=== PATIENT | female | born 1995 | race Caucasian/White ===

== ENCOUNTER → 2016-09-29 | Outpatient (CLI) | payer OTHER ==
[~2016-09-29] MED LIST: BCPILLS PO; CTP1X PO; CYM60 PO; HYDR1CAP85 PO; NRN300 PO
[2016-09-29 13:23] LABS: C-REACTIVE PROTEIN < 0.29 mg/dl (0-0.29); RHEUMATOID FACTOR < 10.0 U/mL (0-15)
== END | disposition home or self-care (01) ==
LOC: C.LAB1850 11:55
PROVIDERS: ATTEND Internal Medicine
DX: M25.551 Pain in right hip (principal); M25.552 Pain in left hip

== ENCOUNTER 2017-10-06 10:06 | Emergency (ER) | payer OTHER ==
[~2017-10-06] VITALS: Ht 162.6 cm; Wt 69.1 kg
[2017-10-06 10:20] VITALS: TEMP 36.9; Ht 162.6 cm; Wt 69.1 kg
--- NOTE | 2017-10-06 10:35 | EMERGENCY ROOM VISIT NOTE ---
History Report prepared by Judd: Mone Mccallum Under the Supervision of: Dr. Keshawn Pak M.D. First contact with patient: 10:23 Chief Complaint: ABDOMINAL PAIN Stated Complaint: RIB PAIN,NAUSEA, POSSIBLE GALL BLADDER History of Present Illness The patient is a 21 year old female who presents to the Emergency Room with complaints of sharp and constant pain in her RUQ beginning this morning. She reports she went to [facility] who sent her here. She states that when she takes a deep breath, she feels the pain radiating to her back. She currently has nausea but denies any chance of and is currently on control. She reports she typically gets her period every 3 months and her LNMP was in 2 months ago. Source of History: patient Onset: this morning Position: abdomen (RUQ) Quality: sharp Timing: constant Modifying Factors (Worsening): breathing Associated Symptoms: + nausea, + back pain Note: Negative chance of . Review of Systems See HPI for pertinent positives & negatives. A total of 10 systems reviewed and were otherwise negative. Past Medical & Surgical Medical Problems: (1) Depression (2) Hypokalemia Family History FHx: cancer Social History Smoking Status: Never Smoker Alcohol Use: none Drug Use: none Marital Status: single Housing Status: lives with family Occupation Status: student Current/Historical Medications Scheduled Control Pills ( Control Pills), 1 TAB PO DAILY Ciprofloxacin Hcl (Cipro), 1 TAB PO BID Fluconazole (Diflucan), 150 MG PO TW Ondasetron Odt (Zofran Odt), 4 MG SL Q6H Allergies Coded Allergies: Sulfamethoxazole w/Trimethoprim (Verified Allergy, Intermediate, itching, 10/06/17) Sulfa Drugs (Unverified Allergy, Unknown, ITCHING, 10/06/17) Physical Exam Vital Signs Date Time Temp Pulse Resp B/P (MAP) Pulse Ox O2 Delivery O2 Flow Rate FiO2 10/06/17 12:54 71 117/69 98 Room Air 10/06/17 11:48 76 16 104/63 98 Room Air 10/06/17 10:50 84 10/06/17 10:20 36.9 90 16 116/71 96 Room Air Physical Exam GENERAL: Awake, alert, well-appearing, in no acute distress HENT: Normocephalic, atraumatic. Oropharynx unremarkable. EYES: Normal conjunctiva. Sclera non-icteric. NECK: Supple. No nuchal rigidity. FROM. No JVD. RESPIRATORY: Clear to auscultation. CARDIAC: Regular rate, normal rhythm. Extremities warm and well perfused. Pulses equal. ABDOMEN: Soft, non-distended. Nontender in the RUQ. No rebound or guarding. No masses. RECTAL: Deferred. MUSCULOSKELETAL: Chest examination reveals no tenderness. The back is symmetrical on inspection without obvious abnormality. There is no CVA tenderness to palpation. No joint edema. LOWER EXTREMITIES: Calves are equal size bilaterally and non-tender. No edema. No discoloration. NEURO: Normal sensorium. No sensory or motor deficits noted. SKIN: No rash or jaundice noted. Medical Decision & Procedures ER Provider Diagnostic Interpretation: Radiology results as stated below per my review and radiologist interpretation: ABDOMEN LIMITED (US) HISTORY: Pain. Nausea. Pt c/o RUQ abd pain. COMPARISON: None. FINDINGS: Pancreas: The pancreas demonstrates a normal echotexture. Liver: Unremarkable. Gallbladder: No gallbladder wall thickening. No gallstones. CBD: 3 mm Right kidney: No hydronephrosis. IMPRESSION: No significant abnormality identified within the within the right upper quadrant. The above report was generated using voice recognition software. It may contain grammatical, syntax or spelling errors. Electronically signed by: Jonny Jaquez M.D. 10/06/2017 11:45 AM Dictated Date/Time: 10/06/2017 11:44 AM SINGLE VIEW CHEST CLINICAL HISTORY: Right upper quadrant abdominal pain. FINDINGS: An AP, portable, upright chest radiograph is compared to study dated 09/05/2013. The examination is degraded by portable technique and patient rotation. The cardiomediastinal silhouette is unremarkable. The lungs and pleural spaces are clear. No pneumothorax is seen. The bony thorax is grossly intact. Bilateral nipple piercings are noted. IMPRESSION: No active disease in the chest. Electronically signed by: Tevin Oneill M.D. 10/06/2017 12:03 PM Dictated Date/Time: 10/06/2017 12:03 PM KUB HISTORY: Right upper quadrant abdominal pain. COMPARISON: Abdomen and pelvis CT 04/01/2010. FINDINGS: The bowel gas pattern is unremarkable. There are no dilated loops of small bowel to suggest an obstruction. No renal calculi. No ureteral calculi. Calcifications in the deep pelvis likely represent phleboliths. Small amount of well-formed stool seen throughout the colon. No pneumoperitoneum or pneumatosis. IMPRESSION: 1. No evidence for bowel obstruction. 2. Small amount of well-formed stool seen within the colon. Electronically signed by: Felipe Adams M.D. 10/06/2017 11:09 AM Dictated Date/Time: 10/06/2017 11:07 AM Laboratory Results 10/06/17 10:45 Red Blood Count 4.62, Mean Corpuscular Volume 84.2, Mean Corpuscular Hemoglobin 29.2, Mean Corpuscular Hemoglobin Concent 34.7, Mean Platelet Volume 8.7, Neutrophils (%) (Auto) 79.4, Lymphocytes (%) (Auto) 14.6, Monocytes (%) (Auto) 4.9, Eosinophils (%) (Auto) 0.6, Basophils (%) (Auto) 0.2, Neutrophils # (Auto) 13.83, Lymphocytes # (Auto) 2.55, Monocytes # (Auto) 0.85, Eosinophils # (Auto) 0.11, Basophils # (Auto) 0.03 10/06/17 10:45 Test 10/06/17 10:40 10/06/17 10:45 10/06/17 10:51 10/06/17 10:52 Urine Color YELLOW Urine Appearance CLOUDY (CLEAR) Urine pH 6.0 (4.5-7.5) Urine Specific [place] 1.025 (1.000-1.030) Urine Protein NEG (NEG) Urine Glucose (UA) NEG (NEG) Urine Ketones NEG (NEG) Urine Occult Blood TRACE (NEG) Urine Nitrite NEG (NEG) Urine Bilirubin NEG (NEG) Urine Urobilinogen NEG (NEG) Urine Leukocyte Esterase TRACE (NEG) Urine WBC (Auto) 5-10 /hpf (0-5) Urine RBC (Auto) 5-10 /hpf (0-4) Urine Hyaline Casts (Auto) 1-5 /lpf (0-5) Urine Epithelial Cells (Auto) >30 /lpf (0-5) Urine Bacteria (Auto) 1+ (NEG) Urine Test NEG (NEG) White Blood Count 17.42 K/uL (4.8-10.8) Red Blood Count 4.62 M/uL (4.2-5.4) Hemoglobin 13.5 g/dL (12.0-16.0) Hematocrit 38.9 % (37-47) Mean Corpuscular Volume 84.2 fL (80-100) Mean Corpuscular Hemoglobin 29.2 pg (25-34) Mean Corpuscular Hemoglobin Concent 34.7 g/dl (32-36) Platelet Count 379 K/uL (130-400) Mean Platelet Volume 8.7 fL (7.4-10.4) Neutrophils (%) (Auto) 79.4 % Lymphocytes (%) (Auto) 14.6 % Monocytes (%) (Auto) 4.9 % Eosinophils (%) (Auto) 0.6 % Basophils (%) (Auto) 0.2 % Neutrophils # (Auto) 13.83 K/uL (1.4-6.5) Lymphocytes # (Auto) 2.55 K/uL (1.2-3.4) Monocytes # (Auto) 0.85 K/uL (0.11-0.59) Eosinophils # (Auto) 0.11 K/uL (0-0.5) Basophils # (Auto) 0.03 K/uL (0-0.2) RDW Standard Deviation 39.3 fL (36.4-46.3) RDW Coefficient of Variation 13.0 % (11.5-14.5) Immature Granulocyte % (Auto) 0.3 % Immature Granulocyte # (Auto) 0.05 K/uL (0.00-0.02) Est Creatinine Clear Calc Drug Dose 102.7 ml/min Estimated GFR () 117.7 Estimated GFR (Non- 101.6 BUN/Creatinine Ratio 11.6 (10-20) Calcium Level 9.0 mg/dl (8.5-10.1) Total Bilirubin 0.4 mg/dl (0.2-1) Aspartate Amino Transf (AST/SGOT) 10 U/L (15-37) Alanine Aminotransferase (ALT/SGPT) 15 U/L (12-78) Alkaline Phosphatase 74 U/L (45-117) Total Protein 7.6 gm/dl (6.4-8.2) Albumin 3.7 gm/dl (3.4-5.0) Globulin 3.9 gm/dl (2.5-4.0) Albumin/Globulin Ratio 0.9 (0.9-2) Bedside D-Dimer 278 ng/mlFEU (0-450) Bedside Hemoglobin 13.9 g/dl (12.0-16.0) Bedside Hematocrit 41 % (37-47) Bedside Sodium 140 mEq/L (135-144) Bedside Potassium 3.5 mEq/L (3.3-5.0) Bedside Chloride 103 mEq/L (101-112) Bedside Total CO2 22 mEq/l (24-31) Anion Gap 19.0 mmol/L (16-25) Bedside Blood Urea Nitrogen 9 mg/dl (7-18) Bedside Creatinine 0.7 mg/dl (0.6-1.3) Bedside Glucose (other) 102 mg/dl (70-99) Bedside Ionized Calcium (Kristine) 1.19 mmol/l (1.12-1.32) Labs reviewed by ED physician. Medications Administered Medications (Trade) Dose Ordered Sig/Christina Route Start Time Stop Time Status Last Admin Dose Admin Ceftriaxone Sodium (Rocephin Inj) 1 gm NOW STAT IV 10/06/17 11:08 10/06/17 11:11 DC 10/06/17 11:48 1 GM Sodium Chloride 1,000 ml @ 999 mls/hr Q1H1M STAT IV 10/06/17 11:10 10/06/17 12:10 DC 10/06/17 11:48 999 MLS/HR Ciprofloxacin (Cipro Tab) 500 mg NOW STAT PO 10/06/17 12:32 10/06/17 12:34 DC 10/06/17 13:23 500 MG Fluconazole (Diflucan Tab) 150 mg NOW STAT PO 10/06/17 12:32 10/06/17 12:34 DC 10/06/17 13:23 150 MG Magnesium Citrate (Citrate Of Magnesia Soln) 296 ml NOW STAT PO 10/06/17 12:32 10/06/17 12:34 DC 10/06/17 13:23 296 ML Ondansetron HCl (Zofran Odt) 4 mg STK-MED ONCE .ROUTE 10/06/17 13:16 10/06/17 13:17 DC 10/06/17 13:23 4 MG ECG Per My Interpretation Indication: abdominal pain Rate (beats per minute): 85 Rhythm: normal sinus Findings: no ectopy, other (no ST elevation or depression ) ED Course 1027: Past medical records reviewed. The patient was evaluated in room B10. A complete history and physical examination was performed. 1108: Rocephin Inj 1 gm IV 1110: Sodium Chloride 1000 ml @ 999 mls/hr IV 1232: Magnesium Citrate 296 ml PO Fluconazole 150 mg PO Zofran Inj 4 mg IV Cipro Tab 500 mg PO 1253: Upon reexamination the patient is agreeable and feeling better. I discussed results and treatment plan with the patient. She verbalizes agreement and understanding. The patient is ready for discharge. Medical Decision Differential diagnosis: Etiologies such as appendicitis, diverticulitis, PUD, biliary pathology, UTI, pancreatitis, obstruction, mesenteric ischemia, aortic pathology, infections, inflammatory bowel disease, renal colic, as well as others were entertained. This is a 21-year-old female that presents to emergency department complaining of right upper quadrant abdominal pain. The patient reports that hurts to take a deep breath and she is also on control. However she has a normal d- dimer with no evidence of pleural effusion on chest x-ray therefore my suspicion of PE is exceedingly low. The patient was sent for an ultrasound of her right upper quadrant along with her right kidney. I do suspect that this is a kidney infection as upon reexamination she is tender to the right CVA area. She also has an elevation in her white blood cell count and appears to have a large amount of white blood cells in her urine. The patient was started on Rocephin here in the emergency department and will be placed on Cipro pending urine culture results. The patient was also given Diflucan as she has a history of yeast infections. I stressed the need to return to the emergency department if she is unable to keep her medications down or she develops severe abdominal pain. I also offered to do a CAT scan for the patient however using shared medical decision making, the patient would like to try antibiotics at home. Patient was in agreement with the treatment plan. Medication Reconcilliation Current Medication List: was personally reviewed by me Blood Pressure Screening Patient's blood pressure: Normal blood pressure Blood pressure disposition: Did not require urgent referral Impression Primary Impression: Abdominal pain Additional Impression: UTI (urinary tract infection) Scribe Attestation The scribe's documentation has been prepared under my direction and personally reviewed by me in its entirety. I confirm that the note above accurately reflects all work, treatment, procedures, and medical decision making performed by me. Departure Information Dispostion Home / Self-Care Prescriptions Fluconazole (DIFLUCAN) 150 Mg Tab 150 MG PO TW, #3 TAB Prov: Keshawn Pak MD 10/06/17 Ondasetron Odt (ZOFRAN ODT) 4 Mg Tab 4 MG SL Q6H for Nausea, #6 TAB Prov: Keshawn Pak MD 10/06/17 Ciprofloxacin Hcl (CIPRO) 500 Mg Tab 1 TAB PO BID for 10 Days, #20 TAB Prov: Keshawn Pak MD 10/06/17 Referrals RV. Kang MD (PCP) Forms HOME CARE DOCUMENTATION FORM, IMPORTANT VISIT INFORMATION Patient Instructions [facility] Additional Instructions Take 1/2 bottle of Mag Citrate Repeat second half in six hours Must return if pain is out of control or uncontrolled vomiting Take 600 mg Ibuprofen every 6 hours for pain/fever Take 1000 mg Tylenol every 6 hours for pain/fever Culture results are usually available in approx 48 hours You have been examined and treated today on an emergency basis only. This is not a substitute for, or an effort to provide, complete comprehensive medical care. It is impossible to recognize and treat all injuries or illnesses in a single emergency department visit. It is therefore important that you follow up closely with Dr Young. Call as soon as possible for an appointment. Thank you for your time and consideration. I look forward to speaking with you again soon. Please don't hesitate to call us if you have any questions. Problem Qualifiers Primary Impression: Abdominal pain Abdominal location: unspecified location Qualified Codes: R10.9 - Unspecified abdominal pain Additional Impression: UTI (urinary tract infection) Urinary tract infection type: acute cystitis Hematuria presence: without hematuria Qualified Codes: N30.00 - Acute cystitis without hematuria
[2017-10-06 11:04] LABS: BASO % 0.2 %; BASO ABS # 0.03 K/uL (0-0.2); EOS % 0.6 %; EOS ABS # 0.11 K/uL (0-0.5); HEMATOCRIT 38.9 % (37-47); HEMOGLOBIN 13.5 g/dL (12.0-16.0); IG# 0.05 K/uL (0.00-0.02); LYMPH % 14.6 %; LYMPH ABS # 2.55 K/uL (1.2-3.4); MEAN CELL VOLUME 84.2 fL (80-100); MEAN CORPUSCULAR HEMOGLOBIN 29.2 pg (25-34); MEAN CORPUSCULAR HGB CONC 34.7 g/dl (32-36); MEAN PLATELET VOLUME 8.7 fL (7.4-10.4); MONO % 4.9 %; MONO ABS # 0.85 K/uL (0.11-0.59); NEUT % 79.4 %; NEUT ABS # 13.83 K/uL (1.4-6.5); PLATELET COUNT 379 K/uL (130-400); RED CELL DISTRIBUTION WIDTH SD 39.3 fL (36.4-46.3); WHITE BLOOD COUNT 17.42 K/uL (4.8-10.8)
[2017-10-06 11:05] LABS: ISTAT CREATININE 0.7 mg/dl (0.6-1.3); ISTAT IONIZED CALCIUM 1.19 mmol/l (1.12-1.32); ISTAT POTASSIUM 3.5 mEq/L (3.3-5.0)
[2017-10-06] MEDS ORDERED: CEFTRIAXONE SOD INJ 1 GM ADDVIAL IV STA (11:08)
[2017-10-06] MEDS ORDERED: SODIUM CHLORIDE 0.9% 1000ML 1,000 ML IV STA (11:10)
--- NOTE | 2017-10-06 11:11 | DIAGNOSTIC IMAGING REPORT ---
KUB HISTORY: Right upper quadrant abdominal pain. COMPARISON: Abdomen and pelvis CT 04/01/2010. FINDINGS: The bowel gas pattern is unremarkable. There are no dilated loops of small bowel to suggest an obstruction. No renal calculi. No ureteral calculi. Calcifications in the deep pelvis likely represent phleboliths. Small amount of well-formed stool seen throughout the colon. No pneumoperitoneum or pneumatosis. IMPRESSION: 1. No evidence for bowel obstruction. 2. Small amount of well-formed stool seen within the colon. Electronically signed by: Felipe Adams M.D. 10/06/2017 11:09 AM Dictated Date/Time: 10/06/2017 11:07 AM
[2017-10-06 11:26] LABS: CREATININE 0.82 mg/dl (0.60-1.20)
[2017-10-06 11:27] LABS: ALBUMIN 3.7 gm/dl (3.4-5.0); POTASSIUM 3.4 mmol/L (3.5-5.1)
[2017-10-06 11:29] LABS: TOTAL PROTEIN 7.6 gm/dl (6.4-8.2)
--- NOTE | 2017-10-06 11:46 | DIAGNOSTIC IMAGING REPORT ---
ABDOMEN LIMITED (US) HISTORY: Pain. Nausea. Pt c/o RUQ abd pain. COMPARISON: None. FINDINGS: Pancreas: The pancreas demonstrates a normal echotexture. Liver: Unremarkable. Gallbladder: No gallbladder wall thickening. No gallstones. CBD: 3 mm Right kidney: No hydronephrosis. IMPRESSION: No significant abnormality identified within the within the right upper quadrant. The above report was generated using voice recognition software. It may contain grammatical, syntax or spelling errors. Electronically signed by: Jonny Jaquez M.D. 10/06/2017 11:45 AM Dictated Date/Time: 10/06/2017 11:44 AM
--- NOTE | 2017-10-06 12:04 | DIAGNOSTIC IMAGING REPORT ---
SINGLE VIEW CHEST CLINICAL HISTORY: Right upper quadrant abdominal pain. FINDINGS: An AP, portable, upright chest radiograph is compared to study dated 09/05/2013. The examination is degraded by portable technique and patient rotation. The cardiomediastinal silhouette is unremarkable. The lungs and pleural spaces are clear. No pneumothorax is seen. The bony thorax is grossly intact. Bilateral nipple piercings are noted. IMPRESSION: No active disease in the chest. Electronically signed by: Tevin Oneill M.D. 10/06/2017 12:03 PM Dictated Date/Time: 10/06/2017 12:03 PM
[2017-10-06] MEDS ORDERED: FLUCONAZOLE 100 MG TAB PO STA (12:32)
[2017-10-06] MEDS ORDERED: ONDANSETRON INJ 2 MG/ML 2 ML VIAL IV STA (12:32)
[2017-10-06] MEDS ORDERED: MAGNESIUM CITRATE 296 ML/BTL PO STA (12:32)
[2017-10-06] MEDS ORDERED: CIPROFLOXACIN 500 MG TAB PO STA (12:32)
[2017-10-06] MEDS ORDERED: ONDA4TAB10 SL (12:41)
[2017-10-06] MEDS ORDERED: FLUC150T PO (12:41)
[2017-10-06] MEDS ORDERED: CIPR-255 PO (12:41)
[2017-10-06 12:54] VITALS: BP 117/69; PULSE 71; O2SAT 98
[2017-10-06] MEDS ORDERED: ONDANSETRON 4MG OD TAB ONE (13:16)
== END 2017-10-06 13:23 | disposition home or self-care (01) ==
LOC: C.EDB 10:08
DX: R10.11 Right upper quadrant pain (principal); N30.00 Acute cystitis without hematuria; F32.9 Major depressive disorder, single episode, unspecified; E87.6 Hypokalemia; Z80.9 Family history of malignant neoplasm, unspecified; Z79.3 Long term (current) use of hormonal contraceptives; Z88.2 Allergy status to sulfonamides

== ENCOUNTER → 2017-11-01 | Outpatient (CLI) | payer OTHER ==
[~2017-11-01] MED LIST changes: +CIPR-255 PO; -CTP1X PO; -CYM60 PO; -HYDR1CAP85 PO; -NRN300 PO; +ONDA4TAB10 SL
[2017-11-01 09:38] LABS: BASO % 0.2 %; BASO ABS # 0.02 K/uL (0-0.2); EOS % 2.9 %; EOS ABS # 0.31 K/uL (0-0.5); HEMATOCRIT 37.1 % (37-47); HEMOGLOBIN 12.7 g/dL (12.0-16.0); IG# 0.02 K/uL (0.00-0.02); LYMPH % 24.3 %; MEAN CELL VOLUME 85.3 fL (80-100); MEAN CORPUSCULAR HEMOGLOBIN 29.2 pg (25-34); MEAN CORPUSCULAR HGB CONC 34.2 g/dl (32-36); MEAN PLATELET VOLUME 9.7 fL (7.4-10.4); MONO % 6.3 %; MONO ABS # 0.68 K/uL (0.11-0.59); NEUT % 66.1 %; NEUT ABS # 7.09 K/uL (1.4-6.5); PLATELET COUNT 389 K/uL (130-400); RED CELL DISTRIBUTION WIDTH CV 13.1 % (11.5-14.5); RED CELL DISTRIBUTION WIDTH SD 40.9 fL (36.4-46.3); WHITE BLOOD COUNT 10.72 K/uL (4.8-10.8)
[2017-11-01 09:48] LABS: ALBUMIN 3.4 gm/dl (3.4-5.0); ALT/SGPT 13 U/L (12-78); AST/SGOT 9 U/L (15-37); BLOOD UREA NITROGEN 12 mg/dl (7-18); CALCIUM 8.7 mg/dl (8.5-10.1); CARBON DIOXIDE 24 mmol/L (21-32); CHOLESTEROL 185 mg/dl (0-200); CREATININE 0.67 mg/dl (0.60-1.20); GLUCOSE 87 mg/dl (70-99); POTASSIUM 3.7 mmol/L (3.5-5.1); SODIUM 136 mmol/L (136-145)
[2017-11-01 09:56] LABS: ALKALINE PHOSPHATASE 62 U/L (45-117); LDL CHOLESTEROL CALCULATED 120 mg/dl; TOTAL PROTEIN 7.1 gm/dl (6.4-8.2)
== END | disposition home or self-care (01) ==
LOC: C.LAB1850 06:52
PROVIDERS: ATTEND Internal Medicine
DX: D72.829 Elevated white blood cell count, unspecified (principal); R10.11 Right upper quadrant pain; F39 Unspecified mood [affective] disorder; Z13.220 Encounter for screening for lipoid disorders

== ENCOUNTER → 2017-12-06 | Outpatient (CLI) | payer OTHER | END | disposition home or self-care (01) | LOC: C.LABSPEC 10:53 | PROVIDERS: ATTEND Obstetrics & Gynecology | DX: Z11.3 Encounter for screening for infections with a predominantly sexual mode of transmission (principal) ==

== ENCOUNTER 2017-12-19 18:00 | Observation (INO) | payer OTHER ==
[~2017-12-19] VITALS: Ht 162.6 cm; Wt 70.0 kg
[2017-12-19] MEDS ORDERED: SODIUM CHLORIDE 0.9% 1000ML 1,000 ML IV STA ×2 (18:16→20:30)
--- NOTE | 2017-12-19 18:21 | EMERGENCY ROOM VISIT NOTE ---
History Report prepared by Judd: Aniceto Rudolph Under the Supervision of: Dr. Kodak Stallings M.D. First contact with patient: 18:08 Chief Complaint: NECK PAIN Stated Complaint: SWOLLEN NECK VERY SORE History of Present Illness The patient is a 21 year old female who presents to the Emergency Room with complaints of constant right-sided neck swelling beginning three days ago. The patient states she felt it was tender, but she did not notice the swelling until her significant other noticed it. She reports breathing in deeply increases her symptoms. The patient notes she felt like she slept on it wrong, so she did not get evaluated until today. She states she was evaluated by [facility] earlier, was sent to her PCP, and then sent to the ED. The patient reports she takes Lamictal and was just started on Ativan for anxiety and sleeping purposes. She notes she takes it once a day. The patient denies chest pain, fevers, swelling in her legs, pain in her teeth, pain in her jaw, lumps anywhere else, recent injury, and recent falls. She also denies a family history of thyroid problem or throat cancers. Source of History: patient Onset: three days ago Position: neck (right side) Quality: other (swelling) Timing: constant Modifying Factors (Worsening): breathing (deeply) Associated Symptoms: No fevers, No chest pain Note: Denies: pain in her teeth, pain in her jaw, lumps anywhere else, recent injury, swelling in her legs, and recent falls. Review of Systems See HPI for pertinent positives & negatives. A total of 10 systems reviewed and were otherwise negative. Past Medical & Surgical Medical Problems: (1) Depression (2) Hypokalemia Family History FHx: cancer Social History Smoking Status: Former Smoker Alcohol Use: none Drug Use: none Marital Status: single Housing Status: lives with family Occupation Status: student Current/Historical Medications Scheduled Control Pills ( Control Pills), 1 TAB PO DAILY Lamotrigine (Lamictal), 25 MG PO DAILY Lorazepam (Ativan), 1 MG PO HS Allergies Coded Allergies: Sulfamethoxazole w/Trimethoprim (Verified Allergy, Intermediate, itching, 12/19/17) Sulfa Drugs (Verified Allergy, Unknown, ITCHING, 12/19/17) Physical Exam Vital Signs Date Time Temp Pulse Resp B/P (MAP) Pulse Ox O2 Delivery O2 Flow Rate FiO2 5/22/18 20:58 95 18 122/69 98 Room Air 12/19/17 19:41 84 16 90/73 100 Room Air 12/19/17 18:04 36.9 107 20 125/69 97 Room Air Physical Exam GENERAL: Patient is anxious appearing and in mild distress. EYES: No scleral icterus, unremarkable pupils. ENT: Mucous membranes moist, no nasal congestion. Slightly irregular soft mass over the mid-lateral right clavicle which is moderately tender to palpation. No overlying erythema. Extends up the neck several centimeters. NECK: No masses appreciated, no meningismus, trachea is midline. RESPIRATORY: No dyspnea. Clear to auscultation and equal bilaterally. No wheeze , no rhonchi. CARDIOVASCULAR: Mild tachycardia rate and regular rhythm. No murmurs, rubs, gallops appreciated. GASTROINTESTINAL: Abdomen soft, nontender, no peritonitis. Bowel sounds positive. No masses appreciated. BACK: No midline tenderness, no CVA tenderness EXTREMITIES: Normal motion all extremities, no cyanosis, no edema. NEUROLOGIC: Alert and oriented, no acute motor or sensory deficits, no focal weakness, cranial nerves grossly intact. SKIN: No rash, no jaundice, no diaphoresis. Medical Decision & Procedures ER Provider Diagnostic Interpretation: CT results as stated below per interpretation by me and the radiologist: SOFT TISSUE NECK WITH CLINICAL HISTORY: 21 years-old Female presenting with Swelling over mid/lateral portion rt clavicle extending up neck. TECHNIQUE: Multidetector CT of the neck was performed after the administration of intravenous contrast. IV contrast: 93 mL of Optiray 320. A dose lowering technique was used consistent with the principles of ALARA (as low as reasonably achievable). COMPARISON: None. CT DOSE (mGy.cm): The estimated cumulative dose is 459.97 mGycm. FINDINGS: Shopper Marketing Manager topogram: Unremarkable. A marker is in place over the right base of the neck. Subjacent to this, minimal subcutaneous edema and skin thickening noted. No thickening of the platysma muscle. There is significant right supraclavicular lymphadenopathy. One index lymph node measures 3.3 x 2.1 cm (series 3 image 182). A second index lymph node measures 2.6 x 1.9 cm (series 3 image 168). There is also an enlarged and suspicious-appearing lymph node in the left supraclavicular fossa though this is subcentimeter in the short axis measuring 9 mm (series 3 image 179). The axilla are only partially visualized and are grossly normal though incompletely evaluated. There is also significant mediastinal lymphadenopathy with large conglomerate right paratracheal lymph nodes with involvement of all the visualized mediastinal regions. Again this is incompletely evaluated. Lung apices clear. Osseous structures normal. Limited intracranial evaluation normal. Paranasal sinuses and mastoid air cells clear. Vasculature patent. Airway patent. Parotid, submandibular, and thyroid glands normal apart from a diminutive right thyroid lobe nodule (series 3 image 152). IMPRESSION: Significant right supraclavicular and mediastinal lymphadenopathy, which is highly concerning for lymphoma or metastatic disease. The left supraclavicular region may also be involved. The mediastinum is incompletely evaluated and dedicated chest CT is recommended. The report will be called/faxed according to standard departmental protocol. Electronically signed by: Santo Rascon M.D. 12/19/2017 7:46 PM Dictated Date/Time: 12/19/2017 7:42 PM Laboratory Results 12/19/17 18:45 Red Blood Count 4.12, Mean Corpuscular Volume 83.7, Mean Corpuscular Hemoglobin 28.6, Mean Corpuscular Hemoglobin Concent 34.2, Mean Platelet Volume 8.6, Neutrophils (%) (Auto) 76.1, Lymphocytes (%) (Auto) 16.8, Monocytes (%) (Auto) 5.5, Eosinophils (%) (Auto) 1.2, Basophils (%) (Auto) 0.1, Neutrophils # (Auto) 13.85, Lymphocytes # (Auto) 3.06, Monocytes # (Auto) 1.00, Eosinophils # (Auto) 0.21, Basophils # (Auto) 0.02 12/19/17 18:45 Test 12/19/17 18:45 12/19/17 18:50 White Blood Count 18.20 K/uL (4.8-10.8) Red Blood Count 4.12 M/uL (4.2-5.4) Hemoglobin 11.8 g/dL (12.0-16.0) Hematocrit 34.5 % (37-47) Mean Corpuscular Volume 83.7 fL (80-100) Mean Corpuscular Hemoglobin 28.6 pg (25-34) Mean Corpuscular Hemoglobin Concent 34.2 g/dl (32-36) Platelet Count 441 K/uL (130-400) Mean Platelet Volume 8.6 fL (7.4-10.4) Neutrophils (%) (Auto) 76.1 % Lymphocytes (%) (Auto) 16.8 % Monocytes (%) (Auto) 5.5 % Eosinophils (%) (Auto) 1.2 % Basophils (%) (Auto) 0.1 % Neutrophils # (Auto) 13.85 K/uL (1.4-6.5) Lymphocytes # (Auto) 3.06 K/uL (1.2-3.4) Monocytes # (Auto) 1.00 K/uL (0.11-0.59) Eosinophils # (Auto) 0.21 K/uL (0-0.5) Basophils # (Auto) 0.02 K/uL (0-0.2) RDW Standard Deviation 38.3 fL (36.4-46.3) RDW Coefficient of Variation 12.6 % (11.5-14.5) Immature Granulocyte % (Auto) 0.3 % Immature Granulocyte # (Auto) 0.06 K/uL (0.00-0.02) Erythrocyte Sedimentation Rate 46 mm/hr (0-21) Est Creatinine Clear Calc Drug Dose 116.3 ml/min Estimated GFR () 133.3 Estimated GFR (Non- 115.0 BUN/Creatinine Ratio 13.6 (10-20) Calcium Level 8.6 mg/dl (8.5-10.1) Lactate Dehydrogenase 218 U/L (84-246) C-Reactive Protein 7.47 mg/dl (0-0.29) Bedside Hemoglobin 11.9 g/dl (12.0-16.0) Bedside Hematocrit 35 % (37-47) Bedside Sodium 138 mEq/L (135-144) Bedside Potassium 3.5 mEq/L (3.3-5.0) Bedside Chloride 102 mEq/L (101-112) Bedside Total CO2 24 mEq/l (24-31) Anion Gap 17.0 mmol/L (16-25) Bedside Blood Urea Nitrogen 9 mg/dl (7-18) Bedside Creatinine 0.7 mg/dl (0.6-1.3) Bedside Glucose (other) 83 mg/dl (70-99) Bedside Ionized Calcium (Kristine) 1.14 mmol/l (1.12-1.32) Laboratory results as reviewed by me. Medications Administered Medications (Trade) Dose Ordered Sig/Christina Route Start Time Stop Time Status Last Admin Dose Admin Sodium Chloride 1,000 ml @ 999 mls/hr Q1H1M STAT IV 12/19/17 18:16 12/19/17 19:16 DC 12/19/17 19:03 999 MLS/HR Ketorolac Tromethamine (Toradol Inj) 30 mg NOW STAT IV 12/19/17 19:14 12/19/17 19:16 DC 12/19/17 19:39 30 MG Sodium Chloride 1,000 ml @ 999 mls/hr Q1H1M STAT IV 12/19/17 20:30 12/19/17 21:30 DC 12/19/17 20:52 999 MLS/HR Lorazepam (Ativan Inj) 1 mg NOW STAT IV 12/19/17 21:01 12/19/17 21:02 DC 12/19/17 21:19 1 MG ED Course 1810: The patient was evaluated in room B06. A complete history and physical exam was performed. 1914: The patient is asking for something non-narcotic for pain. 1956: I discussed the patient's case with Dr. Landin, Hematology/Oncology. He states the patient should be evaluated by medicine and have general surgery consulted. 2007: I discussed the patient's case with Dr. Mijares, General Surgery. He states he can do an incisional biopsy tomorrow when the patient is in the hospital. 2016: Upon reevaluation, the patient is resting. I had a long discussion with the patient concerning for Lymphoma. I discussed the patient of care, and she is agreeable to a hospitalist evaluation. I further discussed the patient's case with her mother over the phone. She verbalized understanding and agreement with the treatment plan. The patient will be evaluated for further management. 2031: I discussed the patient's case with Dr. Sandoval, [facility] Hospitalist. The patient will be evaluated for further management. Medical Decision 21 yr old female arrives for evaluation of right supraclavicular mass. Labs with modest WBC elevation and CRP. Sent for CT given concerns which reveals extensive lymphadenopathy extending in to mediastinum. Feeling better with toradol/fluids. Reviewed with Heme and added on CT C/A/P and ESR/LDH. Discussed with gen surg who asked I put him on schedule for excisional biopsy tomorrow. Long discussion with family and patient regarding findings and concerns for CA. Will need more definitive work-up but given extent of lymphadenopathy clearly will plan on bringing in for further work-up and evaluation. WBC is elevated though without fevers and after discussing with onc will hold off on cultures. Hold off on smear as well given she will be having biopsy. She is stable, breathing comfortably without any evidence of tracheal compression by exam. Pending CT c/a/p at time of admission. No neuro deficits thus hold on brain imaging. Medication Reconcilliation Current Medication List: was personally reviewed by me Blood Pressure Screening Patient's blood pressure: Normal blood pressure Blood pressure disposition: Did not require urgent referral Consults Time Called: 1951 Consulting Physician: Dr. Landin, Hematology/Oncology Returned Call: 1956 I discussed the patient's case with Dr. Landin, Hematology/Oncology. He states the patient should be evaluated by medicine and have general surgery consulted. Additional Consults: Time Called: 2001 Consulted Physician: Dr. Mijares, General Surgery Returned Call: 2007 Additional Comments: I discussed the patient's case with Dr. Mijares, General Surgery. He states he can do an incisional biopsy tomorrow when the patient is in the hospital. Consulted Physician: Dr. Sandoval, [facility] Hospitalist Returned Call: 2031 Additional Comments: I discussed the patient's case with Dr. Sandoval, [facility] Hospitalist. The patient will be evaluated for further management. Impression Primary Impression: Mediastinal lymphadenopathy Additional Impressions: Supraclavicular lymphadenopathy Leukocytosis Scribe Attestation The scribe's documentation has been prepared under my direction and personally reviewed by me in its entirety. I confirm that the note above accurately reflects all work, treatment, procedures, and medical decision making performed by me. Departure Information Dispostion Being Evaluated By Hospitalist Referrals RV. Kang MD (PCP) Patient Instructions My [facility] Problem Qualifiers
[2017-12-19] MEDS ORDERED: OPTIRAY 320 IV PRN ×2 (18:30→20:45)
[2017-12-19] MEDS ORDERED: ATV/1 PO (18:33)
[2017-12-19] MEDS ORDERED: LAMO25TA PO (18:33)
[2017-12-19 18:55] LABS: BASO % 0.1 %; BASO ABS # 0.02 K/uL (0-0.2); EOS % 1.2 %; EOS ABS # 0.21 K/uL (0-0.5); HEMATOCRIT 34.5 % (37-47); HEMOGLOBIN 11.8 g/dL (12.0-16.0); IG# 0.06 K/uL (0.00-0.02); LYMPH % 16.8 %; LYMPH ABS # 3.06 K/uL (1.2-3.4); MEAN CELL VOLUME 83.7 fL (80-100); MEAN CORPUSCULAR HEMOGLOBIN 28.6 pg (25-34); MEAN CORPUSCULAR HGB CONC 34.2 g/dl (32-36); MEAN PLATELET VOLUME 8.6 fL (7.4-10.4); MONO % 5.5 %; NEUT % 76.1 %; NEUT ABS # 13.85 K/uL (1.4-6.5); PLATELET COUNT 441 K/uL (130-400); RED CELL DISTRIBUTION WIDTH CV 12.6 % (11.5-14.5); RED CELL DISTRIBUTION WIDTH SD 38.3 fL (36.4-46.3)
[2017-12-19 19:03] LABS: ISTAT CREATININE 0.7 mg/dl (0.6-1.3); ISTAT IONIZED CALCIUM 1.14 mmol/l (1.12-1.32); ISTAT POTASSIUM 3.5 mEq/L (3.3-5.0)
[2017-12-19 19:12] LABS: CALCIUM 8.6 mg/dl (8.5-10.1); CREATININE 0.74 mg/dl (0.60-1.20); POTASSIUM 3.5 mmol/L (3.5-5.1)
[2017-12-19] MEDS ORDERED: KETOROLAC TROMETHAMINE 30 MG/ML VIAL IV STA (19:14)
--- NOTE | 2017-12-19 19:47 | DIAGNOSTIC IMAGING REPORT ---
SOFT TISSUE NECK WITH CLINICAL HISTORY: 21 years-old Female presenting with Swelling over mid/lateral portion rt clavicle extending up neck. TECHNIQUE: Multidetector CT of the neck was performed after the administration of intravenous contrast. IV contrast: 93 mL of Optiray 320. A dose lowering technique was used consistent with the principles of ALARA (as low as reasonably achievable). COMPARISON: None. CT DOSE (mGy.cm): The estimated cumulative dose is 459.97 mGycm. FINDINGS: Glass Enamel Mixer topogram: Unremarkable. A marker is in place over the right base of the neck. Subjacent to this, minimal subcutaneous edema and skin thickening noted. No thickening of the platysma muscle. There is significant right supraclavicular lymphadenopathy. One index lymph node measures 3.3 x 2.1 cm (series 3 image 182). A second index lymph node measures 2.6 x 1.9 cm (series 3 image 168). There is also an enlarged and suspicious-appearing lymph node in the left supraclavicular fossa though this is subcentimeter in the short axis measuring 9 mm (series 3 image 179). The axilla are only partially visualized and are grossly normal though incompletely evaluated. There is also significant mediastinal lymphadenopathy with large conglomerate right paratracheal lymph nodes with involvement of all the visualized mediastinal regions. Again this is incompletely evaluated. Lung apices clear. Osseous structures normal. Limited intracranial evaluation normal. Paranasal sinuses and mastoid air cells clear. Vasculature patent. Airway patent. Parotid, submandibular, and thyroid glands normal apart from a diminutive right thyroid lobe nodule (series 3 image 152). IMPRESSION: Significant right supraclavicular and mediastinal lymphadenopathy, which is highly concerning for lymphoma or metastatic disease. The left supraclavicular region may also be involved. The mediastinum is incompletely evaluated and dedicated chest CT is recommended. The report will be called/faxed according to standard departmental protocol. Electronically signed by: Santo Rascon M.D. 12/19/2017 7:46 PM Dictated Date/Time: 12/19/2017 7:42 PM
[2017-12-19] MEDS ORDERED: LORAZEPAM 2 MG/ML 1 ML VIAL IV STA (21:01)
--- NOTE | 2017-12-19 21:16 | History and Physical ---
History & Physical Date & Time of Service: December 19, 2017 at 21:03 Chief Complaint: Swollen Neck Very Sore Primary Care Physician: RV. Kang MD History of Present Illness Source: patient 21 y/o F with history of anxiety and depression only. She presents with painful swollen nodes in her R neck. She also states that over the past 2 days she has had nausea and a few episodes of vomiting. She denies weight loss, night sweats, fatigue or general loss of appetite. A CT neck was ordered in the ER and revealed right supraclavicular and mediastinal lymphadenopathy which may be consistent with lymphoma. Past Medical/Surgical History 1) Depression 2) Anxiety Family History FHx: cancer Parents alive and well. Grandmother - history of ovarian CA Social History Does not drink or smoke - works in a [employer] Smoking Status: Former Smoker Drug Use: none Marital Status: single Occupational Status: student Allergies Coded Allergies: Sulfamethoxazole w/Trimethoprim (Verified Allergy, Intermediate, itching, 12/19/17) Sulfa Drugs (Verified Allergy, Unknown, ITCHING, 12/19/17) Home Medications Scheduled Control Pills ( Control Pills), 1 TAB PO DAILY Lamotrigine (Lamictal), 25 MG PO DAILY Lorazepam (Ativan), 1 MG PO HS Review of Systems Constitutional: No fever, No chills, No sweats Eyes: No worsening of vision ENT: No hearing loss, No nasal symptoms Respiratory: No cough, No sputum, No wheezing Cardiovascular: No chest pain, No orthopnea, No PND Abdomen: + nausea, + vomiting, No pain Musculoskeletal: No joint pain Genitourinary - Female: No dysuria, No urinary frequency, No urinary urgency Neurologic: No memory loss, No paralysis, No weakness Hematologic / Lymphatic: + swollen lymph nodes, + problem reported Integumentary: No rash Allergic / Immunologic: No environmental allergies Physical Exam Vital Signs Date Time Temp Pulse Resp B/P (MAP) Pulse Ox O2 Delivery O2 Flow Rate FiO2 12/19/17 20:58 95 18 122/69 98 Room Air 12/19/17 19:41 84 16 90/73 100 Room Air 12/19/17 18:04 36.9 107 20 125/69 97 Room Air General Appearance: WD/WN, no apparent distress Head: normocephalic Eyes: normal inspection ENT: + pertinent finding (Lymph nodes are palpable in R neck) Cardiovascular: regular rate, rhythm, no edema, no gallop Abdomen/GI: normal bowel sounds, non tender, soft Back: normal inspection, no CVA tenderness Extremities/Musculoskelatal: normal inspection, no calf tenderness, normal capillary refill Neurologic/Psych: planetarium sky show technician II-XII nml as tested, no motor/sensory deficits, alert, oriented x 3 Skin: normal color, warm/dry, no rash Diagnostics Laboratory Results Results Past 24 Hours Test 12/19/17 18:45 12/19/17 18:50 12/19/17 20:30 Range/Units White Blood Count 18.20 4.8-10.8 K/uL Red Blood Count 4.12 4.2-5.4 M/uL Hemoglobin 11.8 12.0-16.0 g/dL Hematocrit 34.5 37-47 % Mean Corpuscular Volume 83.7 80-100 fL Mean Corpuscular Hemoglobin 28.6 25-34 pg Mean Corpuscular Hemoglobin Concent 34.2 32-36 g/dl Platelet Count 441 130-400 K/uL Mean Platelet Volume 8.6 7.4-10.4 fL Neutrophils (%) (Auto) 76.1 % Lymphocytes (%) (Auto) 16.8 % Monocytes (%) (Auto) 5.5 % Eosinophils (%) (Auto) 1.2 % Basophils (%) (Auto) 0.1 % Neutrophils # (Auto) 13.85 1.4-6.5 K/uL Lymphocytes # (Auto) 3.06 1.2-3.4 K/uL Monocytes # (Auto) 1.00 0.11-0.59 K/uL Eosinophils # (Auto) 0.21 0-0.5 K/uL Basophils # (Auto) 0.02 0-0.2 K/uL RDW Standard Deviation 38.3 36.4-46.3 fL RDW Coefficient of Variation 12.6 11.5-14.5 % Immature Granulocyte % (Auto) 0.3 % Immature Granulocyte # (Auto) 0.06 0.00-0.02 K/uL Erythrocyte Sedimentation Rate 46 0-21 mm/hr Sodium Level 137 136-145 mmol/L Potassium Level 3.5 3.5-5.1 mmol/L Chloride Level 105 98-107 mmol/L Carbon Dioxide Level 26 21-32 mmol/L Anion Gap 6.0 17.0 16-25 mmol/L Blood Urea Nitrogen 10 7-18 mg/dl Creatinine 0.74 0.60-1.20 mg/dl Est Creatinine Clear Calc Drug Dose 116.3 ml/min Estimated GFR () 133.3 Estimated GFR (Non- 115.0 BUN/Creatinine Ratio 13.6 10-20 Random Glucose 79 70-99 mg/dl Calcium Level 8.6 8.5-10.1 mg/dl C-Reactive Protein 7.47 0-0.29 mg/dl Bedside Hemoglobin 11.9 12.0-16.0 g/dl Bedside Hematocrit 35 37-47 % Bedside Sodium 138 135-144 mEq/L Bedside Potassium 3.5 3.3-5.0 mEq/L Bedside Chloride 102 101-112 mEq/L Bedside Total CO2 24 24-31 mEq/l Bedside Blood Urea Nitrogen 9 7-18 mg/dl Bedside Creatinine 0.7 0.6-1.3 mg/dl Bedside Glucose (other) 83 70-99 mg/dl Bedside Ionized Calcium (Kristine) 1.14 1.12-1.32 mmol/l Diagnostic Radiology CT neck: Significant right supraclavicular and mediastinal lymphadenopathy, which is highly concerning for lymphoma or metastatic disease. The left supraclavicular region may also be involved. The mediastinum is incompletely evaluated and dedicated chest CT is recommended. Impression Assessment and Plan 21 y/o F with history of anxiety and depression only. She presents with painful swollen nodes in her R neck. She also states that over the past 2 days she has had nausea and a few episodes of vomiting. She denies weight loss, night sweats, fatigue or general loss of appetite. A CT neck was ordered in the ER and revealed right supraclavicular and mediastinal lymphadenopathy which may be consistent with lymphoma. 1) Lymphadenopathy - possible malignancy. Pt is scheduled for evaluation by oncology and a LN biopsy AM. Per request of oncology, we are pending a CT of the chest/abdomen/pelvis at the time of admission. 2) Nausea and vomiting - This may be unrelated and will be treated with fluids and antiemetics for the time being. 3) Anxiety, depression - cont Lamictal, Lorazepam Full code - SCDs total time for this admit including review of labs, meds, imaging, records - discussion with pt and ER attending 34 min Resuscitation Status VTE Prophylaxis Will order VTE Prophylaxis: Yes
[2017-12-19] MEDS ORDERED: POLYETHYLENE (MIRALAX) 17 GM PACK PO PRN (21:30)
[2017-12-19] MEDS ORDERED: ALUMINUM/MAGNESIUM/SIMETH (MAALOX MAX) 30 ML UDC PO PRN (21:30)
[2017-12-19] MEDS ORDERED: MAGNESIUM HYDROXIDE SUSP 30 ML UDC PO PRN (21:30)
[2017-12-19] MEDS ORDERED: ZOLPIDEM TARTRATE 5 MG TAB PO PRN (21:30)
[2017-12-19] MEDS ORDERED: ONDANSETRON INJ 2 MG/ML 2 ML VIAL IV PRN (21:30)
[2017-12-19 22:41] VITALS: BP 101/63; PULSE 86; TEMP 36.5; Ht 162.6 cm; Wt 70.0 kg
--- NOTE | 2017-12-19 22:42 | DIAGNOSTIC IMAGING REPORT ---
ABD/PELVIS IV CONTRAST ONLY CLINICAL HISTORY: 21 years-old Female presenting with Lymphoma evaluation. TECHNIQUE: Multidetector CT of the abdomen and pelvis was performed after the administration of intravenous contrast. IV contrast: 100 mL of Optiray 320. A dose lowering technique was used consistent with the principles of ALARA (as low as reasonably achievable). COMPARISON: 04/01/2010. CT DOSE (mGy.cm): The estimated cumulative dose is 497.35 mGy.cm. FINDINGS: Bench Chemist topogram: Unremarkable. Lung bases: Lungs and pleural spaces clear. Normal heart size. No pericardial or pleural effusion. Liver: Normal morphology. No liver lesion. Patent hepatic vasculature. Biliary: No intrahepatic or extrahepatic biliary ductal dilatation. Normal gallbladder. Pancreas: Normal. Spleen: Normal. Adrenal glands: Normal. Kidneys and ureters: Normal. No hydronephrosis. Bladder: Normal. Pelvic organs: Uterus and ovaries normal. Bowel: Normal. No bowel obstruction. Peritoneal cavity: No free fluid or intraperitoneal gas. Lymph nodes: No enlarged lymph nodes in the abdomen or pelvis. Vasculature: Aorta and IVC patent and normal in caliber. Abdominal wall: Normal. Musculoskeletal: Normal. IMPRESSION: 1. No intra-abdominal lymphadenopathy or other evidence of malignancy. No acute intra-abdominal pathology. Electronically signed by: Santo Rascon M.D. 12/19/2017 10:28 PM Dictated Date/Time: 12/19/2017 10:20 PM
--- NOTE | 2017-12-19 22:42 | DIAGNOSTIC IMAGING REPORT ---
CT (CHEST) THORAX WITH CLINICAL HISTORY: 21 years-old Female presenting with Lymphoma evaluation. TECHNIQUE: Multidetector CT imaging of the chest was performed after the administration of intravenous contrast. IV contrast: 100 mL of Optiray 320. A dose lowering technique was used consistent with the principles of ALARA (as low as reasonably achievable). COMPARISON: None. CT DOSE (mGy.cm): The estimated cumulative dose is 497.35. FINDINGS: Antenna Installer topogram: Unremarkable. On soft tissue windows, normal thyroid and thoracic inlet. Multiple pathologically enlarged lymph nodes in the supraclavicular fossae, right greater than left, and mediastinal lymphadenopathy. Mediastinal lymphadenopathy is primarily in the superior mediastinum extending into the right paratracheal and precarinal regions. Normal aorta. Normal heart size. No pericardial or pleural effusion. Upper abdomen normal. On lung windows, minimal dependent changes likely atelectasis. No other focal nodule or infiltrate. Airways patent. The trachea is mildly deviated and minimally narrowed secondary to mass effect from lymphadenopathy. On bone windows, normal osseous structures. IMPRESSION: 1. Lymphadenopathy in the supraclavicular fossae, right greater than left, and mediastinum. This is highly concerning for lymphoma or less likely metastatic disease from another malignancy. The right supraclavicular lymphadenopathy would likely be amenable to ultrasound-guided needle aspiration on a nonurgent basis. Electronically signed by: Santo Rascon M.D. 12/19/2017 10:20 PM Dictated Date/Time: 12/19/2017 10:14 PM
[2017-12-19] MEDS: TRAMADOL HCL 50 MG TAB PO PRN (23:15)
[2017-12-19] MEDS: ACETAMINOPHEN 325 MG TAB PO PRN (23:16)
[2017-12-19] MEDS ORDERED: IV FLUIDS COMPLETED PRN (23:30)
[2017-12-19] MEDS: D5NSS + 20MEQ KCL 1,000 ML IV SCH (23:36)
[2017-12-20] VITALS (8 sets, daily range): BP systolic 94–110; BP diastolic 62–70; PULSE 68–80; TEMP 37–37.1; O2SAT 95–99
[2017-12-20] MEDS: ACETAMINOPHEN 325 MG TAB PO PRN ×2 (06:09→13:20)
[2017-12-20] MEDS: D5NSS + 20MEQ KCL 1,000 ML IV SCH (07:27)
--- NOTE | 2017-12-20 07:34 | Family Medicine Progress Note ---
Progress Note Date of Service December 20, 2017. Subjective Pt evaluation today including: conversation w/ patient, conversation w/ family (Both parents) Found patient morning sitting up in bed, easily conversational, did not appear in any acute distress. She said that her neck continued to feel sore but otherwise she no other acute concerns. She did note recent history of some night sweats, but no weight loss, fevers, or generalized fatigue. No other acute concerns beyond knowing that she has a pending workup for her lymphadenopathy. No other acute concerns from parents as well. Constitutional: + sweats, No fever, No chills, No weight loss, No weakness Respiratory: No cough, No shortness of breath Cardiovascular: No chest pain, No edema Abdomen: + nausea, + vomiting, No pain, No diarrhea Medications Current Inpatient Medications Medications (Trade) Dose Ordered Sig/Christina Route Start Time Stop Time Status Last Admin Dose Admin Ioversol (Optiray 320) 100 ml UD PRN IV 12/19/17 18:30 12/23/17 18:29 Ioversol (Optiray 320) 100 ml UD PRN IV 12/19/17 20:45 12/23/17 20:44 Acetaminophen (Tylenol Tab) 650 mg Q4H PRN PO 12/19/17 21:30 01/18/18 21:29 12/20/17 06:09 650 MG Al Hydrox/Mg Hydrox/Simethicone (Maalox Max Susp) 15 ml Q4H PRN PO 12/19/17 21:30 01/18/18 21:29 Magnesium Hydroxide (Milk Of Magnesia Susp) 30 ml Q6H PRN PO 12/19/17 21:30 01/18/18 21:29 Polyethylene (Miralax Powder Packet) 17 gm DAILY PRN PO 12/19/17 21:30 01/18/18 21:29 Zolpidem Tartrate (Ambien Tab) 5 mg HSZ PRN PO 12/19/17 21:30 01/18/18 21:29 Ondansetron HCl (Zofran Inj) 4 mg Q6H PRN IV 12/19/17 21:30 01/18/18 21:29 Potassium Chloride/Dextrose/ Sod Cl 1,000 ml @ 125 mls/hr Q8H IV 12/19/17 23:30 12/20/17 15:29 12/20/17 07:27 125 MLS/HR Lamotrigine (Lamictal Tab) 25 mg DAILY PO 12/20/17 09:00 01/19/18 08:59 Lorazepam (Ativan Tab) 1 mg Q8H PRN PO 12/19/17 21:45 01/18/18 21:44 Tramadol HCl (Ultram Tab) 50 mg Q8H PRN PO 12/19/17 22:30 01/18/18 22:29 12/19/17 23:15 50 MG Miscellaneous (Iv Fluids Completed) 1 ea PRN PRN N/A 12/19/17 23:30 12/19/18 23:29 Objective Vital Signs Date Time Temp Pulse Resp B/P (MAP) Pulse Ox O2 Delivery O2 Flow Rate FiO2 12/19/17 23:35 Room Air 12/19/17 22:41 36.5 86 16 101/63 Room Air 12/19/17 21:42 36.9 95 18 122/69 98 12/19/17 20:58 95 18 122/69 98 Room Air 12/19/17 19:41 84 16 90/73 100 Room Air 12/19/17 18:04 36.9 107 20 125/69 97 Room Air Physical Exam Notes: General Appearance: Awake, alert & oriented, comfortable in general, NAD. Neck: Palpable lymph nodes along the junction of the right neck and supraclavicular area. CV: +S1S2 RRR, no murmur. Pulm: Clear to auscultation throughout. Abdomen: +BS, soft, non-tender, non-distended. Extremities: No pedal edema or calf tenderness. Moving all extremities naturally and easily. Neuro: No gross neuro deficits. Laboratory Results 12/19/17 18:45 Red Blood Count 4.12, Mean Corpuscular Volume 83.7, Mean Corpuscular Hemoglobin 28.6, Mean Corpuscular Hemoglobin Concent 34.2, Mean Platelet Volume 8.6, Neutrophils (%) (Auto) 76.1, Lymphocytes (%) (Auto) 16.8, Monocytes (%) (Auto) 5.5, Eosinophils (%) (Auto) 1.2, Basophils (%) (Auto) 0.1, Neutrophils # (Auto) 13.85, Lymphocytes # (Auto) 3.06, Monocytes # (Auto) 1.00, Eosinophils # (Auto) 0.21, Basophils # (Auto) 0.02 12/19/17 18:45 Test 12/19/17 18:45 12/19/17 18:50 12/20/17 07:30 White Blood Count 18.20 K/uL (4.8-10.8) Red Blood Count 4.12 M/uL (4.2-5.4) Hemoglobin 11.8 g/dL (12.0-16.0) Hematocrit 34.5 % (37-47) Mean Corpuscular Volume 83.7 fL (80-100) Mean Corpuscular Hemoglobin 28.6 pg (25-34) Mean Corpuscular Hemoglobin Concent 34.2 g/dl (32-36) Platelet Count 441 K/uL (130-400) Mean Platelet Volume 8.6 fL (7.4-10.4) Neutrophils (%) (Auto) 76.1 % Lymphocytes (%) (Auto) 16.8 % Monocytes (%) (Auto) 5.5 % Eosinophils (%) (Auto) 1.2 % Basophils (%) (Auto) 0.1 % Neutrophils # (Auto) 13.85 K/uL (1.4-6.5) Lymphocytes # (Auto) 3.06 K/uL (1.2-3.4) Monocytes # (Auto) 1.00 K/uL (0.11-0.59) Eosinophils # (Auto) 0.21 K/uL (0-0.5) Basophils # (Auto) 0.02 K/uL (0-0.2) RDW Standard Deviation 38.3 fL (36.4-46.3) RDW Coefficient of Variation 12.6 % (11.5-14.5) Immature Granulocyte % (Auto) 0.3 % Immature Granulocyte # (Auto) 0.06 K/uL (0.00-0.02) Erythrocyte Sedimentation Rate 46 mm/hr (0-21) Est Creatinine Clear Calc Drug Dose 116.3 ml/min Estimated GFR () 133.3 Estimated GFR (Non- 115.0 BUN/Creatinine Ratio 13.6 (10-20) Calcium Level 8.6 mg/dl (8.5-10.1) Lactate Dehydrogenase 218 U/L (84-246) C-Reactive Protein 7.47 mg/dl (0-0.29) Bedside Hemoglobin 11.9 g/dl (12.0-16.0) Bedside Hematocrit 35 % (37-47) Bedside Sodium 138 mEq/L (135-144) Bedside Potassium 3.5 mEq/L (3.3-5.0) Bedside Chloride 102 mEq/L (101-112) Bedside Total CO2 24 mEq/l (24-31) Anion Gap 17.0 mmol/L (16-25) Bedside Blood Urea Nitrogen 9 mg/dl (7-18) Bedside Creatinine 0.7 mg/dl (0.6-1.3) Bedside Glucose (other) 83 mg/dl (70-99) Bedside Ionized Calcium (Kristine) 1.14 mmol/l (1.12-1.32) Assessment and Plan 21-year-old female admitted for observation on 19 Dec 2017 for swollen lymph nodes in her neck. PMH: Anxiety, depression Lymphadenopathy: Discussion this morning, the patient has noted some night sweats but no noted weight loss, fevers, prior history of the same. Her neck is sore but no obvious limited range of motion. CT scans of her neck and chest are consistent with a lymphoproliferative disorder. Both oncology and surgery are consulted. Patient is likely to go for a biopsy later today. Nausea and vomiting: Unclear what the etiology of this is. No abdominal pain or diarrhea. Nontender abdomen. Overall appears comfortable. For now we will treat with IV fluids and antiemetics. Anxiety and depression: Continue home Lamictal and Lorazepam. Code status: Full code Diet: N.p.o. in case of procedures. DVT prophy: SCDs and ambulation PT/OT: Deferred Disbo: Observation and MedSurg unit Resident Tracking Resident Involvement: Resident Care Provided Care Provided: Adult Hospital Medicine (inpatient) Assessment/Plan Resident Physician Supervision Note: I was present with Dr. Ashton during the history and exam. I discussed the case with the resident and agree with the findings and plan as documented in the note. Any exceptions or clarifications are listed here: Pt seen and examined at bedside s/p lymph node resection of the right supraclavicular region. Dressing is C/D/I. At time of evaluation, pain was poorly controlled w/ APAP, ibuprofen and toradol. Pt has h/o substance abuse ( narcotics), discussed using in controlled setting and no Rx to go home, and pt is comfortable for at least POD #0, so will trial and adjust as needed. Otherwise, oncology consultation is placed and awaiting pathology results, may do BMA tomorrow, but will intend for bulk of workup to be completed at outpatient follow up.
[2017-12-20] MEDS: TRAMADOL HCL 50 MG TAB PO PRN ×2 (08:06→17:46)
--- NOTE | 2017-12-20 08:21 | [facility] Post Operative Brief Note ---
Immediate Operative Summary Operative Date December 20, 2017. Pre-Operative Diagnosis a nodule on abdominal wall Post-Operative Diagnosis same Procedure(s) Performed resection a nodule on abdominal wall, Surgeon Peggy Mijares MD [place] Surgeon(s) Rupesh Andujar. REBECA Estimated Blood Loss 1 ml Findings Consistent with Post-Op Diagnosis Fluids (cc crystalloids) 400ml Specimens a nodule Drains None Anesthesia Type Local Complication(s) none Disposition Accompanied Pt To Recover: yes Disposition: Recovery Room / PACU
--- NOTE | 2017-12-20 08:34 | History & Physical Bridge Note ---
H&P Re-Evaluation Bridge Note: I have examined the patient, reviewed the History & Physical and in the interval since the performance of the History & Physical I have noted the following changes of clinical significance: No changes noted
--- NOTE | 2017-12-20 09:02 | ONCOLOGY CONSULTATION ---
DATE OF CONSULTATION: 12/20/2017 REASON FOR CONSULTATION: Right supraclavicular and mediastinal lymphadenopathy. HISTORY OF PRESENT ILLNESS: Jing is a pleasant 21-year-old female who presented to [facility] last night with painful swollen lymph nodes involving the right supraclavicular area. Jing states that she has not felt well over the past several days, mainly manifested by nausea and vomiting. She also describes occasional night sweats, however, has not experienced fever or chills. She denies any overt weight loss. I was contacted by the Emergency Room and based on the physician's description felt it prudent to proceed with a CT scan of the neck, chest, abdomen, and pelvis with contrast. The interpreting radiologist identified significant right supraclavicular and mediastinal lymphadenopathy. CT of the abdomen and pelvis was negative for active disease. The patient's peripheral blood counts reflect elevation in WBCs with a predominance of neutrophils, hemoglobin of 11.8, and a platelet count of 441,000. Sed rate is elevated at 46. LDH is within normal limits 218. The rest of her chemistries are otherwise unremarkable. For the most part, her past medical history is unremarkable, however, she does admit to be a recovering opioid addict. I had recommended the patient be admitted for expedient workup. General surgery is on consultation to obtain lymph node biopsy. PAST MEDICAL HISTORY: Again, significant for anxiety/depression. Again, recovering opioid addict. PAST SURGICAL HISTORY: Unremarkable. MEDICATIONS: Prior to admission, she is on oral control pills, Lamictal 25 mg p.o. daily, and Ativan 1 mg p.o. at bedtime. ALLERGIES: TO SULFA DRUGS. 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 She is a nonsmoker, nondrinker. The patient is currently single. REVIEW OF SYSTEMS: GENERAL: Positive for occasional night sweats. Negative for fevers or chills. There has been mildly anorexic. No specific weight loss, however. SKIN: No rashes or lesions. No history of dermatoses. HEENT: Negative for headaches, lightheadedness, or dizziness. No acute visual or hearing deficits. No sinus symptoms, sore throat, or dysphagia. LYMPH: Positive for palpable right supraclavicular lymphadenopathy. The patient also relates mild chest pressure, I suspect attributable to a mediastinal mass. CARDIAC: No history of coronary artery disease, no angina or palpitations. PULMONARY: No history of COPD. She is not short of breath, dyspneic, or orthopneic presently. GASTROINTESTINAL: Again, occasional nausea and vomiting as of late, but no overt abdominal pain, diarrhea or constipation. No hematochezia or melena of stools reported. GENITOURINARY: No hematuria, dysuria, or urinary incontinence. PSYCHIATRIC: Positive for depression/anxiety. ENDOCRINE: Negative for diabetes or thyroid disease. NEUROLOGIC: Negative for seizure, stroke, or migraine headaches. HEMATOLOGIC: Positive for neutrophilia and mild normocytic normochromic anemia. PHYSICAL EXAMINATION: GENERAL: A very pleasant, well-developed and nourished 21-year-old female patient, in no acute distress. VITAL SIGNS: Temperature 37.1, pulse 68, respiratory rate 16, blood pressure 100/63. SKIN: Warm, dry, noncyanotic without petechia, rash, or ecchymosis. HEAD: Atraumatic, normocephalic. EYES: PERRLA, EOMI. Sclerae nonicteric. No conjunctival injection. Nares patent without rhinorrhea or discharge. Throat is clear. Tongue is midline. Mucous membranes are moist. NECK: Supple without JVD or thyromegaly. LYMPH: Palpable right supraclavicular lymphadenopathy. Axilla and inguinal regions palpate normal. HEART: Regular rate and rhythm. No clicks, rubs, murmurs, or gallops. LUNGS: Clear to auscultation bilaterally. ABDOMEN: Soft, nontender, nondistended. No palpable hepatosplenomegaly. No rigidity or guarding. Bowel sounds are active. EXTREMITIES: Musculoskeletal strength and pulses are equal in all 4 quadrants. No clubbing, cyanosis, or edema otherwise noted. NEUROLOGICAL: Neurologically, she is awake, alert, and oriented x3. Cranial nerves II-XII are intact. No gross motor and sensory deficits are noted. RADIOGRAPHIC AND LABORATORY DATA: Described in the HPI. IMPRESSION: Right supraclavicular and mediastinal lymphadenopathy. PLAN: Jing is a pleasant 21-year-old who presented to [facility]'s Emergency Room last night with supraclavicular fullness. She describes symptoms consistent with an emerging lymphoproliferative process. Over the past couple of weeks, specifically occasional night sweats as well as nausea and vomiting are described. Radiographically disease seems to be confined to the right supraclavicular and mediastinal regions. General surgery has been consulted and we will plan for a diagnostic lymphadenectomy today. Considering her age, Hodgkin's lymphoma is high in the differential diagnosis. Briefly discussed some of the manifestations of this disease. Advised the patient, she would require MediPort insertion and bone marrow biopsy and aspiration as well as PET scan for staging. Fortunately, she is not toxic and therefore expedient treatment is not necessary. Nonetheless, we will arrange for close followup upon discharge. Will discuss diagnosis, prognosis, and specific treatment upon confirmation of diagnosis. We will continue to follow Jing throughout her hospitalization. Thank you very much for allowing me to participate in her care. If you have any questions or concerns, feel free to contact me at any time.
[2017-12-20] MEDS ORDERED: DEXAMETHASONE SOD INJ 4 MG/ML VIAL ONE (09:08)
[2017-12-20] MEDS ORDERED: PROPOFOL IV EMULSION 10 MG/ML 20 ML VIAL ONE ×3 (09:08→10:22)
[2017-12-20] MEDS ORDERED: ONDANSETRON INJ 2 MG/ML 2 ML VIAL ONE (09:08)
[2017-12-20] MEDS ORDERED: LIDOCAINE HCL 2% 2 ML VIAL (20MG/ML) ONE (09:08)
[2017-12-20] MEDS ORDERED: FENTANYL CITRATE INJ 50 MCG/1 ML 2 ML VIAL ONE ×2 (09:09→10:40)
[2017-12-20] MEDS ORDERED: MIDAZOLAM HCL 1 MG/ML 2ML VIAL ONE (09:09)
[2017-12-20] MEDS ORDERED: BUPIVACAINE 0.5 % 5 MG/1 ML PF 10ML VIAL ONE (09:19)
[2017-12-20] MEDS ORDERED: LIDOCAINE HCL 1% 20 ML VIAL ONE (09:19)
[2017-12-20] MEDS: CEFAZOLIN 2000MG IV PUSH 15 ML IV SCH ×2 (09:22→09:30)
[2017-12-20] MEDS ORDERED: FENTANYL CITRATE INJ 50 MCG/1 ML 2 ML VIAL IV PRN (09:30)
[2017-12-20] MEDS ORDERED: ATROPINE SULFATE 0.1 MG/ML 5ML SYR IV PRN (09:30)
[2017-12-20] MEDS ORDERED: ONDANSETRON INJ 2 MG/ML 2 ML VIAL IV PRN (09:30)
[2017-12-20] MEDS ORDERED: KETOROLAC TROMETHAMINE 30 MG/ML VIAL IV. PRN (09:30)
--- NOTE | 2017-12-20 10:35 | [facility] Post Operative Brief Note ---
Immediate Operative Summary Operative Date December 20, 2017. Pre-Operative Diagnosis Supraclavicular Lymphadenopathy Post-Operative Diagnosis SAME Procedure(s) Performed BIOPSI SUPRACLAVICULAR LYMPH NODE Surgeon Peggy Mijares MD Web Content Specialist Surgeon(s) Jenny Andujar PA-C Estimated Blood Loss 5 ml Findings Consistent with Post-Op Diagnosis Fluids (cc crystalloids) 400ml Specimens Fresh for pathology A: Right supraclavicular node Drains None Anesthesia Type Local Complication(s) none Disposition Accompanied Pt To Recover: yes Disposition: Recovery Room / PACU
--- NOTE | 2017-12-20 11:05 | Anesthesiology Progress Note ---
Anesthesia Post Op Note Date & Time December 20, 2017 at 11:05 Vital Signs Pain Intensity: 1 Vital Signs Past 12 Hours Date Time Temp Pulse Resp B/P (MAP) Pulse Ox O2 Delivery O2 Flow Rate FiO2 12/20/17 10:50 36.1 82 16 111/57 99 Room Air 12/20/17 10:42 36.1 86 16 117/67 99 Room Air NIBP 12/20/17 08:30 37 75 18 115/62 (79) 97 Room Air 12/20/17 07:40 37.1 68 16 100/63 (75) 97 Room Air 12/19/17 23:35 Room Air Notes Mental Status: alert / awake / arousable, participated in evaluation Pt Amnestic to Procedure: Yes Nausea / Vomiting: adequately controlled Pain: adequately controlled Airway Patency, RR, SpO2: stable & adequate BP & HR: stable & adequate Hydration State: stable & adequate Anesthetic Complications: no major complications apparent
--- NOTE | 2017-12-20 11:16 | DIAGNOSTIC IMAGING REPORT ---
CHEST ONE VIEW PORTABLE HISTORY: s/p BIOPSY RIGHT SUPRACLAVICULAR LYMPH NODE, t/o ptx COMPARISON: Chest CT 12/19/2017. FINDINGS: Small amount of gas within the right supraclavicular soft tissues likely corresponding to the patient's history of recent biopsy. No pneumothorax. No pleural effusions. The heart is normal in size. The heart is top normal in size. Right peritracheal lymphadenopathy is again noted. This measures 5.5 cm. Bibasilar linear densities favor subsegmental atelectasis. No evidence for pulmonary edema. IMPRESSION: 1. No pneumothorax. 2. Small amount of right supraclavicular soft tissue gas which is likely due to the recent biopsy. 3. Right paratracheal lymphadenopathy is again noted. Electronically signed by: Felipe Adams M.D. 12/20/2017 11:15 AM Dictated Date/Time: 12/20/2017 11:13 AM
--- NOTE | 2017-12-20 12:10 | OPERATIVE REPORT ---
DATE OF OPERATION: 12/20/2017 PREOPERATIVE DIAGNOSIS: Enlarged lymph node on the right superior clavicle. POSTOPERATIVE DIAGNOSIS: Enlarged lymph node on the right superior clavicle. OPERATION: Biopsy of lymph node on the right superior clavicle. SURGEON: Peggy Mijares MD ACADEMIC ASSISTANT: Jenny Ramsey PA-C ANESTHESIA: Conscious sedation plus local. ESTIMATED BLOOD LOSS: About 5 mL. FINDINGS: Enlarged lymph node on the right superior clavicle. COMPLICATIONS: None. INDICATIONS FOR THE PROCEDURE: This is a 21-year-old female who was admitted to hospital for enlarged lymph node on the right superior clavicle. The patient will be required to do biopsy of enlarged lymph node on the right superior clavicle. I did talk to the patient and the patient's mom about the benefit, the risk, alternate procedure. I indicated the risks may include but not limited such as bleeding, infection, recurrence, may need more procedure, injury to the lung, may need chest tube insertion. They understand. The patient signed informed consent and I answered all questions. DETAILS OF PROCEDURE: We brought the patient to the OR, put the patient in the supine position. The patient received SCD on bilateral legs to prevent DVT. Also, the patient received 2 g Ancef IV for prophylactic antibiotic. The patient received conscious sedation by the anesthesiology. The patient's right-sided neck and right upper chest was prepped and draped in routine sterile fashion. After time out, I injected the local anesthesia by using 1% lidocaine mixed with 0.5% Marcaine around the right superior clavicle area. I can feel the enlarged lymph node on the right superior clavicle. I then made about 1.5 cm incision, opened the subcutaneous layer and split the muscle. We found one large lymph node, the size of about 2 x 2 cm. Then I removed about 1 x 1 cm lymph node from the enlarged lymph node and hemostasis obtained. Then the specimen sent to the fresh pathology and then we closed the incision, closed the fascial layer by using 0 Vicryl interrupted and closed subcutaneous layer by using 0 Vicryl interruptedly and closed skin by using 4-0 Vicryl, put the dressing on. The patient tolerated the procedure well and the specimen sent to pathology. All the instrument, needle, sponge count were correct x2 at the end the case. After the procedure, the patient was transferred to recovery room in stable condition. After the procedure, I did talk to the patient and family member about the OR finding and procedure we did and they understand. I attest to the content of the Intraoperative Record and any orders documented therein. Any exception s are noted below.
[2017-12-20] MEDS: LORAZEPAM 1 MG TAB PO PRN ×2 (13:20→21:32)
[2017-12-20] MEDS ORDERED: MoRPHine SULFATE 4 MG/ML 1 ML CARP\\VIAL IV PRN (14:45)
[2017-12-20] MEDS ORDERED: MoRPHine SULFATE 4 MG/ML 1 ML CARP\\VIAL IV ONE (14:45)
[2017-12-20] MEDS ORDERED: NURSING VERBAL MED ORDER ONE ×2 (14:45→15:00)
[2017-12-20] MEDS ORDERED: CHLORASEPTIC 1.4% SOLN 180 ML BTL MT PRN (15:00)
[2017-12-20] MEDS: MoRPHine SULFATE 4 MG/ML 1 ML CARP\\VIAL IV PRN ×4 (17:42→22:20)
[2017-12-20] MEDS ORDERED: LORAZEPAM 1 MG TAB PO SCH (21:00)
[2017-12-21] MEDS: MoRPHine SULFATE 4 MG/ML 1 ML CARP\\VIAL IV PRN ×7 (00:36→18:24)
[2017-12-21] MEDS: ACETAMINOPHEN 325 MG TAB PO PRN (03:39)
[2017-12-21 03:41] VITALS: BP 101/62; PULSE 89; TEMP 37.4; O2SAT 92
[2017-12-21] MEDS ORDERED: CEFAZOLIN SOD 2000MG/15 ML IV PUSH IV ONE (06:00)
[2017-12-21 07:25] LABS: BASO % 0.1 %; BASO ABS # 0.02 K/uL (0-0.2); EOS % 2.3 %; EOS ABS # 0.32 K/uL (0-0.5); HEMATOCRIT 33.1 % (37-47); HEMOGLOBIN 10.8 g/dL (12.0-16.0); IG# 0.04 K/uL (0.00-0.02); LYMPH % 18.4 %; LYMPH ABS # 2.58 K/uL (1.2-3.4); MEAN CELL VOLUME 84.4 fL (80-100); MEAN CORPUSCULAR HEMOGLOBIN 27.6 pg (25-34); MEAN CORPUSCULAR HGB CONC 32.6 g/dl (32-36); MEAN PLATELET VOLUME 8.6 fL (7.4-10.4); MONO % 6.1 %; MONO ABS # 0.85 K/uL (0.11-0.59); NEUT % 72.8 %; NEUT ABS # 10.21 K/uL (1.4-6.5); PLATELET COUNT 399 K/uL (130-400); RED CELL DISTRIBUTION WIDTH CV 12.7 % (11.5-14.5); RED CELL DISTRIBUTION WIDTH SD 39.1 fL (36.4-46.3); WHITE BLOOD COUNT 14.02 K/uL (4.8-10.8)
--- NOTE | 2017-12-21 07:37 | Family Medicine Progress Note ---
Progress Note Date of Service December 21, 2017. Subjective Pt evaluation today including: conversation w/ patient, conversation w/ family (Parents) Found patient resting in bed. She appears more uncomfortable compared to yesterday. She states that she has some mild pain at her biopsy site as well as her sternum. She denies any generalized chest pain or any shortness of breath. Later in the morning she was noted to be nauseous with a small amount of emesis. She denied any abdominal pain. The patient and her parents had discussed today's plan with oncology. They had no other acute concerns. Constitutional: No fever, No chills Respiratory: No cough, No shortness of breath Cardiovascular: No chest pain, No edema Abdomen: + nausea, + vomiting, No pain, No diarrhea Medications Current Inpatient Medications Medications (Trade) Dose Ordered Sig/Christina Route Start Time Stop Time Status Last Admin Dose Admin Ioversol (Optiray 320) 100 ml UD PRN IV 12/19/17 18:30 12/23/17 18:29 Ioversol (Optiray 320) 100 ml UD PRN IV 12/19/17 20:45 12/23/17 20:44 Acetaminophen (Tylenol Tab) 650 mg Q4H PRN PO 12/19/17 21:30 01/18/18 21:29 12/21/17 03:39 650 MG Al Hydrox/Mg Hydrox/Simethicone (Maalox Max Susp) 15 ml Q4H PRN PO 12/19/17 21:30 01/18/18 21:29 Magnesium Hydroxide (Milk Of Magnesia Susp) 30 ml Q6H PRN PO 12/19/17 21:30 01/18/18 21:29 Polyethylene (Miralax Powder Packet) 17 gm DAILY PRN PO 12/19/17 21:30 01/18/18 21:29 Zolpidem Tartrate (Ambien Tab) 5 mg HSZ PRN PO 12/19/17 21:30 01/18/18 21:29 Ondansetron HCl (Zofran Inj) 4 mg Q6H PRN IV 12/19/17 21:30 01/18/18 21:29 Lamotrigine (Lamictal Tab) 25 mg DAILY PO 12/20/17 09:00 01/19/18 08:59 12/20/17 08:06 25 MG Lorazepam (Ativan Tab) 1 mg Q8H PRN PO 12/19/17 21:45 01/18/18 21:44 12/20/17 21:32 1 MG Tramadol HCl (Ultram Tab) 50 mg Q8H PRN PO 12/19/17 22:30 01/18/18 22:29 12/20/17 17:46 50 MG Miscellaneous (Iv Fluids Completed) 1 ea PRN PRN N/A 12/19/17 23:30 12/19/18 23:29 Phenol (Chloraseptic 1.4% [place]) 1 sprays PRN PRN MT 12/20/17 15:00 01/19/18 14:59 12/20/17 16:22 1 SPRAYS Morphine Sulfate (MoRPHine SULFATE INJ) 2 mg Q2H PRN IV 12/20/17 17:12 01/03/18 14:44 12/21/17 01:10 2 MG Morphine Sulfate (MoRPHine SULFATE INJ) 2 mg Q2H PRN IV 12/20/17 17:15 01/03/18 17:14 Objective Vital Signs Date Time Temp Pulse Resp B/P (MAP) Pulse Ox O2 Delivery O2 Flow Rate FiO2 12/21/17 03:41 37.4 89 16 101/62 (75) 92 Room Air 12/20/17 23:59 Room Air 12/20/17 23:10 37.0 75 16 101/66 (78) 96 Room Air 12/20/17 19:35 Room Air 12/20/17 16:10 Room Air 12/20/17 15:35 37.0 75 16 94/62 (73) 95 Room Air 12/20/17 14:26 71 16 106/66 (79) 95 Room Air 12/20/17 13:23 70 16 102/64 (77) 95 Room Air 12/20/17 12:11 80 16 106/70 (82) 98 Room Air 12/20/17 11:42 73 16 110/65 (80) 96 Room Air 12/20/17 11:08 99 Room Air 12/20/17 11:00 36.1 75 16 112/63 99 Room Air 12/20/17 10:50 36.1 82 16 111/57 99 Room Air 12/20/17 10:42 36.1 86 16 117/67 99 Room Air NIBP 12/20/17 08:30 37 75 18 115/62 (79) 97 Room Air 12/20/17 07:40 37.1 68 16 100/63 (75) 97 Room Air Laboratory Results General Appearance: Awake, alert & oriented, appears mildly uncomfortable, but not in any acute distress. Neck: Right supraclavicular area has a pressure dressing applied that is clean, dry, and intact. No peripheral erythema to the dressing noted. CV: +S1S2 RRR, no murmur. Pulm: Clear to auscultation throughout. Abdomen: +BS, soft, non-tender, non-distended. Extremities: No pedal edema or calf tenderness. Moving all extremities naturally and easily. Neuro: No gross neuro deficits. Assessment and Plan 21-year-old female admitted for observation on 19 Dec 2017 for swollen lymph nodes in her neck. PMH: Anxiety, depression Lymphoma: Yesterday (20 December) the patient underwent a biopsy via general surgery of her right superior clavicular lymph node. Today (21 December) hematology performed a bone marrow biopsy which (see their note) likely represents Hodgkin' s lymphoma. Her pain has been adequately controlled with morphine and Ultram. Patient does have a history of narcotic substance abuse. She voluntarily understands that while she will receive narcotics here acutely for pain control , there is no plan for her to be sent home with the same. - Hepatitis serologies are pending, as are cytometry. - Bone marrow and lymph node pathology is pending. - As an inpatient, they recommend an echocardiogram and scheduling port placement time with surgery. - As an outpatient, they recommend a PET scan, pulmonary function studies, and planned chemotherapy. - Per surgery's note, surgery follow-up is not required. Nausea and vomiting: Unclear what the etiology of this is, though post-biopsy it may be from narcotics and/or local discomfort. No abdominal pain or diarrhea. Nontender abdomen. Overall appears comfortable. For now we will treat with IV fluids and antiemetics. Anxiety and depression: Continue home Lamictal and Lorazepam. Code status: Full code Diet: Regular diet DVT prophy: SCDs and ambulation PT/OT: Deferred Disbo: Observation on MedSur unit Resident Tracking Resident Involvement: Resident Care Provided Care Provided: Adult Hospital Medicine (inpatient) Assessment/Plan Resident Physician Supervision Note: I was present with Dr. Ashton during the history and exam. I discussed the case with the resident and agree with the findings and plan as documented in the note. Any exceptions or clarifications are listed here: Pt seen and examined at bedside. Pain is moderately well controlled with present regimen at supraclavicular site. BMA completed today w/ Dr. Arellano. Discussed with him - can have port scheduled for outpatient. S1/S2 nl RRR no MCG , CTAB. Hodgkin's Lymphoma - schedule port placement with surgery, follow up BM aspirate. Establish w/ oncology for PET scan and follow up. h/o narcotic abuse - will not Rx outpatient regimen for pain control, but may warrant more acute pain control now. D/W patient.
[2017-12-21] MEDS: TRAMADOL HCL 50 MG TAB PO PRN (07:51)
[2017-12-21 07:54] VITALS: BP 104/69; PULSE 78; TEMP 37; O2SAT 94
--- NOTE | 2017-12-21 08:29 | Anesthesiology Progress Note ---
Anesthesia Post Op Note Date & Time December 21, 2017 at 08:28 Vital Signs Vital Signs Past 12 Hours Date Time Temp Pulse Resp B/P (MAP) Pulse Ox O2 Delivery O2 Flow Rate FiO2 12/21/17 07:54 37.0 78 16 104/69 (81) 94 Room Air 12/21/17 03:41 37.4 89 16 101/62 (75) 92 Room Air 12/20/17 23:59 Room Air 12/20/17 23:10 37.0 75 16 101/66 (78) 96 Room Air Notes Mental Status: alert / awake / arousable, participated in evaluation Pt Amnestic to Procedure: Yes Nausea / Vomiting: adequately controlled Pain: adequately controlled Airway Patency, RR, SpO2: stable & adequate BP & HR: stable & adequate Hydration State: stable & adequate Anesthetic Complications: no major complications apparent
[2017-12-21] MEDS: LORAZEPAM 1 MG TAB PO PRN (09:18)
[2017-12-21 09:48] LABS: BLOOD UREA NITROGEN 5 mg/dl (7-18); CALCIUM 8.6 mg/dl (8.5-10.1); CARBON DIOXIDE 27 mmol/L (21-32); CREATININE 0.58 mg/dl (0.60-1.20); GLUCOSE 85 mg/dl (70-99); POTASSIUM 3.7 mmol/L (3.5-5.1); SODIUM 138 mmol/L (136-145)
--- NOTE | 2017-12-21 10:18 | Surgery Progress Note ---
Surgery Progress Note Date of Service December 21, 2017. Subjective Post OP Day: 1 (s/p right supraclavicular lymph node biopsy) moderate soreness and tenderness at incision site mild nausea, zofran helped Objective Vital Signs: Date Time Temp Pulse Resp B/P (MAP) Pulse Ox O2 Delivery O2 Flow Rate FiO2 12/21/17 07:54 37.0 78 16 104/69 (81) 94 Room Air 12/21/17 07:30 Room Air 12/21/17 03:41 37.4 89 16 101/62 (75) 92 Room Air 12/20/17 23:59 Room Air 12/20/17 23:10 37.0 75 16 101/66 (78) 96 Room Air 12/20/17 19:35 Room Air 12/20/17 16:10 Room Air 12/20/17 15:35 37.0 75 16 94/62 (73) 95 Room Air 12/20/17 14:26 71 16 106/66 (79) 95 Room Air 12/20/17 13:23 70 16 102/64 (77) 95 Room Air 12/20/17 12:11 80 16 106/70 (82) 98 Room Air 12/20/17 11:42 73 16 110/65 (80) 96 Room Air 12/20/17 11:08 99 Room Air 12/20/17 11:00 36.1 75 16 112/63 99 Room Air 12/20/17 10:50 36.1 82 16 111/57 99 Room Air 12/20/17 10:42 36.1 86 16 117/67 99 Room Air NIBP General Appearance: WD/WN, no apparent distress Head: normocephalic, atraumatic Respiratory/Chest: no respiratory distress, no accessory muscle use Incision(s): clean, dry, intact (Dressing dry , intact, no draiange. NO surroudning erythema. Incision not inspected as pressure dressing applied.) Laboratory Results: Results Past 24 Hours Test 12/21/17 06:59 Range/Units White Blood Count 14.02 4.8-10.8 K/uL Red Blood Count 3.92 4.2-5.4 M/uL Hemoglobin 10.8 12.0-16.0 g/dL Hematocrit 33.1 37-47 % Mean Corpuscular Volume 84.4 80-100 fL Mean Corpuscular Hemoglobin 27.6 25-34 pg Mean Corpuscular Hemoglobin Concent 32.6 32-36 g/dl Platelet Count 399 130-400 K/uL Mean Platelet Volume 8.6 7.4-10.4 fL Neutrophils (%) (Auto) 72.8 % Lymphocytes (%) (Auto) 18.4 % Monocytes (%) (Auto) 6.1 % Eosinophils (%) (Auto) 2.3 % Basophils (%) (Auto) 0.1 % Neutrophils # (Auto) 10.21 1.4-6.5 K/uL Lymphocytes # (Auto) 2.58 1.2-3.4 K/uL Monocytes # (Auto) 0.85 0.11-0.59 K/uL Eosinophils # (Auto) 0.32 0-0.5 K/uL Basophils # (Auto) 0.02 0-0.2 K/uL RDW Standard Deviation 39.1 36.4-46.3 fL RDW Coefficient of Variation 12.7 11.5-14.5 % Immature Granulocyte % (Auto) 0.3 % Immature Granulocyte # (Auto) 0.04 0.00-0.02 K/uL Sodium Level 138 136-145 mmol/L Potassium Level 3.7 3.5-5.1 mmol/L Chloride Level 106 98-107 mmol/L Carbon Dioxide Level 27 21-32 mmol/L Anion Gap 5.0 3-11 mmol/L Blood Urea Nitrogen 5 7-18 mg/dl Creatinine 0.58 0.60-1.20 mg/dl Est Creatinine Clear Calc Drug Dose 146.1 ml/min Estimated GFR () > 150.0 Estimated GFR (Non- 130.8 BUN/Creatinine Ratio 8.2 10-20 Random Glucose 85 70-99 mg/dl Calcium Level 8.6 8.5-10.1 mg/dl Assessment & Plan POD # 1 s/p Right supraclavicular lymph node biopsy - vitals stable, afebrile - dressing clean/dry, intact, no drainage or surrounding erythema Plan: Discharge instructions reviewed f/u not necessary waiting on pathology results
--- NOTE | 2017-12-21 10:20 | Consultant Recommendations ---
Community Liaison Recommendations Date of Service December 21, 2017. Community Liaison Recommendations You may shower in 3 days. Sponge bath and wash hair in meantime. Keep dressing clean and dry. After 3 days remove outer dressing and replace daily Leave steri strips on incision for 7 days and then remove. They may fall off on their own that is okay. You may take extra strength Tylenol or Ibuprofen as needed for pain. Call surgical office at [phone] if you have any questions or concerns No repetitive movements with right arm above head for 1 week No driving for 1 week
[2017-12-21] MEDS ORDERED: PROMETHAZINE HCL INJ 12.5 MG in SODIUM CHLORIDE 0.9% 50ML 50 ML IV PRN (10:30)
[2017-12-21 11:33] VITALS: BP 117/75; PULSE 79; TEMP 37.3; O2SAT 95
[2017-12-21] MEDS ORDERED: NURSING VERBAL MED ORDER ONE ×2 (12:15→13:00)
--- NOTE | 2017-12-21 12:28 | HEME/ONC PROGRESS NOTE ---
DATE: 12/21/2017 DIAGNOSIS: Suspect classical Hodgkin's lymphoma/right supraclavicular, mediastinal lymphadenopathy. SUBJECTIVE: Jing is a very pleasant 21-year-old female who was admitted to the [facility] on 12/20/2017 with painful swollen lymph nodes involving the right supraclavicular area. Dr. Mijares, general surgeon, performed partial supraclavicular lymphadenectomy yesterday and pathology is pending. Informal interpretation by Dr. Hollins believes she does suffer from classic Hodgkin's, however, immunostains are pending. Patient continues to have some neck and chest discomfort. Jing also requires staging bone marrow biopsy and aspiration which may be done by Dr. Arellano on my behalf. Patient is otherwise asymptomatic. PHYSICAL EXAMINATION: GENERAL: A 21-year-old female patient in no acute distress. VITAL SIGNS: Temperature 37, pulse 78, respiratory rate 16, blood pressure 104/69. SKIN: Without rash or lesion. HEENT: Oral mucosa without erythema or ulceration. NECK: Supple. HEART: Regular rate and rhythm. LUNGS: Clear to auscultation bilaterally. ABDOMEN: Soft, nontender, nondistended. EXTREMITIES: No clubbing, cyanosis, or edema. NEUROLOGIC: Grossly intact. LABORATORY DATA: WBC count 14,020, hemoglobin 10.8, platelet count 399,000. Sodium 138, potassium 3.7, chloride 106, carbon dioxide 27, creatinine 0.58, BUN 5. IMPRESSION: 1. Probable Hodgkin's lymphoma. 2. Right supraclavicular and mediastinal lymphadenopathy. 3. Status post right supraclavicular lymphadenectomy (pathology pending). PLAN: Jing is a pleasant 21-year-old female patient who presented to the [facility] Emergency Room with painful right supraclavicular lymphadenopathy. Further radiographic investigation revealed a relatively large mediastinal mass with no evidence of disease below the diaphragm. She also suffers from a very mild anemia, which could be multifactorial; however, she will require staging bone marrow biopsy and aspiration, nonetheless. Once she is discharged, will obtain outpatient PET scan as well as pulmonary function studies. I briefly spoke to the medical team and asked them to please consult general surgery for MediPort instillation shortly after she is discharged. I plan to see her back in the office expediently in the hopes of starting chemotherapy. The tentative diagnosis per discussion with Dr. Hollins is classical Hodgkin's lymphoma.
[2017-12-21] MEDS ORDERED: LORAZEPAM INJ 0.5 MG in SYRINGE 0.75 ML IV ONE (12:30)
[2017-12-21] MEDS ORDERED: LIDOCAINE HCL 1% 20 ML VIAL ONE (12:51)
--- NOTE | 2017-12-21 13:13 | Hematology/Oncology Prog Note ---
Hematology/Onc Progress Note Date of Service December 21, 2017. Diagnoses Newly diagnosed lymphoma Medications Medications Administered Medications (Trade) Dose Ordered Sig/Christina Route Start Time Stop Time Status Last Admin Dose Admin Sodium Chloride 1,000 ml @ 999 mls/hr Q1H1M STAT IV 12/19/17 18:16 12/19/17 19:16 DC 12/19/17 19:03 999 MLS/HR Ketorolac Tromethamine (Toradol Inj) 30 mg NOW STAT IV 12/19/17 19:14 12/19/17 19:16 DC 12/19/17 19:39 30 MG Sodium Chloride 1,000 ml @ 999 mls/hr Q1H1M STAT IV 12/19/17 20:30 12/19/17 21:30 DC 12/19/17 20:52 999 MLS/HR Lorazepam (Ativan Inj) 1 mg NOW STAT IV 12/19/17 21:01 12/19/17 21:02 DC 12/19/17 21:19 1 MG Acetaminophen (Tylenol Tab) 650 mg Q4H PRN PO 12/19/17 21:30 01/18/18 21:29 12/21/17 03:39 650 MG Ondansetron HCl (Zofran Inj) 4 mg Q6H PRN IV 12/19/17 21:30 01/18/18 21:29 12/21/17 07:51 4 MG Potassium Chloride/Dextrose/ Sod Cl 1,000 ml @ 50 mls/hr Q20H IV 12/19/17 23:30 12/20/17 21:26 DC 12/20/17 07:27 125 MLS/HR Lamotrigine (Lamictal Tab) 25 mg DAILY PO 12/20/17 09:00 01/19/18 08:59 12/21/17 07:51 25 MG Lorazepam (Ativan Tab) 1 mg Q8H PRN PO 12/19/17 21:45 01/18/18 21:44 12/21/17 09:18 1 MG Tramadol HCl (Ultram Tab) 50 mg Q8H PRN PO 12/19/17 22:30 01/18/18 22:29 12/21/17 07:51 50 MG Cefazolin Sodium 15 ml @ 3.75 mls/ min PREOP IV 12/20/17 06:00 12/20/17 18:00 DC 12/20/17 09:22 3.75 MLS/MIN Lidocaine HCl (Xylocaine 1% Inj (Local)) 20 ml STK-MED ONCE .ROUTE 12/20/17 09:19 12/20/17 09:20 DC 12/20/17 09:19 3 ML Bupivacaine HCl (Marcaine 0.5% Pf Inj) 20 ml STK-MED ONCE .ROUTE 12/20/17 09:19 12/20/17 09:20 DC 12/20/17 09:19 3 ML Ketorolac Tromethamine (Toradol Inj) 30 mg ONE PRN IV. 12/20/17 09:30 12/20/17 14:30 DC 12/20/17 11:25 30 MG Morphine Sulfate (MoRPHine SULFATE INJ) 2 mg NOW ONCE IV 12/20/17 14:45 12/20/17 14:46 DC 12/20/17 14:51 2 MG Phenol (Chloraseptic 1.4% [place]) 1 sprays PRN PRN MT 12/20/17 15:00 01/19/18 14:59 12/20/17 16:22 1 SPRAYS Morphine Sulfate (MoRPHine SULFATE INJ) 2 mg Q2H PRN IV 12/20/17 17:12 01/03/18 14:44 12/21/17 09:18 2 MG Morphine Sulfate (MoRPHine SULFATE INJ) 2 mg Q2H PRN IV 12/20/17 17:15 01/03/18 17:14 12/21/17 13:07 2 MG Promethazine HCl 12.5 mg/Sodium Chloride 50.5 ml @ 204 mls/hr Q6H PRN IV 12/21/17 10:30 01/20/18 10:29 12/21/17 10:57 204 MLS/HR Lorazepam 0.5 mg/ Syringe 1 ml @ 1 mls/min NOW ONCE IV 12/21/17 12:30 12/21/17 12:31 DC 12/21/17 12:31 1 MLS/MIN Lidocaine HCl (Xylocaine 1% Inj (Local)) 20 ml STK-MED ONCE .ROUTE 12/21/17 12:51 12/21/17 12:52 DC 12/21/17 13:07 20 ML Subjective Still having some discomfort around the area of the right supraclavicular node biopsy. Review of Systems: Constitutional: Negative for fever Eyes: Negative for event change of vision ENT: Negative for epistaxis, nasal discharge, sore throat, or deafness Cardiovascular: Negative for chest pain, palpitations, dizziness, diaphoresis Respiratory: Negative for new shortness of breath,hemoptysis, or purulent cough Vital Signs Vital Signs Past 12 Hours Date Time Temp Pulse Resp B/P (MAP) Pulse Ox O2 Delivery O2 Flow Rate FiO2 12/21/17 11:33 37.3 79 16 117/75 (89) 95 Room Air 12/21/17 07:54 37.0 78 16 104/69 (81) 94 Room Air 12/21/17 07:30 Room Air 12/21/17 03:41 37.4 89 16 101/62 (75) 92 Room Air Physical Exam Constitutional: vitals are stable. Eyes: Eyes are ELISABETH EOMI without conjuctival erythema or icterus. ENT: External examination was negative for masses. Neck: Negative for masses or palpable thyromegaly Respiratory: Lung sounds were generally clear bilaterally Cardiovascular: Heart was RRR without significant murmur, gallops aoe rubs Gastrointestinal: No palpable hepatic or splenomegaly. The abdomen was soft with normal bowel sounds. Lymphatic system: Right supraclavicular area has a bandage Musculoskeletal System: The musculoskeletal system seemed concordant with age. Skin: The skin was negative for jaundice. Neurologic exam: The exam was negative for any focal findings. Deep tendon reflexes were equal and symmetrical. Psychiatric exam: Was essentially negative with normal mood and effect. Breast exam: not done Laboratory Last 24 Hours Test 12/21/17 06:59 White Blood Count 14.02 K/uL Red Blood Count 3.92 M/uL Hemoglobin 10.8 g/dL Hematocrit 33.1 % Mean Corpuscular Volume 84.4 fL Mean Corpuscular Hemoglobin 27.6 pg Mean Corpuscular Hemoglobin Concent 32.6 g/dl Platelet Count 399 K/uL Mean Platelet Volume 8.6 fL Neutrophils (%) (Auto) 72.8 % Lymphocytes (%) (Auto) 18.4 % Monocytes (%) (Auto) 6.1 % Eosinophils (%) (Auto) 2.3 % Basophils (%) (Auto) 0.1 % Neutrophils # (Auto) 10.21 K/uL Lymphocytes # (Auto) 2.58 K/uL Monocytes # (Auto) 0.85 K/uL Eosinophils # (Auto) 0.32 K/uL Basophils # (Auto) 0.02 K/uL RDW Standard Deviation 39.1 fL RDW Coefficient of Variation 12.7 % Immature Granulocyte % (Auto) 0.3 % Immature Granulocyte # (Auto) 0.04 K/uL Sodium Level 138 mmol/L Potassium Level 3.7 mmol/L Chloride Level 106 mmol/L Carbon Dioxide Level 27 mmol/L Anion Gap 5.0 mmol/L Blood Urea Nitrogen 5 mg/dl Creatinine 0.58 mg/dl Est Creatinine Clear Calc Drug Dose 146.1 ml/min Estimated GFR () > 150.0 Estimated GFR (Non- 130.8 BUN/Creatinine Ratio 8.2 Random Glucose 85 mg/dl Calcium Level 8.6 mg/dl Assessment & Plan The lymph node biopsy on review with pathology does represent a lymphoma likely a Hodgkin's lymphoma. Further studies are pending on that tissue. To try to expedite staging I discussed with her and her mother today the notion of doing a bone marrow biopsy. Consent was obtained and the patient was readied for a bone marrow biopsy. Preoperative dose of 2 mg of IV morphine was given along with half a milligram of Ativan. The right posterior iliac crest was prepped. 1% lidocaine was instilled locally. Bone marrow biopsy and aspirate was obtained through a [facility]. The procedure was tolerated well. I believe it would be also warranted have have scheduled date for port placement with surgery while the patient is here. An echocardiogram should also be done in that treatment will include an anthracycline as part of the systemic therapy for at least stage II disease
[2017-12-21 15:21] VITALS: BP 102/66; PULSE 82; TEMP 37.5; O2SAT 95
--- NOTE | 2017-12-21 16:46 | ECHOCARDIOGRAM REPORT ---
*NOTICE TO RECEIVING [employer] This information is strictly Confidential and protected under [place] law. [place] law prohibits you from making any further disclosure of this information unless further disclosure is expressly permitted by the written consent of the person to whom it pertains or is authorized by law. A general authorization for the release of medical or other information is not sufficient for this purpose. Hospital accepts no responsibility if the information is made available to any other person, INCLUDING THE PATIENT. Interpretation Summary * Name: TITI RODRIGUEZ Study Date: 12/21/2017 02:33 PM BP: 117/75 mmHg * Patient Location: [facility]\S\W358\S\1 HR: 70 * : 1995 (M/d/yyyy) Gender: Female Height: 64 in * Age: 21 yrs Ethnicity: [place] Weight: 154 lb * Ordering Physician: Hermann Arellano * Referring Physician: Self, Referred * Performed By: Nicolette Bush RCS * * Reason For Study: Probable need for Anthracycline * BSA: 1.8 m2 * -- Conclusions -- * Limited views were obtained. * Left ventricular systolic function is normal. Procedure Details * A two-dimensional transthoracic echocardiogram was performed. * Limited views were obtained. Left Ventricle * The left ventricle is grossly normal size. * There is normal left ventricular wall thickness. * Ejection Fraction = 60-65%. * Left ventricular systolic function is normal. Right Ventricle * The right ventricle is normal in size and function. Mitral Valve * The mitral valve anatomy is normal. Tricuspid Valve * The tricuspid valve is not well visualized, but is grossly normal. Aortic Valve * The aortic valve is normal in structure and function. * The aortic valve is trileaflet. Pericardium/Pleural * There is no pericardial effusion. MMode 2D Measurements and Calculations EDV(MOD-sp4) 80.0 ml ESV(MOD-sp4) 31.0 ml EF(MOD-sp4) 61.3 % EDV(MOD-sp2) 94.0 ml ESV(MOD-sp2) 33.0 ml EF(MOD-sp2) 64.9 % SV(MOD-sp4) 49.0 ml SI(MOD-sp4) 28.0 ml/m\S\2 SV(MOD-sp2) 61.0 ml SI(MOD-sp2) 34.8 ml/m\S\2
[2017-12-21] MEDS ORDERED: HYDR-5688 PO (17:45)
--- NOTE | 2017-12-21 17:51 | Discharge Instructions ---
Discharge Instructions Date of Service December 21, 2017. Admission Reason for Admission: Supraclavicular Lymphadenopathy Discharge Discharge Diagnosis / Problem: Hodgkin's lymphoma Discharge Goals Goal(s): Decrease discomfort, Learn about illness, Diagnostic testing Activity Recommendations Activity Limitations: per Instructions/Follow-up section . Instructions / Follow-Up Instructions / Follow-Up You were evaluated in the hospital for swollen lymph nodes. After the biopsy with general surgery, the results are consistent with a disease called Hodgkin' s lymphoma. Per your discussion with the oncologist, Dr. Landin, it is quite important that you follow-up with his office for further evaluation, testing, and treatment. The general surgery team recommended the following after your neck biopsy: - You may shower in 3 days. Sponge bath and wash hair in meantime. Keep dressing clean and dry. - After 3 days remove outer dressing and replace daily - Leave steri strips on incision for 7 days and then remove. They may fall off on their own that is okay. - You may take extra strength Tylenol or Ibuprofen as needed for pain. - No repetitive movements with right arm above head for 1 week - No driving for 1 week - Call surgical office at [phone] if you have any questions or concerns Based on discussions with Dr. Mijares (your general surgeon) on the date of hospital discharge, you should contact his office as soon as possible for a likely appointment with him on Monday. This is in hopes for a follow-on surgical appointment on Monday for Mediport placement. Please follow-up with Dr. Landin in his oncology office as soon as possible per your discussions with him. You are being prescribed a small amount of [place] (narcotic pain medicine). Please keep in mind this includes Tylenol, therefore please do not exceed the maximum 4000 mg per day dosage of Tylenol (acetaminophen). Please return to the nearest emergency department if you have any uncontrolled pain, concerns for infection at the sites of your biopsies, new and uncontrolled nausea or vomiting, or with any other acute concerns. Current Hospital Diet Patient's current hospital diet: Regular Diet Discharge Diet Recommended Diet: Regular Diet Procedures Procedures Performed: BIOPSY SUPRACLAVICULAR LYMPH NODE Bone marrow biopsy Pending Studies Studies pending at discharge: yes List of pending studies: Bone marrow biopsy results as well as specific cancer-related blood work. Laboratory Results Lipid Panel Test 4/4/18 06:58 Range/Units Triglycerides Level 122 0-150 mg/dl Cholesterol Level 185 0-200 mg/dl HDL Cholesterol 41 mg/dl Cholesterol/HDL Ratio 4.5 LDL Cholesterol, Calculated 120 mg/dl Medical Emergencies . Who to Call and When: Medical Emergencies: If at any time you feel your situation is an emergency, please call 911 immediately. . Non-Emergent Contact Non-Emergency issues call your: Primary Care Provider, Oncologist . Epoxy Specialist Recommendations Epoxy Specialist Recommendations: You may shower in 3 days. Sponge bath and wash hair in meantime. Keep dressing clean and dry. After 3 days remove outer dressing and replace daily Leave steri strips on incision for 7 days and then remove. They may fall off on their own that is okay. You may take extra strength Tylenol or Ibuprofen as needed for pain. Call surgical office at [phone] if you have any questions or concerns No repetitive movements with right arm above head for 1 week No driving for 1 week
[2017-12-21 17:57] LABS: HEP C IGG 13 YRS+OLDER_RFLX NEG (NEG)
[2017-12-21 18:13] VITALS: BP 102/66; PULSE 82; TEMP 37.5; O2SAT 95
--- NOTE | 2017-12-21 18:29 | Discharge Summary ---
Discharge Summary Date of Service December 21, 2017. Discharge Summary Admission Date: December 19, 2017 at 21:19 Discharge Date: December 21, 2017 Discharge Disposition: Home Principal Diagnosis: Hodgkin's lymphoma Problems/Secondary Diagnoses: Nausea and vomiting Anemia Procedures: [address] of neck soft tissue IMPRESSION: Significant right supraclavicular and mediastinal lymphadenopathy, which is highly concerning for lymphoma or metastatic disease. The left supraclavicular region may also be involved. The mediastinum is incompletely evaluated and dedicated chest CT is recommended. [address] chest with contrast IMPRESSION: 1. Lymphadenopathy in the supraclavicular fossae, right greater than left, and mediastinum. This is highly concerning for lymphoma or less likely metastatic disease from another malignancy. The right supraclavicular lymphadenopathy would likely be amenable to ultrasound-guided needle aspiration on a nonurgent basis. [address] abdomen pelvis with IV contrast IMPRESSION: 1. No intra-abdominal lymphadenopathy or other evidence of malignancy. No acute intra-abdominal pathology. Operative Date December 20, 2017. Procedure(s) Performed BIOPSY SUPRACLAVICULAR LYMPH NODE 20 Dec 2017: Right posterior iliac crest bone marrow biopsy 20 Dec 2017 single view chest x-ray IMPRESSION: 1. No pneumothorax. 2. Small amount of right supraclavicular soft tissue gas which is likely due to the recent biopsy. 3. Right paratracheal lymphadenopathy is again noted. 21 Dec 2017 transthoracic echocardiogram * -- Conclusions -- * Limited views were obtained. * Left ventricular systolic function is normal. Left Ventricle * The left ventricle is grossly normal size. * There is normal left ventricular wall thickness. * Ejection Fraction = 60-65%. * Left ventricular systolic function is normal. Consultations: General surgery for lymph node biopsy 21 Dec 2017 oncology impression and plan from progress note IMPRESSION: 1. Probable Hodgkin's lymphoma. 2. Right supraclavicular and mediastinal lymphadenopathy. 3. Status post right supraclavicular lymphadenectomy (pathology pending). PLAN: Jing is a pleasant 21-year-old female patient who presented to the [facility] Emergency Room with painful right supraclavicular lymphadenopathy. Further radiographic investigation revealed a relatively large mediastinal mass with no evidence of disease below the diaphragm. She also suffers from a very mild anemia, which could be multifactorial; however, she will require staging bone marrow biopsy and aspiration, nonetheless. Once she is discharged, will obtain outpatient PET scan as well as pulmonary function studies. I briefly spoke to the medical team and asked them to please consult general surgery for MediPort instillation shortly after she is discharged. I plan to see her back in the office expediently in the hopes of starting chemotherapy. The tentative diagnosis per discussion with Dr. Hollins is classical Hodgkin's lymphoma. Medication Reconciliation New Medications: Hydrocodone/Acetaminophen 5MG/325MG ([place] 5MG/325MG) Tab 1 TAB PO Q8H for Pain for 4 Days, #12 TAB 0 Refills PRN PAIN Continued Medications: Control Pills ( Control Pills) Tab 1 TAB PO DAILY Lamotrigine (Lamictal) 25 Mg Tab 25 MG PO DAILY, TAB Lorazepam (Ativan) 1 Mg Tab 1 MG PO HS, TAB Discharge Exam General Appearance: Awake, alert & oriented, appears mildly uncomfortable, but not in any acute distress. Neck: Right supraclavicular area has a pressure dressing applied that is clean, dry, and intact. No peripheral erythema to the dressing noted. CV: +S1S2 RRR, no murmur. Pulm: Clear to auscultation throughout. Abdomen: +BS, soft, non-tender, non-distended. Extremities: No pedal edema or calf tenderness. Moving all extremities naturally and easily. Neuro: No gross neuro deficits. Review of Systems: Constitutional: No fever, No chills Respiratory: No cough, No shortness of breath Cardiovascular: No chest pain, No edema Abdomen: + nausea, No pain, No vomiting, No diarrhea Musculoskeletal: + problem reported (Local pain at biopsy sites) Hospital Course HPI at time of admission on December 19, 2017 at 21:03 21 y/o F with history of anxiety and depression only. She presents with painful swollen nodes in her R neck. She also states that over the past 2 days she has had nausea and a few episodes of vomiting. She denies weight loss, night sweats, fatigue or general loss of appetite. A CT neck was ordered in the ER and revealed right supraclavicular and mediastinal lymphadenopathy which may be consistent with lymphoma. Discharge summary on 21 Dec 2017 21-year-old female admitted for observation on 19 Dec 2017 for swollen lymph nodes in her neck. PMH: Anxiety, depression Lymphoma: On 20 December the patient underwent a biopsy via general surgery of her right superior clavicular lymph node, with follow on pathology confirming Hodgkin's lymphoma. On 21 december hematology performed a bone marrow biopsy. Her pain has been adequately controlled with morphine and Ultram. Her echocardiogram was unremarkable (see full report). - Patient does have a history of narcotic substance abuse. At time of hospital discharge, she was provided a small amount of [place] with plans to taper off quickly for her acute post-procedure pain. - Hepatitis serologies are pending, as are cytometry. - Bone marrow pathology is pending. - As an outpatient, they recommend a PET scan, pulmonary function studies, and planned chemotherapy. - Per surgery's note, surgery follow-up is not required. However, it was recommended that she contact Dr. Mijares's office for possible Mediport placement this coming Monday, 27 December. Nausea and vomiting: Unclear what the etiology of this is, though post-biopsy it may be from narcotics and/or local discomfort. No abdominal pain or diarrhea. Nontender abdomen. Overall appears comfortable. For now we will treat with IV fluids and antiemetics. Anxiety and depression: Continue home Lamictal and Lorazepam. No acute changes as inpatient. Anemia: Hemoglobin of 10.8. Will be followed up via oncology. Total Time Spent: Greater than 30 minutes This includes examination of the patient, discharge planning, medication reconciliation, and communication with other providers. Discharge Instructions Please refer to the electronic Patient Visit Report (Discharge Instructions) for additional information. Additional Copies To Hermann Arellano D.O.; RV. Kang MD; Natalio Landin D.O.; Peggy Mijares MD Resident Tracking Resident Involvement: Resident Care Provided Care Provided: Adult Hospital Medicine (inpatient) Assessment/Plan Resident Physician Supervision Note: I was present with Dr. Ashton during the history and exam. I discussed the case with the resident and agree with the findings and plan as documented in the note. Any exceptions or clarifications are listed here: Pt seen and examined at bedside. Pain is moderately well controlled with present regimen at supraclavicular site. BMA completed today w/ Dr. Arellano. Discussed with him - can have port scheduled for outpatient. S1/S2 nl RRR no MCG , CTAB. Hodgkin's Lymphoma - schedule port placement with surgery, follow up BM aspirate. Establish w/ oncology for PET scan and follow up. h/o narcotic abuse - short course of narcotic pain mgmt without refill. D/W patient.
== END 2017-12-21 19:23 | disposition home or self-care (01) ==
LOC: C.EDB 18:02 → C.MSW 21:19 → ENRESERV 21:33
PROVIDERS: ADMIT Internal Medicine; ATTEND Family Medicine
DX: C81.90 Hodgkin lymphoma, unspecified, unspecified site (principal); R11.2 Nausea with vomiting, unspecified; D64.9 Anemia, unspecified; F41.9 Anxiety disorder, unspecified; F32.9 Major depressive disorder, single episode, unspecified; Z88.2 Allergy status to sulfonamides; Z79.3 Long term (current) use of hormonal contraceptives; Z79.899 Other long term (current) drug therapy; Z80.41 Family history of malignant neoplasm of ovary

== ENCOUNTER → 2018-02-19 | Outpatient (CLI) | payer OTHER ==
[~2018-02-19] MED LIST changes: +ATV/1 PO; -CIPR-255 PO; +LAMO100T PO; -ONDA4TAB10 SL
[2018-02-19 09:51] LABS: HEMATOCRIT 38.1 % (37-47); HEMOGLOBIN 12.2 g/dL (12.0-16.0); MEAN CELL VOLUME 83.6 fL (80-100); MEAN CORPUSCULAR HEMOGLOBIN 26.8 pg (25-34); MEAN PLATELET VOLUME 8.9 fL (7.4-10.4); PLATELET COUNT 325 K/uL (130-400); RED CELL DISTRIBUTION WIDTH CV 15.9 % (11.5-14.5); RED CELL DISTRIBUTION WIDTH SD 48.2 fL (36.4-46.3)
[2018-02-19 10:09] LABS: ALBUMIN 3.7 gm/dl (3.4-5.0); ALT/SGPT 15 U/L (12-78); AST/SGOT 10 U/L (15-37); BLOOD UREA NITROGEN 11 mg/dl (7-18); CALCIUM 8.8 mg/dl (8.5-10.1); CARBON DIOXIDE 24 mmol/L (21-32); CREATININE 0.71 mg/dl (0.60-1.20); GLUCOSE 85 mg/dl (70-99); POTASSIUM 3.9 mmol/L (3.5-5.1); SODIUM 139 mmol/L (136-145)
[2018-02-19 10:15] LABS: BASO ABS # 0.05 K/uL (0-0.2); EOS % 9.6 %; EOS ABS # 0.46 K/uL (0-0.5); LYMPH % 59.2 %; LYMPH ABS # 2.84 K/uL (1.2-3.4); MONO % 12.1 %; MONO ABS # 0.58 K/uL (0.11-0.59); NEUT % 18.1 %; NEUT ABS # 0.87 K/uL (1.4-6.5)
[2018-02-19 10:17] LABS: ALKALINE PHOSPHATASE 40 U/L (45-117); TOTAL PROTEIN 7.1 gm/dl (6.4-8.2)
== END | disposition home or self-care (01) ==
LOC: C.LABSPEC 09:37
PROVIDERS: ATTEND Internal Medicine Hematology & Oncology
DX: C81.72 Other Hodgkin lymphoma, intrathoracic lymph nodes (principal)

== ENCOUNTER → 2018-03-06 | Outpatient (CLI) | payer OTHER ==
[2018-03-06 16:29] LABS: HEMATOCRIT 34.9 % (37-47); HEMOGLOBIN 11.9 g/dL (12.0-16.0); MEAN CELL VOLUME 82.1 fL (80-100); MEAN CORPUSCULAR HGB CONC 34.1 g/dl (32-36); PLATELET COUNT 340 K/uL (130-400); RED CELL DISTRIBUTION WIDTH CV 16.4 % (11.5-14.5); WHITE BLOOD COUNT 3.73 K/uL (4.8-10.8)
[2018-03-06 16:48] LABS: BASO % 0.5 %; BASO ABS # 0.02 K/uL (0-0.2); EOS ABS # 0.15 K/uL (0-0.5); LYMPH % 52.8 %; LYMPH ABS # 1.97 K/uL (1.2-3.4); MONO % 10.2 %; MONO ABS # 0.38 K/uL (0.11-0.59); NEUT % 32.5 %; NEUT ABS # 1.21 K/uL (1.4-6.5)
[2018-03-06 16:49] LABS: ALBUMIN 3.6 gm/dl (3.4-5.0); ALKALINE PHOSPHATASE 43 U/L (45-117); ALT/SGPT 16 U/L (12-78); AST/SGOT 8 U/L (15-37); BLOOD UREA NITROGEN 10 mg/dl (7-18); CALCIUM 8.2 mg/dl (8.5-10.1); CARBON DIOXIDE 21 mmol/L (21-32); CREATININE 0.77 mg/dl (0.60-1.20); GLUCOSE 88 mg/dl (70-99); POTASSIUM 3.6 mmol/L (3.5-5.1); SODIUM 136 mmol/L (136-145); TOTAL PROTEIN 7.1 gm/dl (6.4-8.2)
== END | disposition home or self-care (01) ==
LOC: C.LABSPEC 15:46
PROVIDERS: ATTEND Internal Medicine Hematology & Oncology
DX: C81.72 Other Hodgkin lymphoma, intrathoracic lymph nodes (principal)

== ENCOUNTER → 2018-03-14 | Outpatient (CLI) | payer OTHER ==
--- NOTE | 2018-03-14 08:57 | DIAGNOSTIC IMAGING REPORT ---
PET/CT HISTORY: LYMPHOMA TECHNIQUE: PET/CT was performed from the base of the skull through the pelvis following the intravenous administration of 14.2 mCi of F18-FDG. Non-contrast CT imaging was performed over the same range without breath-hold for attenuation correction of PET images and anatomic correlation, but not for primary interpretation as it is not of standard diagnostic quality. CT DOSE: COMPARISON: PET CT 01/01/2018. FINDINGS: HEAD AND NECK: Bilateral lower cervical and left supraclavicular lymph nodes have essentially resolved. Significant decrease in size in the right cervical lymph nodes. The clustered supraclavicular lymph node currently measured 2.2 x 0.7 cm, previously measuring 5.4 x 2.2 cm. The FDG uptake has also resolved. CHEST: Significant decrease in size in the mediastinal lymph nodes. Dominant right paratracheal lymph node measures 2.4 x 1.2 cm, previously measuring 5.4 x 4.5 cm. Anterior mediastinal lymph node has also significantly decreased in size and currently measures 7 mm, previous measuring 15 mm. No abnormal FDG uptake within the mediastinal lymph nodes. No hilar or axillary lymphadenopathy. Left Port-A-Cath terminates in the SVC. The lungs are clear. ABDOMEN/PELVIS: Below the diaphragm, tracer is distributed physiologically in the gastrointestinal and genitourinary tracts. There is no significant lymphadenopathy and no FDG-avid disease. MUSCULOSKELETAL: There is no FDG-avid or destructive bone lesion. IMPRESSION: 1. Significant decrease in size within the lower cervical, supraclavicular, and mediastinal lymph nodes as described above. 2. The FDG uptake associated with these lymph nodes has resolved. 3. No abnormal FDG uptake identified. Electronically signed by: Felipe Adams M.D. 03/14/2018 8:56 AM Dictated Date/Time: 03/14/2018 8:43 AM
== END | disposition home or self-care (01) ==
LOC: C.PET 06:58
PROVIDERS: ATTEND Internal Medicine Hematology & Oncology
DX: C81.72 Other Hodgkin lymphoma, intrathoracic lymph nodes (principal)

== ENCOUNTER → 2018-03-15 | Outpatient (CLI) | payer OTHER ==
[2018-03-15 13:47] LABS: BASO % 0.2 %; BASO ABS # 0.02 K/uL (0-0.2); EOS % 3.7 %; HEMATOCRIT 37.5 % (37-47); HEMOGLOBIN 12.7 g/dL (12.0-16.0); IG# 0.02 K/uL (0.00-0.02); LYMPH % 35.2 %; LYMPH ABS # 2.83 K/uL (1.2-3.4); MEAN CELL VOLUME 82.8 fL (80-100); MEAN CORPUSCULAR HGB CONC 33.9 g/dl (32-36); MEAN PLATELET VOLUME 8.8 fL (7.4-10.4); MONO % 11.3 %; MONO ABS # 0.91 K/uL (0.11-0.59); NEUT % 49.4 %; NEUT ABS # 3.97 K/uL (1.4-6.5); PLATELET COUNT 382 K/uL (130-400); RED CELL DISTRIBUTION WIDTH CV 16.3 % (11.5-14.5); RED CELL DISTRIBUTION WIDTH SD 49.2 fL (36.4-46.3); WHITE BLOOD COUNT 8.05 K/uL (4.8-10.8)
[2018-03-15 14:08] LABS: ALBUMIN 3.7 gm/dl (3.4-5.0); ALKALINE PHOSPHATASE 47 U/L (45-117); ALT/SGPT 15 U/L (12-78); AST/SGOT 9 U/L (15-37); BLOOD UREA NITROGEN 10 mg/dl (7-18); CARBON DIOXIDE 22 mmol/L (21-32); CREATININE 0.71 mg/dl (0.60-1.20); GLUCOSE 77 mg/dl (70-99); SODIUM 136 mmol/L (136-145); TOTAL PROTEIN 7.2 gm/dl (6.4-8.2)
== END | disposition home or self-care (01) ==
LOC: C.LABSPEC 13:37
PROVIDERS: ATTEND Internal Medicine Hematology & Oncology
DX: C81.72 Other Hodgkin lymphoma, intrathoracic lymph nodes (principal)

== ENCOUNTER 2020-07-16 05:21 | Inpatient (IN) ==
[2020-07-16] MEDS ORDERED: ceFAZolin 2000MG 2,000 MG/15 ML SYR IV SCH (06:00)
[2020-07-16] MEDS ORDERED: CITRIC ACID/SODIUM CITRATE 15 ML UDC PO SCH (06:00)
[2020-07-16] MEDS: LACTATED RINGER'S 1,000 ML IV SCH ×3 (06:42→19:07)
--- NOTE | 2020-07-16 06:51 | History & Physical Report ---
Date of Service July 16, 2020 Assessment & Plan (1) Supervision of normal intrauterine in primigravida: 24yo at 38.3 weeks GA. SROM in breech presentation. Consents for LTCS reviewed and signed. 1. Fetus: Cat 1 2. Labor: SROM in breech. Mild regular contractions 3. GBS: GBS neg 4. Vitals: WNL 5. COVID screen pending (2) Breech presentation: (3) Proteinuria affecting : History of Present Illness Primary Care Provider: Remy Gonzáles MD 24yo at 38.3 weeks GA. Presents for LOF that occurred at 3am. Reports mild contractions. No VB. Good FM. complicated by persistent breech presentation. complicated by: BREECH identified at 37wk. C/S SCHEDULED FOR 07/[address] ESTRADA Does not desire ECV attempt. scheduled for 39wk Pt aware to notify oncall of breech if she calls with r/o labor concerns. Gestational Proteinuria, >1gm on 24hr urine at 37w4d but no HTN History of Hodkin's Lymphoma. Was given chemo and radiation, no treatment now Bipolar disorder. Takes multiple meds. Categories reviewed ORTIZ 2 (LEEP 02/2019). PAP 12/18/2019 normal- NEEDS PAP DONE WITH PPX Allergies Allergy/AdvReac Type Severity Reaction Status Date / Time Bactrim Allergy Intermediate itching Verified 01/16/20 09:03 Sulfa (Sulfonamide Allergy Unknown ITCHING Verified 07/15/20 09:34 Antibiotics) sulfamethoxazole Allergy Unknown itching Verified 07/15/20 09:34 trimethoprim Allergy Unknown itching Verified 07/15/20 09:34 Home Medications Medication Instructions Recorded Confirmed Type [id number] fumarate-FA 1 tab PO QPM 05/05/19 07/16/20 History [] buspirone 30 mg tablet 30 mg PO BID #60 tab 07/11/19 07/16/20 Rx lurasidone 80 mg tablet 60 mg PO QPM tab 04/07/20 07/16/20 History lamotrigine 200 mg tablet 225 mg PO QAM tab 06/17/20 07/16/20 History levothyroxine [Synthroid] 100 mcg PO QAM 12/13/20 12/17/20 History cephalexin [Keflex] 500 mg PO BID 07/15/20 07/16/20 History Patient History Medical History (Updated 07/16/20 @ 07:01 by Philippe Garcia MD) Abnormal biochemical finding on screening of mother Abnormal TSH Acute sinusitis Anxiety Arthralgia of multiple joints Back pain with sciatica HX Bipolar disorder Breech presentation ORTIZ II (cervical intraepithelial neoplasia II) LEEP 2019 - removed all CIN2, had some CIN1 at margin. Depression Encounter for anatomic survey Endometriosis Hodgkin's disease (12/20/17) "Development of lymphadenopathy of the right supraclavicular area Status post excisional biopsy December 20, 2017 Hodgkin's lymphoma Status post PET/CT Stage II B Systemic chemotherapy with ABVD Status post completion of radiation therapy June 13, 2018. Treatment given to the chest and neck. She received 3600 cGy utilizing volumetric modulated arc therapy. Hodgkins lymphoma DX'D 2017-s/p chemo/radiation - currently in remission Hypokalemia Hypothyroidism determined by thyroid function test Low grade fever Night sweats Nodular lymphocyte predominant Hodgkin lymphoma Palpitations HX PTSD (post-traumatic stress disorder) Sacral radiculopathy Sleep disturbances Varicella vaccine Weight loss, unintentional Surgical History H/O LEEP 2018 for CIN2. Excised CIN2, had margins positive for CIN1 only. H/O nasal septoplasty H/O wisdom tooth extraction History of lymph node biopsy History of tonsillectomy November [address] LA included Adenoids History of vascular access device 12/14/2018-AND REMOVED S/P appendectomy S/P radiotherapy Family History (Updated 07/15/20 @ 09:21 by Tayla Miller, ESTEFANIA) Grandmother (Paternal) Ovarian cancer Mother Family history of reaction to anesthesia PONV-EMOTIONAL Denies family history of Prostate cancer Myocardial infarction Breast cancer Colorectal cancer Stroke Social History Smoking Status: Former smoker Age Started Using Tobacco: 15; Age Quit Using Tobacco: 16; packs per day: 0.25; Years Smoked: 1; Cigarettes Per Day: 5 per day; Second Hand Exposure: No; Hx Alcohol Use: No Hx Substance Use: No Preferred Language: Gabonese Communication Ability: Effective Visual Impairment: No Limitations Hearing Ability: Normal Supervisor Tumbling And Rolling Required: No Beliefs That Will Affect Care: None marital status: marital status details: Omari Andi (27) [phone] Current Living Situation: Spouse and Family Current Living Situation Comment: lives with spouse, spouse's daughter, 1 dog current occupational status: employed current occupation: [employer] Other Information That Helps Us Care for You: No Feels Safe at Home: Yes Safety Concerns: Feels Safe At This Time Childhood Exposure to Second-Hand Smoke: No Assistive Devices: Contacts and Glasses Physical Exam Constitutional: WD/WN, vitals as above Respiratory: normal respiratory effort; no respiratory distress, no labored breathing, no retractions and no cough Gastrointestinal (Abdomen): Inspection/Auscultation: abdomen normal to inspection; abdomen not distended Percussion/Palpation: abdomen soft; abdomen nontender, no guarding and abdomen not rigid Skin: no rashes, warm and dry Psychiatric: A+Ox3, euthymic affect Genitourinary: OB Exam Abdomen: + breech (By BSUS) Manual OB Exam: + amniotic fluid (Amnisure) clear OB Exam Monitor Tracing: + external FHT monitor used, + external uterine monitor used and + category I Results & Data ([facility]) Vital Signs (Past 12 Hours) Vital Signs Temp Pulse Resp BP 07/16/20 05:34 93 H 132/79 07/16/20 05:29 36.7 C 93 H 18 132/79 Coding Level of Care Code None Diagnoses Supervision of normal intrauterine in primigravida Z34.00 Breech presentation O32.1XX0 Proteinuria affecting O12.10
[2020-07-16 07:18] LABS: Basophils # (auto) 0.01 K/uL (0-0.2); Basophils % (auto) 0.1 %; Eosinophils # (auto) 0.06 K/uL (0-0.5); Eosinophils % (auto) 0.5 %; Hematocrit (blood only) 35.5 % (37-47); Hemoglobin 12.3 g/dL (12.0-16.0); Immature Granulocytes # (auto) 0.05 K/uL (0.00-0.02); Immature Granulocytes % (auto) 0.4 %; Lymphocytes # (auto) 1.08 K/uL (1.2-3.4); Mean Corpuscular Hemoglobin 30.5 pg (25-34); Mean Corpuscular Hgb Conc 34.6 g/dL (32-36); Mean Corpuscular Volume 88.1 fL (80-100); Mean Platelet Volume 10.6 fL (7.4-10.4); Monocytes # (auto) 0.81 K/uL (0.11-0.59); Monocytes % (auto) 6.8 %; Neutrophils # (auto) 9.94 K/uL (1.4-6.5); Neutrophils % (auto) 83.2 %; Platelet Count 239 K/uL (130-400); RDW Coefficient of Variation 13.3 % (11.5-14.5); RDW Standard Deviation 42.6 fL (36.4-46.3); Red Blood Count 4.03 M/uL (4.2-5.4); White Blood Count 11.95 K/uL (4.8-10.8)
[2020-07-16] MEDS ORDERED: LACTATED RINGER'S 500 ML IV PRN (07:33)
[2020-07-16] MEDS ORDERED: MoRPHine SULFATE PF 1 MG/ML 10 ML AMP/VIAL INT SPINAL ONE (07:33)
[2020-07-16] MEDS ORDERED: NALOXONE HCL 1 MG in SODIUM CHLORIDE 0.9% 1000ML 1,000 ML IV PRN (07:33)
[2020-07-16] MEDS ORDERED: ePHEDrine sulfate 50 MG/ML AMP IV PRN (07:33)
[2020-07-16] MEDS ORDERED: NALOXONE HCL 0.08 MG in SYRINGE 1.8 ML IV PRN (07:33)
[2020-07-16] MEDS ORDERED: ONDANSETRON INJ 2 MG/ML 2 ML VIAL IV PRN (07:33)
[2020-07-16] MEDS ORDERED: diphenhydrAMINE 50 MG/ML VIAL IV PRN (07:33)
[2020-07-16] MEDS ORDERED: NALOXONE HCL 0.4 MG/1 ML VIAL/CARP IV PRN (07:33)
[2020-07-16] MEDS ORDERED: NO NARCOTICS OR SEDATIVES SCH (07:45)
[2020-07-16] MEDS ORDERED: SODIUM CHLORIDE 0.9% 1000ML 1,000 ML IV SCH (07:45)
[2020-07-16] MEDS ORDERED: DC INTRASPINAL MORPHINE SCH (07:45)
--- NOTE | 2020-07-16 07:45 | Anesthesiology Consultation ---
Date of Service July 16, 2020 Covid 19 negative today. Assessment & Plan (1) Encounter for pre-operative examination: Chart Review Chart Review: Acceptable Risk for Surgery and Patient NOT seen in Pre Admission Testing Consults Requested none History Surgery Operation Date: 07/16/20 07:30 Proposed Procedures p Section in - Philippe Garcia MD Height/Weight Height: 5 ft 4 in Weight: 82.1 kg Allergies Allergy/AdvReac Type Severity Reaction Status Date / Time Bactrim Allergy Intermediate itching Verified 01/16/20 09:03 Sulfa (Sulfonamide Allergy Unknown ITCHING Verified 07/15/20 09:34 Antibiotics) sulfamethoxazole Allergy Unknown itching Verified 07/15/20 09:34 trimethoprim Allergy Unknown itching Verified 07/15/20 09:34 Medications Home Medications Medication Instructions Recorded Confirmed Last Taken [id number] fumarate-FA 1 tab PO QPM 05/05/19 07/16/20 07/15/20 [] buspirone 30 mg tablet 30 mg PO BID #60 tab 07/11/19 07/16/20 07/16/20 lurasidone 80 mg tablet 60 mg PO QPM tab 04/07/20 07/16/20 07/16/20 lamotrigine 200 mg tablet 225 mg PO QAM tab 06/17/20 07/16/20 07/16/20 levothyroxine [Synthroid] 100 mcg PO QAM 07/12/20 07/16/20 07/16/20 cephalexin [Keflex] 500 mg PO BID 07/15/20 07/16/20 07/16/20 Active Medications Generic Name Dose Route Start Last Admin Trade Name Rodneyq PRN Reason Stop Dose Admin Citric Acid/Sodium Citrate 30 ml 07/16/20 06:00 07/16/20 07:09 Citric Acid/Sodium Citrate 15 Ml Udc PO 07/16/20 23:59 30 ml PREOP MARY Administration Lactated Ringer's 1,000 mls @ 125 mls/hr 07/16/20 07:40 07/16/20 06:42 Lr IV 08/15/20 07:39 999 mls/hr .Q8H MARY Administration Past Medical History Medical History Abnormal biochemical finding on screening of mother Abnormal TSH Acute sinusitis Anxiety Arthralgia of multiple joints Back pain with sciatica HX Bipolar disorder Breech presentation ORTIZ II (cervical intraepithelial neoplasia II) LEEP 2019 - removed all CIN2, had some CIN1 at margin. Depression Encounter for anatomic survey Endometriosis Hodgkin's disease (12/20/17) "Development of lymphadenopathy of the right supraclavicular area Status post excisional biopsy December 20, 2017 Hodgkin's lymphoma Status post PET/CT Stage II B Systemic chemotherapy with ABVD Status post completion of radiation therapy June 13, 2018. Treatment given to the chest and neck. She received 3600 cGy utilizing volumetric modulated arc therapy. Hodgkins lymphoma DX'D 2018-s/p chemo/radiation - currently in remission Hypokalemia Hypothyroidism determined by thyroid function test Low grade fever Night sweats Nodular lymphocyte predominant Hodgkin lymphoma Palpitations HX PTSD (post-traumatic stress disorder) Sacral radiculopathy Sleep disturbances Varicella vaccine Weight loss, unintentional Past Family History Family History Grandmother (Paternal) Ovarian cancer Mother Family history of reaction to anesthesia PONV-EMOTIONAL Denies family history of Prostate cancer Myocardial infarction Breast cancer Colorectal cancer Stroke Past Surgical History Surgical History H/O LEEP 2018 for CIN2. Excised CIN2, had margins positive for CIN1 only. H/O nasal septoplasty H/O wisdom tooth extraction History of lymph node biopsy History of tonsillectomy November [address] LA included Adenoids History of vascular access device 12/14/2018-AND REMOVED S/P appendectomy S/P radiotherapy Social History Smoking Status: Former smoker tobacco type: cigarettes Smoking cigarettes per day: 5 per day Hx Alcohol Use: No Hx Substance Use: No substance use type: does not use Substance Use Type Other:: medical marijuana - uses daily at present at night Last Used Substance Other:: last use 11/19 Physical Exam Vital Signs Last Vital Signs Temp 36.7 C 07/16/20 05:29 Pulse 97 H 07/16/20 07:42 Resp 18 07/16/20 07:00 BP 132/79 07/16/20 05:34 Pulse Ox 98 07/16/20 07:42 Testing Laboratory Results 07/16/20 06:57
[2020-07-16] MEDS ORDERED: fentaNYL citrate 100 MCG/2 ML VIAL ONE (07:53)
[2020-07-16] MEDS ORDERED: MoRPHine SULFATE PF 1 MG/ML 10 ML AMP/VIAL ONE (07:54)
[2020-07-16] MEDS ORDERED: OXYTOCIN 10 UNITS/ML VIAL ONE ×2 (07:54→08:36)
[2020-07-16] MEDS ORDERED: PHENYLEPHRINE 100MCG/ML 5ML SYR ONE (08:26)
[2020-07-16] MEDS ORDERED: MAGNESIUM HYDROXIDE SUSP 30 ML UDC PO PRN (09:38)
[2020-07-16] MEDS ORDERED: DIPHTHERIA/TETANUS/PERTUSSIS 0.5 ML SYR/VIAL IM ONE (09:38)
[2020-07-16] MEDS ORDERED: HYDROCORTISONE ACETATE 25 MG SUPP PR PRN (09:38)
[2020-07-16] MEDS ORDERED: BENZOCAINE 20% AER SPR 82.5 GM CAN EXT PRN (09:38)
[2020-07-16] MEDS ORDERED: SENNA 8.6 MG TAB PO PRN (09:38)
[2020-07-16] MEDS ORDERED: SUPERCREAM 0.870% 15 GM JAR EXT PRN (09:38)
[2020-07-16] MEDS ORDERED: OXYTOCIN 20 UNITS in LACTATED RINGER'S 1,000 ML IV SCH (10:15)
--- NOTE | 2020-07-16 10:26 | Anesthesiology Progress Note ---
Date of Service July 16, 2020 Anesthesia Post Procedure Vital Signs Vital Signs: Temp Pulse Resp BP Pulse Ox 07/16/20 10:23 80 97 07/16/20 10:18 100 H 97 07/16/20 10:17 82 131/66 07/16/20 10:13 89 97 07/16/20 10:10 75 18 129/66 97 07/16/20 10:08 75 97 07/16/20 10:06 67 129/66 07/16/20 10:03 86 97 07/16/20 10:02 84 130/63 07/16/20 10:00 89 18 130/63 96 07/16/20 09:58 89 96 07/16/20 09:53 90 97 07/16/20 09:50 91 H 18 126/78 97 07/16/20 09:49 86 126/78 07/16/20 09:48 91 H 97 07/16/20 09:46 90 131/71 07/16/20 09:43 89 97 07/16/20 09:40 89 18 131/71 97 07/16/20 09:38 96 H 97 07/16/20 09:36 95 H 121/68 07/16/20 09:33 91 H 99 07/16/20 09:30 89 18 121/68 97 07/16/20 09:28 90 97 07/16/20 09:23 89 97 07/16/20 09:21 90 93 07/16/20 09:20 36.6 C 96 H 18 118/59 L 97 07/16/20 09:19 87 118/59 L 07/16/20 09:18 91 H 96 07/16/20 08:02 91 H 98 07/16/20 07:57 104 H 97 07/16/20 07:52 94 H 98 07/16/20 07:47 95 H 97 07/16/20 07:42 97 H 98 07/16/20 07:00 18 07/16/20 05:34 93 H 132/79 07/16/20 05:29 36.7 C 93 H 18 132/79 Transfer of Care Handoff Completed per policy Notes Mental Status: alert / awake / arousable Patient Amnestic to Procedure: Yes Nausea / Vomiting: adequately controlled Pain: adequately controlled Airway Patency, RR, SpO2: stable & adequate BP & HR: stable & adequate Hydration State: stable & adequate Neuraxial Anesthesia: was administered and sensory block is resolving Anesthetic Complications: no major complications apparent and Pt Satisfied with anesthetic care
[2020-07-16] MEDS ORDERED: PROMETHAZINE HCL 25 MG in SODIUM CHLORIDE 0.9% 50 ML IV PRN (12:06)
[2020-07-16] MEDS: HYDROmorphone INJ 0.5 MG/0.5 ML SYR IV PRN ×3 (13:22→23:46)
[2020-07-16] MEDS: SIMETHICONE 80 MG CHEW PO SCH ×3 (14:32→21:31)
[2020-07-16] MEDS: KETOROLAC 30 MG/ML VIAL IV PRN ×2 (17:11→22:35)
[2020-07-16] MEDS: cephALEXin 500 MG CAP PO SCH (21:10)
[2020-07-16] MEDS: busPIRone 15 MG TAB PO SCH (21:10)
[2020-07-16] MEDS: LURASIDONE HCL 40 MG TAB PO SCH (21:30)
[2020-07-16] MEDS: DOCUSATE SODIUM 100 MG CAP PO SCH (21:31)
[2020-07-17] MEDS ORDERED: diphenhydrAMINE Capsule 25 MG CAP PO PRN (01:33)
[2020-07-17] MEDS ORDERED: PROMETHAZINE HCL 25 MG in SODIUM CHLORIDE 0.9% 50 ML IV PRN (01:33)
[2020-07-17] MEDS ORDERED: KETOROLAC 30 MG/ML VIAL IV PRN (01:33)
[2020-07-17] MEDS ORDERED: diphenhydrAMINE 50 MG/ML VIAL IV PRN (01:33)
[2020-07-17] MEDS ORDERED: ONDANSETRON INJ 2 MG/ML 2 ML VIAL IV PRN (01:33)
[2020-07-17] MEDS: oxyCODONE/ACETAMINOPHEN 5mg/325mg TAB PO PRN ×5 (05:06→23:23)
--- NOTE | 2020-07-17 05:45 | Obstetrical Progress Note ---
Date of Service <Corby Sung MD - Last Filed: 07/17/20 06:59> July 17, 2020 Assessment & Plan <Corby Sung MD - Last Filed: 07/17/20 06:59> (1) state: 24 y/o s/p pLTCS (for breech) at 38w3d, POD1. B+. Rubella immune. Stable. - ambulating. Guillen removed this AM, will attempt voiding trial. - without issues. - no BM, but reports small amount of flatus. + bowel sounds. - tolerated clears, will advance diet as tolerated. - moderate pain. continue Percocets 1-2 tabs q4h prn and ibuprofen prn. - Hb 12.3->11.5. appropriate. - WBC 11.95->13.34. continue daily incision site monitoring. (2) Hypothyroidism determined by thyroid function test: (3) Bipolar disorder: (4) ORTIZ II (cervical intraepithelial neoplasia II): (5) Proteinuria affecting : (6) History of Hodgkin's lymphoma: Subjective <Corby Sung MD - Last Filed: 07/17/20 06:59> Ambulation: ambulating normally Passing Gas:: Yes Diet Tolerance:: clear liquids Lochia:: Small Feeding Type:: breast feeding Current Pain Level(1-10): 2 Guillen removed this AM. Has not yet attempted voiding. Moderate pain overnight, 5-60. Received percocet x2 tabs an hour ago and current pain is 2/10. Received hydromorphone IV .25mg just before midnight. Review of Systems Denies fever, chills, sweats Denies shortness of breath, chest pain, palpitations. Denies cough. Denies breast pain. Denies dysuria. Denies headache or changes in vision. Denies nausea/vomiting. Denies numbness, tingling, weakness. Physical Exam <Corby Sung MD - Last Filed: 07/17/20 06:59> General: Alert, oriented. No acute distress. Cardiac: Regular rate and rhythm, no murmurs/rubs/gallops. Respiratory: Clear to auscultation bilaterally, no wheezes/rales/rhonchi. No respiratory distress. Abdomen: , soft. + BS. Uterus: Uterine fundus firm, palpable 1cm below umbilicus. LTCS incision appears clean/dry/intact. Dermabond. No erythema. Lower Extremities: No lower extremity edema or swelling. No deep calf pain. Yoshi's negative bilaterally. Psych: Denies SI/HI. Mood/affect appropriate. Results & Data ([facility]) <Corby Sung MD - Last Filed: 07/17/20 06:59> Vital Signs (Past 12 Hours) Vital Signs Temp Pulse Pulse Resp BP Pulse Ox 07/17/20 04:00 36.9 C 85 18 125/82 98 07/17/20 02:15 18 98 07/17/20 01:14 18 99 07/17/20 00:00 18 97 07/16/20 23:02 18 94 07/16/20 22:59 36.7 C 67 18 129/72 96 07/16/20 22:08 18 93 07/16/20 21:00 18 96 07/16/20 20:00 18 97 07/16/20 19:45 36.8 C 54 L 60 18 117/75 97 07/16/20 19:00 18 97 Medications Administered <Elen Long MD - Last Filed: 07/17/20 07:14> Co-Signing Physician Notes Resident Physician Supervision Note: I interviewed and examined the patient. Discussed with Dr. Sung and agree with findings and plan as documented in the note. Any exceptions or clarifications are listed here: POD1 s/p pLTCS for breech/SROM. Doing well this morning, voided once already following guillen removal. Meeting all milestones otherwise and feeling well, pain is well managed with PO pain meds. Home bipolar and thyroid meds ordered. Continue routine pp care. Documented By: Elen Long MD
[2020-07-17 06:36] LABS: Basophils # (auto) 0.01 K/uL (0-0.2); Basophils % (auto) 0.1 %; Eosinophils # (auto) 0.09 K/uL (0-0.5); Eosinophils % (auto) 0.7 %; Hematocrit (blood only) 33.3 % (37-47); Hemoglobin 11.5 g/dL (12.0-16.0); Immature Granulocytes # (auto) 0.04 K/uL (0.00-0.02); Immature Granulocytes % (auto) 0.3 %; Lymphocytes # (auto) 1.03 K/uL (1.2-3.4); Lymphocytes % (auto) 7.7 %; Mean Corpuscular Hemoglobin 30.6 pg (25-34); Mean Corpuscular Hgb Conc 34.5 g/dL (32-36); Mean Corpuscular Volume 88.6 fL (80-100); Mean Platelet Volume 10.5 fL (7.4-10.4); Monocytes % (auto) 6.7 %; Neutrophils # (auto) 11.27 K/uL (1.4-6.5); Neutrophils % (auto) 84.5 %; Platelet Count 224 K/uL (130-400); RDW Coefficient of Variation 13.4 % (11.5-14.5); RDW Standard Deviation 43.1 fL (36.4-46.3); Red Blood Count 3.76 M/uL (4.2-5.4); White Blood Count 13.34 K/uL (4.8-10.8)
[2020-07-17] MEDS: LEVOTHYROXINE SODIUM 100 MCG TABLET PO SCH (07:16)
[2020-07-17] MEDS: DOCUSATE SODIUM 100 MG CAP PO SCH ×2 (08:59→20:56)
[2020-07-17] MEDS: PRENATAL VITAMIN 1 TAB PO SCH (08:59)
[2020-07-17] MEDS: SIMETHICONE 80 MG CHEW PO SCH ×4 (08:59→20:56)
[2020-07-17] MEDS: FERROUS SULFATE 325 MG TAB PO SCH (08:59)
[2020-07-17] MEDS: cephALEXin 500 MG CAP PO SCH ×2 (09:00→20:59)
[2020-07-17] MEDS: lamoTRIgine 100 MG TAB PO SCH (09:00)
[2020-07-17] MEDS: lamoTRIgine 25 MG TAB PO SCH (09:00)
[2020-07-17] MEDS: busPIRone 15 MG TAB PO SCH ×2 (09:00→20:58)
[2020-07-17] MEDS: IBUPROFEN 600 MG TAB PO PRN ×4 (09:41→23:22)
[2020-07-17] MEDS ORDERED: bisacodyL 5 MG TABEC PO SCH (20:00)
[2020-07-17] MEDS: LURASIDONE HCL 40 MG TAB PO SCH (20:56)
[2020-07-18 00:51] VITALS: PULSE 76
--- NOTE | 2020-07-18 05:26 | Obstetrical Progress Note ---
Date of Service <Corby Sung MD - Last Filed: 07/18/20 07:15> July 18, 2020 Assessment & Plan <Corby Sung MD - Last Filed: 07/18/20 07:15> (1) state: 24 y/o s/p pLTCS (for breech) at 38w3d, POD2. B+. Rubella immune. Stable. - Meeting milestones of ambulation, voiding, stooling, eating. Continue encouraging ambulation. - Continue w/ formula supplementing. - Pain control still required. Will space out PRN narcotics as tolerated. - Tentative dispo tomorrow (2) Hypothyroidism determined by thyroid function test: (3) Bipolar disorder: (4) ORTIZ II (cervical intraepithelial neoplasia II): (5) Proteinuria affecting : (6) History of Hodgkin's lymphoma: Subjective <Corby Sung MD - Last Filed: 07/18/20 07:15> Ambulation: ambulating normally Voiding: no voiding problems Passing Gas:: Yes Diet Tolerance:: regular diet Lochia:: Moderate Feeding Type:: breast feeding Still requiring PRN Percocet and ibuprofen. Current pain is 5-6/10, but improves to 1-2/10 after Percocet and ibuprofen. + bowel movement. , but has some issues w/ supply, so is supplementing w/ formula. Comfortable w/ home today. Review of Systems Denies fever, chills, sweats Denies shortness of breath, chest pain, palpitations. Denies breast pain. Denies dysuria. Denies headache or changes in vision. Denies nausea/vomiting. Denies numbness, tingling, weakness. Physical Exam <Corby Sung MD - Last Filed: 07/18/20 07:15> General: Alert, oriented. No acute distress. Cardiac: Regular rate and rhythm, no murmurs/rubs/gallops. Respiratory: Clear to auscultation bilaterally, no wheezes/rales/rhonchi. No respiratory distress. Abdomen: , soft. LTCS incision appears nonerythematous and nonedematous, healing appropriately. Uterus: Uterine fundus firm, palpable 2cm below umbilicus. Lower Extremities: No lower extremity edema or swelling. No deep calf pain. Yoshi's negative bilaterally. Psych: Denies SI/HI Results & Data ([facility]) <Corby Sung MD - Last Filed: 07/18/20 07:15> Vital Signs (Past 12 Hours) Vital Signs Temp Pulse Resp BP Pulse Ox 07/17/20 23:30 36.7 C 76 16 123/76 98 07/17/20 19:15 36.9 C 93 H 16 138/81 98 Medications Administered <Elli Pineda MD, FACOG - Last Filed: 07/18/20 07:48> Co-Signing Physician Notes Resident Physician Supervision Note: I was present with Dr. Sung during the history and exam. I discussed the case with the resident and agree with the findings and plan as documented in the note. Any exceptions or clarifications are listed here: doing well, eating, voiding, ambulating without issues. pain control adeq with percocet. abd soft ff 2 down, nt, mild appropriate general tenderness, incision c/d/i, ext nt calves. wants to go home. discussed use of pain meds in pp. papdmp checked and no issues. instructions reviewed. plan 6wk pp check. Documented By: Elli Pineda MD, FACOG Resident Activity Tracking <Corby Sung MD - Last Filed: 07/18/20 07:15> Resident Involvement: Resident Care Provided Care Provided: OB Delivery
[2020-07-18] MEDS: IBUPROFEN 600 MG TAB PO PRN (06:15)
[2020-07-18] MEDS: oxyCODONE/ACETAMINOPHEN 5mg/325mg TAB PO PRN (06:16)
[2020-07-18] MEDS: LEVOTHYROXINE SODIUM 100 MCG TABLET PO SCH (06:35)
[2020-07-18] MEDS ORDERED: bisacodyL 10 MG SUPP PR PRN (09:12)
[2020-07-18] MEDS: FERROUS SULFATE 325 MG TAB PO SCH (09:18)
[2020-07-18] MEDS: SIMETHICONE 80 MG CHEW PO SCH (09:18)
[2020-07-18] MEDS: DOCUSATE SODIUM 100 MG CAP PO SCH (09:18)
[2020-07-18] MEDS: PRENATAL VITAMIN 1 TAB PO SCH (09:18)
[2020-07-18] MEDS: cephALEXin 500 MG CAP PO SCH (09:19)
[2020-07-18] MEDS: lamoTRIgine 25 MG TAB PO SCH (09:19)
[2020-07-18] MEDS: lamoTRIgine 100 MG TAB PO SCH (09:19)
[2020-07-18] MEDS: busPIRone 15 MG TAB PO SCH (09:19)
[2020-07-18 09:54] VITALS: BP 134/83; TEMP 98.4; O2SAT 97
--- NOTE | 2020-07-27 14:06 | Operative Report (OR) ---
DATE OF OPERATION: 07/16/2020 PROCEDURE: Primary low transverse section. SURGEON: Philippe Garcia MD. PREOPERATIVE DIAGNOSES: 1. Single intrauterine at 38 weeks 3 days gestational age. 2. Spontaneous rupture of membranes. 3. Breech presentation. POSTOPERATIVE DIAGNOSES: 1. Single intrauterine at 38 weeks 3 days gestational age. 2. Spontaneous rupture of membranes. 3. Breech presentation. 4. Status post delivery. ESTIMATED BLOOD LOSS: 600 mL. DRAINS: Steen catheter. FLUIDS: Continuous lactated Ringer. URINE OUTPUT: Per Steen catheter. COMPLICATIONS: None. FINDINGS: Viable with Apgars of 9 and 9 at one and five minutes respectively and weight of 6 pounds 12 ounces. DESCRIPTION OF PROCEDURE: The patient was taken to the operating room after consents were ensured. Upon presentation, she was properly identified. Spinal anesthesia was obtained without difficulty. The patient was then prepped and draped in normal sterile fashion. Preprocedure timeout was performed. A Pfannenstiel skin incision was then made with a knife and was carried down to underlying fascia with the Bovie. The fascia was then nicked in the midline with a knife and was extended laterally in each direction with pickups and Schultz scissors. The superior aspect of the fascia was grasped with Kochers x2, elevated off the underlying rectus muscles using blunt dissection, the inferior aspect of the fascia was grasped with Kochers x2 and elevated off the underlying rectus muscles using blunt dissection and Schultz scissors. Midline was then entered bluntly and placed on stretch to provide adequate room for delivery. A bladder flap was created in normal sterile fashion. The was noted to be in breech position and a low transverse uterine incision was then made with a knife. The uterus was then entered bluntly and placed on stretch to provide adequate room for delivery. The was delivered without difficulty and was noted to be vigorous upon delivery. The cord was then doubly clamped and cut. was taken to the waiting nursery staff for further evaluation. Cord blood was then obtained. Attention was then turned to deliver the placenta, which was delivered intact, 3-vessel cord, gentle cord traction. The uterus was then exteriorized. Several passes were made to remove any remaining membranes with a wet lap. The hysterotomy was then closed with 0 Vicryl continuous running locked stitch and imbricating layer of 0 Vicryl was then performed. The posterior cul-de-sac was then cleaned of clots and debris and the uterus returned to the abdomen. The right and left pericolic gutters were cleaned of clots and debris. Hysterotomy was then reinspected and noted to be hemostatic. The fascia was then closed with 0 Vicryl continuous running stitch. The subcutaneous layers were reapproximated with 2-0 plain in a continuous running stitch. Skin was reapproximated with 3-0 Vicryl on a Jose Alejandro needle with Dermabond placed on top. Needle, sponge and instrument counts were correct at the completion of the case. Both mother and were stable in the immediate post-delivery period. I attest to the content of the Intraoperative Record and any orders documented therein. Any exceptions are noted below. HUSSEIND
--- NOTE | 2020-07-27 22:39 | Discharge Summary (DS) ---
HOSPITAL COURSE: The patient was admitted for spontaneous rupture of membranes and breech presentation, underwent a primary low transverse section, which was performed without complication. The patient remained in house until day 2, at which time she was meeting all criteria for discharge and was discharged home in stable condition. The patient had no complications during her recovery course and was discharged home with both written and verbal discharge instructions. The patient is planned for followup at 6 weeks or earlier if needed.
== END 2020-07-18 11:50 | disposition home or self-care (01) | DRG 788 ==
LOC: OPB 05:21 → 4S1 05:24 → 4S2 12:04

== ENCOUNTER 2022-03-10 05:42 | Inpatient (IN) ==
--- NOTE | 2022-03-03 12:28 | Anesthesiology Consultation ---
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 No known COVID infection in the past 90 days. Patient is vaccinated for COVID. No known Covid positive exposures or Covid related symptoms. Preop Covid testing 03/07/22= will await results Last seen by cardio 01/25/22= Seen for cardiology consultation. High risk , history of Hodgkins lymphoma s/p chemo and XR. Does report occasional palpitations. Typically occur at rest and are short-lived. Able to complete activities of daily living and care for her [id number] daughter without limitations. Essentially normal EKG of today with possible right atrial enlargement. Recommend EKG, ECHO, External EKG 2-7 days (72 hour ZIO monitor). Follow up PRN History Surgery Operation Date: 03/10/22 07:30 Proposed Procedures p Section in LD - Jimbo Terry MD Height/Weight Height: 5 ft 4 in Weight: 77.111 kg Allergies Allergy/AdvReac Type Severity Reaction Status Date / Time Bactrim Allergy Intermediate itching Verified 01/16/20 09:03 Sulfa (Sulfonamide Allergy Unknown itching, Verified 03/03/22 11:17 Antibiotics) hives sulfamethoxazole Allergy Unknown itching, Verified 03/03/22 11:17 hives trimethoprim Allergy Unknown itching, Verified 03/03/22 11:17 hives Medications Home Medications Medication Instructions Recorded Confirmed Last Taken buspirone 30 mg tablet 30 mg PO BID #60 tabs 07/11/19 03/03/22 02/23/22 lamotrigine 100 mg tablet 100 mg PO QAM 04/28/21 03/03/22 02/23/22 (Lamictal) prenat.vits,neena,mhi-[id number]-[id number] 1 tab PO QPM 04/28/21 03/03/22 02/22/22 prochlorperazine maleate 5 mg 5 mg PO Q6H PRN nausea and 08/11/21 03/03/22 Unknown tablet (Compazine) vomiting #20 tabs lamotrigine 150 mg tablet 300 mg PO QAM 02/17/22 08/04/22 07/27/22 lurasidone 60 mg tablet (Latuda) 60 mg PO QPM 09/20/21 03/03/22 02/22/22 metoclopramide HCl 10 mg 10 mg PO Q6H #20 tabs 09/20/21 03/03/22 Unknown disintegrating tablet ondansetron 4 mg disintegrating 8 mg PO Q6H PRN nausea and vomiting 10/21/21 03/03/22 02/23/22 12:00 tablet levothyroxine 88 mcg tablet See Rx Instructions PO QAM #35 tabs 02/14/22 03/03/22 02/23/22 Past Medical History Medical History Anxiety Bipolar disorder - Denies SI/HI. States mood is ok. - Continue buspar 30 BID, Lamictal 225 qam, cariprazine 3 mg HS. Depression Endometriosis History of COVID-19 DX'D 08/2020 MOBILE TESTING SITE RANDOLPH-LOSS TASTE AND SMELL-RECOVERED AT HOME-RESOLVED Hodgkins lymphoma DX'D 2017-s/p chemo/radiation - currently in remission. Radiation was in chest- follows w/ Dr Landin- [facility] [place]- last visit 2021 Hypothyroidism determined by thyroid function test - TSH 6.09 (06/19/20) - Synthroid 100mcg daily since 05/2020. No prior Synthroid use prior. - Continue Synthroid at same dose Palpitations More pronounced since spring 2020- follows w/ [facility]- last visit 12/2021 wore a holter monitor x 3days PTSD (post-traumatic stress disorder) Hx Sacral radiculopathy H/o sciatica, reports well managed and rare now Past Family History Family History Grandmother (Paternal) Ovarian cancer Cervical adenocarcinoma H/O: hysterectomy Mother Family history of reaction to anesthesia PONV-EMOTIONAL Denies family history of Diabetes Myocardial infarction Breast cancer Lung cancer Colorectal cancer Hypertension Uterine cancer Stroke Past Surgical History Surgical History 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 H/O nasal septoplasty H/O wisdom tooth extraction History of lymph node biopsy History of tonsillectomy November [address] LA included Adenoids History of vascular access device 12/14/2018-AND REMOVED S/P appendectomy S/P for breech S/P radiotherapy Social History Smoking Status: Former smoker tobacco type: cigarettes Smoking cigarettes per day: 5 per day Do You Dip or Chew Tobacco: No Smoking End Date: quit 10 yrs ago Hx Alcohol Use: No Alcohol type: beer alcohol intake frequency: other Hx Substance Use: No substance use type: does not use Substance Use Type Other:: Lab Results Anesthesia Preop Results Results Anesthesia Widget: WBC 12.52 K/ul (4.8-10.8) H 02/23/22 Hgb 11.8 g/dl (12.0-16.0) L 02/23/22 Hct 34.0 % (34.1-44.9) L 02/23/22 Plt 248 K/uL (130-400) 02/23/22 Na 135 mmol/L (136-145) L 02/23/22 K 3.4 mmol/L (3.5-5.1) L 02/23/22 Cl 105 mmol/L (98-107) 02/23/22 CO2 21 mmol/L (21-32) 02/23/22 BUN 5 mg/dl (6-23) L 02/23/22 Creat 0.62 mg/dl (0.6-1.2) 02/23/22 Glucose Level 68 mg/dl (70-99(Fasting)) L 02/23/22 TSH 2.776 uIu/ml (0.300-4.500) 02/23/22 Urine Color Yellow 02/23/22 Urine Appearance Clear (Clear) 02/23/22 Urine pH 7.0 (4.5-7.5) 02/23/22 Urine Specific [place] 1.008 (1.000-1.030) 02/23/22 Urine Protein Negative (Negative) 02/23/22 Urine Glucose (UA) Negative (Negative) 02/23/22 Urine Ketones Negative (Negative) 02/23/22 Urine Blood Negative (Negative) 02/23/22 Urine Nitrite Negative (Negative) 02/23/22 Urine Bilirubin Negative (Negative) 02/23/22 Urine Urobilinogen Negative (Negative) 02/23/22 Urine Leukocyte Esterase Negative (Negative) 02/23/22 Testing Electrocardiogram Date: 01/25/22 Findings: + NSR @ (97 bpm) Right atrial enlargement Echocardiogram Date: 02/08/22 EF: 60-64% LV Function: normal RWMA: + none Other Findings: no LVH or no diastolic dysfunction Valvular Disease: + no significant valvular disease Other Testing 3-day event monitor 02/10/22 = Impression: Sinus and sinus tachycardia with elevated average heart rate 101 bpm. Intermittent Mobitz type I second-degree AV block was noted with 3 episodes notable for additional blocked beat after episode longest R to R interval 1.7 seconds. (Cardio reviewed per 02/15/22 phone note= Evidence first-degree AV block and intermittent second-degree AV block Mobitz type Imost likely secondary to elevated vagal tone. No associated symptoms. Second-degree AV block Mobitz type I occurring during sleep. No medications changes at this time based on this result.) Chest CT 02/08/21= No evidence of pathologic adenopathy by size criteria. No evidence of acute parenchymal consolidation Abdomen/Pelvis CT scan 02/08/21= No significant change compared to the prior study. No lymphadenopathy identified within the abdomen or pelvis. Subcentimeter mesenteric lymph nodes remain stable.
[2022-03-10] MEDS ORDERED: CITRIC ACID/SODIUM CITRATE 15 ML UDC PO SCH (06:00)
[2022-03-10] MEDS ORDERED: LACTATED RINGER'S 1,000 ML IV SCH (06:00)
[2022-03-10] MEDS ORDERED: ceFAZolin 2,000 MG in SYRINGE 0 ML IV SCH (06:00)
[2022-03-10 06:37] LABS: Basophils # (auto) 0.02 K/uL (0-0.2); Basophils % (auto) 0.2 %; Eosinophils # (auto) 0.21 K/uL (0-0.50); Eosinophils % (auto) 2.4 %; Hematocrit (blood only) 33.1 % (34.1-44.9); Hemoglobin 11.1 g/dl (12.0-16.0); Immature Granulocytes # (auto) 0.03 K/uL (0.00-0.02); Immature Granulocytes % (auto) 0.3 %; Lymphocytes % (auto) 20.9 %; Mean Corpuscular Hemoglobin 29.9 pg (25.0-34.0); Mean Corpuscular Hgb Conc 33.5 g/dL (32.0-36.0); Mean Corpuscular Volume 89.2 fL (80.0-100.0); Mean Platelet Volume 10.3 fL (9.4-12.3); Monocytes # (auto) 0.87 K/uL (0.24-0.82); Monocytes % (auto) 10.1 %; Neutrophils # (auto) 5.69 K/uL (1.4-6.5); Neutrophils % (auto) 66.1 %; Platelet Count 221 K/uL (130-400); RDW Coefficient of Variation 12.7 % (11.5-14.5); RDW Standard Deviation 41.6 fL (36.4-46.3); Red Blood Count 3.71 M/uL (3.93-5.22); White Blood Count 8.62 K/ul (4.8-10.8)
[2022-03-10] MEDS ORDERED: ONDANSETRON INJ 2 MG/ML 2 ML VIAL ONE (07:00)
[2022-03-10] MEDS ORDERED: fentaNYL citrate 100 MCG/2 ML VIAL ONE (07:00)
[2022-03-10] MEDS ORDERED: OXYTOCIN 10 UNITS/ML 10ML VIAL ONE (07:00)
[2022-03-10] MEDS ORDERED: MoRPHine SULFATE PF 1 MG/ML 10 ML AMP/VIAL ONE (07:00)
--- NOTE | 2022-03-10 07:25 | History & Physical Bridge Note ---
Date of Service March 10, 2022 History & Physical Bridge Note I have examined the patient, reviewed the History & Physical and in the interval since the performance of the History & Physical I have noted the following changes of clinical significance: no changes noted
[2022-03-10] MEDS ORDERED: CARBOPROST TROMETHAMINE 250 MCG/ML AMPUL ONE (07:45)
[2022-03-10] MEDS ORDERED: METHYLERGONOVINE MALEATE 0.2 MG/ML AMP ONE (07:45)
[2022-03-10] MEDS ORDERED: MoRPHine SULFATE PF 1 MG/ML 10 ML AMP/VIAL INT SPINAL ONE (08:00)
[2022-03-10] MEDS ORDERED: NO NARCOTICS OR SEDATIVES SCH (08:00)
[2022-03-10] MEDS ORDERED: ONDANSETRON INJ 2 MG/ML 2 ML VIAL IV PRN (08:00)
[2022-03-10] MEDS ORDERED: NALBUPHINE HCL INJ 10 MG/ML AMP IV PRN (08:00)
[2022-03-10] MEDS ORDERED: SODIUM CHLORIDE 0.9% 1000ML 1,000 ML IV SCH (08:00)
[2022-03-10] MEDS ORDERED: NALOXONE HCL 0.08 MG in SYRINGE 1.8 ML IV PRN (08:00)
[2022-03-10] MEDS ORDERED: LACTATED RINGER'S 500 ML IV PRN (08:00)
[2022-03-10] MEDS ORDERED: ePHEDrine sulfate 50 MG/ML AMP IV PRN (08:00)
[2022-03-10] MEDS ORDERED: NALOXONE HCL 1 MG in SODIUM CHLORIDE 0.9% 1000ML 1,000 ML IV PRN (08:00)
[2022-03-10] MEDS ORDERED: NALOXONE HCL 0.4 MG/1 ML VIAL/CARP IV PRN (08:00)
[2022-03-10] MEDS ORDERED: DC INTRASPINAL MORPHINE SCH (08:00)
[2022-03-10] MEDS ORDERED: diphenhydrAMINE 50 MG/ML VIAL IV PRN (08:00)
[2022-03-10] MEDS ORDERED: ACETAMINOPHEN 325 MG TAB PO PRN (08:00)
--- NOTE | 2022-03-10 09:15 | Post Operative Brief Note ---
Immediate Post Op Note v1 Date of Surgery March 10, 2022 Pre & Post Diagnosis Operation Date: 03/10/22 07:30 Pre-Op Diagnosis: 1. at 39 weeks 2. Previous cesearean section 3. Desires bilateral tubal ligation. Post-Op Diagnosis: Same I identified the patient and participated in the time-out.: Yes Procedure Operation Date: 03/10/22 07:30 Actual Procedures p Section with of live male child at 0809. - Jimbo Terry MD s Bilateral Post Tubal Ligation - Jimbo Terry MD Surgeon Jimbo Terry MD Stock Shaper Dr. Vizcaino Estimated Blood Loss 500 Findings Consistent with Post-Op Diagnosis live male vertex Apgars 8/9, weight 6#13.7 oz. Fluids LR 1200 ml. Specimens placenta Drains Guillen Catheter (guillen cath placed after spinal placed: clear yellow urine noted upon insertion. ) Anesthesia Type Spinal Complications none Disposition Accompanied Patient To Recovery: Yes Overlapping Procedure I was present for: the critical portions of procedure. I was immediately available: during the entire case. Back up surgeon: used during listed procedure.
[2022-03-10] MEDS ORDERED: ACETAMINOPHEN 1000 MG/100 ML IV IV PRN (10:56)
[2022-03-10] MEDS ORDERED: HYDROCORTISONE ACETATE 25 MG SUPP PR PRN (11:56)
[2022-03-10] MEDS ORDERED: MAGNESIUM HYDROXIDE SUSP 30 ML UDC PO PRN (11:56)
[2022-03-10] MEDS ORDERED: DIPHTHERIA/TETANUS/PERTUSSIS 0.5 ML SYR/VIAL IM ONE (11:56)
[2022-03-10] MEDS ORDERED: SENNA 8.6 MG TAB PO PRN (11:56)
[2022-03-10] MEDS ORDERED: BENZOCAINE 20% AER SPR 82.5 GM CAN EXT PRN (11:56)
[2022-03-10] MEDS ORDERED: METOCLOPRAMIDE 10 MG PO SCH (11:56)
[2022-03-10] MEDS: HYDROmorphone INJ 0.5 MG/0.5 ML SYR IV PRN ×2 (11:57→16:24)
--- NOTE | 2022-03-10 12:55 | Anesthesiology Progress Note ---
Date of Service March 10, 2022 Anesthesia Post Procedure Vital Signs Vital Signs: Temp Pulse Resp BP Pulse Ox 03/10/22 11:16 16 03/10/22 10:46 16 03/10/22 10:06 97.9 F 16 03/10/22 09:56 16 03/10/22 09:46 16 03/10/22 09:36 18 03/10/22 10:16 14 03/10/22 09:26 18 03/10/22 09:16 97.5 F L 18 03/10/22 05:57 74 116/66 03/10/22 11:41 50 L 99 03/10/22 11:36 77 125/58 L 99 03/10/22 11:31 61 98 03/10/22 11:26 85 98 03/10/22 11:27 79 124/76 03/10/22 11:21 59 L 100 03/10/22 11:16 55 L 119/68 100 03/10/22 11:11 77 100 03/10/22 11:06 99 03/10/22 11:06 43 L 03/10/22 11:06 43 L 125/74 03/10/22 11:01 47 L 100 03/10/22 10:56 64 120/65 100 03/10/22 10:51 59 L 100 03/10/22 10:46 55 L 127/66 100 03/10/22 10:41 75 100 03/10/22 10:36 60 131/77 98 03/10/22 10:31 60 98 03/10/22 10:26 54 L 128/66 99 03/10/22 10:21 62 98 03/10/22 10:16 52 L 138/76 100 03/10/22 10:11 50 L 123/67 99 03/10/22 10:06 79 99 03/10/22 10:01 80 98 03/10/22 09:56 47 L 119/86 100 03/10/22 09:51 82 100 03/10/22 09:46 72 114/70 100 03/10/22 09:44 78 90 03/10/22 09:41 74 100 03/10/22 09:39 75 88 L 03/10/22 09:36 98 03/10/22 09:36 70 03/10/22 09:37 64 121/79 03/10/22 09:36 81 131/94 03/10/22 09:31 61 100 03/10/22 09:30 62 116/64 03/10/22 09:26 100 03/10/22 09:26 74 03/10/22 09:26 66 124/62 03/10/22 09:21 67 100 03/10/22 09:16 75 123/76 100 03/10/22 09:11 71 100 03/10/22 09:10 75 82 L 03/10/22 09:06 100 03/10/22 09:06 61 03/10/22 09:06 72 119/73 03/10/22 06:56 81 125/78 03/10/22 05:55 98.4 F 74 18 116/66 Pain Intensity Lower Abdomen: Pain Intensity: 4 Transfer of Care Handoff Completed per policy Notes Mental Status: alert / awake / arousable and participated in evaluation Patient Amnestic to Procedure: Yes Nausea / Vomiting: adequately controlled Pain: adequately controlled Airway Patency, RR, SpO2: stable & adequate BP & HR: stable & adequate Hydration State: stable & adequate Neuraxial Anesthesia: was administered and sensory block is resolving Anesthetic Complications: no major complications apparent and Pt Satisfied with anesthetic care
[2022-03-10] MEDS ORDERED: OXYTOCIN 20 UNITS in LACTATED RINGER'S 1,000 ML IV SCH (14:00)
--- NOTE | 2022-03-10 14:02 | Operative Report (OR) ---
DATE OF SURGERY: 03/10/2022 PREOPERATIVE DIAGNOSES: Term elective section, voluntary sterilization. POSTOPERATIVE DIAGNOSES: Term elective section, voluntary sterilization. PROCEDURE: Repeat section, low segment transverse and bilateral salpingectomy. SURGEON: Jimbo Terry MD. SINGLE END SEWER: Dirk Vizcaino MD. ANESTHESIA: Spinal. FINDINGS: Live male, Apgars 8 and 9, vertex, 6 pounds 13.7 ounces. COMPLICATIONS: None. DRAINS: Steen. ESTIMATED BLOOD LOSS: 500 mL. TOTAL FLUIDS: 1200 mL. TOTAL URINE OUTPUT: 150 mL. CLINICAL HISTORY: The patient is a 26-year-old female, para 1-0-0-1, at 39 weeks, admitted for an el ective repeat section. She was given informed consent including risks, benefits, and altern atives to the procedure. Timeout was called. Antibiotics were given preop. DESCRIPTION OF PROCEDURE: Under satisfactory spinal anesthesia, the patient was prepped and draped i n the usual sterile fashion. A low Pfannenstiel incision was made, carrying the incision down throug h a prior scar, entering into the abdominal cavity in successive layers. Upon entering into the shankar toneal cavity, the vesicouterine bladder flap was developed with sharp dissection using Metzenbaum sc issors. A low segment transverse incision over the lower uterine segment was made. The incision was nicked. Amniotic fluid was noted to be clear. The incision was then widened in the AP diameter and then with the aid of fundal pressure, delivering a live male, Apgars 8 and 9, weight 6 pounds 13.7 ounces with a vertex presentation noted. The cord was doubly clamped and cut after a 1 minute c ord delay. Cord blood was then obtained. Placenta was then delivered spontaneously and intact. Uterus was expressed of all clots and debris with the uterus exteriorized. Ring forceps were then pl aced on both angles and the inferior margin of the ring was used to dilate the cervix. The uterus wa s closed in a single layer closure with 0 Vicryl suture in a continuous interlocking fashion. Tubes, ovaries bilaterally were found to be within normal limits. The patient consented for bilateral salp ingectomy. Using the handheld LigaSure device, the tubes were then both removed. The contents of the pelvic and abdominal cavity were then irrigated to clear. The uterus was expressed of all clots. T he initial sponge, needle, and instrument count were found to be correct. The uterus was placed back into the normal anatomical position. The contents of the pelvic and abdominal cavity were then once more inspected. No active bleeding was noted. The muscle was then reapproximated with 0 Vicryl suture in an interrupted fashion. The fascia was th en reapproximated with 0 Vicryl suture in a continuous fashion from both ends. A 3-0 plain suture wa s used to close the space for the subcuticular layer, and then 4-0 Monocryl was then used to jak se the skin. Steri-Strips were then applied and Telfa and sponge, ABD dressing were applied. The fi nal sponge, needle and instrument counts were found to be correct. EBL 500 mL. The patient was then placed supine on a stretcher. She was moved to recovery room in stable condition without incident. Please note that Dr. Vizcaino was present for the surgery, was there for assistance at surgery to provid e retraction, assist with fundal pressure for delivery of the vertex and for closure of the uterus an d for closure of the abdomen. Job ID: [id number]
[2022-03-10] MEDS: SIMETHICONE 80 MG CHEW PO SCH ×3 (14:04→21:54)
[2022-03-10] MEDS: LACTATED RINGER'S 1,000 ML IV SCH ×2 (14:40→22:10)
[2022-03-10] MEDS: KETOROLAC 30 MG/ML VIAL IV PRN ×2 (15:25→21:36)
[2022-03-10] MEDS ORDERED: NON-FORMULARY MEDICATION (Prenat.Vits,Cal,Min-Iron-Folic tablet) PO SCH (21:00)
[2022-03-10] MEDS: DOCUSATE SODIUM 100 MG CAP PO SCH (21:54)
[2022-03-10] MEDS: LURASIDONE HCL 40 MG TAB PO SCH (21:54)
[2022-03-10] MEDS: busPIRone 15 MG TAB PO SCH (21:56)
[2022-03-11] MEDS: HYDROmorphone INJ 0.5 MG/0.5 ML SYR IV PRN (01:20)
[2022-03-11] MEDS ORDERED: ONDANSETRON INJ 2 MG/ML 2 ML VIAL IV PRN (02:01)
[2022-03-11] MEDS ORDERED: diphenhydrAMINE Capsule 25 MG CAP PO PRN (02:01)
[2022-03-11] MEDS ORDERED: diphenhydrAMINE 50 MG/ML VIAL IV PRN (02:01)
[2022-03-11] MEDS ORDERED: ONDANSETRON 8MG OD TAB PO PRN (02:01)
[2022-03-11] MEDS ORDERED: PROCHLORPERAZINE MALEATE 5 MG TAB PO PRN (02:01)
[2022-03-11] MEDS ORDERED: PROMETHAZINE HCL 25 MG in SODIUM CHLORIDE 0.9% 50 ML IV PRN (02:01)
[2022-03-11] MEDS: IBUPROFEN 600 MG TAB PO PRN ×5 (05:48→21:41)
[2022-03-11] MEDS: LEVOTHYROXINE SODIUM 88 MCG TABLET PO SCH (05:49)
[2022-03-11 06:38] LABS: Basophils # (auto) 0.03 K/uL (0-0.2); Basophils % (auto) 0.3 %; Eosinophils # (auto) 0.17 K/uL (0-0.50); Eosinophils % (auto) 1.5 %; Hemoglobin 10.3 g/dl (12.0-16.0); Immature Granulocytes # (auto) 0.04 K/uL (0.00-0.02); Immature Granulocytes % (auto) 0.4 %; Lymphocytes # (auto) 1.31 K/uL (1.2-3.4); Lymphocytes % (auto) 11.9 %; Mean Corpuscular Hemoglobin 30.5 pg (25.0-34.0); Mean Corpuscular Hgb Conc 34.3 g/dL (32.0-36.0); Mean Corpuscular Volume 88.8 fL (80.0-100.0); Mean Platelet Volume 10.1 fL (9.4-12.3); Monocytes # (auto) 0.72 K/uL (0.24-0.82); Monocytes % (auto) 6.6 %; Neutrophils # (auto) 8.72 K/uL (1.4-6.5); Neutrophils % (auto) 79.3 %; Platelet Count 211 K/uL (130-400); RDW Coefficient of Variation 12.7 % (11.5-14.5); RDW Standard Deviation 41.3 fL (36.4-46.3); Red Blood Count 3.38 M/uL (3.93-5.22); White Blood Count 10.99 K/ul (4.8-10.8)
[2022-03-11] MEDS: DOCUSATE SODIUM 100 MG CAP PO SCH ×2 (08:07→19:53)
[2022-03-11] MEDS: FERROUS SULFATE 325 MG TAB PO SCH (08:07)
[2022-03-11] MEDS: PRENATAL VITAMIN 1 TAB PO SCH (08:07)
[2022-03-11] MEDS: SIMETHICONE 80 MG CHEW PO SCH ×4 (08:07→19:53)
[2022-03-11] MEDS: lamoTRIgine 100 MG TAB PO SCH ×2 (09:11)
[2022-03-11] MEDS: busPIRone 15 MG TAB PO SCH ×2 (09:11→19:55)
[2022-03-11] MEDS: oxyCODONE/ACETAMINOPHEN 5mg/325mg TAB PO PRN ×4 (09:51→21:41)
--- NOTE | 2022-03-11 10:12 | Obstetrical Progress Note ---
Date of Service March 11, 2022 Assessment & Plan (1) delivery delivered: POD #1 pt doing well Continue day #1 care Subjective Ambulation: ambulating normally Voiding: no voiding problems Passing Gas:: Yes Diet Tolerance:: clear liquids Lochia:: Small Feeding Type:: breast feeding Review of Systems All systems reviewed & are unremarkable except as noted in HPI & below Physical Exam Constitutional WD/WN, vitals as above well developed and well nourished Eyes PERRL, conjunctivae normal, anicteric sclerae ENMT external ear and nose normal, oropharynx normal Neck trachea midline, no thyromegaly Respiratory normal respiratory effort, lungs clear to auscultation Cardiovascular RRR, no murmur, no edema Chest (Breasts) normal inspection/palpation of breasts Gastrointestinal (Abdomen) normal bowel sounds, soft, nontender, no hepatosplenomegaly Musculoskeletal no cyanosis or clubbing, extremities motor strength 5/5 Skin no rashes, warm and dry + incision (Clean,dry and intact) Neurologic patellar DTR's 2+ bilat, sensation intact Psychiatric A+Ox3, euthymic affect Genitourinary normal external appearance Lymphatic no cervical or axillary lymphadenopathy Results & Data ([facility]) Vital Signs (Past 12 Hours) Vital Signs Temp Pulse Resp BP Pulse Ox O2 Del Method 03/11/22 02:00 16 99 03/11/22 01:00 16 98 03/11/22 03:00 36.8 C 85 16 105/66 Room Air 03/11/22 00:00 18 96 03/10/22 23:00 16 96 03/10/22 23:00 37.1 C 69 16 122/77 96 Room Air
[2022-03-11] MEDS: LURASIDONE HCL 40 MG TAB PO SCH (19:55)
[2022-03-11] MEDS ORDERED: bisacodyL 5 MG TABEC PO SCH (20:00)
[2022-03-12 00:08] VITALS: O2SAT 97
[2022-03-12] MEDS: IBUPROFEN 600 MG TAB PO PRN ×3 (02:03→10:14)
[2022-03-12] MEDS: oxyCODONE/ACETAMINOPHEN 5mg/325mg TAB PO PRN ×3 (02:03→10:13)
[2022-03-12] MEDS: LEVOTHYROXINE SODIUM 88 MCG TABLET PO SCH (05:54)
[2022-03-12 06:52] LABS: Hematocrit (blood only) 29.8 % (34.1-44.9); Hemoglobin 9.9 g/dl (12.0-16.0)
[2022-03-12] MEDS: DOCUSATE SODIUM 100 MG CAP PO SCH (08:59)
[2022-03-12] MEDS: SIMETHICONE 80 MG CHEW PO SCH (08:59)
[2022-03-12] MEDS: FERROUS SULFATE 325 MG TAB PO SCH (08:59)
[2022-03-12] MEDS: PRENATAL VITAMIN 1 TAB PO SCH (08:59)
[2022-03-12] MEDS: lamoTRIgine 100 MG TAB PO SCH ×2 (09:00)
[2022-03-12] MEDS: busPIRone 15 MG TAB PO SCH (09:04)
[2022-03-12] MEDS ORDERED: bisacodyL 10 MG SUPP PR PRN (09:09)
[2022-03-12 09:57] VITALS: BP 110/72; PULSE 80; TEMP 98.2
[2022-03-13] MEDS ORDERED: LEVOTHYROXINE SODIUM 88 MCG TABLET PO SCH (06:30)
== END 2022-03-12 10:40 | disposition home or self-care (01) | DRG 785 ==
LOC: 4S1 05:42 → 4E2 12:00 → EDSTATUS 03-16 07:30
PROC: M.PPTLD (2022-03-10 07:30)
DX: Z79.899 Other long term (current) drug therapy; Z92.3 Personal history of irradiation; Z30.2 Encounter for sterilization; Z79.890 Hormone replacement therapy; Z88.1 Allergy status to other antibiotic agents; Z3A.39 39 weeks gestation of pregnancy; Z87.891 Personal history of nicotine dependence; F31.9 Bipolar disorder, unspecified; Z37.0 Single live birth; E03.9 Hypothyroidism, unspecified; O99.284 Endocrine, nutritional and metabolic diseases complicating childbirth; O99.344 Other mental disorders complicating childbirth; Z88.2 Allergy status to sulfonamides; Z85.72 Personal history of non-Hodgkin lymphomas; O34.211 Maternal care for low transverse scar from previous cesarean delivery; Z92.21 Personal history of antineoplastic chemotherapy

== ENCOUNTER 2022-08-18 03:39 | Observation (INO) ==
[2022-08-18] MEDS ORDERED: ACETAMINOPHEN 1,000 MG/100 ML VIAL IV STA (04:02)
[2022-08-18] MEDS ORDERED: PIPERACILLIN/TAZOBACTAM 4.5 GM/120 ML BAG IV ONE (04:03)
--- NOTE | 2022-08-18 04:13 | Emergency Department Note ---
History of Present Illness General Chief complaint: Flank Pain Stated complaint: KIDNEY STENT POSSIBLY INFECTED Time Seen by Provider: 08/18/22 04:02 History of Present Illness Maximum Pain Intensity: 6 Patient complains of fever, flank pain and urinary symptoms he has a stent in place. Urology called her and told her to come to the hospital. Fever started today. Patient denies chest pain, cough, congestion. She states she is healthy. She was on Macrobid and Keflex for her urine infection. Home Medications Medication Instructions Recorded Confirmed Type buspirone 30 mg tablet 30 mg PO BID #60 tabs 07/11/19 08/15/22 Rx lamotrigine 100 mg tablet 100 mg PO QAM 04/28/21 08/15/22 History (Lamictal) lamotrigine 150 mg tablet 300 mg PO QAM 09/16/21 08/15/22 History lurasidone 60 mg tablet (Latuda) 60 mg PO HS 09/20/21 08/15/22 History vortioxetine 20 mg tablet 20 mg PO HS 07/29/22 08/15/22 History (Trintellix) nitrofurantoin 100 mg PO BID 7 days #14 caps 08/02/22 08/15/22 Rx monohydrate/macrocrystals 100 mg capsule (Macrobid) levothyroxine 75 mcg tablet 75 mcg PO QAM #30 tabs 08/03/22 08/15/22 Rx tamsulosin 0.4 mg capsule 0.4 mg PO HS #30 caps 08/04/22 08/15/22 Rx phenazopyridine 200 mg tablet 200 mg PO Q8H PRN pain #7 tabs 08/08/22 08/15/22 Rx (Pyridium) ketorolac 10 mg tablet 10 mg PO TID 3 days #9 tabs 08/10/22 08/15/22 Rx oxycodone 5 mg tablet 5 mg PO Q6H PRN pain #12 tabs 08/13/22 08/15/22 Rx Allergies Allergy/AdvReac Type Severity Reaction Status Date / Time Sulfa (Sulfonamide Allergy Intermediate itching, Verified 08/04/22 11:55 Antibiotics) hives sulfamethoxazole Allergy Intermediate itching, Verified 08/04/22 11:55 hives trimethoprim Allergy Intermediate itching, Verified 08/04/22 11:55 hives Past Med/Surg History Medical History Anxiety Bipolar disorder - Denies SI/HI. States mood is ok. Depression Endometriosis History of COVID-19 DX'D 08/2020 MOBILE TESTING SITE [facility]-LOSS TASTE AND SMELL-RECOVERED AT HOME-RESOLVED Hodgkins lymphoma DX'D 2017-s/p chemo/radiation - currently in remission. 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 H/O nasal septoplasty H/O wisdom tooth extraction History of bilateral tubal ligation with last 02/2022 History of lymph node biopsy History of tonsillectomy November [address] LA included Adenoids History of transurethral resection of bladder tumor (TURBT) done at same time as cysto w/ureteral stent placement w/bladder bx. History of vascular access device 12/14/2018-AND REMOVED S/P appendectomy 09/06/1819 Grade 1 view, MAC 3, ETT 7. S/P x2--last 03/10/22 with bilt tubal @ [facility] S/P cystoscopy with ureteral stent placement w/laser destruction kidney stone S/P radiotherapy Family History Grandmother (Paternal) Ovarian cancer Cervical adenocarcinoma H/O: hysterectomy Mother Family history of reaction to anesthesia PONV-EMOTIONAL Denies family history of Diabetes Myocardial infarction Breast cancer Lung cancer Colorectal cancer Hypertension Uterine cancer Stroke Social History Smoking Status: Never smoker Age Started Using Tobacco: 15; Age Quit Using Tobacco: 16; packs per day: 0.25; Second Hand Exposure: No; Hx Alcohol Use: No Hx Substance Use: No Preferred Language: Kazakh Communication Ability: Effective Visual Impairment: No Limitations Hearing Ability: Normal Ophthalmology Assistant Required: No Beliefs That Will Affect Care: None marital status: marital status details: Omari Napier (29) [phone] Current Living Situation: Family Current Living Situation Comment: lives with spouse, 1 daughter, 1 step daughter, and son current occupational status: employed current occupation: [employer] Other Information That Helps Us Care for You: No Feels Safe at Home: Yes Safety Concerns: Feels Safe At This Time Childhood Exposure to Second-Hand Smoke: No Assistive Devices: Glasses Review of Systems A total of 10 systems reviewed and were otherwise negative Physical Exam Vital Signs Vital Signs - 24 hr 08/18/22 03:43 08/18/22 04:44 08/18/22 04:44 Temperature 38 C H Temperature Source Oral Pulse Rate 95 H 88 85 Pulse Rate from SpO2 Sensor Respiratory Rate 18 18 Respiratory Effort / Characteristics Non-Labored Spontaneous Respiratory Depth Normal Blood Pressure 103/59 L 112/60 Blood Pressure Mean 73 77 Blood Pressure Position Sitting Pulse Oximetry 95 97 97 Oxygen Delivery Method Room Air Room Air Room Air Sepsis Recent Fever Within 48 Hours Yes Sepsis New/Unexplained Change in Mental Status No Sepsis Action Taken by Nursing No Action Required 08/18/22 05:00 Temperature Temperature Source Pulse Rate 91 H Pulse Rate from SpO2 Sensor 91 H Respiratory Rate 15 Respiratory Effort / Characteristics Respiratory Depth Blood Pressure 112/65 Blood Pressure Mean 80 Blood Pressure Position Pulse Oximetry 97 Oxygen Delivery Method Room Air Sepsis Recent Fever Within 48 Hours Sepsis New/Unexplained Change in Mental Status Sepsis Action Taken by Nursing VITALS: Vitals are noted on the nurse's note and reviewed by myself. Vital signs febrile. GENERAL: Pleasant female mildly ill-appearing, in no acute distress, nondiaphoretic, well-developed well-nourished. SKIN: The skin was without rashes, erythema, edema, or bruising. There is no tenting of the skin. Capillary reflex less than 2 seconds. HEAD: Normocephalic atraumatic. EARS: External auditory canals clear, EYES: Pupils equal round and reactive to light and accommodation. Conjunctivae without injection, sclerae without icterus. Extraocular movements intact. NOSE: Patent, turbinates without inflammation or discharge. MOUTH: Mucous membranes moist. Pharynx without erythema or exudate. Uvula midline. Airway patent. Tongue does not deviate. NECK: Supple without nuchal rigidity. No lymphadenopathy. No thyromegaly. Cervical spine is nontender. No JVD. HEART: Regular rate and rhythm LUNGS: Clear to auscultation bilaterally without wheezes, rales or rhonchi. No retractions or accessory muscle use. ABDOMEN: Positive bowel sounds x 4. Normal tympanic percussion. Soft, nontender, without masses or organomegaly. Hernandez sign negative. No guarding or rebound tenderness. Right CVA tenderness MUSCULOSKELETAL: No muscle atrophy, erythema, or edema noted. NEURO: Patient was alert and oriented to person place and time. Normal sensation to light and sharp touch. No focal neurological deficits. Course Administered Medications Acetaminophen (Acetaminophen 325 Mg Tab) 650 mg PO Q4H PRN PRN Reason: pain/fever Stop: 09/17/22 08:17 Last Admin: 08/18/22 16:07 Dose: 650 mg Documented By: Admin: 08/18/22 10:25 Dose: 650 mg Documented By: PEREZ Buspirone HCl (Buspirone 15 Mg Tab) 30 mg PO BID [facility] Stop: 09/17/22 08:59 Last Admin: 08/18/22 11:19 Dose: 30 mg Documented By: PEREZ Sodium Chloride (Nss 1000ml) 1,000 mls @ 125 mls/hr IV .Q8H [facility] Stop: 09/17/22 08:17 Last Admin: 08/18/22 14:44 Dose: 125 mls/hr Documented By: Infusion: 08/18/22 14:44 Dose: 125 mls/hr Documented By: Admin: 08/18/22 08:30 Dose: 125 mls/hr Documented By: PEREZ Piperacillin Sod/Tazobactam (Sod 3.375 gm/ Dextrose) 115 mls @ 28.75 mls/hr IV Q8H [facility]; Protocol Stop: 08/28/22 09:59 Last Infusion: 08/18/22 14:16 Dose: 0 mls/hr Documented By: Admin: 08/18/22 10:33 Dose: 28.8 mls/hr Documented By: PEREZ Lamotrigine (Lamotrigine 100 Mg Tab) 100 mg PO QAM [facility] Stop: 09/17/22 08:59 Last Admin: 08/18/22 11:20 Dose: 100 mg Documented By: PEREZ Lamotrigine (Lamotrigine 100 Mg Tab) 300 mg PO [facility] Stop: 09/17/22 08:59 Last Admin: 08/18/22 11:20 Dose: 300 mg Documented By: PEREZ Levothyroxine Sodium (Levothyroxine Sodium 75 Mcg Tablet) 75 mcg PO DAILYBB [facility] Stop: 09/17/22 08:59 Last Admin: 08/18/22 11:19 Dose: 75 mcg Documented By: PEREZ Lidocaine (Lidocaine 5% 1 Patch) [facility] Stop: 09/17/22 11:14 Last Admin: 08/18/22 12:53 Dose: 1 patch Documented By: PEREZ Miscellaneous (Vortioxetine [Trintellix] 20 Mg Tablet ~ Order Awaiting Action) 1 each N/A QS [facility] Stop: 09/17/22 15:59 Last Admin: 08/18/22 14:55 Dose: Not Given Documented By: PEREZ Morphine Sulfate (Morphine Sulfate 4 Mg/Ml 1 Ml Carp\Vial) 3 mg IV Q4H PRN PRN Reason: Pain Stop: 09/01/22 08:17 Last Admin: 08/18/22 14:18 Dose: 3 mg Documented By: Admin: 08/18/22 09:30 Dose: 3 mg Documented By: PEREZ Ondansetron HCl (Ondansetron Inj 2 Mg/Ml 2 Ml Vial) 4 mg IV Q6H PRN PRN Reason: Nausea Stop: 09/17/22 08:17 Last Admin: 08/18/22 10:26 Dose: 4 mg Documented By: PEREZ Oxycodone HCl (Oxycodone Hcl Ir 5 Mg Tab (Immediate Release)) 5 mg PO Q4H PRN PRN Reason: Pain Stop: 09/01/22 16:12 Last Admin: 08/18/22 16:23 Dose: 5 mg Documented By: PEREZ Discontinued Medications Hydromorphone HCl (Hydromorphone Inj 0.5 Mg/0.5 Ml Syr) 0.5 mg IV NOW STA Stop: 08/18/22 11:07 Last Admin: 08/18/22 11:16 Dose: 0.5 mg Documented By: PEREZ Sodium Chloride (Nss 1000ml) 1,000 mls @ 999 mls/hr IV .Q1H1M [facility] Stop: 08/18/22 05:15 Last Infusion: 08/18/22 05:42 Dose: 0 mls/hr Documented By: Admin: 08/18/22 04:40 Dose: 999 mls/hr Documented By: SERENE Acetaminophen (Ofirmev) 1,000 mg in 100 mls @ 400 mls/hr IV NOW STA Stop: 08/18/22 04:16 Last Infusion: 08/18/22 05:04 Dose: 0 mls/hr Documented By: Admin: 08/18/22 04:38 Dose: 400 mls/hr Documented By: SERENE Piperacillin Sod/Tazobactam Sod (Zosyn) 4.5 gm in 120 mls @ 240 mls/hr IV NOW ONE Stop: 08/18/22 04:32 Last Infusion: 08/18/22 05:30 Dose: 0 mls/hr Documented By: Admin: 08/18/22 04:51 Dose: 240 mls/hr Documented By: SERENE Ioversol (Optiray 350 100ml) 100 ml IV ONCE ONE Stop: 08/18/22 05:23 Last Admin: 08/18/22 05:22 Dose: 82 ml Documented By: JOHN PAUL Morphine Sulfate (Morphine Sulfate 4 Mg/Ml 1 Ml Carp\Vial) 4 mg IV NOW STA Stop: 08/18/22 05:10 Last Admin: 08/18/22 05:41 Dose: 4 mg Documented By: SERENE Medical Decision Making Medical Records Attestation: I reviewed the patient's medical records. Home Medications Current Medication List: was personally reviewed by ak Laboratory Data Attestation: I reviewed the patient's lab results. 08/18/22 04:25 08/18/22 04:25 Lab Results 08/18/22 08/18/22 08/18/22 Range/Units 04:25 04:25 04:25 WBC 12.26 H (4.8-10.8) K/ul RBC 4.09 (3.93-5.22) M/uL Hgb 12.4 (12.0-16.0) g/dl Hct 35.5 (34.1-44.9) % MCV 86.8 (80.0-100.0) fL MCH 30.3 (25.0-34.0) pg MCHC 34.9 (32.0-36.0) g/dL RDW Std Deviation 40.5 (36.4-46.3) fL RDW Coeff of Joseph 12.9 (11.5-14.5) % Plt Count 334 (130-400) K/uL MPV 8.9 L (9.4-12.3) fL Immature Gran % (Auto) 0.4 % Neut % (Auto) 86.9 % Lymph % (Auto) 5.5 % [place] % (Auto) 6.1 % Eos % (Auto) 0.9 % Baso % (Auto) 0.2 % Neut # (Auto) 10.64 H (1.4-6.5) K/uL Lymph # (Auto) 0.68 L (1.2-3.4) K/uL [place] # (Auto) 0.75 (0.24-0.82) K/uL Eos # (Auto) 0.11 (0-0.50) K/uL Baso # (Auto) 0.03 (0-0.2) K/uL Immature Gran # (Auto) 0.05 H (0.00-0.02) K/uL Sodium 136 (136-145) mmol/L Potassium 3.8 (3.5-5.1) mmol/L Chloride 103 (98-107) mmol/L Carbon Dioxide 25 (21-32) mmol/L Anion Gap 8 (3-11) BUN 12 (6-23) mg/dl Creatinine 0.82 (0.6-1.2) mg/dl Est Cr Clr Drug Dosing 96.5 ml/min Est GFR ( Amer) 113.7 ml/min Est GFR (Non-Af Amer) 98.1 ml/min BUN/Creatinine Ratio 14.6 (10-20) Glucose 97 (70-99(Fasting)) mg/dl Lactate 1.1 (0.4-2.0) mmol/L Calcium 9.0 (8.5-10.1) mg/dl Magnesium 1.8 (1.7-2.4) mg/dl Total Bilirubin 0.4 (0.2-1.0) mg/dl Direct Bilirubin 0.1 (0-0.2) mg/dl AST 13 (13-39) U/L ALT 11 (7-52) U/L Alkaline Phosphatase 50 (34-104) U/L Total Protein 6.9 (6.0-8.3) gm/dl Albumin 4.4 (3.4-5.0) gm/dl Procalcitonin (0-0.5) ng/ml Urine Color Urine Appearance (Clear) Urine pH (4.5-7.5) Ur Specific [place] (1.000-1.030) Urine Protein (Negative) Urine Glucose (UA) (Negative) Urine Ketones (Negative) Urine Blood (Negative) Urine Nitrite (Negative) Urine Bilirubin (Negative) Urine Urobilinogen (Negative) Ur Leukocyte Esterase (Negative) Urine WBC (Auto) (0-5) /hpf Urine RBC (Auto) (0-4) /hpf U Hyaline Cast (Auto) (0-5) /lpf U Epithel Cells (Auto) (0-5) /lpf Urine Bacteria (Auto) (Negative) SARS-CoV-2 (PCR) (Negative) Influenza Type A (PCR) (Neg) Influenza Type B (PCR) (Neg) RSV (RT-PCR) (Neg) 08/18/22 08/18/22 08/18/22 Range/Units 04:25 04:30 04:30 WBC (4.8-10.8) K/ul RBC (3.93-5.22) M/uL Hgb (12.0-16.0) g/dl Hct (34.1-44.9) % MCV (80.0-100.0) fL MCH (25.0-34.0) pg MCHC (32.0-36.0) g/dL RDW Std Deviation (36.4-46.3) fL RDW Coeff of Joseph (11.5-14.5) % Plt Count (130-400) K/uL MPV (9.4-12.3) fL Immature Gran % (Auto) % Neut % (Auto) % Lymph % (Auto) % [place] % (Auto) % Eos % (Auto) % Baso % (Auto) % Neut # (Auto) (1.4-6.5) K/uL Lymph # (Auto) (1.2-3.4) K/uL [place] # (Auto) (0.24-0.82) K/uL Eos # (Auto) (0-0.50) K/uL Baso # (Auto) (0-0.2) K/uL Immature Gran # (Auto) (0.00-0.02) K/uL Sodium (136-145) mmol/L Potassium (3.5-5.1) mmol/L Chloride (98-107) mmol/L Carbon Dioxide (21-32) mmol/L Anion Gap (3-11) BUN (6-23) mg/dl Creatinine (0.6-1.2) mg/dl Est Cr Clr Drug Dosing ml/min Est GFR ( Amer) ml/min Est GFR (Non-Af Amer) ml/min BUN/Creatinine Ratio (10-20) Glucose (70-99(Fasting)) mg/dl Lactate (0.4-2.0) mmol/L Calcium (8.5-10.1) mg/dl Magnesium (1.7-2.4) mg/dl Total Bilirubin (0.2-1.0) mg/dl Direct Bilirubin (0-0.2) mg/dl AST (13-39) U/L ALT (7-52) U/L Alkaline Phosphatase (34-104) U/L Total Protein (6.0-8.3) gm/dl Albumin (3.4-5.0) gm/dl Procalcitonin < 0.05 (0-0.5) ng/ml Urine Color Yellow Urine Appearance Clear (Clear) Urine pH 7.5 (4.5-7.5) Ur Specific [place] 1.008 (1.000-1.030) Urine Protein Negative (Negative) Urine Glucose (UA) Negative (Negative) Urine Ketones Negative (Negative) Urine Blood 3+ H (Negative) Urine Nitrite Negative (Negative) Urine Bilirubin Negative (Negative) Urine Urobilinogen Negative (Negative) Ur Leukocyte Esterase 3+ H (Negative) Urine WBC (Auto) >30 H (0-5) /hpf Urine RBC (Auto) 5-10 H (0-4) /hpf U Hyaline Cast (Auto) 1-5 (0-5) /lpf U Epithel Cells (Auto) 20-30 H (0-5) /lpf Urine Bacteria (Auto) 4+ H (Negative) SARS-CoV-2 (PCR) NEGATIVE (Negative) Influenza Type A (PCR) Negative (Neg) Influenza Type B (PCR) Negative (Neg) RSV (RT-PCR) Negative (Neg) Imaging Data Attestation: I personally reviewed and interpreted this imaging study as follows: Radiologist's Impression: Chest X-Ray 08/18/22 04:02 SINGLE VIEW CHEST CLINICAL HISTORY: Sepsis. FINDINGS: An AP, portable, upright chest radiograph is compared to study dated 01/30/2018. Correlation is made with chest CT dated 02/08/2021. The cardiomedias tinal silhouette is unremarkable. The lungs and pleural spaces are clear. No pneumothorax is seen. The bony thorax is grossly intact. IMPRESSION: No active disease in the chest. ACT 112: Negative or not required by law. Electronically signed by: Tevin Oneill M.D. 08/18/2022 8:23 AM Abdomen/Pelvis CT 08/18/22 04:03 CT SCAN OF THE ABDOMEN AND PELVIS WITH IV CONTRAST CLINICAL HISTORY: Fever. Ureteral stent. History of Hodgkin's. COMPARISON STUDY: Abdominal CT dated 02/08/2021. PET/CT dated 07/27/2022. TECHNIQUE: Following the IV administration of 82 cc of Optiray 320, CT scan of the abdomen and pelvis is performed from the lung bases to the proximal femora. Images are reviewed in the axial, sagittal, and coronal planes. IV contrast was administered without complication. A dose lowering technique was utilized ad mahendra to the principles of ALARA. CT DOSE: 279.51 mGy.cm FINDINGS: Lung bases: The heart is normal in size and without pericardial effusion. The lung bases are clear. Liver: The contrast-enhanced liver is normal in size, contour, and attenuation. There is no intrahepatic biliary ductal dilatation. The hepatic veins and portal veins are patent. Gallbladder: Unremarkable. Spleen: Normal in size and attenuation. Pancreas: Unremarkable. Adrenal glands: Unremarkable. Kidneys: The contrast enhanced kidneys are normal in size. There is fullness of the right renal collecting system without hydronephrosis. A right ureteral stent is in place. No calcifications are seen in the right ureter along the course of the stent. No hydronephrosis on the left. Urothelial thickening and enhancement is seen within the right renal pelvis and the right ureter with surrounding inflammation. The right kidney enhances heterogeneously with a striated nephrogram. The left kidney enhances normally. A 12 mm cyst is again seen in the right upper pole. A circumaortic left renal vein is incidentally noted. Abdominal vasculature: The abdominal aorta is normal in course and caliber. Bowel: There is moderate colonic fecal retention. No bowel obstruction is seen. The appendix is surgically absent. Peritoneum: There is no intraperitoneal free air or abdominal ascites. There is a fat-containing umbilical hernia. Lymphadenopathy: None. Pelvic viscera: The bladder wall is thickened and hyperemic comment there are surrounding inflammation. The bladder contains the distal end of a right ureteral stent. The uterus and adnexa are normal as visualized. There is trace free fluid in the cul-de-sac. Skeletal structures: No lytic or blastic lesions are seen. IMPRESSION: 1. A right ureteral stent is in place. There is mild fullness of the right renal collecting system without hydronephrosis. 2. There is evidence of cystitis with ascending infection on the right and pyelonephritis. Correlate with clinical findings and urinalysis. 3. No calcifications are identified in the right ureter along the course of the stent. 4. Trace nonspecific free fluid is seen in the cul-de-sac. 5. Moderate colonic fecal retention. ACT 112: Negative or not required by law. Electronically signed by: Tevin Oneill M.D. 08/18/2022 7:36 AM MDM Narrative Prior records/ancillary studies reviewed. Triage Nursing notes reviewed. Additional history obtained from the family. The patient's history was concerning for fever with flank pain. Differential diagnosis: Etiologies such as infected stone, pyelonephritis, sepsis, renal colic, appendicitis, diverticulitis, mesenteric ischemia, aortic pathology, infections, inflammatory bowel disease, PUD, biliary pathology, UTI, as well as others were entertained. Physical examination findings: As above. ER treatment provided: Zosyn, IV fluids, Tylenol On reassessment the patient felt better. Diagnostic interpretation by me: The labs revealed leukocytosis. Urinalysis revealed concerns for infection and prior urine culture was reviewed [address] [place] [address] / Director: Santo Hollins M.D. Clinical Laboratory Report Name: TITI NAPIER Acct: [id number] Status: STU POWERS : 1995 [facility] [place] Date: 07/29/22 Age: 26 Sex: F Dis Date: Loc: [address] Spec: [id number] Collected: 07/29/22 Received: 07/29/[address]: Jb Lozano, II, DO Source: Urine,Clean Catch OV Order: Ordered: Urine Culture Procedure Result Verified Site Urine Culture Final 07/31/22 Organism 1 Escherichia coli [place] Count >100,000 CFU/ml Sens Sensitivities to Follow +Mix Urine Plus Low Counts of Other Mixed [place] E coli RX M.I.C. --- --------- Amox/Clav S <=8/4 Ampicillin R >16 Amp/Sul I 16/8 Cefazolin S 4 Cefepime S <=2 Ceftriaxone S <=1 Ciprofloxacin R >2 Ertapenem S <=0.5 Gentamicin S <=4 Levofloxacin R >4 Meropenem S <=1 Nitrofurantoin S <=32 Tobramycin S <=4 Trimeth/Sulfa S <=2/38 Pip/Tazo S <=16 S = SENSITIVE I = INTERMEDIATE R = RESISTANT Blood cultures pending Imaging studies: Chest x-ray with no acute consolidation, pneumothorax or free air per my interpretation Consultation: A consultation was placed with the hospitalist. The case was discussed and diagnostics were reviewed. The patient was evaluated in the ER for further treatment. Consultation was placed with urology midlevel and evaluated the patient. Case was discussed. Exam and history seem consistent with pyelonephritis was a stent placed. Patient was febrile. She was immediately given antibiotics. Labs and advanced imaging were ordered. Blood cultures were ordered. Prior urine culture was reviewed. Case was discussed with the hospitalist and patient will be admitted to the hospitalist service. Patient is agreeable. By the evaluation outlined above emergent etiologies such as appendicitis, diverticulitis, mesenteric ischemia, aortic pathology, inflammatory bowel disease, PUD, biliary pathology , as well as others were deemed relatively unlikely. The pt informed about the findings as listed above. All questions were answered and pleased with the treatment. The chart was completed utilizing [employer] Speech voice recognition software. Grammatical errors, random word insertions, pronoun errors, and incomplete sentences are an occassional consequence of this system due to software limitations, ambient noise, and hardware issues. Any formal questions or concerns about the content, text, or information contained within the body of this dictation should be directly addressed to the physician legal assistant for clarification. Impression & Plan Pyelonephritis, Fever Discharge Plan Visit Data Chief Complaint: Flank Pain Stated Complaint: KIDNEY STENT POSSIBLY INFECTED ED Provider: Ruy Galo ED Midlevel Provider: Anabela Young Discharge Problem: Pyelonephritis, Fever Patient Disposition: Admitted As Inpatient Condition: Good Discharge Instructions Interventions: ED Discharge Assessment Last Done: 08/18/22 08:00
[2022-08-18] MEDS ORDERED: SODIUM CHLORIDE 0.9% 1000ML 1,000 ML IV SCH (04:15)
[2022-08-18 04:40] LABS: Basophils # (auto) 0.03 K/uL (0-0.2); Basophils % (auto) 0.2 %; Eosinophils # (auto) 0.11 K/uL (0-0.50); Eosinophils % (auto) 0.9 %; Hematocrit (blood only) 35.5 % (34.1-44.9); Hemoglobin 12.4 g/dl (12.0-16.0); Immature Granulocytes # (auto) 0.05 K/uL (0.00-0.02); Immature Granulocytes % (auto) 0.4 %; Lymphocytes # (auto) 0.68 K/uL (1.2-3.4); Lymphocytes % (auto) 5.5 %; Mean Corpuscular Hemoglobin 30.3 pg (25.0-34.0); Mean Corpuscular Hgb Conc 34.9 g/dL (32.0-36.0); Mean Corpuscular Volume 86.8 fL (80.0-100.0); Mean Platelet Volume 8.9 fL (9.4-12.3); Monocytes # (auto) 0.75 K/uL (0.24-0.82); Monocytes % (auto) 6.1 %; Neutrophils # (auto) 10.64 K/uL (1.4-6.5); Neutrophils % (auto) 86.9 %; Platelet Count 334 K/uL (130-400); RDW Coefficient of Variation 12.9 % (11.5-14.5); RDW Standard Deviation 40.5 fL (36.4-46.3); Red Blood Count 4.09 M/uL (3.93-5.22); White Blood Count 12.26 K/ul (4.8-10.8)
--- NOTE | 2022-08-18 04:45 | Urology Consultation ---
Date of Consultation August 18, 2022 Assessment & Plan (1) Renal colic: I discussed with the treating emergency room clinician. The plan is to have the patient mated to the hospital service. At the present time it does appear as though the patient likely has urinary tract infection with possible pyelonephritis. We therefore recommend proceeding as follows: Provide hydration with IV fluids Provide analgesics Provide antiemetics Continue antibiotics. Zosyn has been initiated emergency department. Cultures have been obtained and antibiotics can be tailored based on results of these Will wait for the results of patient's CT scan. If the CT scan shows the patient has any element of obstructing kidney stones consideration may be given to patient undergoing a cystoscopy with further intervention as indicated. We will keep the patient n.p.o. until CT scan results are available. Additional recommendations be forthcoming based on pending items and her clinical course as it unfolds. Supervising Physician Co-Signing Physician Notes Agree with note above. Stent in appropriate position and no indication to exchange stent. No left-sided hydro. Recommendation is to treat with antibiotics and likely delay procedure scheduled for tomorrow. Ultimately will be Dr. Blake iglesias History of Present Illness Reason for Consultation: Renal colic History of Present Illness This is a 26-year-old female who recently underwent a urologic procedure by Dr. Lozano of [facility] urology. On 08/04/2022 the patient underwent a cystoscopy with bladder biopsy and transurethral resection of a bladder tumor. At the time of the cystoscopy the patient also had laser destruction of a right-sided kidney stone and a right ureteral stent placement. The patient reports that she also has known kidney stones on the left that were not addressed at this time. The patient did follow-up with Dr. Lozano in the office on 08/10/2022 following this procedure. At that time he did discuss removing the right-sided stent but as the patient was tolerating the stent he opted to keep the stent in place with plans to address this stent on 08/19/2022 at which time he was planning on doing a potential laser lithotripsy of the left-sided kidney stones. Following this office visit the patient did contact the on-call physician which was Dr. Gutierrez on 08/13/2022 due to worsening pain. It was felt at that time the patient was experiencing stent colic and she was prescribed additional analgesics. Patient called the answering service on 08/17/2022 and spoke with this clinician. The patient notes that she was having fevers as high as 102.8 along with nausea vomiting and persistent right abdominal pain and was therefore advised by myself to come to the emergency department for further evaluation. I visited with the patient in the emergency department shortly after her visit. She verified the above history. Patient notes that since her stent placement she has been having some right-sided pain that has been somewhat tolerable. She developed fevers the evening of 08/17/2022 again noted to be as high as 102.8. She did have some associated nausea and vomiting but denies any abdominal pain. In addition to her fever she did note chills along with shakes. In addition she felt some lightheadedness and somewhat worsening right flank pain along with left flank pain. The patient notes that she was taking antibiotics in the form of Keflex and Macrobid which she completed approximately 5 days ago. It is also noteworthy to mention that the patient does have a history of Hodgkin's lymphoma for which she received chemotherapy and radiation in the past but she notes that she has been in full remission. Thus far in the emergency department the patient has had labs. A CBC revealed white blood cell count was elevated 12.2. Hemoglobin, hematocrit, and platelet count were normal. Chemistry profile revealed patient had a normal sodium and potassium. Her BUN and creatinine were normal as well. Lactic acid level was not elevated. Magnesium level is noted to be within normal range and there is no elevation of patient's LFTs. Urinalysis did show that it was negative for nitrites but did show 3+ leukocyte Estrace and greater than 30 white blood cells per high-power field. There is 4+ bacteria on the study. COVID testing has been ordered and is pending. A chest x-ray has been obtained and was negative for pneumonia. A CT scan of the abdomen pelvis is pending. The patient's previous imaging was reviewed and her kidney stones were identified via PET/CT scan on 07/27/2022. Numerous small bilateral nonobstructing renal calculi measuring up to 3 mm were noted without hydronephrosis. In addition the patient's most recent urine cultures were reviewed. She did have a urine culture from 07/29/2022 which showed E. coli. This organism was noted to be resistant to quinolones but sensitive to other antibiotics it was tested for. At the time of my interview the patient was resting comfortably in bed and she was in no distress. Since arrival to the emergency department the patient has received 1 L of normal saline solution and antibiotics in the form of Zosyn have been initiated.The patient was noted to be normotensive and did not have any recorded episodes of hypotension since arrival to the emergency department. She was initially noted to be tachycardic with a heart rate in the 90s but this has since normalized. The patient has been febrile since arrival to the emergency department with a temperature of 38.0. Allergies Allergy/AdvReac Type Severity Reaction Status Date / Time Sulfa (Sulfonamide Allergy Intermediate itching, Verified 08/04/22 11:55 Antibiotics) hives sulfamethoxazole Allergy Intermediate itching, Verified 08/04/22 11:55 hives trimethoprim Allergy Intermediate itching, Verified 08/04/22 11:55 hives Home Medications Medication Instructions Recorded Confirmed Type buspirone 30 mg tablet 30 mg PO BID #60 tabs 07/11/19 08/15/22 Rx lamotrigine 100 mg tablet 100 mg PO QAM 04/28/21 08/15/22 History (Lamictal) lamotrigine 150 mg tablet 300 mg PO QAM 09/16/21 08/15/22 History lurasidone 60 mg tablet (Latuda) 60 mg PO HS 09/20/21 08/15/22 History vortioxetine 20 mg tablet 20 mg PO HS 07/29/22 08/15/22 History (Trintellix) nitrofurantoin 100 mg PO BID 7 days #14 caps 08/02/22 08/15/22 Rx monohydrate/macrocrystals 100 mg capsule (Macrobid) levothyroxine 75 mcg tablet 75 mcg PO QAM #30 tabs 08/03/22 08/15/22 Rx tamsulosin 0.4 mg capsule 0.4 mg PO HS #30 caps 08/04/22 08/15/22 Rx phenazopyridine 200 mg tablet 200 mg PO Q8H PRN pain #7 tabs 08/08/22 08/15/22 Rx (Pyridium) ketorolac 10 mg tablet 10 mg PO TID 3 days #9 tabs 08/10/22 08/15/22 Rx oxycodone 5 mg tablet 5 mg PO Q6H PRN pain #12 tabs 08/13/22 08/15/22 Rx Patient History Medical History Anxiety Bipolar disorder - Denies SI/HI. States mood is ok. Depression Endometriosis History of COVID-19 DX'D 08/2020 MOBILE TESTING SITE CHURUBUSCO-LOSS TASTE AND SMELL-RECOVERED AT HOME-RESOLVED Hodgkins lymphoma DX'D 2017-s/p chemo/radiation - currently in remission. 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 Excised CIN2, had margins positive for CIN1 only. H/O nasal septoplasty H/O wisdom tooth extraction History of bilateral tubal ligation with last 02/2022 History of lymph node biopsy History of tonsillectomy November [address] LA included Adenoids History of transurethral resection of bladder tumor (TURBT) done at same time as cysto w/ureteral stent placement w/bladder bx. History of vascular access device 12/14/2018-AND REMOVED S/P appendectomy 09/06/1819 Grade 1 view, MAC 3, ETT 7. S/P x2--last 03/10/22 with bilt tubal @ [facility] S/P cystoscopy with ureteral stent placement w/laser destruction kidney stone S/P radiotherapy Family History Grandmother (Paternal) Ovarian cancer Cervical adenocarcinoma H/O: hysterectomy Mother Family history of reaction to anesthesia PONV-EMOTIONAL Denies family history of Diabetes Myocardial infarction Breast cancer Lung cancer Colorectal cancer Hypertension Uterine cancer Stroke Social History Smoking Status: Never smoker Age Started Using Tobacco: 15; Age Quit Using Tobacco: 16; packs per day: 0.25; Second Hand Exposure: No; Hx Alcohol Use: No Hx Substance Use: No Preferred Language: Kenyan Communication Ability: Effective Visual Impairment: No Limitations Hearing Ability: Normal 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 Beliefs That Will Affect Care: None marital status: marital status details: Omari Escamilla (29) [phone] Current Living Situation: Family Current Living Situation Comment: lives with spouse, 1 daughter, 1 step daughter, and son current occupational status: employed 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 [employer] Other Information That Helps Us Care for You: No Feels Safe at Home: Yes Safety Concerns: Feels Safe At This Time Childhood Exposure to Second-Hand Smoke: No Assistive Devices: Glasses Review of Systems Constitutional: + fever and + chills Eyes: + corrective lenses Ear, Nose, Mouth, Throat: no ear pain Respiratory: no cough and no dyspnea Cardiovascular: no chest pain Gastrointestinal: + nausea and + vomiting; no abdominal pain Genitourinary: as per Subjective / HPI and + flank pain (Bilateral) Musculoskeletal: + back pain (Bilateral flank pain) Integumentary: no rash Neurologic: no localized weakness Physical Exam Constitutional: WD/WN, vitals as above Eyes: Wears glasses ENMT: Ears: no hearing impairment and no external ear abnormality Mouth: no oropharynx abnormality Neck: trachea midline The patient had a well-healed incision just superior to her right clavicle from previous lymph node biopsy Respiratory: normal respiratory effort; no respiratory distress and no labored breathing Cardiovascular: Rate/Rhythm: regular rate, regular rhythm and + tachycardic Vessels: dorsalis pedis pulses present and radial pulses present Gastrointestinal (Abdomen): Abdomen is soft, nonrigid, nondistended. There is no pain with palpation. There is no rebound tenderness or guarding. Musculoskeletal: Feet are warm and non-mottled. As noted above pedal pulses are palpable. There is no calf tenderness. Skin: no rashes Neurologic: moves all extremities Psychiatric: A+Ox3, euthymic affect Results & Data ([facility]) Vital Signs (Past 12 Hours) Vital Signs Temp Pulse Resp BP Pulse Ox O2 Del Method 08/18/22 03:43 38 C H 95 H 18 103/59 L 95 Room Air PG Care Time/CCT Total # of Minutes Spent Total Time Spent with Patient: Total time spent is greater than 50% in coordination of care (as documented) at patient's floor/unit and/or counseling patient: Coding Level of Care Code INP/OBS CONSULT LVL 5, 80 MIN Diagnoses Renal colic N23
[2022-08-18 04:56] LABS: Albumin Level 4.4 gm/dl (3.4-5.0); Bilirubin Direct 0.1 mg/dl (0-0.2); Bilirubin,Total 0.4 mg/dl (0.2-1.0); Magnesium 1.8 mg/dl (1.7-2.4); Potassium 3.8 mmol/L (3.5-5.1)
[2022-08-18 05:02] LABS: BUN Creatinine Ratio 14.6 (10-20); Creatinine Clr Calc Pharmacy 96.5 ml/min; Est GFR (African American) 113.7 ml/min; Est GFR (Non-African American) 98.1 ml/min; Total Protein 6.9 gm/dl (6.0-8.3)
[2022-08-18 05:02] LABS: Appearance Urine Clear (Clear); Bacteria Urine Automated 4+ (Negative); Bilirubin Urine Negative (Negative); Blood Urine 3+ (Negative); Color Urine Yellow; Epithelial Cell Urine Auto 20-30 /lpf (0-5); Glucose Urine UA Negative (Negative); Ketones Urine Negative (Negative); Leukocyte Esterase Urine 3+ (Negative); Nitrite Urine Negative (Negative); Protein Urine Negative (Negative); Specific Gravity Urine 1.008 (1.000-1.030); Urobilinogen Urine Negative (Negative); WBC Urine Automated >30 /hpf (0-5); pH Urine 7.5 (4.5-7.5)
[2022-08-18] MEDS ORDERED: MoRPHine SULFATE 4 MG/ML 1 ML CARP\\VIAL IV STA (05:09)
[2022-08-18] MEDS ORDERED: OPTIRAY 350 100ml IV ONE (05:22)
[2022-08-18 05:32] LABS: Influenza A virus by PCR Negative (Neg); Influenza B virus by PCR Negative (Neg); RSV by PCR Negative (Neg); SARS CoV2 RNA(COVID-19) Ceph NEGATIVE (Negative)
--- NOTE | 2022-08-18 07:37 | CT Scan Report ---
CT SCAN OF THE ABDOMEN AND PELVIS WITH IV CONTRAST CLINICAL HISTORY: Fever. Ureteral stent. History of Hodgkin's. COMPARISON STUDY: Abdominal CT dated 02/08/2021. PET/CT dated 07/27/2022. TECHNIQUE: Following the IV administration of 82 cc of Optiray 320, CT scan of the abdomen and pelvi s is performed from the lung bases to the proximal femora. Images are reviewed in the axial, sagittal , and coronal planes. IV contrast was administered without complication. A dose lowering technique wa s utilized adhering to the principles of ALARA. CT DOSE: 279.51 mGy.cm FINDINGS: Lung bases: The heart is normal in size and without pericardial effusion. The lung bases are clear. Liver: The contrast-enhanced liver is normal in size, contour, and attenuation. There is no intrahepa tic biliary ductal dilatation. The hepatic veins and portal veins are patent. Gallbladder: Unremarkable. Spleen: Normal in size and attenuation. Pancreas: Unremarkable. Adrenal glands: Unremarkable. Kidneys: The contrast enhanced kidneys are normal in size. There is fullness of the right renal colle cting system without hydronephrosis. A right ureteral stent is in place. No calcifications are seen i n the right ureter along the course of the stent. No hydronephrosis on the left. Urothelial thickenin g and enhancement is seen within the right renal pelvis and the right ureter with surrounding inflamm ation. The right kidney enhances heterogeneously with a striated nephrogram. The left kidney enhances normally. A 12 mm cyst is again seen in the right upper pole. A circumaortic left renal vein is inci dentally noted. Abdominal vasculature: The abdominal aorta is normal in course and caliber. Bowel: There is moderate colonic fecal retention. No bowel obstruction is seen. The appendix is surg ically absent. Peritoneum: There is no intraperitoneal free air or abdominal ascites. There is a fat-containing umbi lical hernia. Lymphadenopathy: None. Pelvic viscera: The bladder wall is thickened and hyperemic comment there are surrounding inflammatio n. The bladder contains the distal end of a right ureteral stent. The uterus and adnexa are normal as visualized. There is trace free fluid in the cul-de-sac. Skeletal structures: No lytic or blastic lesions are seen. IMPRESSION: 1. A right ureteral stent is in place. There is mild fullness of the right renal collecting system wi thout hydronephrosis. 2. There is evidence of cystitis with ascending infection on the right and pyelonephritis. Correlate with clinical findings and urinalysis. 3. No calcifications are identified in the right ureter along the course of the stent. 4. Trace nonspecific free fluid is seen in the cul-de-sac. 5. Moderate colonic fecal retention. ACT 112: Negative or not required by law. Electronically signed by: Tevin Oneill M.D. 08/18/2022 7:36 AM
[2022-08-18] MEDS ORDERED: POLYETHYLENE (MIRALAX) 17 GM PACK PO PRN (08:18)
[2022-08-18] MEDS ORDERED: clonazePAM 0.5 MG TAB PO PRN (08:18)
--- NOTE | 2022-08-18 08:25 | XRay Report ---
SINGLE VIEW CHEST CLINICAL HISTORY: Sepsis. FINDINGS: An AP, portable, upright chest radiograph is compared to study dated 01/30/2018. Correlation is made with chest CT dated 02/08/2021. The cardiomediastinal silhouette is unremarkable. The lungs an d pleural spaces are clear. No pneumothorax is seen. The bony thorax is grossly intact. IMPRESSION: No active disease in the chest. ACT 112: Negative or not required by law. Electronically signed by: Tevin Oneill M.D. 08/18/2022 8:23 AM
[2022-08-18] MEDS: SODIUM CHLORIDE 0.9% 1000ML 1,000 ML IV SCH ×3 (08:30→22:45)
--- NOTE | 2022-08-18 09:18 | History and Physical Report ---
DATE OF ADMISSION: 08/18/2022. CHIEF COMPLAINT: Right flank pain. HISTORY OF PRESENT ILLNESS: A 26-year-old female with past medical history significant for Hodgkin's lymphoma diagnosed in 2018, status post ABVD x4 cycles followed by involved field radiation therapy, completed the therapy at end of 2018. 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 The patient recently last month had bilateral flank pain and she underwent PET scan, which shows numerous obstructing renal stones, and renal stones were thought are the cause of her back pain. 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 She also had left kidney stone that was not addressed at the time. The patient followed with Urology on 08/10/2022 following this procedure and there was plan to keep the stent in place and plan to take out the stent in 08/19/22 at which time planned to do potentially the lithotripsy of the left sided kidney stone, but the patient says since she had a stent placement on the right side, she is having right flank pain, which was getting worse and last night, she had a temperature spike and nausea, vomiting and severe right flank pain, which prompted her to come to the ER. In the ER, she had a temperature spike of 38. White count of 12.2. Urinalysis was positive for bacteria. CAT scan of the abdomen and pelvis results are pending. Currently, hemodynamically stable, still has a lot of flank pain. Denies any chest pain, no shortness of breath, no cough, no headache, no neck pain, no blurred visions, no earache, no runny nose, no sore throat, no rash anywhere. ALLERGIES: BACTRIM. PAST MEDICAL HISTORY: As mentioned above. PAST SURGICAL HISTORY: Cystoscopy, , laparoscopic appendectomy, ligation of oviducts, biopsy of right supraclavicular lymph node. MEDICATIONS: The patient seems to be on buspirone 30 mg p.o. b.i.d., Lamictal 400 mg p.o. daily, Latuda 60 mg p.o. at bedtime, levothyroxine 75 mcg p.o. daily, oxycodone 5 mg p.o. q. 6 hours p.r.n., Pyridium 200 mg p.o. q. 8 hours p.r.n., Flomax 0.4 mg p.o. at bedtime, Trintellix 20 mg p.o. at bedtime. FAMILY HISTORY: Significant for maternal grandmother had ovarian cancer. SOCIAL HISTORY: , no smoking, no alcohol, no drug use. REVIEW OF SYSTEMS: As per HPI. Rest of the review of systems is negative. PHYSICAL EXAMINATION: GENERAL: The patient is alert and oriented, not in acute distress. VITAL SIGNS: Temperature 38, pulse 91, respiratory rate 15, blood pressure 112/65, oxygen 97% on room air. HEENT: Pupils equal, round and reactive to light. Oral mucosa moist. NECK: No JVD or neck masses. CARDIOVASCULAR: S1 and S2 heard. Regular rate and rhythm. No murmur, no gallop. RESPIRATORY SYSTEM: Normal AP diameter. No accessory muscle use. No wheezing, no crackles. ABDOMEN: Soft, bowel sounds present. Right CVA tenderness present. No distention. CENTRAL NERVOUS SYSTEM: Cranial nerves II through XII grossly intact, nonfocal. EXTREMITIES: No edema, no erythema. LABORATORY DATA: WBC 12.2, hemoglobin 12.4, hematocrit 35.5, platelets 334. Sodium 136, potassium 3.8, chloride 103, bicarbonate 25, BUN 12, creatinine 0.8, serum glucose 97, lactate 1.1, calcium 9, magnesium 1.8, total bilirubin 0.4, direct bilirubin 0.1, AST 13, ALT 11, alkaline phosphatase 50. Procalcitonin less than 0.05. Urinalysis, +3 leukocyte esterase, +4 bacteria. SARS-CoV-2 PCR negative. Influenza A and B PCR negative. RSV PCR negative. IMAGING DATA: CT abdomen and pelvis preliminary report unavailable at this time. Chest x-ray, no acute findings. EKG: Normal sinus rhythm, rate of 87, no significant change was found. ASSESSMENT AND PLAN: This is a 26-year-old female with history of kidney stone status post right ureteral stent placement on 08/04/2022 presents with increasing right flank pain and fevers. 1. Right flank pain, right renal colic, fevers. Lactic acid is okay at 1.1, hemodynamically stable. CT scan results are pending. Seen by Urology. ER started on Zosyn which will be continued. We will keep her n.p.o., IV fluids, pain control with morphine p.r.n. Closely monitor in medical floor. Follow the cultures. 2. History of bipolar disorder. Continue on home medication of Lamictal, Latuda. 3. Anxiety, on buspirone. 4. History of hypothyroidism on Synthroid. Following with endocrinology. 5. History of Hodgkin's lymphoma, status post chemotherapy and radiation. Currently seems to be in remission. 6. Deep venous thrombosis prophylaxis. Sequential compression devices for now. DISPOSITION: Admit to medical floor. Expect to discharge home and follow with family doctor. Job ID: [id number] ROBERT
[2022-08-18] MEDS: MoRPHine SULFATE 4 MG/ML 1 ML CARP\\VIAL IV PRN ×3 (09:30→19:30)
[2022-08-18] MEDS: ACETAMINOPHEN 325 MG TAB PO PRN ×2 (10:25→16:07)
[2022-08-18] MEDS: ONDANSETRON INJ 2 MG/ML 2 ML VIAL IV PRN (10:26)
[2022-08-18] MEDS: PIPERACILLIN/TAZOBACTAM 3.375 GM in DEXTROSE 5% 100 ML IV SCH ×2 (10:33→17:03)
[2022-08-18] MEDS ORDERED: HYDROmorphone INJ 0.5 MG/0.5 ML SYR IV STA (11:06)
[2022-08-18] MEDS: busPIRone 15 MG TAB PO SCH ×2 (11:19→20:43)
[2022-08-18] MEDS: LEVOTHYROXINE SODIUM 75 MCG TABLET PO SCH (11:19)
[2022-08-18] MEDS: lamoTRIgine 100 MG TAB PO SCH ×2 (11:20)
[2022-08-18] MEDS: LIDOCAINE 5% 1 PATCH TD SCH (12:53)
[2022-08-18] MEDS: oxyCODONE HCL IR 5 MG TAB (IMMEDIATE RELEASE) PO PRN ×2 (16:23→20:43)
[2022-08-18] MEDS: IBUPROFEN 200 MG TAB PO PRN (19:33)
[2022-08-18] MEDS: TAMSULOSIN HCL 0.4 MG CAP PO SCH (20:43)
[2022-08-18] MEDS: LURASIDONE HCL 40 MG TAB PO SCH (20:43)
[2022-08-18] MEDS ORDERED: Nursing to Pharmacy Communication SCH (22:00)
[2022-08-19] MEDS: MoRPHine SULFATE 4 MG/ML 1 ML CARP\\VIAL IV PRN ×5 (02:14→22:06)
[2022-08-19] MEDS: PIPERACILLIN/TAZOBACTAM 3.375 GM in DEXTROSE 5% 100 ML IV SCH ×3 (02:15→17:08)
[2022-08-19] MEDS: LEVOTHYROXINE SODIUM 75 MCG TABLET PO SCH (06:20)
[2022-08-19] MEDS: oxyCODONE HCL IR 5 MG TAB (IMMEDIATE RELEASE) PO PRN ×4 (06:23→20:36)
[2022-08-19] MEDS: IBUPROFEN 200 MG TAB PO PRN ×2 (06:25→17:52)
[2022-08-19] MEDS: SODIUM CHLORIDE 0.9% 1000ML 1,000 ML IV SCH ×3 (06:25→21:50)
[2022-08-19] MEDS: ACETAMINOPHEN 325 MG TAB PO PRN ×3 (08:29→23:14)
[2022-08-19] MEDS: busPIRone 15 MG TAB PO SCH ×2 (08:32→20:37)
[2022-08-19] MEDS: lamoTRIgine 100 MG TAB PO SCH ×2 (08:33)
[2022-08-19] MEDS: LIDOCAINE 5% 1 PATCH TD SCH (08:34)
--- NOTE | 2022-08-19 08:45 | Hospitalist Progress Note ---
Date of Service August 19, 2022 Assessment & Plan (1) Pyelonephritis: (2) Fever: (3) Renal colic: Plan: This is a 26-year-old female with history of kidney stone status post right ureteral stent placement on 08/04/2022 presents with increasing right flank pain and fevers, pyelonephritis on CT 1. Right flank pain, right renal colic, fevers. Pyelonephritis. CT abd/pelvis 1. A right ureteral stent is in place. There is mild fullness of the right renal collecting system without hydronephrosis. 2. There is evidence of cystitis with ascending infection on the right and pyelonephritis. Correlate with clinical findings and urinalysis. 3. No calcifications are identified in the right ureter along the course of the stent. 4. Trace nonspecific free fluid is seen in the cul-de-sac. 5. Moderate colonic fecal retention. Lactic acid is 1.1, hemodynamically stable. Recent procedure w/ urology (on 08/04/22) for renal stones, R ureteral stent placed Seen by Urology. ER - and cont. to follow - postponed planned procedure for Monday. Recommend to continue IV antibiotics for now. Started on Zosyn which will be continued.IV fluids, pain control with morphine p.r.n. Urine cultx - Gram negat. bacili Blood cultx - negative in 24 hours Follow final culture results Closely monitor in medical floor. 2. History of bipolar disorder. Continue on home medication of Lamictal, Latuda. 3. Anxiety, on buspirone. 4. History of hypothyroidism on Synthroid. Following with endocrinology. 5. History of Hodgkin's lymphoma, status post chemotherapy and radiation. Currently seems to be in remission. DVT prophylaxis. SCDs for now. DISPOSITION:medical floor. Expect to discharge home when medically stable and follow with family doctor and urology Admission and Anticipated Discharge Date Admission Date: August 18, 2022 Subjective Pt seen in follow up of fever, pyelonephritis, hx of renal stones and recent ureteral stent placement Continues to be febrile On IV zosyn Seen by urology - postponed planned procedure for Monday Cultx - pending Patient currently laying in bed, in no acute distress Continues to have significant flank pain No chest pain shortness of breath, no nausea vomiting Review of Systems Review of Systems: All systems reviewed & are unremarkable except as noted in Subjective Physical Exam Physical Exam: GENERAL: The patient is alert and oriented, not in acute distress. HEENT: NC/AT. EOMI. Pupils equal, round and reactive to light. Oral mucosa moist. NECK: No JVD or neck masses. CARDIOVASCULAR: S1 and S2 heard. Regular rate and rhythm. No murmur, no gallop. RESPIRATORY: Normal AP diameter. No accessory muscle use. No wheezing, no crackles. ABDOMEN: Soft, bowel sounds present. Right CVA tenderness present. No distention. NEURO:Alert oriented, answering questions appropriately, no facial asymmetry, moves extremities EXTREMITIES: No edema, no erythema. Results & Data Results & Data ([facility]) Vital Signs (Past 12 Hours) Vital Signs Temp Pulse Resp BP Pulse Ox O2 Del Method 08/19/22 07:37 38.2 C H 94 H 16 101/63 96 Room Air 08/19/22 06:28 38.6 C H 08/18/22 21:45 37.3 C 81 16 98/59 L 95 Room Air Laboratory Results 08/19/22 08/19/22 Range/Units 07:57 07:57 WBC 10.42 (4.8-10.8) K/ul RBC 3.55 L (3.93-5.22) M/uL Hgb 10.4 L (12.0-16.0) g/dl Hct 31.2 L (34.1-44.9) % MCV 87.9 (80.0-100.0) fL MCH 29.3 (25.0-34.0) pg MCHC 33.3 (32.0-36.0) g/dL RDW Std Deviation 41.4 (36.4-46.3) fL RDW Coeff of Joseph 12.9 (11.5-14.5) % Plt Count 264 (130-400) K/uL MPV 9.3 L (9.4-12.3) fL Immature Gran % (Auto) 0.3 % Neut % (Auto) 83.6 % Lymph % (Auto) 7.7 % [place] % (Auto) 7.4 % Eos % (Auto) 0.7 % Baso % (Auto) 0.3 % Neut # (Auto) 8.72 H (1.4-6.5) K/uL Lymph # (Auto) 0.80 L (1.2-3.4) K/uL [place] # (Auto) 0.77 (0.24-0.82) K/uL Eos # (Auto) 0.07 (0-0.50) K/uL Baso # (Auto) 0.03 (0-0.2) K/uL Immature Gran # (Auto) 0.03 H (0.00-0.02) K/uL Sodium 134 L (136-145) mmol/L Potassium 3.3 L (3.5-5.1) mmol/L Chloride 105 (98-107) mmol/L Carbon Dioxide 24 (21-32) mmol/L Anion Gap 5 (3-11) BUN 5 L (6-23) mg/dl Creatinine 0.59 L (0.6-1.2) mg/dl Est Cr Clr Drug Dosing 123.7 ml/min Est GFR ( Amer) 145.6 ml/min Est GFR (Non-Af Amer) 125.6 ml/min BUN/Creatinine Ratio 8.5 L (10-20) Glucose 86 (70-99(Fasting)) mg/dl Calcium 7.7 L (8.5-10.1) mg/dl Magnesium 1.6 L (1.7-2.4) mg/dl Medications Administered Current Inpatient Medications Acetaminophen (Acetaminophen 325 Mg Tab) 650 mg PO Q4H PRN PRN Reason: pain/fever Stop: 09/17/22 08:17 Last Admin: 08/19/22 08:29 Dose: 650 mg Buspirone HCl (Buspirone 15 Mg Tab) 30 mg PO BID [facility] Stop: 09/17/22 08:59 Last Admin: 08/19/22 08:32 Dose: 30 mg Clonazepam (Clonazepam 0.5 Mg Tab) 0.5 mg PO BID PRN PRN Reason: Anxiety Stop: 09/17/22 08:17 Sodium Chloride (Nss 1000ml) 1,000 mls @ 125 mls/hr IV .Q8H [facility] Stop: 09/17/22 08:17 Last Admin: 08/19/22 06:25 Dose: 125 mls/hr Piperacillin Sod/Tazobactam (Sod 3.375 gm/ Dextrose) 115 mls @ 28.75 mls/hr IV Q8H [facility]; Protocol Stop: 08/28/22 09:59 Last Infusion: 08/19/22 06:19 Dose: Infused Ibuprofen (Ibuprofen 200 Mg Tab) 200 mg PO Q6H PRN PRN Reason: fever, pain Stop: 09/17/22 19:00 Last Admin: 08/19/22 06:25 Dose: 200 mg Lamotrigine (Lamotrigine 100 Mg Tab) [facility] [place]: 09/17/22 08:59 Last Admin: 08/19/22 08:33 Dose: 100 mg Lamotrigine (Lamotrigine 100 Mg Tab) 300 mg PO [facility] Stop: 09/17/22 08:59 Last Admin: 08/19/22 08:33 Dose: 300 mg Levothyroxine Sodium (Levothyroxine Sodium 75 Mcg Tablet) [facility] Stop: 09/17/22 08:59 Last Admin: 08/19/22 06:20 Dose: 75 mcg Lidocaine (Lidocaine 5% 1 Patch) 1 patch TD [facility] Stop: 09/17/22 11:14 Last Admin: 08/19/22 08:34 Dose: Not Given Lurasidone HCl (Lurasidone Hcl 40 Mg Tab) 60 mg PO HS [facility] Stop: 09/17/22 20:59 Last Admin: 08/18/22 20:43 Dose: 60 mg Miscellaneous (Vortioxetine [Trintellix] 20 Mg Tablet ~ Order Awaiting Action) 1 each N/A QS [facility] Stop: 09/17/22 15:59 Last Admin: 08/19/22 08:34 Dose: Not Given Miscellaneous (Remove Lidoderm Patch) 1 each N/A DAILY@2100 [facility] Stop: 09/17/22 20:59 Last Admin: 08/18/22 20:45 Dose: 1 each Morphine Sulfate (Morphine Sulfate 4 Mg/Ml 1 Ml Carp\Vial) 3 mg IV Q4H PRN PRN Reason: Pain Stop: 09/01/22 08:17 Last Admin: 08/19/22 08:29 Dose: 3 mg Ondansetron HCl (Ondansetron Inj 2 Mg/Ml 2 Ml Vial) 4 mg IV Q6H PRN PRN Reason: Nausea Stop: 09/17/22 08:17 Last Admin: 08/18/22 10:26 Dose: 4 mg Oxycodone HCl (Oxycodone Hcl Ir 5 Mg Tab (Immediate Release)) 5 mg PO Q4H PRN PRN Reason: Pain Stop: 09/01/22 16:12 Last Admin: 08/19/22 06:23 Dose: 5 mg Polyethylene Glycol (Polyethylene (Miralax) 17 Gm Pack) 17 gm PO DAILY PRN PRN Reason: Constipation Stop: 09/17/22 08:17 Tamsulosin HCl (Tamsulosin Hcl 0.4 Mg Cap) 0.4 mg PO HS [facility] Stop: 09/17/22 20:59 Last Admin: 08/18/22 20:43 Dose: 0.4 mg
--- NOTE | 2022-08-19 09:10 | Urology Progress Note ---
Date of Service August 19, 2022 Assessment & Plan (1) Pyelonephritis: Plan: Follow-up of right pyelonephritis. Pt s/p Cystoscopy with bladder biopsy and TURBT small, R URS-LL and right stent on 08/04. Febrile yesterday afternoon and this am. Labs reviewed - creatinine 0.59, WBC 10.42, Hgb 10.4. Urine culture growing gram negative bacilli. BCx no growth x 24 hours. On IV Zosyn - follow cultures. Continue broad-spectrum antibiotics and narrow per sensitivity data when available. Continue IV fluids, supportive care, and management per medicine service. Patient's outpatient procedure has been rescheduled to Monday pending clinical course. Reviewed with patient. Can transition to course of PO antibiotics per sensitivities upon discharge when appropriate. Patient reports she is prone to yeast infection with antibiotics, she asked for Diflucan prior to discharge - will pass to medicine team. will follow. Admission and Anticipated Discharge Date Admission Date: August 18, 2022 Subjective Patient seen and examined at bedside this morning. Subjectively doing okay. Fevers yesterday afternoon and this morning. No nausea or vomiting at present. Continues to have intermittent right flank pain. Voiding spontaneously. No dysuria or hematuria. Review of Systems Constitutional: as per Subjective / HPI Gastrointestinal: as per Subjective / HPI Genitourinary: as per Subjective / HPI Physical Exam Constitutional: well developed and well nourished; no acute distress Respiratory: normal respiratory effort; no respiratory distress and no labored breathing Cardiovascular: Extremities: no pedal edema Gastrointestinal (Abdomen): Inspection/Auscultation: abdomen normal to inspection; abdomen not distended Neurologic: moves all extremities and awake Psychiatric: Orientation: alert and oriented x 3 Results & Data ([facility]) Vital Signs (Past 12 Hours) Vital Signs Temp Pulse Resp BP Pulse Ox O2 Del Method 08/19/22 07:37 38.2 C H 94 H 16 101/63 96 Room Air 08/19/22 06:28 38.6 C H 08/18/22 21:45 37.3 C 81 16 98/59 L 95 Room Air PG Care Time/CCT Total # of Minutes Spent Total Time Spent with Patient: Total time spent is greater than 50% in coordination of care (as documented) at patient's floor/unit and/or counseling patient: Coding Level of Care Code 82412 SUB INP/OBS CARE 08/24MIN Diagnoses Pyelonephritis N12
[2022-08-19 09:22] LABS: Basophils # (auto) 0.03 K/uL (0-0.2); Basophils % (auto) 0.3 %; Eosinophils # (auto) 0.07 K/uL (0-0.50); Eosinophils % (auto) 0.7 %; Hematocrit (blood only) 31.2 % (34.1-44.9); Hemoglobin 10.4 g/dl (12.0-16.0); Immature Granulocytes # (auto) 0.03 K/uL (0.00-0.02); Immature Granulocytes % (auto) 0.3 %; Lymphocytes % (auto) 7.7 %; Mean Corpuscular Hemoglobin 29.3 pg (25.0-34.0); Mean Corpuscular Hgb Conc 33.3 g/dL (32.0-36.0); Mean Corpuscular Volume 87.9 fL (80.0-100.0); Mean Platelet Volume 9.3 fL (9.4-12.3); Monocytes # (auto) 0.77 K/uL (0.24-0.82); Monocytes % (auto) 7.4 %; Neutrophils # (auto) 8.72 K/uL (1.4-6.5); Neutrophils % (auto) 83.6 %; Platelet Count 264 K/uL (130-400); RDW Coefficient of Variation 12.9 % (11.5-14.5); RDW Standard Deviation 41.4 fL (36.4-46.3); Red Blood Count 3.55 M/uL (3.93-5.22); White Blood Count 10.42 K/ul (4.8-10.8)
[2022-08-19 09:31] LABS: BUN Creatinine Ratio 8.5 (10-20); Calcium 7.7 mg/dl (8.5-10.1); Creatinine Clr Calc Pharmacy 123.7 ml/min; Est GFR (African American) 145.6 ml/min; Est GFR (Non-African American) 125.6 ml/min; Magnesium 1.6 mg/dl (1.7-2.4); Potassium 3.3 mmol/L (3.5-5.1)
[2022-08-19] MEDS: ADVANCED PROBIOTIC 1250 MG CAPSULE PO SCH (10:17)
--- NOTE | 2022-08-19 10:33 | Electrocardiogram Report ---
Test Reason : Blood Pressure : / mmHG Vent. Rate : 087 BPM Atrial Rate : 087 BPM P-R Int : 188 ms QRS Dur : 092 ms QT Int : 348 ms P-R-T Axes : 077 045 062 degrees QTc Int : 418 ms Normal sinus rhythm Possible Left atrial enlargement Borderline ECG When compared with ECG of 06-SEP-2020 19:55, No significant change was found Confirmed by Daniele Esparza ([id number]) on 08/19/2022 10:33:07 AM Referred By: Kevon Love Confirmed By:Daniele Esparza
[2022-08-19] MEDS ORDERED: POTASSIUM CHLORIDE CRTAB 20 MEQ TABCR PO STA (11:27)
[2022-08-19] MEDS: ONDANSETRON INJ 2 MG/ML 2 ML VIAL IV PRN (19:01)
[2022-08-19] MEDS: TAMSULOSIN HCL 0.4 MG CAP PO SCH (20:36)
[2022-08-19] MEDS: LURASIDONE HCL 40 MG TAB PO SCH (20:36)
[2022-08-19] MEDS ORDERED: VORTIOXETINE HYDROBROMIDE 10 MG PO SCH (21:00)
[2022-08-19] MEDS ORDERED: KETOROLAC TROMETHAMINE 15 MG/ML VIAL IV ONE (23:55)
[2022-08-19] MEDS ORDERED: PHENAZOPYRIDINE HCL 200 MG TAB PO STA (23:55)
[2022-08-20] MEDS: PIPERACILLIN/TAZOBACTAM 3.375 GM in DEXTROSE 5% 100 ML IV SCH (01:45)
[2022-08-20] MEDS: oxyCODONE HCL IR 5 MG TAB (IMMEDIATE RELEASE) PO PRN ×2 (03:39→10:02)
[2022-08-20] MEDS: ACETAMINOPHEN 325 MG TAB PO PRN ×2 (04:43→10:03)
[2022-08-20] MEDS: SODIUM CHLORIDE 0.9% 1000ML 1,000 ML IV SCH (05:50)
[2022-08-20] MEDS ORDERED: KETOROLAC TROMETHAMINE 15 MG/ML VIAL IV PRN (05:53)
[2022-08-20] MEDS ORDERED: KETOROLAC TROMETHAMINE 15 MG/ML VIAL ONE (06:15)
[2022-08-20] MEDS: LEVOTHYROXINE SODIUM 75 MCG TABLET PO SCH (06:17)
[2022-08-20 07:23] VITALS: BP 111/69; PULSE 61; TEMP 97.7; O2SAT 96
[2022-08-20 07:23] LABS: Hematocrit (blood only) 30.1 % (34.1-44.9); Hemoglobin 10.1 g/dl (12.0-16.0); Mean Corpuscular Hgb Conc 33.6 g/dL (32.0-36.0); Mean Corpuscular Volume 86.5 fL (80.0-100.0); Platelet Count 263 K/uL (130-400); RDW Coefficient of Variation 13.1 % (11.5-14.5); RDW Standard Deviation 41.3 fL (36.4-46.3); Red Blood Count 3.48 M/uL (3.93-5.22); White Blood Count 6.59 K/ul (4.8-10.8)
[2022-08-20 08:06] LABS: Anion Gap 4 (3-11); Carbon Dioxide 26 mmol/L (21-32); Chloride 110 mmol/L (98-107); Magnesium 1.9 mg/dl (1.7-2.4); Potassium 3.6 mmol/L (3.5-5.1); Sodium 140 mmol/L (136-145)
[2022-08-20 08:11] LABS: BUN Creatinine Ratio 12.2 (10-20); Blood Urea Nitrogen 6 mg/dl (6-23); Creatinine Clr Calc Pharmacy 148.9 ml/min; Est GFR (African American) > 150.0 ml/min; Est GFR (Non-African American) 133.5 ml/min; Glucose 104 mg/dl (70-99(Fasting)); Phosphorus 2.5 mg/dl (2.5-4.9)
[2022-08-20] MEDS: busPIRone 15 MG TAB PO SCH (08:13)
[2022-08-20] MEDS: LIDOCAINE 5% 1 PATCH TD SCH (08:14)
[2022-08-20] MEDS: lamoTRIgine 100 MG TAB PO SCH ×2 (08:14)
[2022-08-20] MEDS: ADVANCED PROBIOTIC 1250 MG CAPSULE PO SCH (08:14)
--- NOTE | 2022-08-20 08:29 | Hospitalist Progress Note ---
Date of Service August 20, 2022 Assessment & Plan (1) Pyelonephritis: (2) Fever: (3) Renal colic: Plan: This is a 26-year-old female with history of kidney stone status post right ureteral stent placement on 08/04/2022 presents with increasing right flank pain and fevers, pyelonephritis on CT 1. Right flank pain, right renal colic, fevers. Pyelonephritis. CT abd/pelvis 1. A right ureteral stent is in place. There is mild fullness of the right renal collecting system without hydronephrosis. 2. There is evidence of cystitis with ascending infection on the right and pyelonephritis. Correlate with clinical findings and urinalysis. 3. No calcifications are identified in the right ureter along the course of the stent. 4. Trace nonspecific free fluid is seen in the cul-de-sac. 5. Moderate colonic fecal retention. Lactic acid is 1.1, hemodynamically stable. Recent procedure w/ urology (on 08/04/22) for renal stones, R ureteral stent placed Seen by Urology. ER - and cont. to follow - postponed planned procedure for Monday. Recommend to DC on PO Augmentin. Started on Zosyn which was continued. Now switched to ceftriaxone. IV fluids, pain control with morphine p.r.n. Urine cultx - E.coli resistant to fluoroquinolones Blood cultx - negative in 48 hours WBC now normalized Discussed in detail with urology and patient at the bedside. Urology feels that patient can be discharged on p.o. antibiotics and follow-up with them on Monday. Cyclic fevers expected with pyelonephritis. Patient eager for discharge. Reports that she will have help at home, and that she feels well enough, and does not feel that she needs to stay in the hospital. 2. History of bipolar disorder. Continue on home medication of Lamictal, Latuda. 3. Anxiety, on buspirone. 4. History of hypothyroidism on Synthroid. Following with endocrinology. 5. History of Hodgkin's lymphoma, status post chemotherapy and radiation. Currently seems to be in remission. DVT prophylaxis. SCDs for now. DISPOSITION:Plan to discharge home and follow with family doctor and urology Admission and Anticipated Discharge Date Admission Date: August 18, 2022 Subjective Pt seen in follow up of fever, pyelonephritis, hx of renal stones and recent ureteral stent placement Continues to be febrile On IV zosyn -> switch to ceftriaxone today U cultx posit. for E.coli Seen by urology - postponed planned procedure for Monday Patient currently laying in bed, in no acute distress Continues to have some flank pain No chest pain shortness of breath, no nausea vomiting WBC normalized today Discussed with urology and patient at the bedside, a WBC is normal, and cultures are back, recommended discharge with Augmentin. Patient was febrile still recently, however she would like to be discharged. She will follow-up with urology on Monday. Review of Systems Review of Systems: All systems reviewed & are unremarkable except as noted in Subjective Physical Exam Physical Exam: GENERAL: The patient is alert and oriented, not in acute distress. HEENT: NC/AT. EOMI. Pupils equal, round and reactive to light. Oral mucosa moist. NECK: No JVD or neck masses. CARDIOVASCULAR: S1 and S2 heard. Regular rate and rhythm. No murmur, no gallop. RESPIRATORY: Normal AP diameter. No accessory muscle use. No wheezing, no crackles. ABDOMEN: Soft, bowel sounds present. Right CVA tenderness present. No distention. NEURO:Alert oriented, answering questions appropriately, no facial asymmetry, moves extremities EXTREMITIES: No edema, no erythema. Results & Data Results & Data ([facility]) Vital Signs (Past 12 Hours) Vital Signs Temp Pulse Resp BP Pulse Ox O2 Del Method 08/20/22 07:20 36.5 C 61 16 111/69 96 Room Air 08/19/22 20:59 37.6 C H 89 16 123/68 94 Room Air Laboratory Results 08/20/22 08/20/22 08/19/22 Range/Units 06:25 06:25 07:57 WBC 6.59 (4.8-10.8) K/ul RBC 3.48 L (3.93-5.22) M/uL Hgb 10.1 L (12.0-16.0) g/dl Hct 30.1 L (34.1-44.9) % MCV 86.5 (80.0-100.0) fL MCH 29.0 (25.0-34.0) pg MCHC 33.6 (32.0-36.0) g/dL RDW Std Deviation 41.3 (36.4-46.3) fL RDW Coeff of Joseph 13.1 (11.5-14.5) % Plt Count 263 (130-400) K/uL MPV 9.0 L (9.4-12.3) fL Immature Gran % (Auto) % Neut % (Auto) % Lymph % (Auto) % [place] % (Auto) % Eos % (Auto) % Baso % (Auto) % Neut # (Auto) (1.4-6.5) K/uL Lymph # (Auto) (1.2-3.4) K/uL [place] # (Auto) (0.24-0.82) K/uL Eos # (Auto) (0-0.50) K/uL Baso # (Auto) (0-0.2) K/uL Immature Gran # (Auto) (0.00-0.02) K/uL Sodium 140 134 L (136-145) mmol/L Potassium 3.6 3.3 L (3.5-5.1) mmol/L Chloride 110 H 105 (98-107) mmol/L Carbon Dioxide 26 24 (21-32) mmol/L Anion Gap 4 5 (3-11) BUN 6 5 L (6-23) mg/dl Creatinine 0.49 L 0.59 L (0.6-1.2) mg/dl Est Cr Clr Drug Dosing 148.9 123.7 ml/min Est GFR ( Amer) > 150.0 145.6 ml/min Est GFR (Non-Af Amer) 133.5 125.6 ml/min BUN/Creatinine Ratio 12.2 8.5 L (10-20) Glucose 104 H 86 (70-99(Fasting)) mg/dl Calcium 8.0 L 7.7 L (8.5-10.1) mg/dl Phosphorus 2.5 (2.5-4.9) mg/dl Magnesium 1.9 1.6 L (1.7-2.4) mg/dl 08/19/22 Range/Units 07:57 WBC 10.42 (4.8-10.8) K/ul RBC 3.55 L (3.93-5.22) M/uL Hgb 10.4 L (12.0-16.0) g/dl Hct 31.2 L (34.1-44.9) % MCV 87.9 (80.0-100.0) fL MCH 29.3 (25.0-34.0) pg MCHC 33.3 (32.0-36.0) g/dL RDW Std Deviation 41.4 (36.4-46.3) fL RDW Coeff of Joseph 12.9 (11.5-14.5) % Plt Count 264 (130-400) K/uL MPV 9.3 L (9.4-12.3) fL Immature Gran % (Auto) 0.3 % Neut % (Auto) 83.6 % Lymph % (Auto) 7.7 % [place] % (Auto) 7.4 % Eos % (Auto) 0.7 % Baso % (Auto) 0.3 % Neut # (Auto) 8.72 H (1.4-6.5) K/uL Lymph # (Auto) 0.80 L (1.2-3.4) K/uL [place] # (Auto) 0.77 (0.24-0.82) K/uL Eos # (Auto) 0.07 (0-0.50) K/uL Baso # (Auto) 0.03 (0-0.2) K/uL Immature Gran # (Auto) 0.03 H (0.00-0.02) K/uL Sodium (136-145) mmol/L Potassium (3.5-5.1) mmol/L Chloride (98-107) mmol/L Carbon Dioxide (21-32) mmol/L Anion Gap (3-11) BUN (6-23) mg/dl Creatinine (0.6-1.2) mg/dl Est Cr Clr Drug Dosing ml/min Est GFR ( Amer) ml/min Est GFR (Non-Af Amer) ml/min BUN/Creatinine Ratio (10-20) Glucose (70-99(Fasting)) mg/dl Calcium (8.5-10.1) mg/dl Phosphorus (2.5-4.9) mg/dl Magnesium (1.7-2.4) mg/dl Medications Administered Current Inpatient Medications Acetaminophen (Acetaminophen 325 Mg Tab) 650 mg PO Q4H PRN PRN Reason: pain/fever Stop: 09/17/22 08:17 Last Admin: 08/20/22 04:43 Dose: 650 mg Buspirone HCl (Buspirone 15 Mg Tab) 30 mg PO BID [facility] Stop: 09/17/22 08:59 Last Admin: 08/20/22 08:13 Dose: 30 mg Clonazepam (Clonazepam 0.5 Mg Tab) 0.5 mg PO BID PRN PRN Reason: Anxiety Stop: 09/17/22 08:17 Sodium Chloride (Nss 1000ml) 1,000 mls @ 125 mls/hr IV .Q8H [facility] Stop: 09/17/22 08:17 Last Admin: 08/20/22 05:50 Dose: 125 mls/hr Ceftriaxone Sodium 2,000 mg/ (Dextrose) 70 mls @ 100 mls/hr IV Q24H [facility]; Protocol Stop: 08/30/22 08:29 Ibuprofen (Ibuprofen 200 Mg Tab) 200 mg PO Q6H PRN PRN Reason: fever, pain Stop: 09/17/22 19:00 Last Admin: 08/19/22 17:52 Dose: 200 mg Ketorolac Tromethamine (Ketorolac Tromethamine 15 Mg/Ml Vial) 15 mg IV Q6H PRN PRN Reason: Pain Stop: 08/25/22 05:52 Lactobacillus Acidophilus (Advanced Probiotic 1250 Mg Capsule) 2 cap PO DAILY [facility] Stop: 09/18/22 08:59 Last Admin: 08/20/22 08:14 Dose: 2 cap Lamotrigine (Lamotrigine 100 Mg Tab) 100 mg PO QAM [facility] Stop: 09/17/22 08:59 Last Admin: 08/20/22 08:14 Dose: 100 mg Lamotrigine (Lamotrigine 100 Mg Tab) 300 mg PO QAM [facility] Stop: 09/17/22 08:59 Last Admin: 08/20/22 08:14 Dose: 300 mg Levothyroxine Sodium (Levothyroxine Sodium 75 Mcg Tablet) 75 mcg PO DAILYBB [facility] Stop: 09/17/22 08:59 Last Admin: 08/20/22 06:17 Dose: 75 mcg Lidocaine (Lidocaine 5% 1 Patch) 1 patch TD QAM [facility] Stop: 09/17/22 11:14 Last Admin: 08/20/22 08:14 Dose: Not Given Lurasidone HCl (Lurasidone Hcl 40 Mg Tab) 60 mg PO HS [facility] Stop: 09/17/22 20:59 Last Admin: 08/19/22 20:36 Dose: 60 mg Miscellaneous (Remove Lidoderm Patch) 1 each N/A DAILY@2100 [facility] Stop: 09/17/22 20:59 Last Admin: 08/19/22 20:37 Dose: 1 each Morphine Sulfate (Morphine Sulfate 4 Mg/Ml 1 Ml Carp\Vial) 3 mg IV Q4H PRN PRN Reason: Pain Stop: 09/01/22 08:17 Last Admin: 08/19/22 22:06 Dose: 3 mg Ondansetron HCl (Ondansetron Inj 2 Mg/Ml 2 Ml Vial) 4 mg IV Q6H PRN PRN Reason: Nausea Stop: 09/17/22 08:17 Last Admin: 08/19/22 19:01 Dose: 4 mg Oxycodone HCl (Oxycodone Hcl Ir 5 Mg Tab (Immediate Release)) 5 mg PO Q4H PRN PRN Reason: Pain Stop: 09/01/22 16:12 Last Admin: 08/20/22 03:39 Dose: 5 mg Polyethylene Glycol (Polyethylene (Miralax) 17 Gm Pack) 17 gm PO DAILY PRN PRN Reason: Constipation Stop: 09/17/22 08:17 Tamsulosin HCl (Tamsulosin Hcl 0.4 Mg Cap) 0.4 mg PO HS [facility] Stop: 09/17/22 20:59 Last Admin: 08/19/22 20:36 Dose: 0.4 mg Vortioxetine (Pt's Own Med: Vortioxetine Hydrobromide 10mg) 2 each PO HS [facility] Stop: 09/18/22 20:59 Last Admin: 08/19/22 22:05 Dose: 2 each
[2022-08-20] MEDS ORDERED: cefTRIAXone SODIUM 2,000 MG in DEXTROSE 5% 50 ML IV SCH (09:00)
--- NOTE | 2022-08-20 10:01 | Urology Progress Note ---
Date of Service August 20, 2022 Assessment & Plan (1) Pyelonephritis: (2) Fever: Plan Gradually improving from pyelonephritis Will require an extended antibiotic course after discharge Should be amenable to treatment with Augmentin Although she did have fevers yesterday evening, it may be reasonable to discharge her home today She may experience some continued cyclical fevers over the next several daysthis is a typical course for pyelonephritis, given her other hemodynamic stability am not certain that requires continuation of her hospital stay She does have outpatient follow-up arranged with urology Admission and Anticipated Discharge Date Admission Date: August 18, 2022 Subjective Subjectively reports that she is feeling better Still with some flank pain but less severe than it was previously Still had fevers as recently as yesterday afternoon White count has decreased today Culture showing E. coli with mixed resistance pattern Not sensitive to fluoroquinolones but would be able to be treated with either Bactrim or Augmentinunfortunately she has a Bactrim allergy Physical Exam Constitutional: well developed and well nourished Respiratory: no respiratory distress Cardiovascular: Extremities: no pedal edema Gastrointestinal (Abdomen): Inspection/Auscultation: abdomen normal to inspection Results & Data ([facility]) Vital Signs (Past 12 Hours) Vital Signs Temp Pulse Resp BP Pulse Ox O2 Del Method 08/20/22 07:20 36.5 C 61 16 111/69 96 Room Air PG Care Time/CCT Total # of Minutes Spent Total Time Spent with Patient: Total time spent is greater than 50% in coordination of care (as documented) at patient's floor/unit and/or counseling patient: Coding Level of Care Code 28672 SUB INP/OBS CARE 2/35MIN Diagnoses Pyelonephritis N12 Fever R50.9
--- NOTE | 2022-08-20 10:30 | Discharge Summary ---
Date of Service August 20, 2022 Admission HPI Per Admitting Provider A 26-year-old female with past medical history significant for Hodgkin's lymphoma diagnosed in 2018, status post ABVD x4 cycles followed by involved field radiation therapy, completed the therapy at end of 2018. 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 The patient recently last month had bilateral flank pain and she underwent PET scan, which shows numerous obstructing renal stones, and renal stones were thought are the cause of her back pain. 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 She also had left kidney stone that was not addressed at the time. The patient followed with Urology on 08/10/2022 following this procedure and there was plan to keep the stent in place and plan to take out the stent in 08/19/22 at which time planned to do potentially the lithotripsy of the left sided kidney stone, but the patient says since she had a stent placement on the right side, she is having right flank pain, which was getting worse and last night, she had a temperature spike and nausea, vomiting and severe right flank pain, which prompted her to come to the ER. In the ER, she had a temperature spike of 38. White count of 12.2. Urinalysis was positive for bacteria. CAT scan of the abdomen and pelvis results are pending. Currently, hemodynamically stable, still has a lot of flank pain. Denies any chest pain, no shortness of breath, no cough, no headache, no neck pain, no blurred visions, no earache, no runny nose, no sore throat, no rash anywhere. Admission Exam Per Admitting Provider GENERAL: The patient is alert and oriented, not in acute distress. VITAL SIGNS: Temperature 38, pulse 91, respiratory rate 15, blood pressure 112/65, oxygen 97% on room air. HEENT: Pupils equal, round and reactive to light. Oral mucosa moist. NECK: No JVD or neck masses. CARDIOVASCULAR: S1 and S2 heard. Regular rate and rhythm. No murmur, no gallop. RESPIRATORY SYSTEM: Normal AP diameter. No accessory muscle use. No wheezing, no crackles. ABDOMEN: Soft, bowel sounds present. Right CVA tenderness present. No distention. CENTRAL NERVOUS SYSTEM: Cranial nerves II through XII grossly intact, nonfocal. EXTREMITIES: No edema, no erythema. Principal Diagnosis Pyelonephritis Discharge Exam GENERAL: The patient is alert and oriented, not in acute distress. HEENT: NC/AT. EOMI. Pupils equal, round and reactive to light. Oral mucosa moist. NECK: No JVD or neck masses. CARDIOVASCULAR: S1 and S2 heard. Regular rate and rhythm. No murmur, no gallop. RESPIRATORY: Normal AP diameter. No accessory muscle use. No wheezing, no crackles. ABDOMEN: Soft, bowel sounds present. Right CVA tenderness present (improved). No distention. NEURO:Alert oriented, answering questions appropriately, no facial asymmetry, moves extremities EXTREMITIES: No edema, no erythema. Discharge Data Allergies Allergy/AdvReac Type Severity Reaction Status Date / Time Sulfa (Sulfonamide Allergy Intermediate itching, Verified 08/04/22 11:55 Antibiotics) hives sulfamethoxazole Allergy Intermediate itching, Verified 08/04/22 11:55 hives trimethoprim Allergy Intermediate itching, Verified 08/04/22 11:55 hives Consultations 08/18/22 05:23 ED Decision to Admit Stat 08/18/22 08:18 Consult Urology Routine Ordered Studies 08/18/22 04:03 CT Abd and Pelvis [CT abd pelvis IV con only] Stat FINDINGS: Lung bases: The heart is normal in size and without pericardial effusion. The lung bases are clear. Liver: The contrast-enhanced liver is normal in size, contour, and attenuation. There is no intrahepatic biliary ductal dilatation. The hepatic veins and portal veins are patent. Gallbladder: Unremarkable. Spleen: Normal in size and attenuation. Pancreas: Unremarkable. Adrenal glands: Unremarkable. Kidneys: The contrast enhanced kidneys are normal in size. There is fullness of the right renal collecting system without hydronephrosis. A right ureteral stent is in place. No calcifications are seen in the right ureter along the course of the stent. No hydronephrosis on the left. Urothelial thickening and enhancement is seen within the right renal pelvis and the right ureter with surrounding inflammation. The right kidney enhances heterogeneously with a striated nephrogram. The left kidney enhances normally. A 12 mm cyst is again seen in the right upper pole. A circumaortic left renal vein is incidentally noted. Abdominal vasculature: The abdominal aorta is normal in course and caliber. Bowel: There is moderate colonic fecal retention. No bowel obstruction is seen. The appendix is surgically absent. Peritoneum: There is no intraperitoneal free air or abdominal ascites. There is a fat-containing umbilical hernia. Lymphadenopathy: None. Pelvic viscera: The bladder wall is thickened and hyperemic comment there are surrounding inflammation. The bladder contains the distal end of a right ureteral stent. The uterus and adnexa are normal as visualized. There is trace free fluid in the cul-de-sac. Skeletal structures: No lytic or blastic lesions are seen. IMPRESSION: 1. A right ureteral stent is in place. There is mild fullness of the right renal collecting system without hydronephrosis. 2. There is evidence of cystitis with ascending infection on the right and pyelonephritis. Correlate with clinical findings and urinalysis. 3. No calcifications are identified in the right ureter along the course of the stent. 4. Trace nonspecific free fluid is seen in the cul-de-sac. 5. Moderate colonic fecal retention. Hospital Course (1) Pyelonephritis: (2) Fever: (3) Renal colic: This is a 26-year-old female with history of kidney stone status post right ureteral stent placement on 08/04/2022 presents with increasing right flank pain and fevers, pyelonephritis on CT 1. Right flank pain, right renal colic, fevers. Pyelonephritis. CT abd/pelvis 1. A right ureteral stent is in place. There is mild fullness of the right renal collecting system without hydronephrosis. 2. There is evidence of cystitis with ascending infection on the right and pyelonephritis. Correlate with clinical findings and urinalysis. 3. No calcifications are identified in the right ureter along the course of the stent. 4. Trace nonspecific free fluid is seen in the cul-de-sac. 5. Moderate colonic fecal retention. Lactic acid is 1.1, hemodynamically stable. Recent procedure w/ urology (on 08/04/22) for renal stones, R ureteral stent placed Seen by Urology. ER - and cont. to follow - postponed planned procedure for Monday. Recommend to DC on PO Augmentin. Started on Zosyn on admission which was continued. Now switched to ceftriaxone. IV fluids, pain control with oxy p.r.n. Urine cultx - E.coli resistant to fluoroquinolones Blood cultx - negative in 48 hours WBC now normalized Pt febrile in the last 24 hrs Renal colic improved Discussed in detail with urology and patient at the bedside. Urology feels that patient can be discharged on p.o. antibiotics and follow-up with them on Monday. Cyclic fevers expected with pyelonephritis. Patient eager for discharge. Reports that she will have help at home, and that she feels well enough, and does not feel that she needs to stay in the hospital. 2. History of bipolar disorder. Continue on home medication of Lamictal, Latuda. 3. Anxiety, on buspirone. 4. History of hypothyroidism on Synthroid. Following with endocrinology. 5. History of Hodgkin's lymphoma, status post chemotherapy and radiation. Currently seems to be in remission. DISPOSITION:Plan to discharge home and follow with family doctor and urology Total Time Total Time Spent Total Time Spent (In Minutes): 40 Discharge Plan Discharge Items Patient Disposition: Home - Self-Care Reason For Visit: RIGHT FLANK PAIN Discharge Diagnosis: Pyelonephritis Condition on Discharge: Good Activity: Per Instructions section Non-emergency contact: Primary Care Provider and Urologist Call non-emergency contact if: you have any medication questions and your symptoms worsen Follow-up/Referrals: Promise Chen DO [Primary Care Provider] - Diet: Regular Addtl Attending Provider Instructions: Follow-up with urology on Monday, as scheduled. Follow-up with primary care doctor within 1 to 2 weeks. Finish antibiotic course with Augmentin, as prescribed. Recommend taking probiotics while on antibiotics. For fever, continue taking Tylenol, 1000 mg three times a day. Maximum dose is 3000 mg. For more severe pain, you can take oxycodone, as prescribed. Pending Studies at Discharge: Yes Studies:: Final blood culture Stand-Alone Forms: My P2i, Smoking Cessation Medications and DC Order Prescriptions: New amoxicillin-pot clavulanate 875-125 mg tablet 1 tab PO BID 10 Days Qty: 20 0RF oxycodone 5 mg Tablet 5 mg PO Q4H PRN (Reason: pain) Qty: 7 0RF Continued nitrofurantoin monohyd/m-cryst [Macrobid] 100 mg capsule 100 mg PO BID 7 Days Qty: 14 0RF Rx Instructions: must administer with a meal/food levothyroxine 75 mcg tablet 75 mcg PO QAM Qty: 30 2RF phenazopyridine [Pyridium] 200 mg tablet 200 mg PO Q8H PRN (Reason: pain) Qty: 7 0RF Label Comments: Pt has not received yet oxycodone 5 mg tablet 5 mg PO Q6H PRN (Reason: pain) Qty: 12 0RF lamotrigine [Lamictal] 100 mg tablet 100 mg PO QAM buspirone 30 mg tablet 30 mg PO BID Qty: 60 2RF ketorolac 10 mg tablet 10 mg PO TID 3 Days Qty: 9 0RF lamotrigine 150 mg tablet 300 mg PO QAM Latuda 60 mg tablet 60 mg PO HS Rx Instructions: must administer with food (at least 350 calories) Trintellix 20 mg Tablet 20 mg PO HS tamsulosin 0.4 mg capsule 0.4 mg PO HS Qty: 30 0RF Discharge Orders: Discharge Order (Routine); Ordered 08/20/22 Ordered By: Frankie Lawrence Admission Data Admit Date/Time: 08/18/22 05:54 Attending Provider: Frankie Lawrence Admit Provider: Osorio Gaines Primary Care Provider: Promise Chen Other Providers: Osorio Gaines ; Triston Collado ; Ruy Jenkins ; Jose F Emery ; Promise Mariscal ; Jb Lozano ; Veronica Sofia ; Ashlyn Acuna ; Kodak So ; Mayra Ryder ; Aminata Moralez ; Kaushal Arriola ; Rayshawn Gutierrez
== END 2022-08-20 12:41 | disposition home or self-care (01) | DRG 690 ==
LOC: ED 03:39 → 3W 05:54 → INTOOBSV 05:54 → 3W 08:00
DX: Z88.8 Allergy status to other drugs, medicaments and biological substances; Z85.71 Personal history of Hodgkin lymphoma; Z86.16 Personal history of COVID-19; B96.20 Unspecified Escherichia coli [E. coli] as the cause of diseases classified elsewhere; F31.9 Bipolar disorder, unspecified; N12 Tubulo-interstitial nephritis, not specified as acute or chronic; Z96.0 Presence of urogenital implants; Z88.2 Allergy status to sulfonamides; E03.9 Hypothyroidism, unspecified; Z79.890 Hormone replacement therapy

== ENCOUNTER 2022-08-24 16:46 | Inpatient (IN) ==
[2022-08-24] MEDS ORDERED: ONDANSETRON INJ 2 MG/ML 2 ML VIAL IV STA (17:10)
[2022-08-24] MEDS ORDERED: MoRPHine SULFATE 10 MG/ML CARP/VIAL IV STA ×2 (17:10→19:29)
--- NOTE | 2022-08-24 17:14 | Emergency Department Note ---
Impression & Plan Pyelonephritis, Acute flank pain ED Provider Note NAME: TITI Fu QUYEN AGE: 26 SEX: F : 1995 ARRIVES VIA: Walk-In INFORMANT: Patient ED PROVIDER(S): Markus Chong DO CHIEF COMPLAINT: left flank and back pain HPI: Patient is a 26-year-old female with a past medical history of intraepithelial neoplasm, Hodgkin's lymphoma, , recent Pylo with stent placement and removal who presents to the ER for left flank pain associate with nausea and vomiting. Pain is a 10 out of 10 and constant. Denies any headache or change in vision. No chest pain or shortness of breath. Nausea started back up today. She notes that flank pain has been present since the stent was removed but has significantly worsened recently. She had all her surgeries performed here. PAST MEDICAL HISTORY:See Below PAST SURGICAL HISTORY:See Below FAMILY HISTORY:See Below SOCIAL HISTORY:See Below HOME MEDICATIONS:See Below ALLERGIES:See Below VITALS:See Below PHYSICAL EXAMINATION: GENERAL: Sitting up in bed, alert, disheveled, holding left flank EYE EXAM: normal conjunctiva. OROPHARYNX: no exudate, no erythema, lips, buccal mucosa, and tongue normal and mucous membranes are moist NECK: supple, no nuchal rigidity, no adenopathy, non-tender LUNGS: Clear to auscultation. Normal chest wall mechanics HEART: no murmurs, S1 normal and S2 normal ABDOMEN: abdomen soft, non-tender, normo-active bowel sounds, no masses, no rebound or guarding. BACK: Back is symmetrical on inspection and there is no deformity, no midline tenderness, no CVA tenderness. UPPER EXTREMITIES: upper extremities are grossly normal. LOWER EXTREMITIES: No pitting edema. NEURO EXAM: Normal sensorium, cranial nerves II-XII grossly intact, normal speech, no gross weakness of arms, no gross weakness of legs. MEDICAL DECISION MAKING: Patient is a 26-year-old female who presents ER for above-stated complaint. External records were reviewed including urology's extensive treatment recently. IV was established blood work was obtained. Labs show no significant leukocytosis. Mild anemia 11,000. BMP with mild hypokalemia 3.4. LFTs and bilirubin was unremarkable. Lipase was normal. UA with nitrates leuks whites although contaminated with multiple epithelial cells. was negative. CT abdomen pelvis showed pyelonephritis. Patient was updated at bedside. Patient was given multiple dose of IV narcotics and IV fluids. She is given IV Toradol. She had persistent pain and consequently discussed the case with urology who recommended and agreed with admission to the hospitalist. Triage Nursing notes reviewed. Limited review of prior medical records performed Vital Signs: reviewed and remarkable for no significant abnormalities Differential diagnosis: Differential diagnoses includes but is not limited to gastritis, peptic ulcer disease, GERD, gallbladder disease, pancreatitis, small bowel obstruction, appendicitis, diverticulitis, hernia, urinary tract infection, torsion, [/ectopic (if female)], perforation, trauma, infectious. ER treatment provided: See below Diagnostics interpreted by me include EKG and cardiac monitoring as listed below: -Cardiac Monitoring: An order was placed for continuous cardiac monitoring. The monitor shows a rate of 72 with sinus rhythm. -ECG: none -Laboratory studies:Interpreted by me as stated above in MDM and shown below. Imaging studies: Xrays: As interpreted by me:none CTs show: CT per my read showed no obvious stones Consultation(s): Discussed with Candelario from urology in regards to presentation work-up and further treatment. Discussed with hospitalist for further evaluation and treatment. Procedures:none Critical Care: None Past Med/Surg History Medical History (Updated 08/24/22 @ 20:53 by Markus Chong DO) Anxiety Bipolar disorder - Denies SI/HI. States mood is ok. Depression Endometriosis History of COVID-19 DX'D 08/2020 MOBILE TESTING SITE [place]-LOSS TASTE AND SMELL-RECOVERED AT HOME-RESOLVED Hodgkins lymphoma DX'D 2018-s/p chemo/radiation - currently in remission. 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 H/O nasal septoplasty H/O wisdom tooth extraction History of bilateral tubal ligation with last 02/2022 History of lymph node biopsy History of tonsillectomy November [address] LA included Adenoids History of transurethral resection of bladder tumor (TURBT) done at same time as cysto w/ureteral stent placement w/bladder bx. History of vascular access device 12/14/2018-AND REMOVED S/P appendectomy 09/06/1819 Grade 1 view, MAC 3, ETT 7. S/P x2--last 03/10/22 with bilt tubal @ [facility] S/P cystoscopy with ureteral stent placement w/laser destruction kidney stone S/P radiotherapy Family History Grandmother (Paternal) Ovarian cancer Cervical adenocarcinoma H/O: hysterectomy Mother Family history of reaction to anesthesia PONV-EMOTIONAL Denies family history of Diabetes Myocardial infarction Breast cancer Lung cancer Colorectal cancer Hypertension Uterine cancer Stroke Social History Smoking Status: Never smoker Age Started Using Tobacco: 15; Age Quit Using Tobacco: 16; packs per day: 0.25; Second Hand Exposure: No; Hx Alcohol Use: No Hx Substance Use: No Preferred Language: Telugu Communication Ability: Effective Visual Impairment: No Limitations Hearing Ability: Normal 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 Beliefs That Will Affect Care: None marital status: marital status details: Omari Quyen (29) [phone] Current Living Situation: Family Current Living Situation Comment: lives with spouse, 1 daughter, [address], and son current occupational status: employed 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- [employer] Feels Safe at Home: Yes Childhood Exposure to Second-Hand Smoke: No Assistive Devices: Glasses Allergies Allergies Allergy/AdvReac Type Severity Reaction Status Date / Time Sulfa (Sulfonamide Allergy Intermediate itching, Verified 08/24/22 17:36 Antibiotics) hives sulfamethoxazole Allergy Intermediate itching, Verified 08/24/22 17:36 hives trimethoprim Allergy Intermediate itching, Verified 08/24/22 17:36 hives Home Meds Home Medications Medication Instructions Recorded Confirmed lamotrigine 100 mg tablet 100 mg PO QAM 04/28/21 08/24/22 (Lamictal) lamotrigine 150 mg tablet 300 mg PO QAM 09/16/21 08/24/22 lurasidone 60 mg tablet (Latuda) 60 mg PO HS 09/20/21 08/24/22 vortioxetine 20 mg tablet 20 mg PO HS 07/29/22 08/24/22 (Trintellix) ondansetron 4 mg disintegrating 4 mg translingual Q6 PRN Vomiting 08/24/22 08/24/22 tablet Previous Rx's Medication Instructions Recorded buspirone 30 mg tablet 30 mg PO BID #60 tabs 07/11/19 levothyroxine 75 mcg tablet 75 mcg PO QAM #30 tabs 08/03/22 phenazopyridine 200 mg tablet 200 mg PO Q8H PRN pain #7 tabs 08/08/22 (Pyridium) amoxicillin 875 mg-potassium 1 tab PO BID 10 days #20 tabs 08/20/22 clavulanate 125 mg tablet oxycodone 5 mg tablet 5 mg PO Q6H PRN pain #6 tabs 08/22/22 tamsulosin 0.4 mg capsule 0.4 mg PO HS #30 caps 08/22/22 Results & Data (ED) Vital Signs Vital Signs - 24 hr 08/24/22 16:52 08/24/22 17:44 08/24/22 17:44 Temperature 36.8 C 36.6 C Temperature Source Temporal Artery Scan Oral Pulse Rate 95 H 70 Pulse Rate [Right Finger] 80 Respiratory Rate 18 18 18 Respiratory Effort / Characteristics Non-Labored Spontaneous Non-Labored Spontaneous Respiratory Depth Normal Normal Respiratory Pattern Regular Regular Blood Pressure 126/84 Blood Pressure [Right Arm] 115/57 L Blood Pressure Mean 98 Blood Pressure Mean [Right Arm] 76 Pulse Oximetry 98 98 98 Oxygen Delivery Method Room Air Room Air Room Air Sepsis Recent Fever Within 48 Hours No Sepsis New/Unexplained Change in Mental Status No Sepsis Action Taken by Nursing No Action Required Laboratory Data 08/24/22 17:42 08/24/22 17:42 Lab Results 08/24/22 08/24/22 08/24/22 Range/Units 17:42 17:42 17:42 WBC 6.01 (4.8-10.8) K/ul RBC 3.82 L (4.20-5.40) M/uL Hgb 11.0 L (12.0-16.0) g/dl Hct 33.0 L (37.0-47.0) % MCV 86.4 (80.0-100.0) fL MCH 28.8 (25.0-34.0) pg MCHC 33.3 (32.0-36.0) g/dL RDW Std Deviation 41.0 (36.4-46.3) fL RDW Coeff of Joseph 13.1 (11.5-14.5) % Plt Count 448 H (130-400) K/uL MPV 8.7 L (9.4-12.4) fL Immature Gran % (Auto) 0.3 % Neut % (Auto) 62.3 % Lymph % (Auto) 28.1 % [place] % (Auto) 6.2 % Eos % (Auto) 2.8 % Baso % (Auto) 0.3 % Neut # (Auto) 3.74 (1.40-6.50) K/uL Lymph # (Auto) 1.69 (1.2-3.4) K/uL [place] # (Auto) 0.37 (0.11-0.59) K/uL Eos # (Auto) 0.17 (0-0.50) K/uL Baso # (Auto) 0.02 (0-0.2) K/uL Immature Gran # (Auto) 0.02 (0.01-0.20) K/uL Sodium 141 (136-145) mmol/L Potassium 3.4 L (3.5-5.1) mmol/L Chloride 105 (98-107) mmol/L Carbon Dioxide 27 (21-32) mmol/L Anion Gap 9 (3-11) BUN 9 (6-23) mg/dl Creatinine 0.73 (0.6-1.2) mg/dl Est Cr Clr Drug Dosing 100.0 ml/min Est GFR ( Amer) 130.8 ml/min Est GFR (Non-Af Amer) 112.9 ml/min BUN/Creatinine Ratio 12.3 (10-20) Glucose 81 (70-99(Fasting)) mg/dl Calcium 9.2 (8.5-10.1) mg/dl Magnesium 1.8 (1.7-2.4) mg/dl Total Bilirubin 0.4 (0.2-1.0) mg/dl AST 11 L (13-39) U/L ALT 9 (7-52) U/L Alkaline Phosphatase 53 (34-104) U/L Total Protein 6.6 (6.0-8.3) gm/dl Albumin 4.2 (3.4-5.0) gm/dl Globulin 2.4 L (2.5-4.0) gm/dl Albumin/Globulin Ratio 1.8 (0.9-2) Lipase 15 (11-82) U/L Urine Color Dark Yellow Urine Appearance Cloudy A (Clear) Urine pH 7.5 (4.5-7.5) Ur Specific [place] 1.016 (1.000-1.030) Urine Protein 2+ H (Negative) Urine Glucose (UA) Negative (Negative) Urine Ketones 1+ H (Negative) Urine Blood 3+ H (Negative) Urine Nitrite Positive A (Negative) Urine Bilirubin Negative (Negative) Urine Urobilinogen Negative (Negative) Ur Leukocyte Esterase 2+ H (Negative) Urine WBC (Auto) >30 H (0-5) /hpf Urine RBC (Auto) >30 H (0-4) /hpf U Hyaline Cast (Auto) 1-5 (0-5) /lpf U Epithel Cells (Auto) >30 H (0-5) /lpf Urine Bacteria (Auto) Negative (Negative) POC Ur Test (NEG) 08/24/22 Range/Units 17:42 WBC (4.8-10.8) K/ul RBC (4.20-5.40) M/uL Hgb (12.0-16.0) g/dl Hct (37.0-47.0) % MCV (80.0-100.0) fL MCH (25.0-34.0) pg MCHC (32.0-36.0) g/dL RDW Std Deviation (36.4-46.3) fL RDW Coeff of Joseph (11.5-14.5) % Plt Count (130-400) K/uL MPV (9.4-12.4) fL Immature Gran % (Auto) % Neut % (Auto) % Lymph % (Auto) % [place] % (Auto) % Eos % (Auto) % Baso % (Auto) % Neut # (Auto) (1.40-6.50) K/uL Lymph # (Auto) (1.2-3.4) K/uL [place] # (Auto) (0.11-0.59) K/uL Eos # (Auto) (0-0.50) K/uL Baso # (Auto) (0-0.2) K/uL Immature Gran # (Auto) (0.01-0.20) K/uL Sodium (136-145) mmol/L Potassium (3.5-5.1) mmol/L Chloride (98-107) mmol/L Carbon Dioxide (21-32) mmol/L Anion Gap (3-11) BUN (6-23) mg/dl Creatinine (0.6-1.2) mg/dl Est Cr Clr Drug Dosing ml/min Est GFR ( Amer) ml/min Est GFR (Non-Af Amer) ml/min BUN/Creatinine Ratio (10-20) Glucose (70-99(Fasting)) mg/dl Calcium (8.5-10.1) mg/dl Magnesium (1.7-2.4) mg/dl Total Bilirubin (0.2-1.0) mg/dl AST (13-39) U/L ALT (7-52) U/L Alkaline Phosphatase (34-104) U/L Total Protein (6.0-8.3) gm/dl Albumin (3.4-5.0) gm/dl Globulin (2.5-4.0) gm/dl Albumin/Globulin Ratio (0.9-2) Lipase (11-82) U/L Urine Color Urine Appearance (Clear) Urine pH (4.5-7.5) Ur Specific [place] (1.000-1.030) Urine Protein (Negative) Urine Glucose (UA) (Negative) Urine Ketones (Negative) Urine Blood (Negative) Urine Nitrite (Negative) Urine Bilirubin (Negative) Urine Urobilinogen (Negative) Ur Leukocyte Esterase (Negative) Urine WBC (Auto) (0-5) /hpf Urine RBC (Auto) (0-4) /hpf U Hyaline Cast (Auto) (0-5) /lpf U Epithel Cells (Auto) (0-5) /lpf Urine Bacteria (Auto) (Negative) POC Ur Test NEG (NEG) Administered Medications Discontinued Medications Ceftriaxone Sodium (Rocephin) 2,000 mg in 70 mls @ 140 mls/hr IV NOW STA Stop: 08/24/22 19:56 Last Admin: 08/24/22 20:01 Dose: 140 mls/hr Documented By: TIMMY Ioversol (Optiray 350 100ml) 85 ml IV ONCE ONE Stop: 08/24/22 18:48 Last Admin: 08/24/22 18:54 Dose: 85 ml Documented By: SONIDO Morphine Sulfate (Morphine Sulfate 10 Mg/Ml Carp/Vial) 6 mg IV NOW STA Stop: 08/24/22 17:11 Last Admin: 08/24/22 17:32 Dose: 6 mg Documented By: MARISEL Morphine Sulfate (Morphine Sulfate 10 Mg/Ml Carp/Vial) 6 mg IV NOW STA Stop: 08/24/22 19:30 Last Admin: 08/24/22 19:51 Dose: 6 mg Documented By: BROOKE Ondansetron HCl (Ondansetron Inj 2 Mg/Ml 2 Ml Vial) 4 mg IV NOW STA Stop: 08/24/22 17:11 Last Admin: 08/24/22 17:32 Dose: 4 mg Documented By: MARISEL Imaging Data Radiologist's Impression: Abdomen/Pelvis CT 08/24/22 17:[address] WITH IV CONTRAST CT DOSE: 266.45 mGy.cm HISTORY: Acute left-sided flank pain left flank pain recent pylo and stone TECHNIQUE: Multiaxial CT images of the abdomen and pelvis were performed following the IV administration of 85 cc of Optiray, A dose lowering technique was utilized adhering to the principles of ALARA. COMPARISON STUDY: August 18, 2022 FINDINGS: Clear lung bases. No pneumatosis or pneumoperitoneum. Unremarkable spleen, pancreas, gallbladder, and liver. Heterogeneous enhancement of the left greater than right kidneys. Unchanged 1.2 cm cyst of the superior pole right kidney. There is persistent mild urothelial thickening of the right renal collecting system and ureter. Status post removal of the right ureteral stent. No urolith identified. Mild urinary bladder wall thickening with partial distention. A locule of gas is noted within the bladder lumen. Unremarkable uterus and adnexa. Aorta and IVC are unremarkable. No lymphadenopathy. Trace free pelvic fluid. No bowel obstruction or bowel wall thickening. Moderate colonic fecal retention. Appendectomy. Likely benign 8 mm subcutaneous nodule of the right anterior abdominal wall, image 234. No acute fracture. IMPRESSION: 1. Status post removal of the right ureteral stent. No urolith or hydronephrosis. 2. Heterogeneous enhancement of the left greater than right kidney suggestive of pyelonephritis with evidence of right-sided ascending infection. 3. Urinary bladder wall thickening with partial distention suspicious for cystitis. 4. No bowel obstruction or bowel wall thickening. 5. Appendectomy. ACT 112: Negative or not required by law. The above report was generated using voice recognition software. It may contain grammatical, syntax or spelling errors. Electronically signed by: Philippe Hooks M.D. 08/24/2022 7:15 PM Discharge Plan Visit Data Chief Complaint: Flank Pain Stated Complaint: REF BY DOC,VOMITING,EXTREME BACK PAIN,SSTONES BRIAN ED Provider: Markus Chong Discharge Problem: Pyelonephritis, Acute flank pain Forms Stand Alone Forms: SubC Control Prescriptions Prescriptions: No Action levothyroxine 75 mcg tablet 75 mcg PO QAM Qty: 30 2RF phenazopyridine [Pyridium] 200 mg tablet 200 mg PO Q8H PRN (Reason: pain) Qty: 7 0RF Label Comments: Pt has not received yet lamotrigine [Lamictal] 100 mg tablet 100 mg PO QAM buspirone 30 mg tablet 30 mg PO BID Qty: 60 2RF lamotrigine 150 mg tablet 300 mg PO QAM tamsulosin 0.4 mg capsule 0.4 mg PO HS Qty: 30 0RF oxycodone 5 mg tablet 5 mg PO Q6H PRN (Reason: pain) Qty: 6 0RF ondansetron 4 mg tablet,disintegrating 4 mg translingual Q6 PRN (Reason: Vomiting) Latuda 60 mg tablet 60 mg PO HS Rx Instructions: must administer with food (at least 350 calories) Trintellix 20 mg Tablet 20 mg PO HS amoxicillin-pot clavulanate 875-125 mg tablet 1 tab PO BID 10 Days Qty: 20 0RF Rx Instructions: end on 08/30/2022 Referrals Referrals: Promise Chen DO [Primary Care Provider] -
[2022-08-24 18:02] LABS: Appearance Urine Cloudy (Clear); Bacteria Urine Automated Negative (Negative); Bilirubin Urine Negative (Negative); Blood Urine 3+ (Negative); Color Urine Dark Yellow; Epithelial Cell Urine Auto >30 /lpf (0-5); Glucose Urine UA Negative (Negative); Ketones Urine 1+ (Negative); Leukocyte Esterase Urine 2+ (Negative); Nitrite Urine Positive (Negative); RBC Urine Automated >30 /hpf (0-4); Specific Gravity Urine 1.016 (1.000-1.030); Urobilinogen Urine Negative (Negative); WBC Urine Automated >30 /hpf (0-5); pH Urine 7.5 (4.5-7.5)
[2022-08-24 18:03] LABS: Protein Urine 2+ (Negative)
[2022-08-24 18:05] LABS: Basophils # (auto) 0.02 K/uL (0-0.2); Basophils % (auto) 0.3 %; Eosinophils # (auto) 0.17 K/uL (0-0.50); Eosinophils % (auto) 2.8 %; Immature Granulocytes # (auto) 0.02 K/uL (0.01-0.20); Immature Granulocytes % (auto) 0.3 %; Lymphocytes # (auto) 1.69 K/uL (1.2-3.4); Lymphocytes % (auto) 28.1 %; Mean Corpuscular Hemoglobin 28.8 pg (25.0-34.0); Mean Corpuscular Hgb Conc 33.3 g/dL (32.0-36.0); Mean Corpuscular Volume 86.4 fL (80.0-100.0); Mean Platelet Volume 8.7 fL (9.4-12.4); Monocytes # (auto) 0.37 K/uL (0.11-0.59); Monocytes % (auto) 6.2 %; Neutrophils # (auto) 3.74 K/uL (1.40-6.50); Neutrophils % (auto) 62.3 %; Platelet Count 448 K/uL (130-400); RDW Coefficient of Variation 13.1 % (11.5-14.5); Red Blood Count 3.82 M/uL (4.20-5.40); White Blood Count 6.01 K/ul (4.8-10.8)
[2022-08-24 18:21] LABS: Albumin Globulin Ratio 1.8 (0.9-2); Albumin Level 4.2 gm/dl (3.4-5.0); BUN Creatinine Ratio 12.3 (10-20); Bilirubin,Total 0.4 mg/dl (0.2-1.0); Calcium 9.2 mg/dl (8.5-10.1); Est GFR (African American) 130.8 ml/min; Est GFR (Non-African American) 112.9 ml/min; Globulin 2.4 gm/dl (2.5-4.0); Potassium 3.4 mmol/L (3.5-5.1); Total Protein 6.6 gm/dl (6.0-8.3)
[2022-08-24] MEDS ORDERED: OPTIRAY 350 100ml IV ONE (18:47)
--- NOTE | 2022-08-24 19:18 | CT Scan Report ---
ABDOMEN AND PELVIS CT WITH IV CONTRAST CT DOSE: 266.45 mGy.cm HISTORY: Acute left-sided flank pain left flank pain recent pylo and stone TECHNIQUE: Multiaxial CT images of the abdomen and pelvis were performed following the IV administrat ion of 85 cc of Optiray, A dose lowering technique was utilized adhering to the principles of ALARA. COMPARISON STUDY: August 18, 2022 FINDINGS: Clear lung bases. No pneumatosis or pneumoperitoneum. Unremarkable spleen, pancreas, gallbladder, and liver. Heterogeneous enhancement of the left greater than right kidneys. Unchanged 1.2 cm cyst of th e superior pole right kidney. There is persistent mild urothelial thickening of the right renal colle cting system and ureter. Status post removal of the right ureteral stent. No urolith identified. Mild urinary bladder wall thickening with partial distention. A locule of gas is noted within the bladder lumen. Unremarkable uterus and adnexa. Aorta and IVC are unremarkable. No lymphadenopathy. Trace maisha e pelvic fluid. No bowel obstruction or bowel wall thickening. Moderate colonic fecal retention. Appendectomy. Likely benign 8 mm subcutaneous nodule of the right anterior abdominal wall, image 234. No acute fracture. IMPRESSION: 1. Status post removal of the right ureteral stent. No urolith or hydronephrosis. 2. Heterogeneous enhancement of the left greater than right kidney suggestive of pyelonephritis with evidence of right-sided ascending infection. 3. Urinary bladder wall thickening with partial distention suspicious for cystitis. 4. No bowel obstruction or bowel wall thickening. 5. Appendectomy. ACT 112: Negative or not required by law. The above report was generated using voice recognition software. It may contain grammatical, syntax o r spelling errors. Electronically signed by: Philippe Hooks M.D. 08/24/2022 7:15 PM
[2022-08-24] MEDS ORDERED: cefTRIAXone SODIUM 2,000 MG/70 ML BAG IV STA (19:27)
[2022-08-24] MEDS ORDERED: POTASSIUM CHLORIDE PWD 20 MEQ PACK PO STA (19:42)
[2022-08-24 20:05] LABS: Magnesium 1.8 mg/dl (1.7-2.4)
[2022-08-24] MEDS ORDERED: CEFEPIME 2,000 MG/20 ML VIAL IV STA (20:22)
--- NOTE | 2022-08-24 20:41 | History & Physical Report ---
Date of Service August 24, 2022 Assessment & Plan (1) Complicated UTI (urinary tract infection): Plan: Recurrent UTIs Recent urologic instrumentation for kidney stones No sepsis for now Hodgkin's lymphoma status post chemoradiation, currently in remission hypothyroidism, euthyroid as of recent outpatient TSH mood disorder, at baseline chronic anemia, hemoglobin at new baseline this month Hypokalemia secondary to emesis GMF Analgesia Urine CS, Cefepime Replace potassium DVT prophylaxis. Lovenox subcu Full code Text document was generated using QUIQ voice recognition software. It may contain grammatical or spelling errors. Kindly contact undersigned for clarification of any documentation item in question. History of Present Illness Chief Complaint: Worsening flank pain Primary Care Provider: Promise Chen DO History obtained from patient and records. Medical history significant for recurrent UTIs, urolithiasis, Hodgkin's lymphoma status post chemoradiation, hypothyroidism, mood disorder, chronic anemia (baseline hemoglobin 10-11). Last confinement last week for pyelonephritis following outpatient right ureteral stent placement last August 04 for kidney stones. Urine CS grew quinolone resistant E. coli. Patient discharged on Augmentin course. 2 days ago, patient underwent cystoscopy with right stent removal with left ureteroscopy, laser lithotripsy, and stone basket extraction. Patient comfortable postprocedure. Yesterday, patient noted worsening flank pain with hematuria symptoms which patient attributes to her menses. No fever, no chills. No chest pain, no SOB. Patient consulted ER for worsening symptoms. IV ceftriaxone administered at the ER. 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 Allergies Allergy/AdvReac Type Severity Reaction Status Date / Time Sulfa (Sulfonamide Allergy Intermediate itching, Verified 08/24/22 17:36 Antibiotics) hives sulfamethoxazole Allergy Intermediate itching, Verified 08/24/22 17:36 hives trimethoprim Allergy Intermediate itching, Verified 08/24/22 17:36 hives Home Medications Medication Instructions Recorded Confirmed Type buspirone 30 mg tablet 30 mg PO BID #60 tabs 07/11/19 08/24/22 Rx lamotrigine 100 mg tablet 100 mg PO QAM 04/28/21 08/24/22 History (Lamictal) lamotrigine 150 mg tablet 300 mg PO QAM 09/16/21 08/24/22 History lurasidone 60 mg tablet (Latuda) 60 mg PO HS 09/20/21 08/24/22 History vortioxetine 20 mg tablet 20 mg PO HS 07/29/22 08/24/22 History (Trintellix) levothyroxine 75 mcg tablet 75 mcg PO QAM #30 tabs 08/03/22 08/24/22 Rx phenazopyridine 200 mg tablet 200 mg PO Q8H PRN pain #7 tabs 08/08/22 08/24/22 Rx (Pyridium) amoxicillin 875 mg-potassium 1 tab PO BID 10 days #20 tabs 08/20/22 08/24/22 Rx clavulanate 125 mg tablet oxycodone 5 mg tablet 5 mg PO Q6H PRN pain #6 tabs 08/22/22 08/24/22 Rx tamsulosin 0.4 mg capsule 0.4 mg PO HS #30 caps 08/22/22 08/24/22 Rx ondansetron 4 mg disintegrating 4 mg translingual Q6 PRN Vomiting 08/24/22 08/24/22 History tablet Past Med/Surg History Medical History Anxiety Bipolar disorder - Denies SI/HI. States mood is ok. Depression Endometriosis History of COVID-19 DX'D 08/2020 MOBILE TESTING SITE [place]-LOSS TASTE AND SMELL-RECOVERED AT HOME-RESOLVED Hodgkins lymphoma DX'D 2017-s/p chemo/radiation - currently in remission. 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 H/O nasal septoplasty H/O wisdom tooth extraction History of bilateral tubal ligation with last 02/2022 History of lymph node biopsy History of tonsillectomy November [address] LA included Adenoids History of transurethral resection of bladder tumor (TURBT) done at same time as cysto w/ureteral stent placement w/bladder bx. History of vascular access device 12/14/2018-AND REMOVED S/P appendectomy 09/06/1819 Grade 1 view, MAC 3, ETT 7. S/P x2--last 03/10/22 with bilt tubal @ [facility] S/P cystoscopy with ureteral stent placement w/laser destruction kidney stone S/P radiotherapy Family History Grandmother (Paternal) Ovarian cancer Cervical adenocarcinoma H/O: hysterectomy Mother Family history of reaction to anesthesia PONV-EMOTIONAL Denies family history of Diabetes Myocardial infarction Breast cancer Lung cancer Colorectal cancer Hypertension Uterine cancer Stroke Social History Smoking Status: Never smoker Age Started Using Tobacco: 15; Age Quit Using Tobacco: 16; packs per day: 0.25; Second Hand Exposure: No; Hx Alcohol Use: No Hx Substance Use: No Preferred Language: Kazakh Communication Ability: Effective Visual Impairment: No Limitations Hearing Ability: Normal Optical Scientist Required: No Beliefs That Will Affect Care: None marital status: marital status details: Omari Andi (29) [phone] Current Living Situation: Family Current Living Situation Comment: lives with spouse, 1 daughter, 1 step daughter, and son current occupational status: employed 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- [employer] Feels Safe at Home: Yes Safety Concerns: Feels Safe At This Time Childhood Exposure to Second-Hand Smoke: No Assistive Devices: Glasses Review of Systems Review of Systems: As per HPI, all other systems reviewed and negative Physical Exam Physical Exam: GENERAL: Slightly uncomfortable, pleasant, no respiratory distress SKIN: Pallor, warm HEENT: Bespectacled, pale palpebral conjunctivae, no ptosis, dry buccal mucosa NECK : Supple, no tenderness CHEST : CTA, no tenderness HEART : RRR, no obvious murmurs ABDOMEN: Some distention, nontender EXTREMITIES : No LE swelling/tenderness, no other conspicuous deformities noted NEUROLOGIC : Coherent, no facial asymmetry, no other gross focality Results & Data Results & [facility]) Vital Signs (Past 12 Hours) Vital Signs Temp Pulse Pulse Resp BP BP Pulse Ox 08/24/22 17:44 70 18 98 08/24/22 17:44 36.6 C 80 18 115/57 L 98 08/24/22 16:52 36.8 C 95 H 18 126/84 98 O2 Del Method 08/24/22 17:44 Room Air 08/24/22 17:44 Room Air 08/24/22 16:52 Room Air Laboratory Results Laboratory Results WBC 6.01 K/ul (4.8-10.8) 08/24/22 17:42 RBC 3.82 M/uL (4.20-5.40) L 08/24/22 17:42 Hgb 11.0 g/dl (12.0-16.0) L 08/24/22 17:42 Hct 33.0 % (37.0-47.0) L 08/24/22 17:42 MCV 86.4 fL (80.0-100.0) 08/24/22 17:42 MCH 28.8 pg (25.0-34.0) 08/24/22 17:42 MCHC 33.3 g/dL (32.0-36.0) 08/24/22 17:42 RDW Std Deviation 41.0 fL (36.4-46.3) 08/24/22 17:42 RDW Coeff of Joseph 13.1 % (11.5-14.5) 08/24/22 17:42 Plt Count 448 K/uL (130-400) H 08/24/22 17:42 MPV 8.7 fL (9.4-12.4) L 08/24/22 17:42 Immature Gran % (Auto) 0.3 % 08/24/22 17:42 Neut % (Auto) 62.3 % 08/24/22 17:42 Lymph % (Auto) 28.1 % 08/24/22 17:42 [place] % (Auto) 6.2 % 08/24/22 17:42 Eos % (Auto) 2.8 % 08/24/22 17:42 Baso % (Auto) 0.3 % 08/24/22 17:42 Neut # (Auto) 3.74 K/uL (1.40-6.50) 08/24/22 17:42 Lymph # (Auto) 1.69 K/uL (1.2-3.4) 08/24/22 17:42 [place] # (Auto) 0.37 K/uL (0.11-0.59) 08/24/22 17:42 Eos # (Auto) 0.17 K/uL (0-0.50) 08/24/22 17:42 Baso # (Auto) 0.02 K/uL (0-0.2) 08/24/22 17:42 Immature Gran # (Auto) 0.02 K/uL (0.01-0.20) 08/24/22 17:42 Sodium 141 mmol/L (136-145) 08/24/22 17:42 Potassium 3.4 mmol/L (3.5-5.1) L 08/24/22 17:42 Chloride 105 mmol/L (98-107) 08/24/22 17:42 Carbon Dioxide 27 mmol/L (21-32) 08/24/22 17:42 Anion Gap 9 (3-11) 08/24/22 17:42 BUN 9 mg/dl (6-23) 08/24/22 17:42 Creatinine 0.73 mg/dl (0.6-1.2) 08/24/22 17:42 Est Cr Clr Drug Dosing 100.0 ml/min 08/24/22 17:42 Est GFR ( Amer) 130.8 ml/min 08/24/22 17:42 Est GFR (Non-Af Amer) 112.9 ml/min 08/24/22 17:42 BUN/Creatinine Ratio 12.3 (10-20) 08/24/22 17:42 Glucose 81 mg/dl (70-99(Fasting)) 08/24/22 17:42 Calcium 9.2 mg/dl (8.5-10.1) 08/24/22 17:42 Magnesium 1.8 mg/dl (1.7-2.4) 08/24/22 17:42 Total Bilirubin 0.4 mg/dl (0.2-1.0) 08/24/22 17:42 AST 11 U/L (13-39) L 08/24/22 17:42 ALT 9 U/L (7-52) 08/24/22 17:42 Alkaline Phosphatase 53 U/L (34-104) 08/24/22 17:42 Total Protein 6.6 gm/dl (6.0-8.3) 08/24/22 17:42 Albumin 4.2 gm/dl (3.4-5.0) 08/24/22 17:42 Globulin 2.4 gm/dl (2.5-4.0) L 08/24/22 17:42 Albumin/Globulin Ratio 1.8 (0.9-2) 08/24/22 17:42 Lipase 15 U/L (11-82) 08/24/22 17:42 Urine Color Dark Yellow 08/24/22 17:42 Urine Appearance Cloudy (Clear) A 08/24/22 17:42 Urine pH 7.5 (4.5-7.5) 08/24/22 17:42 Ur Specific [place] 1.016 (1.000-1.030) 08/24/22 17:42 Urine Protein 2+ (Negative) H 08/24/22 17:42 Urine Glucose (UA) Negative (Negative) 08/24/22 17:42 Urine Ketones 1+ (Negative) H 08/24/22 17:42 Urine Blood 3+ (Negative) H 08/24/22 17:42 Urine Nitrite Positive (Negative) A 08/24/22 17:42 Urine Bilirubin Negative (Negative) 08/24/22 17:42 Urine Urobilinogen Negative (Negative) 08/24/22 17:42 Ur Leukocyte Esterase 2+ (Negative) H 08/24/22 17:42 Urine WBC (Auto) >30 /hpf (0-5) H 08/24/22 17:42 Urine RBC (Auto) >30 /hpf (0-4) H 08/24/22 17:42 U Hyaline Cast (Auto) 1-5 /lpf (0-5) 08/24/22 17:42 U Epithel Cells (Auto) >30 /lpf (0-5) H 08/24/22 17:42 Urine Bacteria (Auto) Negative (Negative) 08/24/22 17:42 POC Ur Test NEG (NEG) 08/24/22 17:42 Impressions Abdomen/Pelvis CT 08/24/22 17:[address] WITH IV CONTRAST CT DOSE: 266.45 mGy.cm HISTORY: Acute left-sided flank pain left flank pain recent pylo and stone TECHNIQUE: Multiaxial CT images of the abdomen and pelvis were performed following the IV administration of 85 cc of Optiray, A dose lowering technique was utilized adhering to the principles of ALARA. COMPARISON STUDY: August 18, 2022 FINDINGS: Clear lung bases. No pneumatosis or pneumoperitoneum. Unremarkable spleen, pancreas, gallbladder, and liver. Heterogeneous enhancement of the left greater than right kidneys. Unchanged 1.2 cm cyst of the superior pole right kidney. There is persistent mild urothelial thickening of the right renal collecting system and ureter. Status post removal of the right ureteral stent. No urolith identified. Mild urinary bladder wall thickening with partial distention. A locule of gas is noted within the bladder lumen. Unremarkable uterus and adnexa. Aorta and IVC are unremarkable. No lymphadenopathy. Trace free pelvic fluid. No bowel obstruction or bowel wall thickening. Moderate colonic fecal retention. Appendectomy. Likely benign 8 mm subcutaneous nodule of the right anterior abdominal wall, image 234. No acute fracture. IMPRESSION: 1. Status post removal of the right ureteral stent. No urolith or hydronephrosis. 2. Heterogeneous enhancement of the left greater than right kidney suggestive of pyelonephritis with evidence of right-sided ascending infection. 3. Urinary bladder wall thickening with partial distention suspicious for cy stitis. 4. No bowel obstruction or bowel wall thickening. 5. Appendectomy. ACT 112: Negative or not required by law. The above report was generated using voice recognition software. It may contain grammatical, syntax or spelling errors. Electronically signed by: Philippe Hooks M.D. 08/24/2022 7:15 PM
[2022-08-24] MEDS ORDERED: LORazepam 0.5 MG TAB PO PRN (20:45)
[2022-08-24] MEDS ORDERED: LACTATED RINGER'S 1,000 ML IV ONE (20:46)
--- NOTE | 2022-08-24 20:49 | Urology Consultation ---
Date of Consultation August 24, 2022 Assessment & Plan (1) Pyelonephritis: I discussed with the treating emergency physician and the patient is being admitted on the hospitalist service. It appears the patient is suffering from pyelonephritis. We recommend proceeding as follows: Provide analgesicsprovide antiemetics Provide IV fluid for hydration Follow serial labs Appropriate cultures have been sent. Would recommend continuing broad- spectrum antibiotics as ordered until further culture data is available at which time antibiotics can be further tailored based on these results Based on patient's imaging she does not have any evidence of hydronephrosis. There is no evidence of acute kidney injury. It does not appear that there is any role for any acute procedural intervention. We will continue to follow along with the patient is hospitalized History of Present Illness Reason for Consultation: Pyelonephritis, status post recent cystoscopy History of Present Illness This is a 26-year-old female who underwent urologic procedure by Dr. Lozano of [facility] physician group earlier this month. On 08/04/2022 the patient underwent a cystoscopy with bladder biopsy and a transurethral resection of a bladder tumor. During the time of the cystoscopy the patient also had laser destruction of right-sided kidney stones and a right ureteral stent placement. It is nowhere the mention at that time the patient was noted to have left-sided kidney stones that were not addressed during this cystoscopy. The patient followed up with Dr. Lozano as an outpatient on 08/10/2022 and at that time the patient and Dr. Lozano discussed removing the right-sided stent but it was opted to keep the stent in as the patient was tolerating it well. The initial plan was for the stent to be addressed on 08/19/2022 at which time the patient had a scheduled cystoscopy with plans to address the left-sided kidney stones. Patient ultimately called the urology on-call service on 08/18/2022 as she was having fevers at that time as high as 102.8 along with nausea vomiting and right-sided abdominal pain along with bilateral flank pain. The patient was advised to come to the emergency department. Patient ultimately presented to the emergency department [facility] where she had labs and imaging. CBC revealed white blood cell count was elevated 12.2. Her hemoglobin, hematocrit, platelet count were normal at this time. Chemistry profile showed sodium, potassium, BUN, and creatinine were all normal. Her lactic acid level was normal at that time. Urinalysis at that time was negative for nitrites but did show 3+ leukocyte Estrace and greater than 30 white blood cells per high-power field in addition to 4+ bacteria. CT scan abdomen pelvis performed at that time showed a right ureteral stent was in place with fullness of the right renal collecting system. No hydronephrosis was noted. There is evidence of cystitis with an a sending infection on the right-hand side consistent with pyelonephritis. The patient was ultimately admitted to the hospital at that time and her planned procedure with Dr. Lozano on 08/19/2022 was delayed due to concern for pyelonephritis. During her hospitalization she was treated with antibiotics in the form of Zosyn which was de-escalated to Rocephin. Urine culture did show E. coli resistant to fluoroquinolones. The patient was discharged from the hospital on 08/20/2022 with a 10-day course of twice daily Augmentin prescribed. Patient eventually had her cystoscopy that was initially delayed performed by Dr. Lozano on 08/22/2022 which was 2 days ago. At this time a cystoscopy with right ureteral stent removal was performed laser lithotripsy on the left side with extraction of kidney stone fragments was performed. No left ureteral stent was placed. The patient notes that following this procedure she was initially doing well without any issues. Approximately 48 hours after returning home the patient notes that she developed chills and shakes but admitted she did not have a fever. She says she has had nausea and vomiting that has persisted. She also notes that she has some right flank pain and to a worsening degree left flank pain. Because of this she presented to the emergency department. Today in the emergency department the patient had a CT scan of the abdomen pelvis that showed no evidence of right- sided hydronephrosis. There is enhancement of the left kidney greater than the right kidney suggestive of pyelonephritis and there is also evidence of a right- sided a sending infection. There is bladder wall thickening suspicious for cystitis. Labs include a CBC her white blood cell count was normal. Her platelet count was 4-48,000. Her hemoglobin and hematocrit are 11.0 and 33.0. Chemistry profile showed sodium was normal with a potassium of 3.4. BUN and creatinine were 9 and 0.7. Urinalysis showed cloudy urine. The specimen was positive for nitrites and also showed 2+ leukocyte Estrace. There were greater than 30 white blood cells per high-power field but no bacteria. A test was negative. Since arrival to the emergency department the patient has been normotensive without tachycardia or fever. Antibiotics have been initiated. Initial antibiotics received the emergency department Rocephin but this has been escalated to cefepime. Allergies Allergy/AdvReac Type Severity Reaction Status Date / Time Sulfa (Sulfonamide Allergy Intermediate itching, Verified 08/24/22 17:36 Antibiotics) hives sulfamethoxazole Allergy Intermediate itching, Verified 08/24/22 17:36 hives trimethoprim Allergy Intermediate itching, Verified 08/24/22 17:36 hives Home Medications Medication Instructions Recorded Confirmed Type buspirone 30 mg tablet 30 mg PO BID #60 tabs 07/11/19 08/24/22 Rx lamotrigine 100 mg tablet 100 mg PO QAM 04/28/21 08/24/22 History (Lamictal) lamotrigine 150 mg tablet 300 mg PO QAM 09/16/21 08/24/22 History lurasidone 60 mg tablet (Latuda) 60 mg PO HS 09/20/21 08/24/22 History vortioxetine 20 mg tablet 20 mg PO HS 07/29/22 08/24/22 History (Trintellix) levothyroxine 75 mcg tablet 75 mcg PO QAM #30 tabs 08/03/22 08/24/22 Rx phenazopyridine 200 mg tablet 200 mg PO Q8H PRN pain #7 tabs 08/08/22 08/24/22 Rx (Pyridium) amoxicillin 875 mg-potassium 1 tab PO BID 10 days #20 tabs 08/20/22 08/24/22 Rx clavulanate 125 mg tablet oxycodone 5 mg tablet 5 mg PO Q6H PRN pain #6 tabs 08/22/22 08/24/22 Rx tamsulosin 0.4 mg capsule 0.4 mg PO HS #30 caps 08/22/22 08/24/22 Rx ondansetron 4 mg disintegrating 4 mg translingual Q6 PRN Vomiting 08/24/22 08/24/22 History tablet Patient History Medical History Anxiety Bipolar disorder - Denies SI/HI. States mood is ok. Depression Endometriosis History of COVID-19 DX'D 08/2020 MOBILE TESTING SITE [place]-LOSS TASTE AND SMELL-RECOVERED AT HOME-RESOLVED Hodgkins lymphoma DX'D 2017-s/p chemo/radiation - currently in remission. Radiation was in chest- follows w/ Dr Landin- 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 Excised CIN2, had margins positive for CIN1 only. H/O nasal septoplasty H/O wisdom tooth extraction History of bilateral tubal ligation with last 02/2022 History of lymph node biopsy History of tonsillectomy November [address] LA included Adenoids History of transurethral resection of bladder tumor (TURBT) done at same time as cysto w/ureteral stent placement w/bladder bx. History of vascular access device 12/14/2018-AND REMOVED S/P appendectomy 09/06/1819 Grade 1 view, MAC 3, ETT 7. S/P x2--last 03/10/22 with bilt tubal @ [facility] S/P cystoscopy with ureteral stent placement w/laser destruction kidney stone S/P radiotherapy Family History Grandmother (Paternal) Ovarian cancer Cervical adenocarcinoma H/O: hysterectomy Mother Family history of reaction to anesthesia PONV-EMOTIONAL Denies family history of Diabetes Myocardial infarction Breast cancer Lung cancer Colorectal cancer Hypertension Uterine cancer Stroke Social History Smoking Status: Never smoker Age Started Using Tobacco: 15; Age Quit Using Tobacco: 16; packs per day: 0.25; Second Hand Exposure: No; Hx Alcohol Use: No Hx Substance Use: No Preferred Language: Polish Communication Ability: Effective Visual Impairment: No Limitations Hearing Ability: Normal Customer Leader Required: No Beliefs That Will Affect Care: None marital status: marital status details: Omari Escamilla (29) [phone] Current Living Situation: Family Current Living Situation Comment: lives with spouse, 1 daughter, 1 step daughter, and son current occupational status: employed current occupation: [employer] Feels Safe at Home: Yes Childhood Exposure to Second-Hand Smoke: No Assistive Devices: Glasses Review of Systems Constitutional: + chills; no fever Eyes: + corrective lenses Ear, Nose, Mouth, Throat: no ear pain Respiratory: no cough and no dyspnea Cardiovascular: no chest pain Gastrointestinal: + nausea and + vomiting; no abdominal pain Genitourinary: as per Subjective / HPI Musculoskeletal: + back pain (Bilateral flank pain) Integumentary: no rash Neurologic: no localized weakness Physical Exam Constitutional: WD/WN, vitals as above Eyes: Wears glasses ENMT: Ears: no hearing impairment and no external ear abnormality Mouth: no oropharynx abnormality Neck: trachea midline Respiratory: normal respiratory effort; no respiratory distress and no labored breathing Cardiovascular: Rate/Rhythm: regular rate and regular rhythm Vessels: dorsalis pedis pulses present Gastrointestinal (Abdomen): Soft, nondistended, nonrigid, and nontender to palpation Musculoskeletal: No calf tender Skin: no rashes Neurologic: moves all extremities Psychiatric: A+Ox3, euthymic affect Genitourinary: Bilateral CVA tenderness noted to percussion. Left greater than right Results & Data ([facility]) Vital Signs (Past 12 Hours) Vital Signs Temp Pulse Pulse Resp BP BP Pulse Ox 08/24/22 17:44 70 18 98 08/24/22 17:44 36.6 C 80 18 115/57 L 98 08/24/22 16:52 36.8 C 95 H 18 126/84 98 O2 Del Method 08/24/22 17:44 Room Air 08/24/22 17:44 Room Air 08/24/22 16:52 Room Air PG Care Time/CCT Total # of Minutes Spent Total Time Spent with Patient: Total time spent is greater than 50% in coordination of care (as documented) at patient's floor/unit and/or counseling patient: Coding Level of Care Code INP/OBS CONSULT LVL 5, 80 MIN Diagnoses Pyelonephritis N12
[2022-08-24] MEDS: oxyCODONE HCL IR 5 MG TAB (IMMEDIATE RELEASE) PO PRN (21:01)
[2022-08-24] MEDS: KETOROLAC TROMETHAMINE 15 MG/ML VIAL IV PRN (22:06)
[2022-08-24] MEDS ORDERED: KETOROLAC TROMETHAMINE 15 MG/ML VIAL IV ONE (22:57)
[2022-08-24] MEDS ORDERED: PHENAZOPYRIDINE HCL 200 MG TAB PO PRN (23:01)
[2022-08-24] MEDS ORDERED: oxyCODONE HCL IR 5 MG TAB (IMMEDIATE RELEASE) PO PRN (23:01)
[2022-08-24] MEDS ORDERED: ACETAMINOPHEN 325 MG TAB PO PRN (23:01)
[2022-08-24] MEDS: PROMETHAZINE HCL 12.5 MG in SODIUM CHLORIDE 0.9% 50 ML IV PRN (23:39)
[2022-08-24] MEDS: busPIRone 15 MG TAB PO SCH (23:42)
[2022-08-24] MEDS: TAMSULOSIN HCL 0.4 MG CAP PO SCH (23:42)
[2022-08-24] MEDS: LURASIDONE HCL 40 MG TAB PO SCH (23:42)
[2022-08-25] MEDS ORDERED: ACETAMINOPHEN 1,000 MG/100 ML VIAL IV STA (00:32)
[2022-08-25] MEDS: oxyCODONE HCL IR 5 MG TAB (IMMEDIATE RELEASE) PO PRN (03:12)
[2022-08-25] MEDS ORDERED: ONDANSETRON INJ 2 MG/ML 2 ML VIAL IV STA (03:41)
[2022-08-25] MEDS ORDERED: oxyCODONE HCL IR 5 MG TAB (IMMEDIATE RELEASE) PO PRN ×2 (03:55→13:45)
[2022-08-25] MEDS: KETOROLAC TROMETHAMINE 15 MG/ML VIAL IV PRN ×2 (04:56→10:42)
[2022-08-25] MEDS: CEFEPIME 2,000 MG in SYRINGE 0 ML IV SCH ×3 (05:01→22:30)
[2022-08-25] MEDS: LEVOTHYROXINE SODIUM 75 MCG TABLET PO SCH (05:02)
[2022-08-25 07:09] LABS: BUN Creatinine Ratio 10.4 (10-20); Calcium 9.3 mg/dl (8.5-10.1); Creatinine Clr Calc Pharmacy 108.9 ml/min; Est GFR (African American) 139.6 ml/min; Est GFR (Non-African American) 120.5 ml/min; Potassium 3.5 mmol/L (3.5-5.1)
--- NOTE | 2022-08-25 07:45 | Urology Progress Note ---
Date of Service August 25, 2022 Assessment & Plan (1) Pyelonephritis: (2) Acute flank pain: Plan 26yo/F s/p recent urological procedure who presented with ill-feelings, chills, severe pain, n/v and admitted with pyelonephritis. CT a/p imaging on arrival demonstrates no evidence of right-sided hydronephrosis. There is enhancement of the left kidney greater than the right kidney suggestive of pyelonephritis and there is also evidence of a right-sided ascending infection. There is bladder wall thickening suspicious for cystitis. - Afebrile and hemodynamically stable. - Labs reviewed - WBC 5.53, Creatinine 0.67. - Urine culture pending. On IV Cefepime. (Prior UC&S 08/18 grew E.coli, sensitive to Cefepime). - Follow cultures and tailor per sensitivities as culture data becomes available. - Voiding without issue, continue to monitor. - No acute intervention warranted. - Recommend continue conservative management with supportive care and antibiotic therapy. - Urology will follow. Admission and Anticipated Discharge Date Admission Date: August 24, 2022 Subjective Patient examined at bedside this AM. Awake, resting in bed on arrival. Father at bedside. No acute distress. Still with left flank pain and nausea, managing with IV analgesics and antiemetics. Tolerated some sips, broth, and oatmeal this morning. No vomiting. No fevers. Voiding without issue, some dysuria. Has been ambulating in hallway. Review of Systems Constitutional: as per Subjective / HPI Gastrointestinal: as per Subjective / HPI Genitourinary: as per Subjective / HPI Physical Exam Constitutional: cooperative; no acute distress Respiratory: no respiratory distress and no labored breathing Musculoskeletal: Head/Neck/Chest: normocephalic Skin: No visible rashes or lesions to exposed skin areas Neurologic: awake Psychiatric: Orientation: alert and oriented x 3 Results & Data ([facility]) Vital Signs (Past 12 Hours) Vital Signs Temp Pulse Pulse Resp BP BP Pulse Ox 08/25/22 07:17 36.4 C L 66 16 133/87 95 08/24/22 23:01 36.8 C 70 18 113/75 97 08/24/22 22:55 78 16 110/68 98 08/24/22 21:00 74 16 118/68 98 O2 Del Method 08/25/22 07:17 Room Air 08/24/22 23:01 Room Air 08/24/22 22:55 Room Air 08/24/22 21:00 PG Care Time/CCT Total # of Minutes Spent Total Time Spent with Patient: Total time spent is greater than 50% in coordination of care (as documented) at patient's floor/unit and/or counseling patient: Coding Level of Care Code 60283 SUB INP/OBS CARE 2/35MIN Diagnoses Pyelonephritis N12 Acute flank pain R10.9
[2022-08-25] MEDS: lamoTRIgine 100 MG TAB PO SCH (07:49)
[2022-08-25] MEDS: busPIRone 15 MG TAB PO SCH ×2 (07:49→19:35)
[2022-08-25] MEDS: ENOXAPARIN INJ 40 MG/0.4 ML SYR SQ SCH (09:18)
[2022-08-25 09:27] LABS: Basophils # (auto) 0.03 K/uL (0-0.2); Basophils % (auto) 0.5 %; Eosinophils # (auto) 0.39 K/uL (0-0.50); Eosinophils % (auto) 7.1 %; Hematocrit (blood only) 33.5 % (37.0-47.0); Immature Granulocytes # (auto) 0.01 K/uL (0.01-0.20); Immature Granulocytes % (auto) 0.2 %; Lymphocytes # (auto) 2.02 K/uL (1.2-3.4); Lymphocytes % (auto) 36.5 %; Mean Corpuscular Hemoglobin 28.9 pg (25.0-34.0); Mean Corpuscular Hgb Conc 32.8 g/dL (32.0-36.0); Mean Corpuscular Volume 87.9 fL (80.0-100.0); Mean Platelet Volume 8.5 fL (9.4-12.4); Monocytes # (auto) 0.46 K/uL (0.11-0.59); Monocytes % (auto) 8.3 %; Neutrophils # (auto) 2.62 K/uL (1.40-6.50); Neutrophils % (auto) 47.4 %; Platelet Count 414 K/uL (130-400); RDW Coefficient of Variation 13.1 % (11.5-14.5); RDW Standard Deviation 41.9 fL (36.4-46.3); Red Blood Count 3.81 M/uL (4.20-5.40); White Blood Count 5.53 K/ul (4.8-10.8)
[2022-08-25] MEDS: ACETAMINOPHEN 500 MG TAB PO SCH ×2 (10:44→18:00)
--- NOTE | 2022-08-25 11:41 | Hospitalist Progress Note ---
Date of Service August 25, 2022 Assessment & Plan (1) Acute flank pain: (2) Pyelonephritis: (3) Bipolar disorder: (4) History of Hodgkin's lymphoma: Plan: This is a 26-year-old female with history of kidney stone status post right ureteral stent placement on 08/04/2022 presents with increasing right flank pain and fevers, pyelonephritis on CT. Pyelonephritis History of right ureteral stent placement on 08/04/2022 and then removal of stent on 08/22/22 CT a/p imaging on arrival demonstrates no evidence of right-sided hydronephrosis History of recurrent UTIs with current urine culture pending Continue cefepime Urology following - no need for intervention at this time Significant effort with pain control today - scheduled tylenol, PRN Toradol, PRN IV Dilaudid 0.5mg Q4H PRN, oxycodone 5mg Q8H PRN Antiemetics as needed Hodgkin's lymphoma Status post chemoradiation, currently in remission Hypothyroidism Continue levothyroxine Mood disorder At baseline. Continue Buspar, lamotrigine, Latuda Chronic anemia hemoglobin at new baseline this month Hypokalemia - secondary to emesis. Resolved A total of 55 minutes were spent with greater than 50% of that time face to face with the patient, personally reviewing all current laboratories, imaging studies, past medication reconciliation, outpatient chart review, and discussion with specialists to collaborate care for the patient with attending and utilization of translation services. Please see attending documentation for corrections and/or additions. Admission and Anticipated Discharge Date Admission Date: August 24, 2022 Supervising Physician Co-Signing Physician Notes Pt was seen and examined. Agree with Flora LARKIN exam, assessment and plan. Present on admission with worsening flank pain and hematuria. CT abd/pelvis showed Status post removal of the right ureteral stent. Heterogeneous enhancement of the left greater than right kidney suggestive of pyelonephritis with evidence of right-sided ascending infection. Urinary bladder wall thickening with partial distention suspicious for cystitis. UA showed evidence of UTI. Currently on IV Cefepime. Will follow urine cx. Continue pain control. Continue monitor closely. MD Alfred Subjective Seen and examined in 307. Patient with pyelonephritis, continued left lower back pain. Not controlled overnight to the point the patient was crying and unable to sleep. Home oxycodone and Tylenol not controlling pain. Denies any other new symptoms. Denies any suprapubic pain. Has had some nausea but no vomiting. No fever, chills, lightheadedness, chest pain, shortness of breath, abdominal pain, diarrhea or constipation. Last bowel movement was yesterday but mindful of continuing bowel regimen while receiving narcotics. Review of Systems Review of Systems: At least ten systems reviewed and negative except as noted in the HPI. Physical Exam Physical Exam: Gen: WD/WN, NAD, sitting up in bed, in pain, cooperative, A&Ox3 HEENT: Normocephalic, atraumatic, conjunctivae moist, sclerae anicteric, mucous membranes moist Lung: Clear to Auscultation bilaterally, no wheezes/rales/rhonchi Heart: Regular rate, regular rhythm, no murmurs, rubs, or gallops Abdomen: Soft, NT, ND +BS x 4 : + CVA TTP L with extension into flank. No suprapubic TTP Extremities: no edema Skin: Warm, no rash Results & Data Results & Data ([facility]) Vital Signs (Past 12 Hours) Vital Signs Temp Pulse Resp BP Pulse Ox O2 Del Method 08/25/22 07:17 36.4 C L 66 16 133/87 95 Room Air Laboratory Results Short CBC 08/24/22 08/25/22 Range/Units 17:42 06:16 WBC 6.01 5.53 (4.8-10.8) K/ul Hgb 11.0 L 11.0 L (12.0-16.0) g/dl Hct 33.0 L 33.5 L (37.0-47.0) % Plt Count 448 H 414 H (130-400) K/uL BMP 08/24/22 08/25/22 17:42 06:16 Sodium 141 140 Potassium 3.4 L 3.5 Chloride 105 105 Carbon Dioxide 27 29 BUN 9 7 Creatinine 0.73 0.67 Glucose 81 86 Calcium 9.2 9.3 Liver Function 08/24/22 Range/Units 17:42 Total Bilirubin 0.4 (0.2-1.0) mg/dl AST 11 L (13-39) U/L ALT 9 (7-52) U/L Alkaline Phosphatase 53 (34-104) U/L Albumin 4.2 (3.4-5.0) gm/dl Urine 08/24/22 Range/Units 17:42 Urine Color Dark Yellow Urine Appearance Cloudy A (Clear) Urine pH 7.5 (4.5-7.5) Ur Specific [place] 1.016 (1.000-1.030) Urine Protein 2+ H (Negative) Urine Glucose (UA) Negative (Negative) Diagnostic Findings Abdomen/Pelvis CT 08/24/22 17:[address] WITH IV CONTRAST CT DOSE: 266.45 mGy.cm HISTORY: Acute left-sided flank pain left flank pain recent pylo and stone TECHNIQUE: Multiaxial CT images of the abdomen and pelvis were performed following the IV administration of 85 cc of Optiray, A dose lowering technique was utilized adhering to the principles of ALARA. COMPARISON STUDY: August 18, 2022 FINDINGS: Clear lung bases. No pneumatosis or pneumoperitoneum. Unremarkable spleen, pancreas, gallbladder, and liver. Heterogeneous enhancement of the left greater than right kidneys. Unchanged 1.2 cm cyst of the superior pole right kidney. There is persistent mild urothelial thickening of the right renal collecting system and ureter. Status post removal of the right ureteral stent. No urolith identified. Mild urinary bladder wall thickening with partial distention. A locule of gas is noted within the bladder lumen. Unremarkable uterus and adnexa. Aorta and IVC are unremarkable. No lymphadenopathy. Trace free pelvic fluid. No bowel obstruction or bowel wall thickening. Moderate colonic fecal retention. Appendectomy. Likely benign 8 mm subcutaneous nodule of the right anterior abdominal wall, image 234. No acute fracture. IMPRESSION: 1. Status post removal of the right ureteral stent. No urolith or hydronephrosis. 2. Heterogeneous enhancement of the left greater than right kidney suggestive of pyelonephritis with evidence of right-sided ascending infection. 3. Urinary bladder wall thickening with partial distention suspicious for cystitis. 4. No bowel obstruction or bowel wall thickening. 5. Appendectomy. ACT 112: Negative or not required by law. The above report was generated using voice recognition software. It may contain grammatical, syntax or spelling errors. Electronically signed by: Philippe Hooks M.D. 08/24/2022 7:15 PM
[2022-08-25] MEDS ORDERED: MoRPHine SULFATE 2 MG/ML CARP IV STA (12:02)
[2022-08-25] MEDS ORDERED: ONDANSETRON INJ 2 MG/ML 2 ML VIAL IV PRN (13:43)
[2022-08-25] MEDS ORDERED: ONDANSETRON INJ 2 MG/ML 2 ML VIAL ONE (13:50)
[2022-08-25] MEDS: HYDROmorphone INJ 0.5 MG/0.5 ML SYR IV PRN ×2 (15:08→19:04)
[2022-08-25] MEDS ORDERED: POLYETHYLENE (MIRALAX) 17 GM PACK PO PRN (15:19)
[2022-08-25] MEDS: PROMETHAZINE HCL 12.5 MG in SODIUM CHLORIDE 0.9% 50 ML IV PRN (17:58)
[2022-08-25] MEDS: TAMSULOSIN HCL 0.4 MG CAP PO SCH (19:33)
[2022-08-25] MEDS: DOCUSATE SODIUM 100 MG CAP PO SCH (19:34)
[2022-08-25] MEDS: LURASIDONE HCL 40 MG TAB PO SCH (19:34)
[2022-08-25] MEDS ORDERED: lamoTRIgine 100 MG TAB PO SCH (21:00)
[2022-08-25] MEDS ORDERED: VORTIOXETINE HYDROBROMIDE PO SCH ×3 (21:00)
[2022-08-26] MEDS: ACETAMINOPHEN 500 MG TAB PO SCH ×2 (02:37→09:21)
[2022-08-26] MEDS: LEVOTHYROXINE SODIUM 75 MCG TABLET PO SCH (05:30)
[2022-08-26] MEDS: CEFEPIME 2,000 MG in SYRINGE 0 ML IV SCH (05:30)
[2022-08-26] MEDS: HYDROmorphone INJ 0.5 MG/0.5 ML SYR IV PRN ×3 (05:34→13:49)
[2022-08-26 06:23] LABS: Hematocrit (blood only) 38.1 % (37.0-47.0); Hemoglobin 12.8 g/dl (12.0-16.0); Mean Corpuscular Hemoglobin 28.8 pg (25.0-34.0); Mean Corpuscular Hgb Conc 33.6 g/dL (32.0-36.0); Mean Corpuscular Volume 85.6 fL (80.0-100.0); Mean Platelet Volume 8.5 fL (9.4-12.4); Platelet Count 460 K/uL (130-400); RDW Coefficient of Variation 13.1 % (11.5-14.5); RDW Standard Deviation 40.5 fL (36.4-46.3); Red Blood Count 4.45 M/uL (4.20-5.40); White Blood Count 5.77 K/ul (4.8-10.8)
[2022-08-26 06:44] LABS: Calcium 9.9 mg/dl (8.5-10.1)
[2022-08-26 06:49] LABS: BUN Creatinine Ratio 10.5 (10-20); Est GFR (African American) 124.6 ml/min; Est GFR (Non-African American) 107.5 ml/min
[2022-08-26 07:25] VITALS: BP 127/84; PULSE 70; TEMP 98.1; O2SAT 96
[2022-08-26] MEDS: busPIRone 15 MG TAB PO SCH (09:22)
[2022-08-26] MEDS: DOCUSATE SODIUM 100 MG CAP PO SCH (09:22)
[2022-08-26] MEDS: lamoTRIgine 100 MG TAB PO SCH (09:24)
[2022-08-26] MEDS: ENOXAPARIN INJ 40 MG/0.4 ML SYR SQ SCH ×2 (09:25→09:27)
--- NOTE | 2022-08-26 10:34 | Urology Progress Note ---
Date of Service August 26, 2022 Assessment & Plan (1) Pyelonephritis: (2) Acute flank pain: Plan 26yo/F s/p recent urological procedure who presented with ill-feelings, chills, severe pain, n/v and admitted with pyelonephritis. CT a/p imaging on arrival demonstrates no evidence of right-sided hydronephrosis. There is enhancement of the left kidney greater than the right kidney suggestive of pyelonephritis and there is also evidence of a right-sided ascending infection. There is bladder wall thickening suspicious for cystitis. - Afebrile and hemodynamically stable. - Labs reviewed - WBC 5.77, Creatinine 0.76. - Urine culture prelim no growth, await final. - Continues on IV Cefepime. (Prior UC&S 08/18 grew E.coli, sensitive to Cefepime). She was on Augmentin as outpatient. - Follow cultures and tailor per sensitivities as culture data becomes available. - Recommend continue conservative management with supportive care and antibiotic therapy. - Recommend course of antibiotics and prn pain management on discharge. - Will arrange outpatient follow-up with our service. - Urology will sign-off. Please contact us with any further questions, concerns, or changes in patient status. Admission and Anticipated Discharge Date Admission Date: August 24, 2022 Subjective Patient examined at bedside this AM. Awake, resting in bed on arrival. No acute distress. States she is feeling slightly better this morning. Still with some left flank pain and nausea, managing with IV analgesics and antiemetics. Tolerated breakfast, no vomiting. Reports feeling cold at times. No fevers. Voiding without issue, some dysuria. Review of Systems Constitutional: as per Subjective / HPI Gastrointestinal: as per Subjective / HPI Genitourinary: as per Subjective / HPI Physical Exam Constitutional: cooperative; no acute distress Respiratory: no respiratory distress and no labored breathing Musculoskeletal: Head/Neck/Chest: normocephalic Neurologic: awake Psychiatric: Orientation: alert and oriented x 3 Results & Data ([facility]) Vital Signs (Past 12 Hours) Vital Signs Temp Pulse Resp BP Pulse Ox O2 Del Method 08/26/22 07:24 36.7 C 70 16 127/84 96 Room Air PG Care Time/CCT Total # of Minutes Spent Total Time Spent with Patient: Total time spent is greater than 50% in coordination of care (as documented) at patient's floor/unit and/or counseling patient: Coding Level of Care Code 78104 SUB INP/OBS CARE 235MIN Diagnoses Pyelonephritis N12 Acute flank pain R10.9
--- NOTE | 2022-08-26 13:33 | Discharge Summary ---
Discharge Summary Date of Service August 26, 2022 Notes For Next Care Provider Pyelonephritis in setting of recent urological instrumentation. Discharging on cefdinir 300 twice daily for an additional 10-day course. Will need to follow up with PCP and urology in clinic. Medication Changes From Visit Discharging on cefdinir 300 twice daily for an additional 10-day course. PRN Zofran, Pyridium and a few days of oxycodone also prescribed. Admission HPI Per Admitting Provider History obtained from patient and records. Medical history significant for recurrent UTIs, urolithiasis, Hodgkin's lymphoma status post chemoradiation, hypothyroidism, mood disorder, chronic anemia (baseline hemoglobin 10-11). Last confinement last week for pyelonephritis following outpatient right ureteral stent placement last August 04 for kidney stones. Urine CS grew quinolone resistant E. coli. Patient discharged on Augmentin course. 2 days ago, patient underwent cystoscopy with right stent removal with left ureteroscopy, laser lithotripsy, and stone basket extraction. Patient comfortable postprocedure. Yesterday, patient noted worsening flank pain with hematuria symptoms which patient attributes to her menses. No fever, no chills. No chest pain, no SOB. Patient consulted ER for worsening symptoms. IV ceftriaxone administered at the ER. 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 Has history of recurrent UTIs but urine culture on this admission without growth, likely due to interim antibiotics over past month. Has most recently been taking Augmentin. Was placed on IV Cefepime and will transition to 10 day cefdinir course at time of discharge. Urology following - no need for intervention at this time and will follow up in clinic. Pain has improved but still present in left lower back. Will discharge home with instruction to alternate Tylenol and ibuprofen PRN, PRN Pyridium and PRN oxycodone for severe pain. Zofran as needed. Follow up with PCP and urology as scheduled. Patient afebrile and hemodynamically stable at time of discharge home. Discharge Exam Gen: WD/WN, NAD, sitting up in bed, in pain, cooperative, A&Ox3 HEENT: Normocephalic, atraumatic, conjunctivae moist, sclerae anicteric, mucous membranes moist Lung: Clear to Auscultation bilaterally, no wheezes/rales/rhonchi Heart: Regular rate, regular rhythm, no murmurs, rubs, or gallops Abdomen: Soft, NT, ND +BS x 4 : + CVA TTP L with extension into flank. No suprapubic TTP Extremities: no edema Skin: Warm, no rash Updated Medication List Medication Instructions Recorded Confirmed Type buspirone 30 mg tablet 30 mg PO BID #60 tabs 07/11/19 08/24/22 Rx lamotrigine 100 mg tablet 100 mg PO QAM 04/28/21 08/24/22 History (Lamictal) lamotrigine 150 mg tablet 300 mg PO QAM 09/16/21 08/24/22 History lurasidone 60 mg tablet (Latuda) 60 mg PO HS 09/20/21 08/24/22 History vortioxetine 20 mg tablet 20 mg PO HS 07/29/22 08/24/22 History (Trintellix) levothyroxine 75 mcg tablet 75 mcg PO QAM #30 tabs 08/03/22 08/24/22 Rx tamsulosin 0.4 mg capsule 0.4 mg PO HS #30 caps 08/22/22 08/24/22 Rx cefdinir 300 mg capsule 300 mg PO BID 10 days #20 caps 08/26/22 Rx ondansetron 4 mg disintegrating 4 mg translingual Q6 PRN Vomiting 08/26/22 Rx tablet #8 tabs oxycodone 5 mg tablet 5 mg PO Q6H PRN pain #6 tabs 08/26/22 Rx phenazopyridine 200 mg tablet 200 mg PO Q8H PRN pain #7 tabs 08/26/22 Rx (Pyridium) Hospital Stay Data Consultations 08/24/22 19:27 ED Decision to Admit Stat Diagnostic Imagining Performed 08/24/22 17:10 CT Abd and Pelvis [CT abd pelvis IV con only] Stat Pending Results Patient Have Any Pending Studies at Discharge: No Discharge Instructions Given to Patient (Per Discharging Provider) You were admitted for lower back pain in the setting of recent urological procedure and found to have pyelonephritis CT a/p imaging on arrival demonstrates no evidence of right-sided hydronephrosis Treated with IV cefepime during admission and will transition to cefdinir 300 twice daily for an additional 10-day course No intervention indicated during admission For pain control, continue alternating Tylenol and ibuprofen as needed as well as Pyridium. Oxycodone 5 mg every 8 hours as needed for severe pain only Continue adequate hydration, Zofran prescribed as needed for nausea RECOMMENDATIONS FOR FOLLOW-UP: Please follow-up with urology in clinic as directed and with PCP as above OTHER INSTRUCTIONS: Seek medical attention if you have: * temperature above 101 * chest pain or trouble breathing * abdominal pain, nausea, vomiting * diarrhea, dark stools or bloody stools * any unanswered questions or concerns Call 911 if symptoms are severe. Please take good care of yourself. Call if you have any questions or problems. You can reach a [facility] hospitalist on duty at [facility] 24 hours a day by calling [phone]. Flora Brizuela PA-C [facility] Hospitalist Total Time Total Time Spent Total Time Spent (In Minutes): 40
== END 2022-08-26 15:24 | disposition home or self-care (01) | DRG 699 ==
LOC: ED 16:46 → 3E 20:43
DX: Y83.1 Surgical operation with implant of artificial internal device as the cause of abnormal reaction of the patient, or of later complication, without mention of misadventure at the time of the procedure; Z92.21 Personal history of antineoplastic chemotherapy; Z88.2 Allergy status to sulfonamides; N12 Tubulo-interstitial nephritis, not specified as acute or chronic; Z79.890 Hormone replacement therapy; Z87.440 Personal history of urinary (tract) infections; F31.9 Bipolar disorder, unspecified; Z92.3 Personal history of irradiation; Z88.8 Allergy status to other drugs, medicaments and biological substances; Z85.71 Personal history of Hodgkin lymphoma; Z79.899 Other long term (current) drug therapy; T83.593A Infection and inflammatory reaction due to other urinary stents, initial encounter; D64.9 Anemia, unspecified; E03.9 Hypothyroidism, unspecified; E87.6 Hypokalemia; Z86.16 Personal history of COVID-19

== ENCOUNTER 2022-11-29 18:54 | Observation (INO) ==
[2022-11-29] MEDS ORDERED: cefTRIAXone SODIUM 2,000 MG/70 ML BAG IV STA (19:32)
[2022-11-29 19:37] LABS: Basophils # (auto) 0.06 K/uL (0-0.2); Basophils % (auto) 0.9 %; Eosinophils # (auto) 0.33 K/uL (0-0.50); Eosinophils % (auto) 4.8 %; Hematocrit (blood only) 37.5 % (37.0-47.0); Hemoglobin 12.9 g/dl (12.0-16.0); Immature Granulocytes # (auto) 0.01 K/uL (0.01-0.20); Immature Granulocytes % (auto) 0.1 %; Lymphocytes # (auto) 2.02 K/uL (1.2-3.4); Lymphocytes % (auto) 29.4 %; Mean Corpuscular Hemoglobin 29.1 pg (25.0-34.0); Mean Corpuscular Hgb Conc 34.4 g/dL (32.0-36.0); Mean Corpuscular Volume 84.5 fL (80.0-100.0); Mean Platelet Volume 9.2 fL (9.4-12.4); Monocytes # (auto) 0.53 K/uL (0.11-0.59); Monocytes % (auto) 7.7 %; Neutrophils # (auto) 3.91 K/uL (1.40-6.50); Neutrophils % (auto) 57.1 %; Platelet Count 366 K/uL (130-400); RDW Coefficient of Variation 13.2 % (11.5-14.5); RDW Standard Deviation 40.6 fL (36.4-46.3); Red Blood Count 4.44 M/uL (4.20-5.40); White Blood Count 6.86 K/ul (4.8-10.8)
--- NOTE | 2022-11-29 19:37 | Emergency Department Note ---
"ED Provider Note History of Present Illness Chief Complaint: Fever Stated Complaint: FEVER, JUST HAD KIDNEY INFECTION Time Seen by Provider: 11/29/22 19:33 26-year-old female who returns to the emergency department after I evaluated her yesterday with a diagnosis of bilateral pyelonephritis. The patient was administered IV Rocephin prior to discharge, and the patient felt well enough to go home. She was provided a home pack and prescription for cefdinir, which she did get filled today. The patient reports that she had an elevated temperature of 101.9 F around 3 hours prior to arrival. She did take Tylenol which broke her fever. She did call her PCP who recommend that she come back to the emergency department. The patient currently rates her discomfort a 6 out of 10. Home Medications Medication Instructions Recorded Confirmed Type buspirone 30 mg tablet 30 mg PO BID #60 tabs 07/11/19 11/29/22 Rx lamotrigine 100 mg tablet 100 mg PO QAM 04/28/21 11/29/22 History (Lamictal) lamotrigine 150 mg tablet 300 mg PO QAM 09/16/21 11/29/22 History lurasidone 60 mg tablet (Latuda) 60 mg PO QPM 09/20/21 11/29/22 History vortioxetine 20 mg tablet 20 mg PO HS 07/29/22 11/29/22 History (Trintellix) levothyroxine 75 mcg tablet 75 mcg PO QAM #30 tabs 11/07/22 11/29/22 Rx cefdinir 300 mg capsule 300 mg PO BID 10 days #20 caps 11/28/22 11/29/22 Rx ondansetron 4 mg disintegrating 4 mg PO Q6H PRN nausea and 11/28/22 11/29/22 Rx tablet vomiting #20 tabs clonazepam 1 mg tablet 1 mg PO BID PRN Anxiety 11/29/22 11/29/22 History ketorolac 10 mg tablet 10 mg PO TID PRN pain #14 tabs 11/29/22 11/29/22 Rx lamotrigine 25 mg tablet 25 mg PO .Q AFTERNOON 11/29/22 11/29/22 History tamsulosin 0.4 mg capsule 0.4 mg PO DAILY #30 caps 11/29/22 11/29/22 Rx Allergies Allergy/AdvReac Type Severity Reaction Status Date / Time Sulfa (Sulfonamide Allergy Intermediate itching, Verified 11/28/22 18:18 Antibiotics) hives sulfamethoxazole Allergy Intermediate itching, Verified 11/28/22 18:18 hives trimethoprim Allergy Intermediate itching, Verified 11/28/22 18:18 hives Past Med/Surg History Medical History Anxiety Bipolar disease during , antepartum Bipolar disorder - Denies SI/HI. States mood is ok. 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 Excised CIN2, had margins positive for CIN1 only. H/O nasal septoplasty H/O wisdom tooth extraction History of bilateral tubal ligation with last 02/2022 History of lymph node biopsy History of tonsillectomy November [address] LA included Adenoids History of transurethral resection of bladder tumor (TURBT) done at same time as cysto w/ureteral stent placement w/bladder bx. History of vascular access device 12/14/2018-AND REMOVED S/P appendectomy 09/06/1819 Grade 1 view, MAC 3, ETT 7. S/P x2--last 03/10/22 with bilt tubal @ [facility] S/P cystoscopy with ureteral stent placement w/laser destruction kidney stone S/P radiotherapy Family History Grandmother (Paternal) Ovarian cancer Cervical adenocarcinoma H/O: hysterectomy Mother Family history of reaction to anesthesia PONV-EMOTIONAL Denies family history of Diabetes Myocardial infarction Breast cancer Lung cancer Colorectal cancer Hypertension Uterine cancer Stroke Social History Smoking Status: Never smoker Age Started Using Tobacco: 15; Age Quit Using Tobacco: 16; packs per day: 0.25; Second Hand Exposure: No; Do You Dip or Chew Tobacco: No; Hx Alcohol Use: No Hx Substance Use: No Preferred Language: Uzbek Communication Ability: Effective Visual Impairment: No Limitations Hearing Ability: Normal Yarn Twister Required: No Beliefs That Will Affect Care: None marital status: marital status details: Omari Escamilla (29) [phone] Current Living Situation: Family Current Living Situation Comment: lives with spouse, 1 daughter, 1 step daughter, and son current occupational status: employed current occupation: [employer] Feels Safe at Home: Yes Childhood Exposure to Second-Hand Smoke: No Assistive Devices: None Physical Exam Vital Signs Vital Signs - 24 hr 11/29/22 19:00 11/29/22 20:29 Temperature 36.4 C L Temperature Source Temporal Artery Scan Pulse Rate 90 Pulse Rate [Apical] 80 Pulse Rhythm [Apical] Regular Pulse Strength [Apical] Normal Respiratory Rate 18 17 Respiratory Effort / Characteristics Non-Labored Spontaneous Non-Labored Respiratory Depth Normal Normal Respiratory Pattern Regular Blood Pressure 144/80 H Blood Pressure [Left Arm] 132/81 Blood Pressure Mean 101 Blood Pressure Mean [Left Arm] 98 Pulse Oximetry 100 98 Oxygen Delivery Method Room Air Room Air Sepsis Recent Fever Within 48 Hours Yes Sepsis New/Unexplained Change in Mental Status No Sepsis Action Taken by Nursing No Action Required CONSTITUTIONAL: Healthy and well nourished. Patient does not appear toxic, but does appear in mild to moderate discomfort HEENT: No scleral icterus or conjunctival injection/pallor. RESPIRATORY: Clear to auscultation bilaterally with no wheezing, crackles, rhonchi or stridor. CARDIOVASCULAR: Regular rate and rhythm with no murmurs, rubs or gallops. GASTROINTESTINAL: Bowel sounds present in all quadrants. Positive CVA tenderness. Negative McBurney's point tenderness. INTEGUMENTARY: No rash or other significant dermatologic conditions noted. HEMATOLOGIC: No ecchymosis or petechiae. PSYCHIATRIC: Positive affect. NEUROLOGIC: No focal neurologic deficits noted. Course Course Patient history and physical exam were delayed while the patient was awaiting a room. Additional orders were placed per triage nursing protocol. IV access was established, and labs were drawn and reviewed, showing no leukocytosis. CMP and urinalysis were also normal. After the patient was placed in her room, physical exam was performed without any additional changes from her visit yesterday. She does have CVA tenderness consistent with persistent pyelonephritis. Review of labs shows a persistent normal CBC. Creatinine is also normal. Remainder of her CMP is otherwise unremarkable. Urinalysis appears to have cleared the infection at this time. The patient was initially administered IV Toradol and Zofran for the pain and nausea. She was also administered additional IV Rocephin. Given the patient's persistent symptoms, including vomiting and developing fever, I discussed possible admission/hospitalist evaluation, and the patient reported that she did not feel well enough to go home, and agrees with this plan. The case was then further discussed with the [facility] hospitalist (Dr. Viera) who did evaluate the patient. Please see his dictation for further treatment and final disposition. Administered Medications Sodium Chloride (Nss 1000ml) 1,000 mls @ 100 mls/hr IV .Q10H ONE Stop: 11/30/22 06:31 Last Admin: 11/29/22 21:15 Dose: 100 mls/hr Documented By: JAY Morphine Sulfate (Morphine Sulfate 4 Mg/Ml 1 Ml Carp\\Vial) 4 mg IV Q1H PRN PRN Reason: Pain Stop: 12/13/22 20:23 Last Admin: 11/29/22 22:08 Dose: 4 mg Documented By: RSHugo Admin: 11/29/22 20:36 Dose: 4 mg Documented By: JAY Discontinued Medications Ceftriaxone Sodium (Rocephin) 2,000 mg in 70 mls @ 140 mls/hr IV NOW STA Stop: 11/29/22 20:01 Last Infusion: 11/29/22 20:30 Dose: 0 mls/hr Documented By: RSHugo Admin: 11/29/22 20:04 Dose: 140 mls/hr Documented By: RSL Piperacillin Sod/Tazobactam Sod (Zosyn) 4.5 gm in 120 mls @ 240 mls/hr IV NOW ONE Stop: 11/29/22 21:01 Last Infusion: 11/29/22 21:56 Dose: 0 mls/hr Documented By: RSHugo Admin: 11/29/22 21:22 Dose: 240 mls/hr Documented By: JAY Ketorolac Tromethamine (Ketorolac Tromethamine 15 Mg/Ml Vial) 10 mg IV NOW ONE Stop: 11/29/22 19:48 Last Admin: 11/29/22 20:03 Dose: 10 mg Documented By: JAY Ondansetron HCl (Ondansetron Inj 2 Mg/Ml 2 Ml Vial) 4 mg IV NOW STA Stop: 11/29/22 19:48 Last Admin: 11/29/22 20:04 Dose: 4 mg Documented By: JAY Medical Decision Making Medical Records Attestation: I reviewed the patient's medical records. Home Medications was personally reviewed by me Laboratory Data Attestation: I reviewed the patient's lab results. 11/29/22 19:03 11/29/22 19:03 Lab Results 11/29/22 11/29/22 11/29/22 Range/Units 19:03 19:03 19:15 WBC 6.86 (4.8-10.8) K/ul RBC 4.44 (4.20-5.40) M/uL Hgb 12.9 (12.0-16.0) g/dl Hct 37.5 (37.0-47.0) % MCV 84.5 (80.0-100.0) fL MCH 29.1 (25.0-34.0) pg MCHC 34.4 (32.0-36.0) g/dL RDW Std Deviation 40.6 (36.4-46.3) fL RDW Coeff of Joseph 13.2 (11.5-14.5) % Plt Count 366 (130-400) K/uL MPV 9.2 L (9.4-12.4) fL Immature Gran % (Auto) 0.1 % Neut % (Auto) 57.1 % Lymph % (Auto) 29.4 % [place] % (Auto) 7.7 % Eos % (Auto) 4.8 % Baso % (Auto) 0.9 % Neut # (Auto) 3.91 (1.40-6.50) K/uL Lymph # (Auto) 2.02 (1.2-3.4) K/uL [place] # (Auto) 0.53 (0.11-0.59) K/uL Eos # (Auto) 0.33 (0-0.50) K/uL Baso # (Auto) 0.06 (0-0.2) K/uL Immature Gran # (Auto) 0.01 (0.01-0.20) K/uL Sodium 139 (136-145) mmol/L Potassium 3.6 (3.5-5.1) mmol/L Chloride 105 (98-107) mmol/L Carbon Dioxide 25 (21-32) mmol/L Anion Gap 9 (3-11) BUN 11 (6-23) mg/dl Creatinine 0.71 (0.6-1.2) mg/dl Est Cr Clr Drug Dosing 102.8 ml/min Est GFR ( Amer) 135.3 ml/min Est GFR (Non-Af Amer) 116.7 ml/min BUN/Creatinine Ratio 15.5 (10-20) Glucose 82 (70-99(Fasting)) mg/dl Calcium 9.5 (8.6-10.3) mg/dl Total Bilirubin 0.2 (0.2-1.0) mg/dl AST 15 (13-39) U/L ALT 10 (7-52) U/L Alkaline Phosphatase 61 (34-104) U/L Total Protein 7.1 (6.0-8.3) gm/dl Albumin 4.7 (3.4-5.0) gm/dl Globulin 2.4 L (2.5-4.0) gm/dl Albumin/Globulin Ratio 2.0 (0.9-2) Urine Color Yellow Urine Appearance Clear (Clear) Urine pH 7.0 (4.5-7.5) Ur Specific [place] 1.017 (1.000-1.030) Urine Protein Negative (Negative) Urine Glucose (UA) Negative (Negative) Urine Ketones Negative (Negative) Urine Blood Negative (Negative) Urine Nitrite Negative (Negative) Urine Bilirubin Negative (Negative) Urine Urobilinogen Negative (Negative) Ur Leukocyte Esterase Negative (Negative) POC Ur Test (NEG) SARS-CoV-2, RNA, NAAT (NEGATIVE) 11/29/22 11/29/22 Range/Units 19:17 20:06 WBC (4.8-10.8) K/ul RBC (4.20-5.40) M/uL Hgb (12.0-16.0) g/dl Hct (37.0-47.0) % MCV (80.0-100.0) fL MCH (25.0-34.0) pg MCHC (32.0-36.0) g/dL RDW Std Deviation (36.4-46.3) fL RDW Coeff of Joseph (11.5-14.5) % Plt Count (130-400) K/uL MPV (9.4-12.4) fL Immature Gran % (Auto) % Neut % (Auto) % Lymph % (Auto) % [place] % (Auto) % Eos % (Auto) % Baso % (Auto) % Neut # (Auto) (1.40-6.50) K/uL Lymph # (Auto) (1.2-3.4) K/uL [place] # (Auto) (0.11-0.59) K/uL Eos # (Auto) (0-0.50) K/uL Baso # (Auto) (0-0.2) K/uL Immature Gran # (Auto) (0.01-0.20) K/uL Sodium (136-145) mmol/L Potassium (3.5-5.1) mmol/L Chloride (98-107) mmol/L Carbon Dioxide (21-32) mmol/L Anion Gap (3-11) BUN (6-23) mg/dl Creatinine (0.6-1.2) mg/dl Est Cr Clr Drug Dosing ml/min Est GFR ( Amer) ml/min Est GFR (Non-Af Amer) ml/min BUN/Creatinine Ratio (10-20) Glucose (70-99(Fasting)) mg/dl Calcium (8.6-10.3) mg/dl Total Bilirubin (0.2-1.0) mg/dl AST (13-39) U/L ALT (7-52) U/L Alkaline Phosphatase (34-104) U/L Total Protein (6.0-8.3) gm/dl Albumin (3.4-5.0) gm/dl Globulin (2.5-4.0) gm/dl Albumin/Globulin Ratio (0.9-2) Urine Color Urine Appearance (Clear) Urine pH (4.5-7.5) Ur Specific [place] (1.000-1.030) Urine Protein (Negative) Urine Glucose (UA) (Negative) Urine Ketones (Negative) Urine Blood (Negative) Urine Nitrite (Negative) Urine Bilirubin (Negative) Urine Urobilinogen (Negative) Ur Leukocyte Esterase (Negative) POC Ur Test NEG (NEG) SARS-CoV-2, RNA, NAAT NEGATIVE (NEGATIVE) MDM Narrative See ED course for further details of today's visit. The patient was evaluated yesterday with a diagnosis of pyelonephritis. It is noted that her CT imaging yesterday did not show evidence for obvious obstructive uropathy or ureteral calculi. CT did suggest acute cystitis/pyelonephritis, and he also had a urinalysis consistent with infection. The patient felt well yesterday, and was administered IV Rocephin with outpatient prescriptions for cefdinir, which the patient did start, but could not tolerate this afternoon because of vomiting. She was also febrile upon arrival. Labs today do not show evidence for acute kidney injury or significant leukocytosis. I do feel that the patient warrants observation for symptomatic control and IV antibiotics. Patient does not have any physical exam findings to suggest any other etiologies such as acute diverticulitis, appendicitis or surgical abdomen. I do not feel that repeat imaging is warranted at this time. Impression Pyelonephritis, Fever, Nausea and vomiting Discharge Plan Visit Data Chief Complaint: Fever Stated Complaint: FEVER, JUST HAD KIDNEY INFECTION ED Provider: Toro Anderson ED Midlevel Provider: Zachariah Wynn Discharge Problem: Pyelonephritis, Fever, Nausea and vomiting Forms Stand Alone Forms: My [facility] Prescriptions Prescriptions: No Action levothyroxine 75 mcg tablet 75 mcg PO QAM Qty: 30 2RF lamotrigine [Lamictal] 100 mg tablet 100 mg PO QAM Rx Instructions: TOTAL DOSE 400 MG--TAKES WITH 2-150 MG TABS. buspirone 30 mg tablet 30 mg PO BID Qty: 60 2RF tamsulosin 0.4 mg capsule 0.4 mg PO DAILY Qty: 30 1RF ketorolac 10 mg tablet 10 mg PO TID PRN (Reason: pain) Qty: 14 0RF lamotrigine 150 mg tablet 300 mg PO QAM Rx Instructions: TOTAL DOSE 400 MG--TAKES WITH 100 MG TAB. clonazepam 1 mg tablet 1 mg PO BID PRN (Reason: Anxiety) lamotrigine 25 mg tablet 25 mg PO .Q AFTERNOON lurasidone [Latuda] 60 mg tablet 60 mg PO QPM Rx Instructions: must administer with food (at least 350 calories) Trintellix 20 mg Tablet 20 mg PO HS ondansetron 4 mg tablet,disintegrating 4 mg PO Q6H PRN (Reason: nausea and vomiting) Qty: 20 0RF cefdinir 300 mg capsule 300 mg PO BID 10 Days Qty: 20 0RF Referrals Referrals: Promise Chen DO [Primary Care Provider] -"
[2022-11-29] MEDS ORDERED: KETOROLAC TROMETHAMINE 15 MG/ML VIAL IV ONE (19:47)
[2022-11-29] MEDS ORDERED: ONDANSETRON INJ 2 MG/ML 2 ML VIAL IV STA (19:47)
[2022-11-29 19:55] LABS: Albumin Level 4.7 gm/dl (3.4-5.0); BUN Creatinine Ratio 15.5 (10-20); Bilirubin,Total 0.2 mg/dl (0.2-1.0); Calcium 9.5 mg/dl (8.6-10.3); Creatinine Clr Calc Pharmacy 102.8 ml/min; Est GFR (African American) 135.3 ml/min; Est GFR (Non-African American) 116.7 ml/min; Globulin 2.4 gm/dl (2.5-4.0); Potassium 3.6 mmol/L (3.5-5.1); Total Protein 7.1 gm/dl (6.0-8.3)
[2022-11-29] MEDS ORDERED: PIPERACILLIN/TAZOBACTAM 4.5 GM/120 ML BAG IV ONE (20:32)
[2022-11-29] MEDS ORDERED: SODIUM CHLORIDE 0.9% 1000ML 1,000 ML IV ONE (20:32)
[2022-11-29] MEDS: MoRPHine SULFATE 4 MG/ML 1 ML CARP\\VIAL IV PRN ×3 (20:36→23:12)
[2022-11-29 20:49] LABS: Appearance Urine Clear (Clear); Bilirubin Urine Negative (Negative); Blood Urine Negative (Negative); Color Urine Yellow; Glucose Urine UA Negative (Negative); Ketones Urine Negative (Negative); Leukocyte Esterase Urine Negative (Negative); Nitrite Urine Negative (Negative); Protein Urine Negative (Negative); Specific Gravity Urine 1.017 (1.000-1.030); Urobilinogen Urine Negative (Negative)
[2022-11-30] MEDS: MoRPHine SULFATE 4 MG/ML 1 ML CARP\\VIAL IV PRN ×4 (00:15→08:56)
--- NOTE | 2022-11-30 00:48 | History & Physical Report ---
Date of Service November 30, 2022 Assessment & Plan (1) Complicated UTI (urinary tract infection): Plan: Complicated UTI (urinary tract infection) hx recurrent UTIs Pyelonephritis on CT imaging 2 days ago No sepsis for now UA from today's ER visit noted to be clean after 2 doses of cefdinir outpatient. Hodgkin's lymphoma status post chemoradiation, currently in remission hypothyroidism, euthyroid as of recent TSH mood disorder, at baseline GMF Analgesia IV Ceftriaxone DVT prophylaxis. Lovenox subcu Full code Text document was generated using [employer] voice recognition software. It may contain grammatical or spelling errors. Kindly contact undersigned for clarification of any documentation item in question. History of Present Illness Chief Complaint: Worsening flank pain, fever Primary Care Provider: Promise Chen DO History obtained from patient and records. Medical history significant for recurrent UTIs, urolithiasis, Hodgkin's lymphoma status post chemoradiation, hypothyroidism, mood disorder. Last confinement July 2022 for complicated UTI in setting of recent urologic instrumentation. E. coli on urine CS. Yesterday, patient noted worsening flank pain with hematuria symptoms which patient attributes to her menses. No fever, no chills. No chest pain, no SOB. Patient consulted ER for worsening symptoms. IV ceftriaxone administered at the ER. Few days history of urinary urgency/frequency symptoms back pain. Patient seen at the ER 2 days ago. Cystitis and bilateral pyelonephritis noted on CT imaging. Nephrolithiasis without hydronephrosis noted as well. UA showed WBC of 5-10 Patient discharged on cefdinir course. Worsening symptoms with fever noted at home despite compliance with antibiotic Rx. Emesis without chest pain, SOB. IV ceftriaxone administered at the ER. 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 Allergies Allergy/AdvReac Type Severity Reaction Status Date / Time Sulfa (Sulfonamide Allergy Intermediate itching, Verified 11/28/22 18:18 Antibiotics) hives sulfamethoxazole Allergy Intermediate itching, Verified 11/28/22 18:18 hives trimethoprim Allergy Intermediate itching, Verified 11/28/22 18:18 hives Home Medications Medication Instructions Recorded Confirmed Type buspirone 30 mg tablet 30 mg PO BID #60 tabs 07/11/19 11/29/22 Rx lamotrigine 100 mg tablet 100 mg PO QAM 04/28/21 11/29/22 History (Lamictal) lamotrigine 150 mg tablet 300 mg PO QAM 09/16/21 11/29/22 History lurasidone 60 mg tablet (Latuda) 60 mg PO QPM 09/20/21 11/29/22 History vortioxetine 20 mg tablet 20 mg PO HS 07/29/22 11/29/22 History (Trintellix) levothyroxine 75 mcg tablet 75 mcg PO QAM #30 tabs 11/07/22 11/29/22 Rx cefdinir 300 mg capsule 300 mg PO BID 10 days #20 caps 11/28/22 11/29/22 Rx ondansetron 4 mg disintegrating 4 mg PO Q6H PRN nausea and 11/28/22 11/29/22 Rx tablet vomiting #20 tabs clonazepam 1 mg tablet 1 mg PO BID PRN Anxiety 11/29/22 11/29/22 History ketorolac 10 mg tablet 10 mg PO TID PRN pain #14 tabs 11/29/22 11/29/22 Rx lamotrigine 25 mg tablet 25 mg PO .Q AFTERNOON 11/29/22 11/29/22 History tamsulosin 0.4 mg capsule 0.4 mg PO DAILY #30 caps 11/29/22 11/29/22 Rx Past Med/Surg History Medical History Anxiety Bipolar disease during , antepartum Bipolar disorder - Denies SI/HI. States mood is ok. Depression Endometriosis Health care maintenance History of COVID-19 DX'D 08/2020 MOBILE TESTING SITE [place]-LOSS TASTE AND SMELL-RECOVERED AT HOME-RESOLVED Hodgkins lymphoma DX'D 2017-s/p chemo/radiation - currently in remission. 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 Excised CIN2, had margins positive for CIN1 only. H/O nasal septoplasty H/O wisdom tooth extraction History of bilateral tubal ligation with last 02/2022 History of lymph node biopsy History of tonsillectomy November [address] LA included Adenoids History of transurethral resection of bladder tumor (TURBT) done at same time as cysto w/ureteral stent placement w/bladder bx. History of vascular access device 12/14/2018-AND REMOVED S/P appendectomy 09/06/1819 Grade 1 view, MAC 3, ETT 7. S/P x2--last 03/10/22 with bilt tubal @ [facility] S/P cystoscopy with ureteral stent placement w/laser destruction kidney stone S/P radiotherapy Family History Grandmother (Paternal) Ovarian cancer Cervical adenocarcinoma H/O: hysterectomy Mother Family history of reaction to anesthesia PONV-EMOTIONAL Denies family history of Diabetes Myocardial infarction Breast cancer Lung cancer Colorectal cancer Hypertension Uterine cancer Stroke Social History Smoking Status: Never smoker Age Started Using Tobacco: 15; Age Quit Using Tobacco: 16; packs per day: 0.25; Second Hand Exposure: No; Do You Dip or Chew Tobacco: No; Hx Alcohol Use: No Hx Substance Use: No Preferred Language: Hebrew Communication Ability: Effective Visual Impairment: No Limitations Hearing Ability: Normal Engineering Test Specialist Required: No Beliefs That Will Affect Care: None marital status: marital status details: Omari Escamilla (29) [phone] Current Living Situation: Spouse Current Living Situation Comment: lives with spouse, 1 daughter, 1 step daughter, and son current occupational status: employed 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 Other Information That Helps Us Care for You: No Feels Safe at Home: Yes Safety Concerns: Feels Safe At This Time Childhood Exposure to Second-Hand Smoke: No Assistive Devices: None Review of Systems Review of Systems: As per HPI, all other systems reviewed and negative Physical Exam Physical Exam: GENERAL: Slightly uncomfortable, pleasant, no respiratory distress SKIN: Normal color , warm HEENT: Bespectacled, pink palpebral conjunctivae, no ptosis, dry buccal mucosa NECK : Supple, no tenderness CHEST : CTA, no tenderness HEART : RRR, no obvious murmurs ABDOMEN: Some distention, nontender BACK : Bilateral flank tenderness EXTREMITIES : No LE swelling/tenderness, no other conspicuous deformities noted NEUROLOGIC : Coherent, no facial asymmetry, no other gross focality Results & Data Results & Data Vital Signs (Past 12 Hours) Vital Signs Temp Pulse Pulse Resp BP BP Pulse Ox 11/29/22 20:29 80 17 132/81 98 11/29/22 19:00 36.4 C L 90 18 144/80 H 100 O2 Del Method 11/29/22 20:29 Room Air 11/29/22 19:00 Room Air Laboratory Results Laboratory Results WBC 6.86 K/ul (4.8-10.8) 11/29/22 19:03 RBC 4.44 M/uL (4.20-5.40) 11/29/22 19:03 Hgb 12.9 g/dl (12.0-16.0) 11/29/22 19:03 Hct 37.5 % (37.0-47.0) 11/29/22 19: MCV 84.5 fL (80.0-100.0) 11/29/22 19: MCH 29.1 pg (25.0-34.0) 11/29/22 19: MCHC 34.4 g/dL (32.0-36.0) 11/29/22 19:03 RDW Std Deviation 40.6 fL (36.4-46.3) 11/29/22 19: RDW Coeff of Joseph 13.2 % (11.5-14.5) 11/29/22 19: Plt Count 366 K/uL (130-400) 11/29/22 19: MPV 9.2 fL (9.4-12.4) L 11/29/22 19:03 Immature Gran % (Auto) 0.1 % 11/29/22 19: Neut % (Auto) 57.1 % 11/29/22 19: Lymph % (Auto) 29.4 % 11/29/22 19: [place] % (Auto) 7.7 % 11/29/22 19: Eos % (Auto) 4.8 % 05/02/23 19:03 Baso % (Auto) 0.9 % 11/29/22 19:03 Neut # (Auto) 3.91 K/uL (1.40-6.50) 11/29/22 19:03 Lymph # (Auto) 2.02 K/uL (1.2-3.4) 11/29/22 19:03 [place] # (Auto) 0.53 K/uL (0.11-0.59) 11/29/22 19:03 Eos # (Auto) 0.33 K/uL (0-0.50) 11/29/22 19:03 Baso # (Auto) 0.06 K/uL (0-0.2) 11/29/22 19:03 Immature Gran # (Auto) 0.01 K/uL (0.01-0.20) 11/29/22 19:03 Sodium 139 mmol/L (136-145) 11/29/22 19:03 Potassium 3.6 mmol/L (3.5-5.1) 11/29/22 19:03 Chloride 105 mmol/L (98-107) 11/29/22 19:03 Carbon Dioxide 25 mmol/L (21-32) 11/29/22 19:03 Anion Gap 9 (3-11) 11/29/22 19:03 BUN 11 mg/dl (6-23) 11/29/22 19:03 Creatinine 0.71 mg/dl (0.6-1.2) 11/29/22 19:03 Est Cr Clr Drug Dosing 102.8 ml/min 11/29/22 19:03 Est GFR ( Amer) 135.3 ml/min 11/29/22 19:03 Est GFR (Non-Af Amer) 116.7 ml/min 11/29/22 19:03 BUN/Creatinine Ratio 15.5 (10-20) 11/29/22 19:03 Glucose 82 mg/dl (70-99(Fasting)) 11/29/22 19:03 Calcium 9.5 mg/dl (8.6-10.3) 11/29/22 19:03 Total Bilirubin 0.2 mg/dl (0.2-1.0) 11/29/22 19:03 AST 15 U/L (13-39) 11/29/22 19:03 ALT 10 U/L (7-52) 11/29/22 19:03 Alkaline Phosphatase 61 U/L (34-104) 11/29/22 19:03 Total Protein 7.1 gm/dl (6.0-8.3) 11/29/22 19:03 Albumin 4.7 gm/dl (3.4-5.0) 11/29/22 19:03 Globulin 2.4 gm/dl (2.5-4.0) L 11/29/22 19:03 Albumin/Globulin Ratio 2.0 (0.9-2) 11/29/22 19:03 Urine Color Yellow 11/29/22 19:15 Urine Appearance Clear (Clear) 11/29/22 19:15 Urine pH 7.0 (4.5-7.5) 11/29/22 19:15 Ur Specific [place] 1.017 (1.000-1.030) 11/29/22 19:15 Urine Protein Negative (Negative) 11/29/22 19:15 Urine Glucose (UA) Negative (Negative) 11/29/22 19:15 Urine Ketones Negative (Negative) 11/29/22 19:15 Urine Blood Negative (Negative) 11/29/22 19:15 Urine Nitrite Negative (Negative) 11/29/22 19:15 Urine Bilirubin Negative (Negative) 11/29/22 19:15 Urine Urobilinogen Negative (Negative) 11/29/22 19:15 Ur Leukocyte Esterase Negative (Negative) 11/29/22 19:15 POC Ur Test NEG (NEG) 11/29/22 19:17 SARS-CoV-2, RNA, NAAT NEGATIVE (NEGATIVE) 11/29/22 20:06
[2022-11-30] MEDS: PROMETHAZINE HCL 6.25 MG in SODIUM CHLORIDE 0.9% 50 ML IV PRN (01:03)
[2022-11-30] MEDS: KETOROLAC TROMETHAMINE 15 MG/ML VIAL IV PRN ×2 (02:05→08:06)
[2022-11-30] MEDS: oxyCODONE HCL IR 5 MG TAB (IMMEDIATE RELEASE) PO PRN ×3 (02:58→17:05)
[2022-11-30] MEDS: LEVOTHYROXINE SODIUM 75 MCG TABLET PO SCH (05:55)
[2022-11-30 06:43] LABS: Basophils # (auto) 0.03 K/uL (0-0.2); Basophils % (auto) 0.5 %; Eosinophils # (auto) 0.43 K/uL (0-0.50); Eosinophils % (auto) 7.8 %; Hematocrit (blood only) 37.3 % (37.0-47.0); Hemoglobin 12.3 g/dl (12.0-16.0); Immature Granulocytes # (auto) 0.01 K/uL (0.01-0.20); Immature Granulocytes % (auto) 0.2 %; Lymphocytes # (auto) 1.98 K/uL (1.2-3.4); Lymphocytes % (auto) 35.9 %; Mean Platelet Volume 9.3 fL (9.4-12.4); Monocytes # (auto) 0.49 K/uL (0.11-0.59); Monocytes % (auto) 8.9 %; Neutrophils # (auto) 2.57 K/uL (1.40-6.50); Neutrophils % (auto) 46.7 %; Platelet Count 309 K/uL (130-400); RDW Coefficient of Variation 13.3 % (11.5-14.5); RDW Standard Deviation 42.8 fL (36.4-46.3); Red Blood Count 4.24 M/uL (4.20-5.40); White Blood Count 5.51 K/ul (4.8-10.8)
[2022-11-30 06:55] LABS: Calcium 8.5 mg/dl (8.6-10.3); Creatinine Clr Calc Pharmacy 108.9 ml/min; Est GFR (African American) 139.6 ml/min; Est GFR (Non-African American) 120.5 ml/min; Potassium 3.6 mmol/L (3.5-5.1)
[2022-11-30] MEDS ORDERED: PHENAZOPYRIDINE HCL 200 MG TAB PO PRN (08:19)
[2022-11-30] MEDS: ENOXAPARIN INJ 30 MG/0.3 ML SYR SQ SCH (08:44)
[2022-11-30] MEDS: busPIRone 15 MG TAB PO SCH ×2 (08:44→20:06)
[2022-11-30] MEDS: TAMSULOSIN HCL 0.4 MG CAP PO SCH (08:44)
[2022-11-30] MEDS: lamoTRIgine 100 MG TAB PO SCH (08:45)
[2022-11-30] MEDS ORDERED: lamoTRIgine 100 MG TAB PO SCH ×2 (09:00)
[2022-11-30] MEDS ORDERED: MoRPHine SULFATE 4 MG/ML 1 ML CARP\\VIAL IV PRN (09:35)
[2022-11-30] MEDS: ONDANSETRON 4 MG OD TAB PO PRN ×2 (09:45→17:39)
[2022-11-30] MEDS: HYDROmorphone INJ 0.5 MG/0.5 ML SYR IV PRN ×3 (10:34→19:17)
[2022-11-30] MEDS: DOCUSATE SODIUM 100 MG CAP PO SCH ×2 (12:16→20:07)
--- NOTE | 2022-11-30 13:53 | Communication Note ---
Date of Service: November 30, 2022 Patient seen and examined at bedside. Patient is admitted for bilateral pyelonephritis and renal stones She reports significant bilateral flank pain. On examination; Constitutional: Awake, oriented x3; in moderate distress due to pain. Respiratory: normal respiratory effort, lungs clear to auscultation, no wheeze, rales, rhonchi. Normal insp/exp effort, no accessory muscle use Cardiovascular: RRR, no murmur, no edema Vessels: no JVD or carotid bruit Chest: normal inspection of chest Abdomen: normal bowel sounds, soft, nontender, no hepatosplenomegaly. Tenderness present in costovertebral angle. Musculoskeletal: no cyanosis or clubbing, extremities motor strength 5/5 Skin: no rashes, warm and dry normal turgor Neurologic: PERRL, EOMI, accommodation nl, no face palsy, no dysarthria CN's II- XI intact bilaterally and moves all extremities Psychiatric: A+Ox3, euthymic affect Lymphatic: no cervical or axillary lymphadenopathy : deferred Assessment/plan Bilateral pyelonephritis Bilateral renal stones Continue IV hydration Continue on ceftriaxone Obtain blood culture Urology consult Pain control with heat pad, oxycodone, Dilaudid and Pyridium.
[2022-11-30] MEDS: lamoTRIgine 25 MG TAB PO SCH (14:11)
[2022-11-30] MEDS: LACTATED RINGER'S 1,000 ML IV SCH (14:11)
--- NOTE | 2022-11-30 14:53 | Urology Consultation ---
I have discussed Ms. Escamilla's case with ASIYA Vuong and agree with the above documentation. No obstructing stones or hydronephrosis seen on CT Scan. Would therefore recommend treating this as pyelonephritis with antibiotics and hold off surgical intervention for now. -Kodak So MD. Date of Consultation November 30, 2022 Assessment & Plan (1) Pyelonephritis: (2) Bilateral nephrolithiasis: Plan 26yo/F with a hx of stones who presented with worsening back/flank pain, fever, ill-feelings and was admitted with pyelonephritis. -CT abd pelvis from 11/28 notable for cystitis and bilateral pyelonephritis. Bilateral nonobstructing renal stones noted. No obstructing stones or hydronephrosis. -She is afebrile and hemodynamically stable. -Labs show no leukocytosis and normal renal function. -UCx 11/28 w/lactobacillus. Blood cultures 11/30 pending. -On IV Ceftriaxone. -Voiding spontaneously, continue to monitor. -No acute intervention warranted. -Continue supportive care, tamsulosin, and prn pain management. -Continue antibiotic therapy and tailor as culture data becomes available. -Urology will follow. History of Present Illness Attending Physician: Devang Che MD History of Present Illness 26- year-old female with past medical history of Hodgkin's lymphoma, hypothyroidism, bipolar disorder, nephrolithiasis and pyelonephritis who presented to the ED today with worsening flank pain, fever, and ill feelings and admitted with UTI/Pyelonephritis. She was seen in the ED 2 days ago for urinary symptoms and flank/back pain. A CT abd pelvis at that time demonstrated cystitis and bilateral pyelonephritis. UA at that time with 2+bacteria, 5- 10WBC. Urine culture final with lactobacillus. She was discharged home on Ce fdinir, but returned today due to worsening symptoms and fever. Well known to our service, follows with Dr. Lozano. History of stones with prior surgical intervention (most recent Jul 2022). On arrival, she was afebrile and hemodynamically stable. Labs show no leukocytosis and normal renal function. UA negative, however she was on oral cefdinir. Blood cultures pending. She was started on IV Ceftriaxone. Pt examined at bedside this afternoon. Awake, resting in bed on arrival. No acute distress. Feels fatigued. Still with bilateral flank/back pain. No fevers though she does report a temp of 101 prior to coming in. Denies chills. Some nausea/vomiting. Voiding without issue. No hematuria. Some dysuria. Also reports some urinary urge/freq and hesitancy. Feels she is emptying well. Allergies Allergy/AdvReac Type Severity Reaction Status Date / Time Sulfa (Sulfonamide Allergy Intermediate itching, Verified 11/28/22 18:18 Antibiotics) hives sulfamethoxazole Allergy Intermediate itching, Verified 11/28/22 18:18 hives trimethoprim Allergy Intermediate itching, Verified 11/28/22 18:18 hives Home Medications Medication Instructions Recorded Confirmed Type buspirone 30 mg tablet 30 mg PO BID #60 tabs 07/11/19 11/29/22 Rx lamotrigine 100 mg tablet 100 mg PO QAM 04/28/21 11/29/22 History (Lamictal) lamotrigine 150 mg tablet 300 mg PO QAM 09/16/21 11/29/22 History lurasidone 60 mg tablet (Latuda) 60 mg PO QPM 09/20/21 11/29/22 History vortioxetine 20 mg tablet 20 mg PO HS 07/29/22 11/29/22 History (Trintellix) levothyroxine 75 mcg tablet 75 mcg PO QAM #30 tabs 11/07/22 11/29/22 Rx cefdinir 300 mg capsule 300 mg PO BID 10 days #20 caps 11/28/22 11/29/22 Rx ondansetron 4 mg disintegrating 4 mg PO Q6H PRN nausea and 11/28/22 11/29/22 Rx tablet vomiting #20 tabs clonazepam 1 mg tablet 1 mg PO BID PRN Anxiety 11/29/22 11/29/22 History ketorolac 10 mg tablet 10 mg PO TID PRN pain #14 tabs 11/29/22 11/29/22 Rx lamotrigine 25 mg tablet 25 mg PO .Q AFTERNOON 11/29/22 11/29/22 History tamsulosin 0.4 mg capsule 0.4 mg PO DAILY #30 caps 11/29/22 11/29/22 Rx Patient History Medical History Anxiety Bipolar disease during , antepartum Bipolar disorder - Denies SI/HI. States mood is ok. Depression Endometriosis Health care maintenance History of COVID-19 DX'D 08/2020 MOBILE TESTING SITE [place]-LOSS TASTE AND SMELL-RECOVERED AT HOME-RESOLVED Hodgkins lymphoma DX'D 2018-s/p chemo/radiation - currently in remission. 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 H/O nasal septoplasty H/O wisdom tooth extraction History of bilateral tubal ligation with last 02/2022 History of lymph node biopsy History of tonsillectomy November [address] LA included Adenoids History of transurethral resection of bladder tumor (TURBT) done at same time as cysto w/ureteral stent placement w/bladder bx. History of vascular access device 12/14/2018-AND REMOVED S/P appendectomy 09/06/1819 Grade 1 view, MAC 3, ETT 7. S/P x2--last 03/10/22 with bilt tubal @ [facility] S/P cystoscopy with ureteral stent placement w/laser destruction kidney stone S/P radiotherapy Family History Grandmother (Paternal) Ovarian cancer Cervical adenocarcinoma H/O: hysterectomy Mother Family history of reaction to anesthesia PONV-EMOTIONAL Denies family history of Diabetes Myocardial infarction Breast cancer Lung cancer Colorectal cancer Hypertension Uterine cancer Stroke Social History Smoking Status: Never smoker Age Started Using Tobacco: 15; Age Quit Using Tobacco: 16; packs per day: 0.25; Second Hand Exposure: No; Do You Dip or Chew Tobacco: No; Hx Alcohol Use: No Hx Substance Use: No Preferred Language: Citizen Of [place] Communication Ability: Effective Visual Impairment: No Limitations Hearing Ability: Normal Stained Glass Glazier Helper Required: No Beliefs That Will Affect Care: None marital status: marital status details: Omari Escamilla (29) [phone] Current Living Situation: Spouse Current Living Situation Comment: lives with spouse, 1 daughter, 1 step daughter, and son current occupational status: employed current occupation: [employer] Other Information That Helps Us Care for You: No Feels Safe at Home: Yes Safety Concerns: Feels Safe At This Time Childhood Exposure to Second-Hand Smoke: No Assistive Devices: None Review of Systems Review of Systems: All systems reviewed & are unremarkable except as noted in HPI & below Physical Exam Constitutional: no acute distress Appears fatigued, uncomfortable Neck: normal visual inspection Respiratory: no respiratory distress and no labored breathing Gastrointestinal (Abdomen): Percussion/Palpation: abdomen soft; abdomen nontender Musculoskeletal: Head/Neck/Chest: normocephalic Skin: No visible rashes or lesions to exposed skin areas Neurologic: moves all extremities and awake Psychiatric: A+Ox3, euthymic affect Genitourinary: + CVA tenderness (bilateral ) Results & Data Vital Signs (Past 12 Hours) Vital Signs Temp Pulse Resp BP Pulse Ox O2 Del Method 11/30/22 07:56 36.9 C 96 H 16 120/72 98 Room Air PG Care Time/CCT Total # of Minutes Spent Total Time Spent with Patient: Total time spent is greater than 50% in coordination of care (as documented) at patient's floor/unit and/or counseling patient: Coding Level of Care Code 38993 IN/OBS CONSULT LVL 3,45M Diagnoses Pyelonephritis N12 Bilateral nephrolithiasis N20.0
[2022-11-30] MEDS ORDERED: cefTRIAXone SODIUM 2,000 MG in DEXTROSE 5% 50 ML IV SCH (19:00)
[2022-11-30] MEDS: LURASIDONE HCL 40 MG TAB PO SCH (20:07)
[2022-11-30] MEDS: VORTIOXETINE HYDROBROMIDE 20 MG TABLET PO SCH (20:08)
[2022-11-30] MEDS ORDERED: VORTIOXETINE HYDROBROMIDE 20 MG TABLET PO SCH (21:00)
[2022-12-01] MEDS: oxyCODONE HCL IR 5 MG TAB (IMMEDIATE RELEASE) PO PRN ×4 (00:56→18:36)
[2022-12-01] MEDS: LACTATED RINGER'S 1,000 ML IV SCH (02:26)
[2022-12-01] MEDS: HYDROmorphone INJ 0.5 MG/0.5 ML SYR IV PRN ×6 (03:51→20:20)
[2022-12-01] MEDS: LEVOTHYROXINE SODIUM 75 MCG TABLET PO SCH (06:08)
[2022-12-01] MEDS: busPIRone 15 MG TAB PO SCH ×2 (08:13→20:22)
[2022-12-01] MEDS: DOCUSATE SODIUM 100 MG CAP PO SCH ×2 (08:13→20:44)
[2022-12-01] MEDS: lamoTRIgine 100 MG TAB PO SCH (08:14)
[2022-12-01] MEDS: ENOXAPARIN INJ 30 MG/0.3 ML SYR SQ SCH (08:14)
[2022-12-01] MEDS: TAMSULOSIN HCL 0.4 MG CAP PO SCH (08:14)
[2022-12-01 08:57] LABS: BUN Creatinine Ratio 9.4 (10-20); Basophils # (auto) 0.03 K/uL (0-0.2); Basophils % (auto) 0.5 %; Calcium 9.1 mg/dl (8.6-10.3); Eosinophils # (auto) 0.61 K/uL (0-0.50); Eosinophils % (auto) 11.2 %; Est GFR (African American) 141.7 ml/min; Est GFR (Non-African American) 122.3 ml/min; Hematocrit (blood only) 37.7 % (37.0-47.0); Hemoglobin 13.1 g/dl (12.0-16.0); Immature Granulocytes # (auto) 0.02 K/uL (0.01-0.20); Immature Granulocytes % (auto) 0.4 %; Lymphocytes # (auto) 1.52 K/uL (1.2-3.4); Lymphocytes % (auto) 27.8 %; Mean Corpuscular Hemoglobin 29.7 pg (25.0-34.0); Mean Corpuscular Hgb Conc 34.7 g/dL (32.0-36.0); Mean Corpuscular Volume 85.5 fL (80.0-100.0); Mean Platelet Volume 9.4 fL (9.4-12.4); Monocytes # (auto) 0.39 K/uL (0.11-0.59); Monocytes % (auto) 7.1 %; Neutrophils # (auto) 2.89 K/uL (1.40-6.50); Platelet Count 298 K/uL (130-400); Potassium 4.1 mmol/L (3.5-5.1); RDW Coefficient of Variation 12.9 % (11.5-14.5); Red Blood Count 4.41 M/uL (4.20-5.40); White Blood Count 5.46 K/ul (4.8-10.8)
[2022-12-01] MEDS ORDERED: PIPERACILLIN/TAZOBACTAM 4.5 GM in DEXTROSE 5% 100 ML IV ONE (10:00)
[2022-12-01] MEDS: ACETAMINOPHEN 500 MG TAB PO SCH ×3 (10:20→21:58)
[2022-12-01] MEDS: ONDANSETRON 4 MG OD TAB PO PRN ×2 (10:35→20:20)
[2022-12-01] MEDS: PHENAZOPYRIDINE HCL 200 MG TAB PO PRN ×2 (11:16→20:45)
--- NOTE | 2022-12-01 11:22 | Urology Progress Note ---
Date of Service December 01, 2022 Assessment & Plan (1) Pyelonephritis: (2) Bilateral nephrolithiasis: Plan 26yo/F who presented with worsening back/flank pain, fever, ill-feelings and was admitted with pyelonephritis. CT abd pelvis from 11/28 notable for cystitis and bilateral pyelonephritis, bilateral nonobstructing renal stones noted, no obstructing stones or hydronephrosis. -CT imaging with no signs of obstruction. -She is afebrile and hemodynamically stable. -Labs show no leukocytosis and normal renal function. -UCx 11/28 w/lactobacillus. Blood cultures 11/30 pending. -IV antibiotics changed to Zosyn. -Voiding spontaneously, continue to monitor. Bladder scans have been accept able. -No acute intervention warranted. -She continues to have bilateral flank pain R>L with urinary urge, hesitancy, spasms. -Will add PRN Pyridium and PRN Oxybutynin for urinary symptoms, bladder spasms. -Continue supportive care, tamsulosin, and prn pain management. -Continue antibiotic therapy and tailor as culture data becomes available. -Urology will follow. Admission and Anticipated Discharge Date Admission Date: November 30, 2022 Supervising Physician Co-Signing Physician Notes Discussed patient with SILVIA. Agree with plan. Subjective Patient examined at bedside this AM. Awake, resting in bed on arrival. Reporting significant b/l flank pain (R > L). Also reports urinary urgency, hesitancy, bladder spasms. She was bladder scanned for PVR of 0 mL. Denies hematuria/dysuria. No fevers. Some nausea, no vomiting. Review of Systems Constitutional: as per Subjective / HPI Gastrointestinal: as per Subjective / HPI Genitourinary: as per Subjective / HPI Physical Exam Constitutional: no acute distress and + uncomfortable Respiratory: no respiratory distress and no labored breathing Neurologic: awake Psychiatric: Orientation: alert, oriented x 3 and cooperative Genitourinary: + CVA tenderness (bilateral R>L) Results & Data Vital Signs (Past 12 Hours) Vital Signs Temp Pulse Resp BP Pulse Ox O2 Del Method 12/01/22 07:48 36.9 C 78 16 119/81 99 Room Air PG Care Time/CCT Total # of Minutes Spent Total Time Spent with Patient: Total time spent is greater than 50% in coordination of care (as documented) at patient's floor/unit and/or counseling patient: Coding Level of Care Code 13126 SUB INP/OBS CARE MIN Diagnoses Pyelonephritis N12 Bilateral nephrolithiasis N20.0
[2022-12-01] MEDS: lamoTRIgine 25 MG TAB PO SCH (13:03)
[2022-12-01] MEDS: PIPERACILLIN/TAZOBACTAM 4.5 GM in DEXTROSE 5% 100 ML IV SCH ×2 (13:09→21:58)
--- NOTE | 2022-12-01 13:52 | Hospitalist Progress Note ---
Date of Service December 01, 2022 Assessment & Plan (1) Complicated UTI (urinary tract infection): Plan: Patient is a 26-year-old female with past medical history of Hodgkin's lymphoma status post chemoradiation (currently in remission), history of nephrolithiasis presented to the hospital on 11/28/2022 with bilateral flank pain and fever. CT abdomen and pelvis done at that time showed findings compatible with cystitis and bilateral pyelonephritis. She also had bilateral nephrolithiasis. She was discharged on cefdinir. She returned back to ED on 11/29/2022. She was started on IV antibiotics and IV hydration. She was admitted to medical floor for further management. Bilateral pyelonephritis Bilateral nephrolithiasis Afebrile since admission. Normotensive and saturating well on room air. CT abdomen and pelvis shows findings compatible with cystitis and bilateral pyelonephritis. She also has bilateral nephrolithiasis. Urine culture shows lactobacillus. Her urine culture in the past had grown E. coli Blood culture no growth till date. Initially started on ceftriaxone; switched over to Zosyn as patient continues to have symptoms and to cover lactobacillus. Pain control with scheduled Tylenol, as needed tramadol, Dilaudid and oxycodone. Discussed with urology; do not recommend any intervention. Chronic conditions; Hodgkin's lymphoma status post chemoradiation, currently in remission hypothyroidism, euthyroid as of recent TSH mood disorder, at baseline DVT prophylaxis. Lovenox subcu Full code Dispofrom home. Continues to be hospitalized for bilateral pyelonephritis. Requiring significant amount of IV medication for pain control. Likely DC in 1 to 2 days. Please note the above document was generated using voice recognition software. It may contain grammatical, syntax or spelling errors. Any formal questions or concerns about the content, text or information contained within the body of this dictation should be directly addressed to the provider for clarification Admission and Anticipated Discharge Date Admission Date: November 30, 2022 Subjective Patient reports that her left flank pain has improved. She continues to have significant pain on her right flank. She also reports dysuria and increased urgency. Afebrile since admission. Review of Systems Review of Systems: All systems reviewed & are unremarkable except as noted in Subjective Physical Exam Physical Exam: Constitutional: WD/WN, vitals as above, NAD, sitting up in bed, pleasant, conversing easily Respiratory: normal respiratory effort, lungs clear to auscultation, no wheeze, rales, rhonchi. Normal insp/exp effort, no accessory muscle use Cardiovascular: RRR, no murmur, no edema Vessels: no JVD or carotid bruit Chest: normal inspection of chest Abdomen: normal bowel sounds, soft, nontender, no hepatosplenomegaly. Right flank tender. Musculoskeletal: no cyanosis or clubbing, extremities motor strength 5/5 Skin: no rashes, warm and dry normal turgor Neurologic: PERRL, EOMI, accommodation nl, no face palsy, no dysarthria CN's II- XI intact bilaterally and moves all extremities Psychiatric: A+Ox3, euthymic affect Lymphatic: no cervical or axillary lymphadenopathy : deferred Results & Data Results & Data Vital Signs (Past 12 Hours) Vital Signs Temp Pulse Resp BP Pulse Ox O2 Del Method 12/01/22 07:48 36.9 C 78 16 119/81 99 Room Air Laboratory Results Laboratory Results WBC 5.46 K/ul (4.8-10.8) 12/01/22 07:57 RBC 4.41 M/uL (4.20-5.40) 12/01/22 07:57 Hgb 13.1 g/dl (12.0-16.0) 12/01/22 07:57 Hct 37.7 % (37.0-47.0) 12/01/22 07:57 MCV 85.5 fL (80.0-100.0) 12/01/22 07:57 MCH 29.7 pg (25.0-34.0) 12/01/22 07:57 MCHC 34.7 g/dL (32.0-36.0) 12/01/22 07:57 RDW Std Deviation 40.0 fL (36.4-46.3) 12/01/22 07:57 RDW Coeff of Joseph 12.9 % (11.5-14.5) 12/01/22 07:57 Plt Count 298 K/uL (130-400) 12/01/22 07:57 MPV 9.4 fL (9.4-12.4) 12/01/22 07:57 Immature Gran % (Auto) 0.4 % 12/01/22 07:57 Neut % (Auto) 53.0 % 12/01/22 07:57 Lymph % (Auto) 27.8 % 12/01/22 07:57 Mckinley % (Auto) 7.1 % 12/01/22 07:57 Eos % (Auto) 11.2 % 12/01/22 07:57 Baso % (Auto) 0.5 % 12/01/22 07:57 Neut # (Auto) 2.89 K/uL (1.40-6.50) 12/01/22 07:57 Lymph # (Auto) 1.52 K/uL (1.2-3.4) 12/01/22 07:57 Mckinley # (Auto) 0.39 K/uL (0.11-0.59) 12/01/22 07:57 Eos # (Auto) 0.61 K/uL (0-0.50) H 12/01/22 07:57 Baso # (Auto) 0.03 K/uL (0-0.2) 12/01/22 07:57 Immature Gran # (Auto) 0.02 K/uL (0.01-0.20) 12/01/22 07:57 Sodium 138 mmol/L (136-145) 12/01/22 07:57 Potassium 4.1 mmol/L (3.5-5.1) 12/01/22 07:57 Chloride 104 mmol/L (98-107) 12/01/22 07:57 Carbon Dioxide 30 mmol/L (21-32) 12/01/22 07:57 Anion Gap 4 (3-11) 12/01/22 07:57 BUN 6 mg/dl (6-23) 12/01/22 07:57 Creatinine 0.64 mg/dl (0.6-1.2) 12/01/22 07:57 Est Cr Clr Drug Dosing 114.0 ml/min 12/01/22 07:57 Est GFR ( Amer) 141.7 ml/min 12/01/22 07:57 Est GFR (Non-Af Amer) 122.3 ml/min 12/01/22 07:57 BUN/Creatinine Ratio 9.4 (10-20) L 12/01/22 07:57 Glucose 79 mg/dl (70-99(Fasting)) 12/01/22 07:57 Calcium 9.1 mg/dl (8.6-10.3) 12/01/22 07:57 Total Bilirubin 0.2 mg/dl (0.2-1.0) 11/29/22 19:03 AST 15 U/L (13-39) 11/29/22 19:03 ALT 10 U/L (7-52) 11/29/22 19:03 Alkaline Phosphatase 61 U/L (34-104) 11/29/22 19:03 Total Protein 7.1 gm/dl (6.0-8.3) 11/29/22 19:03 Albumin 4.7 gm/dl (3.4-5.0) 11/29/22 19:03 Globulin 2.4 gm/dl (2.5-4.0) L 11/29/22 19:03 Albumin/Globulin Ratio 2.0 (0.9-2) 11/29/22 19:03 Urine Color Yellow 11/29/22 19:15 Urine Appearance Clear (Clear) 11/29/22 19:15 Urine pH 7.0 (4.5-7.5) 11/29/22 19:15 Ur Specific Freedom 1.017 (1.000-1.030) 11/29/22 19:15 Urine Protein Negative (Negative) 11/29/22 19:15 Urine Glucose (UA) Negative (Negative) 11/29/22 19:15 Urine Ketones Negative (Negative) 11/29/22 19:15 Urine Blood Negative (Negative) 11/29/22 19:15 Urine Nitrite Negative (Negative) 11/29/22 19:15 Urine Bilirubin Negative (Negative) 11/29/22 19:15 Urine Urobilinogen Negative (Negative) 11/29/22 19:15 Ur Leukocyte Esterase Negative (Negative) 11/29/22 19:15 POC Ur Test NEG (NEG) 11/29/22 19:17 SARS-CoV-2, RNA, NAAT NEGATIVE (NEGATIVE) 11/29/22 20:06
[2022-12-01] MEDS: oxyBUTYnin chloride 5 MG TAB PO PRN ×2 (14:32→20:45)
[2022-12-01] MEDS: clonazePAM 1 MG TAB PO PRN (16:14)
[2022-12-01] MEDS: LURASIDONE HCL 40 MG TAB PO SCH (20:21)
[2022-12-01] MEDS: VORTIOXETINE HYDROBROMIDE 20 MG TABLET PO SCH (20:22)
[2022-12-02] MEDS: clonazePAM 1 MG TAB PO PRN ×2 (01:46→11:49)
[2022-12-02] MEDS: oxyCODONE HCL IR 5 MG TAB (IMMEDIATE RELEASE) PO PRN ×3 (01:46→18:23)
[2022-12-02] MEDS: PIPERACILLIN/TAZOBACTAM 4.5 GM in DEXTROSE 5% 100 ML IV SCH ×3 (05:55→21:59)
[2022-12-02] MEDS: ACETAMINOPHEN 500 MG TAB PO SCH ×3 (05:56→21:59)
[2022-12-02] MEDS: LEVOTHYROXINE SODIUM 75 MCG TABLET PO SCH (05:56)
[2022-12-02] MEDS: HYDROmorphone INJ 0.5 MG/0.5 ML SYR IV PRN ×4 (06:00→20:23)
[2022-12-02] MEDS: oxyBUTYnin chloride 5 MG TAB PO PRN ×2 (07:22→20:31)
[2022-12-02] MEDS: PHENAZOPYRIDINE HCL 200 MG TAB PO PRN ×2 (07:22→20:31)
[2022-12-02] MEDS: ONDANSETRON 4 MG OD TAB PO PRN ×2 (08:26→22:10)
[2022-12-02 08:36] LABS: Basophils # (auto) 0.04 K/uL (0-0.2); Basophils % (auto) 0.8 %; Eosinophils # (auto) 0.83 K/uL (0-0.50); Eosinophils % (auto) 15.9 %; Hematocrit (blood only) 36.7 % (37.0-47.0); Hemoglobin 12.7 g/dl (12.0-16.0); Immature Granulocytes # (auto) 0.01 K/uL (0.01-0.20); Immature Granulocytes % (auto) 0.2 %; Lymphocytes # (auto) 1.66 K/uL (1.2-3.4); Lymphocytes % (auto) 31.7 %; Mean Corpuscular Hemoglobin 29.7 pg (25.0-34.0); Mean Corpuscular Hgb Conc 34.6 g/dL (32.0-36.0); Mean Corpuscular Volume 85.9 fL (80.0-100.0); Mean Platelet Volume 9.4 fL (9.4-12.4); Monocytes # (auto) 0.48 K/uL (0.11-0.59); Monocytes % (auto) 9.2 %; Neutrophils # (auto) 2.21 K/uL (1.40-6.50); Neutrophils % (auto) 42.2 %; Platelet Count 310 K/uL (130-400); RDW Coefficient of Variation 12.9 % (11.5-14.5); RDW Standard Deviation 40.2 fL (36.4-46.3); Red Blood Count 4.27 M/uL (4.20-5.40); White Blood Count 5.23 K/ul (4.8-10.8)
[2022-12-02 08:51] LABS: BUN Creatinine Ratio 15.1 (10-20); Calcium 8.6 mg/dl (8.6-10.3); Creatinine Clr Calc Pharmacy 84.8 ml/min; Est GFR (African American) 107.3 ml/min; Est GFR (Non-African American) 92.6 ml/min
[2022-12-02] MEDS: busPIRone 15 MG TAB PO SCH ×2 (09:31→20:31)
[2022-12-02] MEDS: lamoTRIgine 100 MG TAB PO SCH (09:32)
[2022-12-02] MEDS: TAMSULOSIN HCL 0.4 MG CAP PO SCH (09:32)
--- NOTE | 2022-12-02 10:00 | Urology Progress Note ---
Date of Service December 02, 2022 Assessment & Plan (1) Pyelonephritis: (2) Bilateral nephrolithiasis: Plan 26yo/F who presented with worsening back/flank pain, fever, ill-feelings and was admitted with pyelonephritis. CT abd pelvis from 11/28 notable for cystitis and bilateral pyelonephritis, bilateral nonobstructing renal stones noted, no obstructing stones or hydronephrosis. -CT imaging with no signs of obstruction. -She is afebrile and hemodynamically stable. -Labs show no leukocytosis and normal renal function. -UCx 11/28 w/lactobacillus. Blood cultures 11/30 prelim no growth x 48hours. -IV antibiotics changed to Zosyn. -Voiding spontaneously, continue to monitor. Bladder scans have been acceptable. -No acute intervention warranted. -Continue supportive care, tamsulosin, prn oxybutynin, and prn Pyridium. -Continue antibiotic therapy and tailor as culture data becomes available. -Will arrange outpatient follow-up with our service. -Urology will follow peripherally. Please contact us any further questions, concerns, or changes in patient status. Admission and Anticipated Discharge Date Admission Date: November 30, 2022 Subjective Patient examined at bedside this AM. Awake, resting in bed on arrival. Still with b/l flank pain (R > L), mostly after urination. Also reports some urinary urgency, hesitancy, bladder spasms. Feels the medication for spasms has helped some. Bladder scans have been acceptable. Denies hematuria/dysuria. No fevers. Some nausea, no vomiting. Review of Systems Constitutional: as per Subjective / HPI Gastrointestinal: as per Subjective / HPI Genitourinary: as per Subjective / HPI Physical Exam Constitutional: no acute distress and + uncomfortable Respiratory: no respiratory distress and no labored breathing Neurologic: awake Psychiatric: Orientation: alert, oriented x 3 and cooperative Genitourinary: + CVA tenderness (bilateral R>L) Results & Data Vital Signs (Past 12 Hours) Vital Signs Temp Pulse Resp BP Pulse Ox O2 Del Method 12/02/22 07:37 36.6 C 71 16 104/69 97 Room Air 12/01/22 22:00 36.6 C 73 18 109/69 96 Room Air PG Care Time/CCT Total # of Minutes Spent Total Time Spent with Patient: Total time spent is greater than 50% in coordination of care (as documented) at patient's floor/unit and/or counseling patient: Coding Level of Care Code 17982 SUB INP/OBS CARE MIN Diagnoses Pyelonephritis N12 Bilateral nephrolithiasis N20.0
[2022-12-02] MEDS ORDERED: KETOROLAC 30 MG/ML VIAL IV STA (11:13)
[2022-12-02] MEDS ORDERED: KETOROLAC TROMETHAMINE 15 MG/ML VIAL IV PRN (11:15)
[2022-12-02] MEDS: DOCUSATE SODIUM 100 MG CAP PO SCH ×2 (11:18→20:31)
[2022-12-02] MEDS: ENOXAPARIN INJ 30 MG/0.3 ML SYR SQ SCH (11:18)
--- NOTE | 2022-12-02 13:47 | Hospitalist Progress Note ---
Date of Service December 02, 2022 Assessment & Plan (1) Complicated UTI (urinary tract infection): Plan Patient is a 26-year-old female with past medical history of Hodgkin's lymphoma status post chemoradiation (currently in remission), history of nephrolithiasis presented to the hospital on 11/28/2022 with bilateral flank pain and fever. CT abdomen and pelvis done at that time showed findings compatible with cystitis and bilateral pyelonephritis. She also had bilateral nephrolithiasis. She was discharged on cefdinir. She returned back to ED on 11/29/2022. She was started on IV antibiotics and IV hydration. She was admitted to medical floor for further management. CT A/P 1. Findings compatible with cystitis and bilateral pyelonephritis. 2. Bilateral nephrolithiasis redemonstrated. No ureteral calculi or hydronephrosis. 3. No bowel obstruction or bowel wall thickening. 4. Prior appendectomy. Bilateral pyelonephritis/cystitis with bilateral nephrolithiasis - Afebrile since admission. Normotensive and saturating well on room air. - CT abdomen and pelvis shows findings compatible with cystitis and bilateral pyelonephritis and bilateral nephrolithiasis. - Urine culture shows lactobacillus. Her urine culture in the past had grown E. coli - Blood culture negative at 48-hour - Initially started on ceftriaxone; switched over to Zosyn as patient continues to have symptoms and to cover lactobacillus. - ID consult pending - Urology following-no interventions as of now -Pain management with Tylenol, as needed Toradol alternating with Dilaudid, oxycodone prn H/o Hodgkin's lymphoma status post chemoradiation, currently in remission Hypothyroidism, euthyroid as of recent TSH-on Synthroid Mood disorder, at baseline-on Lamictal, BuSpar, Trintellix DVT prophylaxis.ak Lovenox Dispo Continues to be hospitalized for bilateral pyelonephritis with significant pain requiring significant amount of IV medication. ID evaluation pending. Please note the above document was generated using voice recognition software. It may contain grammatical, syntax or spelling errors. Any formal questions or concerns about the content, text or information contained within the body of this dictation should be directly addressed to the provider for clarification Admission and Anticipated Discharge Date Admission Date: November 30, 2022 Subjective Patient was seen and examined at bedside. She still complaining of significant pain on the right flank. Left flank pain has improved. Pain is more with lying on right side, when going to the bathroom for voiding or bowel movement-more with voiding. No fever, chills, chest pain, shortness of breath, nausea vomiting. She states oxycodone is not helping much and Dilaudid does not last long. She states she had Toradol at home which never helped her. Also states she gets sick with hydrocodone. She is asking when infectious disease is going to see her. Review of Systems Review of Systems: All systems reviewed & are unremarkable except as noted in Subjective Physical Exam Physical Exam: General: Lying in bed, not in acute distress, on room air HEENT: EOMI, MARTA, MMM Chest: Clear breath sounds bilaterally, no wheezes or crackles CVS: Regular rate and rhythm, normal heart sounds, no murmur Abdomen: Soft, non tender, not distended, normal bowel sounds Neuro: Awake, alert, oriented, conversing well, non focal Extremities: No cyanosis, clubbing or edema : Bilateral CVA tenderness Rt>>Lt Results & Data Results & Data Vital Signs (Past 12 Hours) Vital Signs Temp Pulse Resp BP Pulse Ox O2 Del Method 12/02/22 07:37 36.6 C 71 16 104/69 97 Room Air Laboratory Results Short CBC 12/02/22 Range/Units 08:00 WBC 5.23 (4.8-10.8) K/ul Hgb 12.7 (12.0-16.0) g/dl Hct 36.7 L (37.0-47.0) % Plt Count 310 (130-400) K/uL BMP 12/02/22 08:00 Sodium 137 Potassium 4.0 Chloride 103 Carbon Dioxide 29 BUN 13 Creatinine 0.86 Glucose 84 Calcium 8.6 Medications Administered Current Inpatient Medications Acetaminophen (Acetaminophen 500 Mg Tab) 1,000 mg PO Q8 MARY Stop: 12/31/22 09:29 Last Admin: 12/02/22 05:56 Dose: 1,000 mg Buspirone HCl (Buspirone 15 Mg Tab) 30 mg PO BID MARY Stop: 12/30/22 08:59 Last Admin: 12/02/22 09:31 Dose: 30 mg Clonazepam (Clonazepam 1 Mg Tab) 1 mg PO BID PRN PRN Reason: Anxiety Stop: 12/30/22 01:41 Last Admin: 12/02/22 11:49 Dose: 1 mg Docusate Sodium (Docusate Sodium 100 Mg Cap) 100 mg PO BID [facility] Stop: 12/30/22 09:44 Last Admin: 12/02/22 11:18 Dose: Not Given Enoxaparin Sodium (Enoxaparin Inj 30 Mg/0.3 Ml Syr) 30 mg SQ QAM [facility] Stop: 12/30/22 08:59 Last Admin: 12/02/22 11:18 Dose: Not Given Hydromorphone HCl (Hydromorphone Inj 0.5 Mg/0.5 Ml Syr) 0.5 mg IV Q3H PRN PRN Reason: Severe Pain (Scale 7, 8, 9,10) Stop: 12/14/22 10:29 Last Admin: 12/02/22 09:32 Dose: 0.5 mg Promethazine HCl 6.25 mg/ (Sodium Chloride) 50.25 mls @ 201 mls/hr IV Q6H PRN PRN Reason: Nausea And Vomiting Stop: 12/30/22 00:50 Last Infusion: 11/30/22 01:18 Dose: Infused Piperacillin Sod/Tazobactam (Sod 4.5 gm/ Dextrose) 120 mls @ 30 mls/hr IV Q8H [facility]; Protocol Stop: 12/11/22 13:59 Last Infusion: 12/02/22 11:20 Dose: Infused Ketorolac Tromethamine (Ketorolac Tromethamine 15 Mg/Ml Vial) 30 mg IV Q6H PRN PRN Reason: Pain Stop: 12/05/22 00:50 Lamotrigine (Lamotrigine 25 Mg Tab) 25 mg PO Q24H [facility] Stop: 12/30/22 13:59 Last Admin: 12/01/22 13:03 Dose: 25 mg Lamotrigine (Lamotrigine 100 Mg Tab) 400 mg PO QAM [facility] Stop: 12/30/22 08:59 Last Admin: 12/02/22 09:32 Dose: 400 mg Levothyroxine Sodium (Levothyroxine Sodium 75 Mcg Tablet) 75 mcg PO DAILYBB [facility] Stop: 12/30/22 06:29 Last Admin: 12/02/22 05:56 Dose: 75 mcg Lurasidone HCl (Lurasidone Hcl 40 Mg Tab) 60 mg PO QPM [facility] Stop: 12/30/22 20:59 Last Admin: 12/01/22 20:21 Dose: 60 mg Ondansetron HCl (Ondansetron 4 Mg Od Tab) 4 mg PO Q6H PRN PRN Reason: Nausea Stop: 12/30/22 09:33 Last Admin: 12/02/22 08:26 Dose: 4 mg Oxybutynin Chloride (Oxybutynin Chloride 5 Mg Tab) 5 mg PO BID PRN PRN Reason: Bladder Pain/Spasms Stop: 12/31/22 20:59 Last Admin: 12/02/22 07:22 Dose: 5 mg Oxycodone HCl (Oxycodone Hcl Ir 5 Mg Tab (Immediate Release)) 5 - 10 mg PO QID PRN PRN Reason: Pain Stop: 12/14/22 00:50 Last Admin: 12/02/22 10:40 Dose: 10 mg Phenazopyridine HCl (Phenazopyridine Hcl 200 Mg Tab) 200 mg PO BID PRN PRN Reason: Bladder pain Stop: 12/31/22 10:27 Last Admin: 12/02/22 07:22 Dose: 200 mg Tamsulosin HCl (Tamsulosin Hcl 0.4 Mg Cap) 0.4 mg PO DAILY [facility] Stop: 12/30/22 08:59 Last Admin: 12/02/22 09:32 Dose: 0.4 mg Vortioxetine (Vortioxetine Hydrobromide 20 Mg Tablet) 1 each PO HS MARY Stop: 12/30/22 20:59 Last Admin: 12/01/22 20:22 Dose: 1 each
[2022-12-02] MEDS: lamoTRIgine 25 MG TAB PO SCH (14:19)
[2022-12-02] MEDS: VORTIOXETINE HYDROBROMIDE 20 MG TABLET PO SCH (20:22)
[2022-12-02] MEDS: LURASIDONE HCL 40 MG TAB PO SCH (20:30)
[2022-12-03] MEDS: PIPERACILLIN/TAZOBACTAM 4.5 GM in DEXTROSE 5% 100 ML IV SCH ×3 (05:33→22:20)
[2022-12-03] MEDS: HYDROmorphone INJ 0.5 MG/0.5 ML SYR IV PRN ×4 (05:33→19:23)
[2022-12-03] MEDS: ACETAMINOPHEN 500 MG TAB PO SCH ×3 (05:34→22:21)
[2022-12-03] MEDS: LEVOTHYROXINE SODIUM 75 MCG TABLET PO SCH (05:35)
[2022-12-03] MEDS: ONDANSETRON 4 MG OD TAB PO PRN ×2 (06:38→15:14)
[2022-12-03] MEDS: oxyCODONE HCL IR 5 MG TAB (IMMEDIATE RELEASE) PO PRN ×3 (08:46→20:19)
[2022-12-03] MEDS: busPIRone 15 MG TAB PO SCH ×2 (08:47→20:14)
[2022-12-03] MEDS: lamoTRIgine 100 MG TAB PO SCH (08:48)
[2022-12-03] MEDS: TAMSULOSIN HCL 0.4 MG CAP PO SCH (08:49)
[2022-12-03] MEDS: ENOXAPARIN INJ 30 MG/0.3 ML SYR SQ SCH (08:50)
[2022-12-03] MEDS: DOCUSATE SODIUM 100 MG CAP PO SCH ×2 (09:02→20:16)
[2022-12-03] MEDS: oxyBUTYnin chloride 5 MG TAB PO PRN (09:02)
--- NOTE | 2022-12-03 14:18 | Hospitalist Progress Note ---
Date of Service December 03, 2022 Assessment & Plan (1) Complicated UTI (urinary tract infection): Plan Patient is a 26-year-old female with past medical history of Hodgkin's lymphoma status post chemoradiation (currently in remission), history of nephrolithiasis presented to the hospital on 11/28/2022 with bilateral flank pain and fever. CT abdomen and pelvis done at that time showed findings compatible with cystitis and bilateral pyelonephritis. She also had bilateral nephrolithiasis. She was discharged on cefdinir. She returned back to ED on 11/29/2022. She was started on IV antibiotics and IV hydration. She was admitted to medical floor for further management. CT A/P 1. Findings compatible with cystitis and bilateral pyelonephritis. 2. Bilateral nephrolithiasis redemonstrated. No ureteral calculi or hydronephrosis. 3. No bowel obstruction or bowel wall thickening. 4. Prior appendectomy. Bilateral pyelonephritis/cystitis with bilateral nephrolithiasis - Afebrile since admission. Normotensive and saturating well on room air. - CT abdomen and pelvis shows findings compatible with cystitis and bilateral pyelonephritis and bilateral nephrolithiasis. - Urine culture shows lactobacillus. Her urine culture in the past had grown E. coli - Blood culture negative at 48-hour - Initially started on ceftriaxone; switched over to Zosyn as patient continues to have symptoms and to cover lactobacillus. - ID consult pending - Urology following-no interventions as of now - Pain management with Tylenol, as needed Toradol alternating with Dilaudid, oxycodone prn H/o Hodgkin's lymphoma status post chemoradiation, currently in remission Hypothyroidism, euthyroid as of recent TSH-on Synthroid Mood disorder, at baseline-on Lamictal, BuSpar, Trintellix DVT prophylaxis.ut Nona Su Continues to be hospitalized for bilateral pyelonephritis with significant pain requiring significant amount of IV medication. ID evaluation pending. Admission and Anticipated Discharge Date Admission Date: November 30, 2022 Subjective Patient was seen and examined at bedside. She was able to get some sleep last night with IV Dilaudid. Still has significant pain on right flank and had to ask for IV Dilaudid this morning again. IV Toradol did not help. Oxycodone not helping much. She states he has urinary hesitancy and that exacerbates her pain more. Also states she had an episode of vomiting last night. No fever, chills, chest pain, shortness of breath. Review of Systems Review of Systems: All systems reviewed & are unremarkable except as noted in Subjective Physical Exam Physical Exam: General: Lying in bed, not in acute distress, on room air HEENT: EOMI, MARTA, MMM Chest: Clear breath sounds bilaterally, no wheezes or crackles CVS: Regular rate and rhythm, normal heart sounds, no murmur Abdomen: Soft, non tender, not distended, normal bowel sounds Neuro: Awake, alert, oriented, conversing well, non focal Extremities: No cyanosis, clubbing or edema : Bilateral CVA tenderness Rt>>Lt Results & Data Results & Data Vital Signs (Past 12 Hours) Vital Signs Temp Pulse Resp BP Pulse Ox O2 Del Method 12/03/22 07:37 36.7 C 87 16 106/71 98 Room Air
[2022-12-03] MEDS: lamoTRIgine 25 MG TAB PO SCH (14:32)
[2022-12-03] MEDS: clonazePAM 1 MG TAB PO PRN (17:20)
[2022-12-03] MEDS: LURASIDONE HCL 40 MG TAB PO SCH (20:13)
[2022-12-03] MEDS: VORTIOXETINE HYDROBROMIDE 20 MG TABLET PO SCH (20:14)
[2022-12-03] MEDS: PROMETHAZINE HCL 6.25 MG in SODIUM CHLORIDE 0.9% 50 ML IV PRN (20:44)
[2022-12-04] MEDS: HYDROmorphone INJ 0.5 MG/0.5 ML SYR IV PRN ×6 (02:08→22:33)
[2022-12-04] MEDS: LEVOTHYROXINE SODIUM 75 MCG TABLET PO SCH (06:02)
[2022-12-04] MEDS: PIPERACILLIN/TAZOBACTAM 4.5 GM in DEXTROSE 5% 100 ML IV SCH ×3 (06:02→22:33)
[2022-12-04] MEDS: ACETAMINOPHEN 500 MG TAB PO SCH ×3 (06:02→22:33)
[2022-12-04] MEDS: oxyCODONE HCL IR 5 MG TAB (IMMEDIATE RELEASE) PO PRN ×3 (08:10→16:52)
[2022-12-04] MEDS: ENOXAPARIN INJ 30 MG/0.3 ML SYR SQ SCH (08:13)
[2022-12-04] MEDS: ONDANSETRON 4 MG OD TAB PO PRN (08:54)
[2022-12-04 09:50] LABS: Hematocrit (blood only) 41.4 % (37.0-47.0); Hemoglobin 14.1 g/dl (12.0-16.0); Mean Corpuscular Hemoglobin 29.4 pg (25.0-34.0); Mean Corpuscular Hgb Conc 34.1 g/dL (32.0-36.0); Mean Corpuscular Volume 86.3 fL (80.0-100.0); Mean Platelet Volume 8.9 fL (9.4-12.4); Platelet Count 331 K/uL (130-400); RDW Coefficient of Variation 12.9 % (11.5-14.5); RDW Standard Deviation 40.2 fL (36.4-46.3); White Blood Count 6.32 K/ul (4.8-10.8)
[2022-12-04] MEDS: DOCUSATE SODIUM 100 MG CAP PO SCH ×2 (09:53→20:17)
[2022-12-04] MEDS: TAMSULOSIN HCL 0.4 MG CAP PO SCH (09:53)
[2022-12-04] MEDS: busPIRone 15 MG TAB PO SCH ×2 (09:53→20:17)
[2022-12-04] MEDS: lamoTRIgine 100 MG TAB PO SCH (09:54)
[2022-12-04 10:23] LABS: Calcium 9.3 mg/dl (8.6-10.3); Potassium 3.4 mmol/L (3.5-5.1)
[2022-12-04 10:28] LABS: BUN Creatinine Ratio 12.5 (10-20); Creatinine Clr Calc Pharmacy 82.9 ml/min; Est GFR (African American) 104.4 ml/min
[2022-12-04] MEDS: ONDANSETRON INJ 2 MG/ML 2 ML VIAL IV PRN ×2 (11:06→17:15)
[2022-12-04] MEDS ORDERED: POTASSIUM CHLORIDE CRTAB 20 MEQ TABCR PO ONE (11:23)
--- NOTE | 2022-12-04 11:31 | Hospitalist Progress Note ---
Date of Service December 04, 2022 Assessment & Plan (1) Complicated UTI (urinary tract infection): Plan Patient is a 26-year-old female with past medical history of Hodgkin's lymphoma status post chemoradiation (currently in remission), history of nephrolithiasis presented to the hospital on 11/28/2022 with bilateral flank pain and fever. CT abdomen and pelvis done at that time showed findings compatible with cystitis and bilateral pyelonephritis. She also had bilateral nephrolithiasis. She was discharged on cefdinir. She returned back to ED on 11/29/2022. She was started on IV antibiotics and IV hydration. She was admitted to medical floor for further management. CT A/P 1. Findings compatible with cystitis and bilateral pyelonephritis. 2. Bilateral nephrolithiasis redemonstrated. No ureteral calculi or hydronephrosis. 3. No bowel obstruction or bowel wall thickening. 4. Prior appendectomy. Bilateral pyelonephritis/cystitis with bilateral nephrolithiasis - Afebrile since admission. Normotensive and saturating well on room air. - CT abdomen and pelvis shows findings compatible with cystitis and bilateral pyelonephritis and bilateral nephrolithiasis. - Urine culture shows lactobacillus. Her urine culture in the past had grown E. coli - Blood culture negative at 48-hour - Initially started on ceftriaxone; switched over to Zosyn as patient continues to have symptoms and to cover lactobacillus. - ID consult pending - Urology following-no interventions as of now - Pain management with Tylenol, prn Dilaudid, oxycodone prn H/o Hodgkin's lymphoma status post chemoradiation, currently in remission Hypothyroidism, euthyroid as of recent TSH-on Synthroid Mood disorder, at baseline-on Lamictal, BuSpar, Trintellix Hypokalemia-repleted. Recheck as needed especially if continued emesis DVT prophylaxis.buck Su Continues to be hospitalized for bilateral pyelonephritis with significant pain requiring significant amount of IV medication. ID evaluation pending. Update: Spoke to her mom over the phone who is also an RN and previously used to work here. She had multiple concerns regarding her recurrent UTI and hospitalization and her labs not being done and that whether we are missing something. I answered all her questions to the best of my ability and will relay the concerns to the oncoming hospitalist and urology. Admission and Anticipated Discharge Date Admission Date: November 30, 2022 Subjective Patient was seen and examined at bedside. She continues to have persistent right flank pain along with hesitancy with pain with micturition. Had 2 episode of vomiting last night, 1 was insetting of severe pain. No fever, chills, chest pain, shortness of breath. Review of Systems Review of Systems: All systems reviewed & are unremarkable except as noted in Subjective Physical Exam Physical Exam: General: Lying in bed, not in acute distress, on room air HEENT: EOMI, MARTA, MMM Chest: Clear breath sounds bilaterally, no wheezes or crackles CVS: Regular rate and rhythm, normal heart sounds, no murmur Abdomen: Soft, non tender, not distended, normal bowel sounds Neuro: Awake, alert, oriented, conversing well, non focal Extremities: No cyanosis, clubbing or edema : Bilateral CVA tenderness Rt>>Lt Results & Data Results & Data Vital Signs (Past 12 Hours) Vital Signs Temp Pulse Resp BP Pulse Ox O2 Del Method 12/04/22 07:48 36.6 C 80 18 95/63 L 98 Room Air Laboratory Results Short CBC 12/04/22 Range/Units 09:27 WBC 6.32 (4.8-10.8) K/ul Hgb 14.1 (12.0-16.0) g/dl Hct 41.4 (37.0-47.0) % Plt Count 331 (130-400) K/uL BMP 12/04/22 09:27 Sodium 137 Potassium 3.4 L Chloride 101 Carbon Dioxide 27 BUN 11 Creatinine 0.88 Glucose 65 L Calcium 9.3 Medications Administered Current Inpatient Medications Acetaminophen (Acetaminophen 500 Mg Tab) 1,000 mg PO Q8 MARY Stop: 12/31/22 09:29 Last Admin: 12/04/22 06:02 Dose: 1,000 mg Buspirone HCl (Buspirone 15 Mg Tab) 30 mg PO BID MARY Stop: 12/30/22 08:59 Last Admin: 12/04/22 09:53 Dose: 30 mg Clonazepam (Clonazepam 1 Mg Tab) 1 mg PO BID PRN PRN Reason: Anxiety Stop: 12/30/22 01:41 Last Admin: 12/03/22 17:20 Dose: 1 mg Docusate Sodium (Docusate Sodium 100 Mg Cap) 100 mg PO BID [facility] Stop: 12/30/22 09:44 Last Admin: 12/04/22 09:53 Dose: 100 mg Enoxaparin Sodium (Enoxaparin Inj 30 Mg/0.3 Ml Syr) [facility] [place] [place]: 12/30/22 08:59 Last Admin: 12/04/22 08:13 Dose: Not Given Hydromorphone HCl (Hydromorphone Inj 0.5 Mg/0.5 Ml Syr) 1 mg IV Q4 PRN PRN Reason: Severe Pain (Scale 7, 8, 9,10) Stop: 12/14/22 10:18 Last Admin: 12/04/22 10:18 Dose: 1 mg Promethazine HCl 6.25 mg/ (Sodium Chloride) 50.25 mls @ 201 mls/hr IV Q6H PRN PRN Reason: Nausea And Vomiting Stop: 12/30/22 00:50 Last Infusion: 12/03/22 22:20 Dose: Infused Piperacillin Sod/Tazobactam (Sod 4.5 gm/ Dextrose) 120 mls @ 30 mls/hr IV Q8H [facility]; Protocol Stop: 12/11/22 13:59 Last Infusion: 12/04/22 11:05 Dose: Infused Lamotrigine (Lamotrigine 25 Mg Tab) 25 mg PO Q24H [facility] Stop: 12/30/22 13:59 Last Admin: 12/03/22 14:32 Dose: 25 mg Lamotrigine (Lamotrigine 100 Mg Tab) 400 [facility] [place] [place]: 12/30/22 08:59 Last Admin: 12/04/22 09:54 Dose: 400 mg Levothyroxine Sodium (Levothyroxine Sodium 75 Mcg Tablet) 75 mcg PO DAILYBB [facility] Stop: 12/30/22 06:29 Last Admin: 12/04/22 06:02 Dose: 75 mcg Lurasidone HCl (Lurasidone Hcl 40 Mg Tab) 60 mg PO QPM [facility] Stop: 12/30/22 20:59 Last Admin: 12/03/22 20:13 Dose: 60 mg Ondansetron HCl (Ondansetron Inj 2 Mg/Ml 2 Ml Vial) 4 mg IV Q6H PRN PRN Reason: Nausea And Vomiting Stop: 01/03/23 09:17 Last Admin: 12/04/22 11:06 Dose: 4 mg Oxybutynin Chloride (Oxybutynin Chloride 5 Mg Tab) 5 mg PO BID PRN PRN Reason: Bladder Pain/Spasms Stop: 12/31/22 20:59 Last Admin: 12/03/22 09:02 Dose: 5 mg Oxycodone HCl (Oxycodone Hcl Ir 5 Mg Tab (Immediate Release)) 5 - 10 mg PO QID PRN PRN Reason: Pain Stop: 12/14/22 00:50 Last Admin: 12/04/22 08:10 Dose: 10 mg Phenazopyridine HCl (Phenazopyridine Hcl 200 Mg Tab) 200 mg PO BID PRN PRN Reason: Bladder pain Stop: 12/31/22 10:27 Last Admin: 12/02/22 20:31 Dose: 200 mg Potassium Chloride (Potassium Chloride Crtab 20 Meq Tabcr) 40 meq PO NOW ONE Stop: 12/04/22 11:24 Tamsulosin HCl (Tamsulosin Hcl 0.4 Mg Cap) 0.4 mg PO DAILY MARY Stop: 12/30/22 08:59 Last Admin: 12/04/22 09:53 Dose: 0.4 mg Vortioxetine (Vortioxetine Hydrobromide 20 Mg Tablet) 1 each PO HS MARY Stop: 12/30/22 20:59 Last Admin: 12/03/22 20:14 Dose: 1 each
[2022-12-04] MEDS: clonazePAM 1 MG TAB PO PRN ×2 (11:35→20:19)
[2022-12-04] MEDS: lamoTRIgine 25 MG TAB PO SCH (14:07)
[2022-12-04 14:44] LABS: Amphetamines+Metham, Urine Neg (Neg); Barbiturates, Urine Neg (Neg); Benzodiazepine, Urine Neg (Neg); Cocaine, Urine Neg (Neg); MDMA (Ecstacy), Urine Neg (Neg); Methadone, Urine Neg (Neg); Opiate, Urine Pos (Neg); Phencyclidine, Urine Neg (Neg)
[2022-12-04] MEDS: oxyBUTYnin chloride 5 MG TAB PO PRN (15:37)
[2022-12-04] MEDS: LURASIDONE HCL 40 MG TAB PO SCH (20:17)
[2022-12-04] MEDS: VORTIOXETINE HYDROBROMIDE 20 MG TABLET PO SCH (20:18)
[2022-12-04] MEDS: PROMETHAZINE HCL 6.25 MG in SODIUM CHLORIDE 0.9% 50 ML IV PRN (22:13)
[2022-12-05] MEDS: HYDROmorphone INJ 0.5 MG/0.5 ML SYR IV PRN ×4 (03:10→17:03)
[2022-12-05] MEDS: LEVOTHYROXINE SODIUM 75 MCG TABLET PO SCH (06:19)
[2022-12-05] MEDS: ACETAMINOPHEN 500 MG TAB PO SCH ×3 (06:19→21:27)
[2022-12-05] MEDS: PIPERACILLIN/TAZOBACTAM 4.5 GM in DEXTROSE 5% 100 ML IV SCH ×3 (06:19→21:27)
[2022-12-05] MEDS: oxyCODONE HCL IR 5 MG TAB (IMMEDIATE RELEASE) PO PRN ×3 (06:28→19:28)
[2022-12-05] MEDS: ONDANSETRON INJ 2 MG/ML 2 ML VIAL IV PRN ×2 (08:44→22:05)
[2022-12-05] MEDS: ENOXAPARIN INJ 30 MG/0.3 ML SYR SQ SCH (08:47)
[2022-12-05] MEDS: TAMSULOSIN HCL 0.4 MG CAP PO SCH (08:49)
[2022-12-05] MEDS: oxyBUTYnin chloride 5 MG TAB PO PRN (08:49)
[2022-12-05] MEDS: busPIRone 15 MG TAB PO SCH ×2 (08:49→21:28)
[2022-12-05] MEDS: lamoTRIgine 100 MG TAB PO SCH (08:49)
[2022-12-05] MEDS: DOCUSATE SODIUM 100 MG CAP PO SCH ×2 (10:27→21:27)
[2022-12-05] MEDS: POLYETHYLENE (MIRALAX) 17 GM PACK PO SCH (11:09)
[2022-12-05] MEDS: lamoTRIgine 25 MG TAB PO SCH (13:36)
--- NOTE | 2022-12-05 15:42 | Hospitalist Progress Note ---
Date of Service December 05, 2022 Assessment & Plan (1) Complicated UTI (urinary tract infection): Plan Patient is a 26-year-old female with past medical history of Hodgkin's lymphoma status post chemoradiation (currently in remission), history of nephrolithiasis presented to the hospital on 11/28/2022 with bilateral flank pain and fever. CT abdomen and pelvis done at that time showed findings compatible with cystitis and bilateral pyelonephritis. She also had bilateral nephrolithiasis. She was discharged on cefdinir. She returned back to ED on 11/29/2022. She was started on IV antibiotics and IV hydration. She was admitted to medical floor for further management. CT A/P 1. Findings compatible with cystitis and bilateral pyelonephritis. 2. Bilateral nephrolithiasis redemonstrated. No ureteral calculi or hydronephrosis. 3. No bowel obstruction or bowel wall thickening. 4. Prior appendectomy. Bilateral pyelonephritis/cystitis with bilateral nephrolithiasis - Afebrile since admission. Normotensive and saturating well on room air. - CT abdomen and pelvis shows findings compatible with cystitis and bilateral pyelonephritis and bilateral nephrolithiasis. - Urine culture shows lactobacillus. Her urine culture in the past had grown E. coli - Blood culture negative at 48-hour - Initially started on ceftriaxone; switched over to Zosyn as patient continues to have symptoms and to cover lactobacillus. -Appreciate ID input and recommendation to discontinue antibiotic - Urology following-no interventions as of now - Pain management with Tylenol, prn Dilaudid, oxycodone prn -Has been requiring [id number] IV and oral narcotics pain medication -Will get CT of the abdomen pelvis with IV contrast to have a better picture of any urinary obstruction with continued pain and recurrent UTI H/o Hodgkin's lymphoma status post chemoradiation, currently in remission No signs of active disease Hypothyroidism, euthyroid as of recent TSH-on Synthroid Mood disorder, at baseline-on Lamictal, BuSpar, Trintellix Hypokalemia-repleted. Recheck as needed especially if continued emesis DVT prophylaxis.buck Su Continues to be hospitalized for bilateral pyelonephritis with significant pain requiring significant amount of IV medication. Update: Spoke to her mom over the phone who is also an RN and previously used to work here. She had multiple concerns regarding her recurrent UTI and hospitalization and her labs not being done and that whether we are missing something. I answered all her questions to the best of my ability and will relay the concerns to the oncoming hospitalist and urology. Admission and Anticipated Discharge Date Admission Date: November 30, 2022 Subjective 12/05/2022 The patient was seen and examined in medical floor She has been complaining of severe pain in the lower back She has been requiring [id number] pain medicine with intravenous narcotic and oral nitro narcotic as well Denies any fever and or chills Has had ID evaluation and advised to stop antibiotic Review of Systems Review of Systems: All systems reviewed and are unremarkable except as noted below Musculoskeletal: Bilateral lower back pain with tender in the renal angles on either side more on the right than the left Physical Exam Physical Exam: Lying in bed comfortably Constitutional: well developed, well nourished and + ill appearing Eyes: PERRL, conjunctivae normal, anicteric sclerae ENMT: external ear and nose normal, oropharynx normal Neck: trachea midline, no thyromegaly Respiratory: no respiratory distress Auscultation: lungs clear to auscultation bilaterally Cardiovascular: Rate/Rhythm: regular rate and regular rhythm; not tachycardic Heart Sounds: normal S1 and normal S2; no murmur Extremities: no edema Gastrointestinal (Abdomen): Inspection/Auscultation: normal bowel sounds; abdomen not distended Percussion/Palpation: + abdomen tender (Both the renal angles) and abdomen soft Musculoskeletal: No acute arthritis involving any of the joint Neurologic: normal touch/pain/proprioception and moves all extremities; no focal motor deficits Psychiatric: A+Ox3, euthymic affect Lymphatic: no cervical or axillary lymphadenopathy Results & Data Results & Data Vital Signs (Past 12 Hours) Vital Signs Temp Pulse Resp BP Pulse Ox O2 Del Method 12/05/22 07:50 36.7 C 84 16 104/69 100 Room Air Medications Administered Current Inpatient Medications Acetaminophen (Acetaminophen 500 Mg Tab) 1,000 mg PO Q8 MARY Stop: 12/31/22 09:29 Last Admin: 12/05/22 13:35 Dose: 1,000 mg Buspirone HCl (Buspirone 15 Mg Tab) 30 mg PO BID MARY Stop: 12/30/22 08:59 Last Admin: 12/05/22 08:49 Dose: 30 mg Clonazepam (Clonazepam 1 Mg Tab) 1 mg PO BID PRN PRN Reason: Anxiety Stop: 12/30/22 01:41 Last Admin: 12/04/22 20:19 Dose: 1 mg Docusate Sodium (Docusate Sodium 100 Mg Cap) 100 mg PO BID [facility] Stop: 12/30/22 09:44 Last Admin: 12/05/22 10:27 Dose: 100 mg Enoxaparin Sodium (Enoxaparin Inj 30 Mg/0.3 Ml Syr) 30 mg SQ QAM [facility] Stop: 12/30/22 08:59 Last Admin: 12/05/22 08:47 Dose: Not Given Hydromorphone HCl (Hydromorphone Inj 0.5 Mg/0.5 Ml Syr) 1 mg IV Q4 PRN PRN Reason: Severe Pain (Scale 7, 8, 9,10) Stop: 12/14/22 10:18 Last Admin: 12/05/22 12:59 Dose: 1 mg Promethazine HCl 6.25 mg/ (Sodium Chloride) 50.25 mls @ 201 mls/hr IV Q6H PRN PRN Reason: Nausea And Vomiting Stop: 12/30/22 00:50 Last Infusion: 12/04/22 22:28 Dose: Infused Piperacillin Sod/Tazobactam (Sod 4.5 gm/ Dextrose) 120 mls @ 30 mls/hr IV Q8H [facility]; Protocol Stop: 12/11/22 13:59 Last Admin: 12/05/22 13:36 Dose: 30 mls/hr Sodium Chloride (Nss 1000ml) 1,000 mls @ 125 mls/hr IV .Q8H [facility] Stop: 12/05/22 23:44 Lamotrigine (Lamotrigine 25 Mg Tab) 25 mg PO Q24H [facility] Stop: 12/30/22 13:59 Last Admin: 12/05/22 13:36 Dose: 25 mg Lamotrigine (Lamotrigine 100 Mg Tab) 400 mg PO QAM [facility] Stop: 12/30/22 08:59 Last Admin: 12/05/22 08:49 Dose: 400 mg Levothyroxine Sodium (Levothyroxine Sodium 75 Mcg Tablet) 75 mcg PO DAILYBB [facility] Stop: 12/30/22 06:29 Last Admin: 12/05/22 06:19 Dose: 75 mcg Lurasidone HCl (Lurasidone Hcl 40 Mg Tab) 60 mg PO QPM MARY Stop: 12/30/22 20:59 Last Admin: 12/04/22 20:17 Dose: 60 mg Ondansetron HCl (Ondansetron Inj 2 Mg/Ml 2 Ml Vial) 4 mg IV Q6H PRN PRN Reason: Nausea And Vomiting Stop: 01/03/23 09:17 Last Admin: 12/05/22 08:44 Dose: 4 mg Oxybutynin Chloride (Oxybutynin Chloride 5 Mg Tab) 5 mg PO BID PRN PRN Reason: Bladder Pain/Spasms Stop: 12/31/22 20:59 Last Admin: 12/05/22 08:49 Dose: 5 mg Oxycodone HCl (Oxycodone Hcl Ir 5 Mg Tab (Immediate Release)) 5 - 10 mg PO QID PRN PRN Reason: Pain Stop: 12/14/22 00:50 Last Admin: 12/05/22 13:36 Dose: 10 mg Phenazopyridine HCl (Phenazopyridine Hcl 200 Mg Tab) 200 mg PO BID PRN PRN Reason: Bladder pain Stop: 12/31/22 10:27 Last Admin: 12/02/22 20:31 Dose: 200 mg Polyethylene Glycol (Polyethylene (Miralax) 17 Gm Pack) 17 gm PO DAILY MARY Stop: 01/04/23 10:29 Last Admin: 12/05/22 11:09 Dose: 17 gm Tamsulosin HCl (Tamsulosin Hcl 0.4 Mg Cap) 0.4 mg PO DAILY MARY Stop: 12/30/22 08:59 Last Admin: 12/05/22 08:49 Dose: 0.4 mg Vortioxetine (Vortioxetine Hydrobromide 20 Mg Tablet) 1 each PO HS MARY Stop: 12/30/22 20:59 Last Admin: 12/04/22 20:18 Dose: 1 each
[2022-12-05] MEDS ORDERED: SODIUM CHLORIDE 0.9% 1000ML 1,000 ML IV SCH (15:45)
[2022-12-05] MEDS ORDERED: OPTIRAY 320 100ml IV ONE (16:24)
--- NOTE | 2022-12-05 16:40 | CT Scan Report ---
CT SCAN OF THE ABDOMEN AND PELVIS WITH IV CONTRAST CLINICAL HISTORY: Generalized abdominal pain. COMPARISON STUDY: Prior abdominal CT scans, most recent dated 11/29/2019 3P TECHNIQUE: Following the IV administration of 85 cc of Optiray 350, CT scan of the abdomen and pelvi s is performed from the lung bases to the proximal femora. Images are reviewed in the axial, sagittal , and coronal planes. IV contrast was administered without complication. A dose lowering technique wa s utilized adhering to the principles of ALARA. CT DOSE: 263.45 mGy.cm FINDINGS: Lung bases: The heart is normal in size and without pericardial effusion. The lung bases are clear. Liver: The contrast-enhanced liver is normal in size, contour, and attenuation. There is no intrahepa tic biliary ductal dilatation. The hepatic veins and portal veins are patent. Gallbladder: Unremarkable. Spleen: Normal in size and attenuation. Pancreas: Unremarkable. Adrenal glands: Unremarkable. Kidneys: The contrast enhanced kidneys are normal in size and without hydronephrosis. There is hetero geneous enhancement of both kidneys, left greater than right. A 15 mm cyst is again seen in the right upper pole. Punctate nonobstructing calculi are present in both kidneys. Abdominal vasculature: The abdominal aorta is normal in course and caliber. Bowel: The colon is distended and filled with liquid stool. No obstruction is seen. The appendix is not identified and reported surgically absent. Peritoneum: There is no intraperitoneal free air or abdominal ascites. There is a small fat-containin g umbilical hernia. Lymphadenopathy: None. Pelvic viscera: The bladder, uterus, and adnexa are normal as visualized. Involuting follicle is note d in the right ovary. Skeletal structures: No lytic or blastic lesions are seen. IMPRESSION: 1. There is heterogeneous enhancement of both kidneys, left greater than right. Correlate with clinic al findings and urinalysis for evidence of ascending urinary tract infection/pyelonephritis. This was also seen on 11/28/2022. 2. Punctate bilateral nonobstructing renal calculi. 3. The colon is distended and filled with liquid stool. Correlate clinically for evidence of a diarrh eal illness. 4. Additional findings as above. ACT 112: Negative or not required by law. Electronically signed by: Tevin Oneill M.D. 12/05/2022 4:38 PM
[2022-12-05] MEDS ORDERED: MAGNESIUM HYDROXIDE SUSP 30 ML UDC PO ONE (18:15)
[2022-12-05] MEDS ORDERED: HYDROmorphone INJ 0.5 MG/0.5 ML SYR IV PRN (21:03)
[2022-12-05] MEDS: VORTIOXETINE HYDROBROMIDE 20 MG TABLET PO SCH (21:29)
[2022-12-05] MEDS: LURASIDONE HCL 40 MG TAB PO SCH (22:01)
[2022-12-05] MEDS ORDERED: NSS + 20MEQ KCL 20 MEQ/1,000 ML BAG IV ONE (23:52)
[2022-12-06 00:28] LABS: Basophils # (auto) 0.04 K/uL (0-0.2); Basophils % (auto) 0.6 %; Eosinophils # (auto) 0.82 K/uL (0-0.50); Eosinophils % (auto) 13.1 %; Hematocrit (blood only) 39.8 % (37.0-47.0); Hemoglobin 13.4 g/dl (12.0-16.0); Immature Granulocytes # (auto) 0.01 K/uL (0.01-0.20); Immature Granulocytes % (auto) 0.2 %; Lymphocytes # (auto) 2.31 K/uL (1.2-3.4); Mean Corpuscular Hemoglobin 29.3 pg (25.0-34.0); Mean Corpuscular Hgb Conc 33.7 g/dL (32.0-36.0); Mean Corpuscular Volume 87.1 fL (80.0-100.0); Mean Platelet Volume 8.9 fL (9.4-12.4); Monocytes # (auto) 0.42 K/uL (0.11-0.59); Monocytes % (auto) 6.7 %; Neutrophils # (auto) 2.65 K/uL (1.40-6.50); Neutrophils % (auto) 42.4 %; Platelet Count 287 K/uL (130-400); RDW Coefficient of Variation 12.6 % (11.5-14.5); RDW Standard Deviation 39.9 fL (36.4-46.3); Red Blood Count 4.57 M/uL (4.20-5.40); White Blood Count 6.25 K/ul (4.8-10.8)
[2022-12-06 00:43] LABS: BUN Creatinine Ratio 14.8 (10-20); Calcium 9.3 mg/dl (8.6-10.3); Creatinine Clr Calc Pharmacy 82.9 ml/min; Est GFR (African American) 104.4 ml/min; Magnesium 2.1 mg/dl (1.7-2.4); Potassium 3.4 mmol/L (3.5-5.1)
--- NOTE | 2022-12-06 01:03 | CT Scan Report ---
Exam(s): CT HEAD Without Contrast EXAM: CT Head Without Intravenous Contrast CLINICAL HISTORY: Reason for exam: head trauma. TECHNIQUE: Axial computed tomography images of the head/brain without intravenous contrast. CTDI is 36.71 mGy and DLP is 537.48 mGy-cm. Automated exposure control was utilized for the study. A dose lowering technique was utilized adhering to the principles of ALARA. COMPARISON: No relevant prior studies available. FINDINGS: Brain: Unremarkable. No hemorrhage. No significant white matter disease. No edema. Ventricles: Unremarkable. No ventriculomegaly. Bones/joints: Unremarkable. No acute fracture. Soft tissues: Unremarkable. Sinuses: Unremarkable as visualized. No acute sinusitis. Mastoid air cells: Unremarkable as visualized. No mastoid effusion. IMPRESSION: Normal head/brain CT. Electronically signed by: Roe Young MD 12/06/22 01:02 AM
[2022-12-06] MEDS: oxyCODONE HCL IR 5 MG TAB (IMMEDIATE RELEASE) PO PRN ×3 (01:30→14:26)
--- NOTE | 2022-12-06 02:03 | CT Scan Report ---
Exam(s): CT C SPINE EXAM: CT Cervical Spine Without Intravenous Contrast CLINICAL HISTORY: Reason for exam: neck pain, fall. TECHNIQUE: Axial computed tomography images of the cervical spine without intravenous contrast. CTDI is 10.9 mGy and DLP is 619.18 mGy-cm. Automated exposure control was utilized for the study. A dose lowering technique was utilized adhering to the principles of ALARA. COMPARISON: No relevant prior studies available. FINDINGS: Vertebrae: Unremarkable. No acute fracture. Discs/spinal canal/neural foramina: No acute findings. No spinal canal stenosis. Soft tissues: Unremarkable. IMPRESSION: Normal cervical spine CT. Electronically signed by: Roe Young MD 12/06/22 02:02 AM
--- NOTE | 2022-12-06 02:07 | CT Scan Report ---
Exam(s): CT L SPINE EXAM: CT Lumbar Spine Without Intravenous Contrast CLINICAL HISTORY: Reason for exam: back pain, fall. TECHNIQUE: Axial computed tomography images of the lumbar spine without intravenous contrast. CTDI is 20.03 mGy and DLP is 614.18 mGy-cm. Automated exposure control was utilized for the study. A dose lowering technique was utilized adhering to the principles of ALARA. COMPARISON: No relevant prior studies available. FINDINGS: Vertebrae: Unremarkable. No acute fracture. Discs/spinal canal/neural foramina: No acute findings. No spinal canal stenosis. Soft tissues: Unremarkable. IMPRESSION: Normal lumbar spine CT. Electronically signed by: Roe Young MD 12/06/22 02:06 AM
[2022-12-06] MEDS: KETOROLAC TROMETHAMINE 15 MG/ML VIAL IV PRN ×2 (02:21→09:52)
[2022-12-06] MEDS: HYDROmorphone INJ 0.5 MG/0.5 ML SYR IV PRN ×2 (03:30→11:11)
--- NOTE | 2022-12-06 04:34 | Communication Note ---
Date of Service: December 05, 2022 11:50 PM Patient found on the floor by staff. Patient felt lightheaded and thinks she might have passed out as per her account. SBP noted to be 70s. Head trauma as per RN. Patient later complained of low back, neck pain and lateral knee pain as per RN. AP Fall, possible syncopal event likely secondary to orthostasis, low BP Patient predisposed by IV Dilaudid medication she has been asking for every 4 hours for her back pain. Rule out injury IVF CT head, cervical spine, lumbar spine, knee x-rays Decrease as needed Dilaudid dose from 1mg to 0.5 mg every 4 hours as needed pain not relieved by oral meds/Toradol. Hold parameters for Dilaudid for SBP less than 100.
[2022-12-06] MEDS: PIPERACILLIN/TAZOBACTAM 4.5 GM in DEXTROSE 5% 100 ML IV SCH (06:43)
[2022-12-06] MEDS: LEVOTHYROXINE SODIUM 75 MCG TABLET PO SCH (06:45)
[2022-12-06] MEDS: ACETAMINOPHEN 500 MG TAB PO SCH (06:45)
--- NOTE | 2022-12-06 06:52 | XRay Report ---
XR knee LT 1 or 2V routine, XR knee RT 1 or 2V routine HISTORY: 26 years-old Female pain, fall acute bilateral knee pain status post fall COMPARISON: None TECHNIQUE: 2 views of the bilateral knees FINDINGS: LEFT: No acute fracture, dislocation or opaque foreign body large or effusion. RIGHT: No acute fracture, dislocation or opaque foreign body large or effusion. IMPRESSION: No acute fracture or dislocation. ACT 112: Negative or not required by law. The above report was generated using voice recognition software. It may contain grammatical, syntax o r spelling errors. Electronically signed by: Philippe Hooks M.D. 12/06/2022 6:50 AM
[2022-12-06 07:13] VITALS: O2SAT 98
[2022-12-06] MEDS: TAMSULOSIN HCL 0.4 MG CAP PO SCH (07:57)
[2022-12-06] MEDS: busPIRone 15 MG TAB PO SCH (07:57)
[2022-12-06] MEDS: POLYETHYLENE (MIRALAX) 17 GM PACK PO SCH (07:57)
[2022-12-06] MEDS: lamoTRIgine 100 MG TAB PO SCH (07:57)
[2022-12-06] MEDS: DOCUSATE SODIUM 100 MG CAP PO SCH (07:58)
[2022-12-06] MEDS ORDERED: PANTOprazole 40 MG TAB PO SCH (11:00)
--- NOTE | 2022-12-06 12:23 | Urology Progress Note ---
Date of Service December 06, 2022 Assessment & Plan (1) Pyelonephritis: (2) Bilateral nephrolithiasis: Plan: 26 yo F who presented with worsening back/flank pain, fever, ill-feelings and was admitted with pyelonephritis. CT a/p from 11/28 notable for cystitis and bilateral pyelonephritis, bilateral nonobstructing renal stones noted, no obstructing stones or hydronephrosis. - Urology asked to reassess patient due to ongoing right flank pain. - She is afebrile and hemodynamically stable. - CT imaging repeated yesterday - some heterogeneous enhancement, no stranding, no signs of obstruction. - Labs show no leukocytosis and normal renal function. - UCx 11/28 w/lactobacillus. Blood cultures 11/30 no growth after 5 days. - She was treated with Ceftriaxone then transitioned to Zosyn during admission. - ID consult reviewed and recommendation was to discontinue antibiotics. - Voiding spontaneously. Bladder scans have been acceptable. - No acute intervention warranted. - Recommend consider other potential etiologies of pain. Can consider pain management referral. - Continue supportive care and can continue tamsulosin, prn oxybutynin, and prn Pyridium for bladder symptoms. - Will arrange outpatient follow-up with our service to consider other imaging and referral for second opinion per her request. - Urology will follow peripherally. Please contact us any further questions, concerns, or changes in patient status. Admission and Anticipated Discharge Date Admission Date: November 30, 2022 Subjective Urology asked to reassess patient due to ongoing right flank pain. Patient seen and examined at bedside this afternoon. She is awake and resting in bed. She reports ongoing flank pain (R>L). She is utilizing ice and heat in addition to as needed analgesia. She also had an episode of vasovagal yesterday, but reports no injuries. She is voiding spontaneously. No dysuria or hematuria. Continues to have some hesitancy/intermittency, but feels she is emptying her bladder. No fever or chills. Occasional nausea, no vomiting. Review of Systems Constitutional: as per Subjective / HPI Gastrointestinal: as per Subjective / HPI Genitourinary: as per Subjective / HPI Physical Exam Constitutional: well developed and well nourished; no acute distress and not ill appearing Respiratory: no respiratory distress and no labored breathing Cardiovascular: Extremities: no pedal edema Neurologic: awake Psychiatric: Orientation: alert, oriented x 3 and cooperative Genitourinary: + CVA tenderness (bilateral R>L) Results & Data Vital Signs (Past 12 Hours) Vital Signs Temp Pulse Resp BP Pulse Ox O2 Del Method 12/06/22 07:12 36.7 C 84 15 117/68 98 Room Air 12/06/22 03:25 117/77 PG Care Time/CCT Total # of Minutes Spent Total Time Spent with Patient: Total time spent is greater than 50% in coordination of care (as documented) at patient's floor/unit and/or counseling patient: Coding Level of Care Code 27326 SUB INP/OBS CARE 08/24MIN Diagnoses Pyelonephritis N12 Bilateral nephrolithiasis N20.0
--- NOTE | 2022-12-06 14:11 | Hospitalist Progress Note ---
Date of Service December 06, 2022 Assessment & Plan (1) Complicated UTI (urinary tract infection): Plan Patient is a 26-year-old female with past medical history of Hodgkin's lymphoma status post chemoradiation (currently in remission), history of nephrolithiasis presented to the hospital on 11/28/2022 with bilateral flank pain and fever. CT abdomen and pelvis done at that time showed findings compatible with cystitis and bilateral pyelonephritis. She also had bilateral nephrolithiasis. She was discharged on cefdinir. She returned back to ED on 11/29/2022. She was started on IV antibiotics and IV hydration. She was admitted to medical floor for further management. CT A/P 1. Findings compatible with cystitis and bilateral pyelonephritis. 2. Bilateral nephrolithiasis redemonstrated. No ureteral calculi or hydronephrosis. 3. No bowel obstruction or bowel wall thickening. 4. Prior appendectomy. Bilateral pyelonephritis/cystitis with bilateral nephrolithiasis - Afebrile since admission. Normotensive and saturating well on room air. - CT abdomen and pelvis shows findings compatible with cystitis and bilateral pyelonephritis and bilateral nephrolithiasis. - Urine culture shows lactobacillus. Her urine culture in the past had grown E. coli - Blood culture negative at 48-hour - Initially started on ceftriaxone; switched over to Zosyn as patient continues to have symptoms and to cover lactobacillus. -Appreciate ID input and recommendation to discontinue antibiotic - Urology following-no interventions as of now - Pain management with Tylenol, prn Dilaudid, oxycodone prn -Has been requiring [id number] IV and oral narcotics pain medication -Will get CT of the abdomen pelvis with IV contrast to have a better picture of any urinary obstruction with continued pain and recurrent UTI -Repeat CT of the abdomen and pelvis with contrast did not show possible ascending pyelonephritis and right renal cyst -Appreciate ID input and recommendation to stop antibiotic which will be discontinued from today -Appreciate reevaluation by the urologist-she will be having a renal scan as an outpatient and will be referred to [facility] for a second opinion as per urologist Apparent fall last night Likely secondary to vasovagal after watching bleeding from the IV site CT of the head, neck, lumbar spine and x-rays of the knees were unremarkable No residual injury and or effect from the fall She will be discharged home this afternoon H/o Hodgkin's lymphoma status post chemoradiation, currently in remission No signs of active disease Hypothyroidism, euthyroid as of recent TSH-on Synthroid Mood disorder, at baseline-on Lamictal, BuSpar, Trintellix Hypokalemia-repleted. Recheck as needed especially if continued emesis DVT prophylaxis.buck Su Continues to be hospitalized for bilateral pyelonephritis with significant pain requiring significant amount of IV medication. Update: Spoke to her mom over the phone who is also an RN and previously used to work here. She had multiple concerns regarding her recurrent UTI and hospitalization and her labs not being done and that whether we are missing something. I answered all her questions to the best of my ability and will relay the concerns to the oncoming hospitalist and urology. Admission and Anticipated Discharge Date Admission Date: November 30, 2022 Subjective 12/05/2022 The patient was seen and examined in medical floor She has been complaining of severe pain in the lower back She has been requiring [id number] pain medicine with intravenous narcotic and oral nitro narcotic as well Denies any fever and or chills Has had ID evaluation and advised to stop antibiotic 12/06/2022 The patient was seen and examined in medical floor She has had a fall last night and apparent imaging studies were unremarkable She complains to be more pain in the right flank area this morning and required 1 more dose of IV Dilaudid She did not have any more symptoms in the afternoon and wanted to go home Review of Systems Review of Systems: All systems reviewed and are unremarkable except as noted below Musculoskeletal: Bilateral lower back pain with tender in the renal angles on either side more on the right than the left Physical Exam Physical Exam: Lying in bed comfortably Constitutional: well developed, well nourished and + ill appearing Eyes: PERRL, conjunctivae normal, anicteric sclerae ENMT: external ear and nose normal, oropharynx normal Neck: trachea midline, no thyromegaly Respiratory: no respiratory distress Auscultation: lungs clear to auscultation bilaterally Cardiovascular: Rate/Rhythm: regular rate and regular rhythm; not tachycardic Heart Sounds: normal S1 and normal S2; no murmur Extremities: no edema Gastrointestinal (Abdomen): Inspection/Auscultation: normal bowel sounds; abdomen not distended Percussion/Palpation: + abdomen tender (Both the renal angles) and abdomen soft Musculoskeletal: No acute arthritis involving any of the joints Neurologic: normal touch/pain/proprioception and moves all extremities; no focal motor deficits Psychiatric: A+Ox3, euthymic affect Genitourinary: No dysuria and/or frequency Lymphatic: no cervical or axillary lymphadenopathy Results & Data Results & Data Vital Signs (Past 12 Hours) Vital Signs Temp Pulse Resp BP Pulse Ox O2 Del Method 12/06/22 07:12 36.7 C 84 15 117/68 98 Room Air 12/06/22 03:25 117/77 Laboratory Results Short CBC 12/05/22 Range/Units 23:59 WBC 6.25 (4.8-10.8) K/ul Hgb 13.4 (12.0-16.0) g/dl Hct 39.8 (37.0-47.0) % Plt Count 287 (130-400) K/uL BMP 12/05/22 23:59 Sodium 135 L Potassium 3.4 L Chloride 104 Carbon Dioxide 23 BUN 13 Creatinine 0.88 Glucose 102 H Calcium 9.3 Medications Administered Current Inpatient Medications Acetaminophen (Acetaminophen 500 Mg Tab) 1,000 mg PO Q8 [facility] Stop: 12/31/22 09:29 Last Admin: 12/06/22 06:45 Dose: 1,000 mg Buspirone HCl (Buspirone 15 Mg Tab) 30 mg PO BID [facility] Stop: 12/30/22 08:59 Last Admin: 12/06/22 07:57 Dose: 30 mg Clonazepam (Clonazepam 1 Mg Tab) 1 mg PO BID PRN PRN Reason: Anxiety Stop: 12/30/22 01:41 Last Admin: 12/04/22 20:19 Dose: 1 mg Docusate Sodium (Docusate Sodium 100 Mg Cap) 100 mg PO BID [facility] Stop: 12/30/22 09:44 Last Admin: 12/06/22 07:58 Dose: Not Given Enoxaparin Sodium (Enoxaparin Inj 30 Mg/0.3 Ml Syr) 30 mg SQ QAM MARY Stop: 12/30/22 08:59 Last Admin: 12/05/22 08:47 Dose: Not Given Hydromorphone HCl (Hydromorphone Inj 0.5 Mg/0.5 Ml Syr) 0.5 mg IV Q4 PRN PRN Reason: Severe Pain (Scale 7, 8, 9,10) Stop: 12/14/22 21:02 Last Admin: 12/06/22 11:11 Dose: 0.5 mg Promethazine HCl 6.25 mg/ (Sodium Chloride) 50.25 mls @ 201 mls/hr IV Q6H PRN PRN Reason: Nausea And Vomiting Stop: 12/30/22 00:50 Last Infusion: 12/04/22 22:28 Dose: Infused Piperacillin Sod/Tazobactam (Sod 4.5 gm/ Dextrose) 120 mls @ 30 mls/hr IV Q8H MARY; Protocol Stop: 12/11/22 13:59 Last Infusion: 12/06/22 10:49 Dose: Infused Ketorolac Tromethamine (Ketorolac Tromethamine 15 Mg/Ml Vial) 15 mg IV Q6H PRN PRN Reason: Pain Stop: 12/10/22 23:55 Last Admin: 12/06/22 09:52 Dose: 15 mg Lamotrigine (Lamotrigine 25 Mg Tab) 25 mg PO Q24H [facility] Stop: 12/30/22 13:59 Last Admin: 12/05/22 13:36 Dose: 25 mg Lamotrigine (Lamotrigine 100 Mg Tab) 400 mg PO QAM [facility] Stop: 12/30/22 08:59 Last Admin: 12/06/22 07:57 Dose: 400 mg Levothyroxine Sodium (Levothyroxine Sodium 75 Mcg Tablet) 75 mcg PO DAILYBB [facility] Stop: 12/30/22 06:29 Last Admin: 12/06/22 06:45 Dose: 75 mcg Lurasidone HCl (Lurasidone Hcl 40 Mg Tab) 60 mg PO QPM [facility] Stop: 12/30/22 20:59 Last Admin: 12/05/22 22:01 Dose: 60 mg Ondansetron HCl (Ondansetron Inj 2 Mg/Ml 2 Ml Vial) 4 mg IV Q6H PRN PRN Reason: Nausea And Vomiting Stop: 01/03/23 09:17 Last Admin: 12/05/22 22:05 Dose: 4 mg Oxybutynin Chloride (Oxybutynin Chloride 5 Mg Tab) 5 mg PO BID PRN PRN Reason: Bladder Pain/Spasms Stop: 12/31/22 20:59 Last Admin: 12/05/22 08:49 Dose: 5 mg Oxycodone HCl (Oxycodone Hcl Ir 5 Mg Tab (Immediate Release)) 5 - 10 mg PO QID PRN PRN Reason: Pain Stop: 12/14/22 00:50 Last Admin: 12/06/22 07:57 Dose: 10 mg Pantoprazole Sodium (Pantoprazole 40 Mg Tab) 40 mg PO QAM MARY Stop: 01/05/23 10:59 Last Admin: 12/06/22 11:12 Dose: Not Given Phenazopyridine HCl (Phenazopyridine Hcl 200 Mg Tab) 200 mg PO BID PRN PRN Reason: Bladder pain Stop: 12/31/22 10:27 Last Admin: 12/02/22 20:31 Dose: 200 mg Polyethylene Glycol (Polyethylene (Miralax) 17 Gm Pack) 17 gm PO DAILY MARY Stop: 01/04/23 10:29 Last Admin: 12/06/22 07:57 Dose: 17 gm Tamsulosin HCl (Tamsulosin Hcl 0.4 Mg Cap) 0.4 mg PO DAILY [facility]ARY Stop: 12/30/22 08:59 Last Admin: 12/06/22 07:57 Dose: 0.4 mg Vortioxetine (Vortioxetine Hydrobromide 20 Mg Tablet) 1 each PO HS MARY Stop: 12/30/22 20:59 Last Admin: 12/05/22 21:29 Dose: 1 each
[2022-12-06 14:53] VITALS: TEMP 98.4
[2022-12-06 15:02] VITALS: BP 117/68; PULSE 80
--- NOTE | 2022-12-07 07:45 | Discharge Summary ---
Date of Service December 06, 2022 Admission HPI Per Admitting Provider History obtained from patient and records. Medical history significant for recurrent UTIs, urolithiasis, Hodgkin's lymphoma status post chemoradiation, hypothyroidism, mood disorder. Last confinement July 2022 for complicated UTI in setting of recent urologic instrumentation. E. coli on urine CS. Yesterday, patient noted worsening flank pain with hematuria symptoms which patient attributes to her menses. No fever, no chills. No chest pain, no SOB. Patient consulted ER for worsening symptoms. IV ceftriaxone administered at the ER. Few days history of urinary urgency/frequency symptoms back pain. Patient seen at the ER 2 days ago. Cystitis and bilateral pyelonephritis noted on CT imaging. Nephrolithiasis without hydronephrosis noted as well. UA showed WBC of 5-10 Patient discharged on cefdinir course. Worsening symptoms with fever noted at home despite compliance with antibiotic Rx. Emesis without chest pain, SOB. IV ceftriaxone administered at the ER. 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 Admission Exam Per Admitting Provider Physical Exam: GENERAL: Slightly uncomfortable, pleasant, no respiratory distress SKIN: Normal color , warm HEENT: Bespectacled, pink palpebral conjunctivae, no ptosis, dry buccal mucosa NECK : Supple, no tenderness CHEST : CTA, no tenderness HEART : RRR, no obvious murmurs ABDOMEN: Some distention, nontender BACK : Bilateral flank tenderness EXTREMITIES : No LE swelling/tenderness, no other conspicuous deformities noted NEUROLOGIC : Coherent, no facial asymmetry, no other gross focality Principal Diagnosis Complicated UTI, history of Hodgkin's lymphoma status post chemoradiation, mood disorder Discharge Exam Lying in bed comfortably Constitutional well developed, well nourished and + ill appearing Eyes PERRL, conjunctivae normal, anicteric sclerae ENMT external ear and nose normal, oropharynx normal Neck trachea midline, no thyromegaly Respiratory no respiratory distress Auscultation: lungs clear to auscultation bilaterally Cardiovascular Rate/Rhythm: regular rate and regular rhythm; not tachycardic Heart Sounds: normal S1 and normal S2; no murmur Extremities: no edema Gastrointestinal (Abdomen) Inspection/Auscultation: normal bowel sounds; abdomen not distended Percussion/Palpation: + abdomen tender (Both the renal angles) and abdomen soft Neurologic normal touch/pain/proprioception and moves all extremities; no focal motor deficits Psychiatric A+Ox3, euthymic affect Lymphatic no cervical or axillary lymphadenopathy Discharge Data Allergies Allergy/AdvReac Type Severity Reaction Status Date / Time Sulfa (Sulfonamide Allergy Intermediate itching, Verified 11/28/22 18:18 Antibiotics) hives sulfamethoxazole Allergy Intermediate itching, Verified 11/28/22 18:18 hives trimethoprim Allergy Intermediate itching, Verified 11/28/22 18:18 hives Consultations 11/29/22 20:24 ED Decision to Admit Stat 11/30/22 09:37 Consult Urology Routine 12/02/22 07:56 Consult Infectious Diseases Routine Ordered Studies 12/05/22 15:48 CT Abd and Pelvis [CT abd pelvis IV con only] Routine 12/05/22 23:50 CT head/brain wo con Stat 12/06/22 01:26 CT cervical spine wo con Stat 12/06/22 01:36 CT lumbar spine wo con Stat Hospital Course (1) Complicated UTI (urinary tract infection): Plan Patient is a 26-year-old female with past medical history of Hodgkin's lymphoma status post chemoradiation (currently in remission), history of nephrolithiasis presented to the hospital on 11/28/2022 with bilateral flank pain and fever. CT abdomen and pelvis done at that time showed findings compatible with cystitis and bilateral pyelonephritis. She also had bilateral nephrolithiasis. She was discharged on cefdinir. She returned back to ED on 11/29/2022. She was started on IV antibiotics and IV hydration. She was admitted to medical floor for further management. CT A/P 1. Findings compatible with cystitis and bilateral pyelonephritis. 2. Bilateral nephrolithiasis redemonstrated. No ureteral calculi or hydronephrosis. 3. No bowel obstruction or bowel wall thickening. 4. Prior appendectomy. Bilateral pyelonephritis/cystitis with bilateral nephrolithiasis - Afebrile since admission. Normotensive and saturating well on room air. - CT abdomen and pelvis shows findings compatible with cystitis and bilateral pyelonephritis and bilateral nephrolithiasis. - Urine culture shows lactobacillus. Her urine culture in the past had grown E. coli - Blood culture negative at 48-hour - Initially started on ceftriaxone; switched over to Zosyn as patient continues to have symptoms and to cover lactobacillus. -Appreciate ID input and recommendation to discontinue antibiotic - Urology following-no interventions as of now - Pain management with Tylenol, prn Dilaudid, oxycodone prn -Has been requiring [id number] IV and oral narcotics pain medication -Will get CT of the abdomen pelvis with IV contrast to have a better picture of any urinary obstruction with continued pain and recurrent UTI -Repeat CT of the abdomen and pelvis with contrast did not show possible ascending pyelonephritis and right renal cyst -Appreciate ID input and recommendation to stop antibiotic which will be discontinued from today -Appreciate reevaluation by the urologist-she will be having a renal scan as an outpatient and will be referred to [facility] for a second opinion as per urologist Apparent fall last night Likely secondary to vasovagal after watching bleeding from the IV site CT of the head, neck, lumbar spine and x-rays of the knees were unremarkable No residual injury and or effect from the fall She will be discharged home this afternoon H/o Hodgkin's lymphoma status post chemoradiation, currently in remission No signs of active disease Hypothyroidism, euthyroid as of recent TSH-on Synthroid Mood disorder, at baseline-on Lamictal, BuSpar, Trintellix Hypokalemia-repleted. Recheck as needed especially if continued emesis DVT prophylaxis.buck Su Continues to be hospitalized for bilateral pyelonephritis with significant pain requiring significant amount of IV medication. Update: Spoke to her mom over the phone who is also an RN and previously used to work here. She had multiple concerns regarding her recurrent UTI and hospitalization and her labs not being done and that whether we are missing something. I answered all her questions to the best of my ability and will relay the concerns to the oncoming hospitalist and urology. Total Time Total Time Spent Total Time Spent (In Minutes): 35 minutes Discharge Plan Discharge Items Patient Disposition: Home - Self-Care Reason For Visit: COMPLICATED UTI Discharge Diagnosis: Complicated UTI, history of Hodgkin's lymphoma status post chemoradiation, mood disorder Condition on Discharge: Good Activity: Resume your previous activity Non-emergency contact: Primary Care Provider Call non-emergency contact if: you have any medication questions and your symptoms worsen Follow-up/Referrals: Promise Chen DO [Primary Care Provider] - (Date & Time 12/12/2022 5:00 PM Provider Promise Chen, DO Department Family Practice [facility] ) Diet: Regular Addtl Attending Provider Instructions: Please take precautions to avoid fall Drink more fluid Try to use ibuprofen to control pain Try to use less of narcotic pain medications to avoid constipation, confusion, drowsiness and addiction Please keep appointment with your healthcare providers Pending Studies at Discharge: No Stand-Alone Forms: My [facility], Smoking Cessation Medications and DC Order Prescriptions: New pantoprazole 40 mg Tablet,Delayed Release (Dr/Ec) 40 mg PO QAM 30 Days Qty: 30 0RF oxybutynin chloride 5 mg Tablet 5 mg PO BID PRN (Reason: bladder spasms) 30 Days Qty: 30 0RF oxycodone 5 mg Tablet 5 mg PO QID PRN (Reason: pain) 3 Days Qty: 10 0RF Continued levothyroxine 75 mcg tablet 75 mcg PO QAM Qty: 30 2RF lamotrigine [Lamictal] 100 mg tablet 100 mg PO QAM Rx Instructions: TOTAL DOSE 400 MG--TAKES WITH 2-150 MG TABS. buspirone 30 mg tablet 30 mg PO BID Qty: 60 2RF tamsulosin 0.4 mg capsule 0.4 mg PO DAILY Qty: 30 1RF ketorolac 10 mg tablet 10 mg PO TID PRN (Reason: pain) Qty: 14 0RF lamotrigine 150 mg tablet 300 mg PO QAM Rx Instructions: TOTAL DOSE 400 MG--TAKES WITH 100 MG TAB. clonazepam 1 mg tablet 1 mg PO BID PRN (Reason: Anxiety) lamotrigine 25 mg tablet 25 mg PO .Q AFTERNOON lurasidone [Latuda] 60 mg tablet 60 mg PO QPM Rx Instructions: must administer with food (at least 350 calories) Trintellix 20 mg Tablet 20 mg PO HS ondansetron 4 mg tablet,disintegrating 4 mg PO Q6H PRN (Reason: nausea and vomiting) Qty: 20 0RF Discontinued cefdinir 300 mg capsule 300 mg PO BID 10 Days Qty: 20 0RF Discharge Orders: Discharge Order (Routine); Ordered 12/06/22 Ordered By: Ernesto Alcala Admission Data Admit Date/Time: 11/30/22 00:49 Attending Provider: Ernesto Alcala Admit Provider: Brandan Viera Primary Care Provider: Promise Chen Other Providers: Brandan Veira ; Kodak So ; Atif Azul ; Lizet Ingram ; Kristian Brizuela I. ; Michael Robison II ; Tena Spivey ; Jonny Lane ; Binu Evangelista ; Scar Buck ; Reginaldo Drummond Other Interventions: Discharge Summary Assessment (RN) Last Done: 12/06/22 15:01
[2022-12-07 11:31] LABS: Codeine Urine NEGATIVE ng/mL (<50); Hydrocodone Urine NEGATIVE ng/mL (<50); Hydromor Urine 116 ng/mL (<50); Morphine Urine NEGATIVE ng/mL (<50); Norhydrocodone Conf Ur NEGATIVE ng/mL (<50); Noroxycodone Urine 583 ng/mL (<50); Oxycodone Urine 489 ng/mL (<50); Oxymorph Urine 117 ng/mL (<50)
== END 2022-12-06 15:18 | disposition home or self-care (01) ==
LOC: ED 18:54 → SUATTDRO 11-30 00:49 → 3W 11-30 00:49 → INTOOBSV 11-30 00:49 → 3W 11-30 01:41

== ENCOUNTER 2023-03-05 14:32 | Observation (INO) ==
[2023-03-05] MEDS ORDERED: ONDANSETRON INJ 2 MG/ML 2 ML VIAL IV STA ×2 (14:44→18:16)
[2023-03-05] MEDS ORDERED: SODIUM CHLORIDE 0.9% 1000ML 1,000 ML IV SCH (14:45)
--- NOTE | 2023-03-05 14:58 | Emergency Department Note ---
Impression & Plan Nausea & vomiting, Hypokalemia, Cannabis abuse ED Provider Note NAME: TITI NAPIER AGE: 27 SEX: F : 1995 ARRIVES VIA: Ambulance INFORMANT: Patient, ED PROVIDER(S): Eric Armando DO CHIEF COMPLAINT: Medication abuse HPI: The patient is a 27-year-old female who presented to the emergency department for an evaluation of possible withdrawal from the medication which is [id number] that she has been abusing. She has been using a liquid form of Kratom which she has been using as an energy drink. She has a history of heroin abuse in the past. She has not been using any IV drugs or alcohol. She denies having any suicidal homicidal ideation. Her significant other recently found out that she was using this erbq-cho-wwvyrib medication. 911 was called today because the patient's symptoms. She has been having carpopedal spasm as well as nausea vomiting. The patient has not been noticing any headache. She had no trauma. She denies having any fever or cough. ROS: See above HPI for pertinent positives & negatives. A total of 10 systems reviewed and were otherwise negative. PAST MEDICAL HISTORY: See Below PAST SURGICAL HISTORY: See Below FAMILY HISTORY: See Below SOCIAL HISTORY: See Below HOME MEDICATIONS: See Below ALLERGIES: See Below VITALS: See Below PHYSICAL EXAMINATION: GENERAL: The patient is awake and alert. The patient is somewhat anxious appearing. EYES: The conjunctivae are clear. The pupils are round and reactive. EARS, NOSE, MOUTH AND THROAT: The nose is without any evidence of any deformity. Mucous membranes are moist. Tongue is midline. NECK: The neck is nontender and supple. RESPIRATORY: Normal respiratory effort is noted there is no evidence of wheezing rhonchi or rales CARDIOVASCULAR: Regular rate and rhythm noted there no murmurs rubs or gallops normal S1 normal S2. GASTROINTESTINAL: The abdomen is soft. Abdomen is nontender. MUSCULOSKELETAL/EXTREMITIES: There is no evidence of gross deformity full range of motion is noted in the hips and shoulders. Carpopedal spasm was noted in the upper extremities. SKIN: There is no obvious evidence of any rash. There are no petechiae, pallor or cyanosis noted. NEUROLOGIC: Patient is awake alert and oriented x3 strength is symmetric patellar reflexes are 2+ bilaterally PSYCH: The patient makes poor eye contact mostly evaluation. Her affect is flat. She denies any suicidal homicidal ideation. MEDICAL DECISION MAKING: The patient is a 27-year-old female who presented to the emergency department ambulance for an evaluation of nausea vomiting. The patient has a history of drug abuse in the past. She started using a synthetic marijuana product. She has been using that for many weeks. Apparently she started having side effects of nausea vomiting. She also started having carpopedal spasm. I discussed the patient's laboratory and radiographic studies with her. She was treated with magnesium as well as potassium replacement. She started having episodes of emesis. Given her ongoing symptoms I do not feel the patient would be a good candidate for outpatient management. For this reason I will discuss her case with the on-call [facility] Hospitalist. Triage Nursing notes reviewed. Prior medical records reviewed Vital Signs: reviewed and remarkable for no significant abnormalities Differential diagnosis: Overdose, toxicologic, infection, hypoglycemia, electrolyte abnormalities, cardiac sources, intracerebral event, neurologic, trauma, as well as other pathologies. ER treatment provided: See below Diagnostics interpreted by me: ECG: EKG was obtained in the emergency department. My interpretation is normal sinus rhythm at 86 bpm. There is no ectopy. There is no acute ST segment abnormalities noted. This was compared to a tracing from August 18, 2012. No changes were noted Cardiac Monitoring: An order was placed for continuous cardiac monitoring. The monitor shows a rate of 93 bpm with sinus rhythm. Laboratory studies: As stated above and show below. Imaging studies: See below. Radiographic imaging was reviewed by myself Consultation(s): I discussed this case with Dr. Victoria who is on-call for the [facility] Hospitalist group. Past Med/Surg History Medical History Anxiety Bipolar disease during , antepartum Bipolar disorder - Denies SI/HI. States mood is ok. Depression Endometriosis Health care maintenance History of COVID-19 DX'D 08/2020 MOBILE TESTING SITE OTIS ORCHARDS-LOSS TASTE AND SMELL-RECOVERED AT HOME-RESOLVED Hodgkins lymphoma DX'D 2017-s/p chemo/radiation - currently in remission. 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 H/O nasal septoplasty H/O wisdom tooth extraction History of bilateral tubal ligation with last 02/2022 History of lymph node biopsy History of tonsillectomy November [address] LA included Adenoids History of transurethral resection of bladder tumor (TURBT) done at same time as cysto w/ureteral stent placement w/bladder bx. History of vascular access device 12/14/2018-AND REMOVED S/P appendectomy 09/06/1819 Grade 1 view, MAC 3, ETT 7. S/P x2--last 03/10/22 with bilt tubal @ [facility] S/P cystoscopy with ureteral stent placement w/laser destruction kidney stone S/P radiotherapy Family History Grandmother (Paternal) Ovarian cancer Cervical adenocarcinoma H/O: hysterectomy Mother Family history of reaction to anesthesia PONV-EMOTIONAL Denies family history of Diabetes Myocardial infarction Breast cancer Lung cancer Colorectal cancer Hypertension Uterine cancer Stroke Social History Smoking Status: Never smoker Age Started Using Tobacco: 15; Age Quit Using Tobacco: 16; packs per day: 0.25; Second Hand Exposure: No; Do You Dip or Chew Tobacco: No; Hx Alcohol Use: No Hx Substance Use: No Preferred Language: Ukrainian Communication Ability: Effective Visual Impairment: No Limitations Hearing Ability: Normal Dining Services Director Required: No Beliefs That Will Affect Care: None marital status: marital status details: Omari Napier (29) [phone] Current Living Situation: Spouse Current Living Situation Comment: lives with spouse, 1 daughter, 1 step daughter, and son current occupational status: employed 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- [employer] Feels Safe at Home: Yes Childhood Exposure to Second-Hand Smoke: No Assistive Devices: None Allergies Allergies Allergy/AdvReac Type Severity Reaction Status Date / Time Sulfa (Sulfonamide Allergy Intermediate itching, Verified 11/28/22 18:18 Antibiotics) hives sulfamethoxazole Allergy Intermediate itching, Verified 11/28/22 18:18 hives trimethoprim Allergy Intermediate itching, Verified 11/28/22 18:18 hives Home Meds Home Medications Medication Instructions Recorded Confirmed lamotrigine 100 mg tablet 100 mg PO QAM 04/28/21 11/29/22 (Lamictal) lamotrigine 150 mg tablet 300 mg PO QAM 09/16/21 11/29/22 lurasidone 60 mg tablet (Latuda) 60 mg PO QPM 09/20/21 11/29/22 vortioxetine 20 mg tablet 20 mg PO HS 07/29/22 11/29/22 (Trintellix) clonazepam 1 mg tablet 1 mg PO BID PRN Anxiety 11/29/22 11/29/22 lamotrigine 25 mg tablet 25 mg PO .Q AFTERNOON 11/29/22 11/29/22 Previous Rx's Medication Instructions Recorded buspirone 30 mg tablet 30 mg PO BID #60 tabs 07/11/19 ondansetron 4 mg disintegrating 4 mg PO Q6H PRN nausea and 11/28/22 tablet vomiting #20 tabs ketorolac 10 mg tablet 10 mg PO TID PRN pain #14 tabs 11/29/22 tamsulosin 0.4 mg capsule 0.4 mg PO DAILY #30 caps 11/29/22 ciprofloxacin HCl 250 mg tablet 250 mg PO BID 3 days #6 tabs 12/23/22 levothyroxine 75 mcg tablet 75 mcg PO QAM #30 tabs 02/03/23 Results & Data (ED) Vital Signs Vital Signs - 24 hr 03/05/23 14:37 03/05/23 14:44 03/05/23 14:22 Temperature 37.2 C Temperature Source Oral Pulse Rate 83 87 Pulse Rhythm Regular Pulse Strength Normal Respiratory Rate 18 16 16 Respiratory Effort / Characteristics Non-Labored Respiratory Depth Normal Respiratory Pattern Regular Blood Pressure 116/75 Blood Pressure [Right Arm] 116/75 Blood Pressure Mean 88 Blood Pressure Mean [Right Arm] 88 Blood Pressure Position Lying Pulse Oximetry 98 99 99 Oxygen Delivery Method Room Air Room Air Sepsis Recent Fever Within 48 Hours No Sepsis New/Unexplained Change in Mental Status N/A Sepsis Action Taken by Nursing No Action Required 03/05/23 17:51 Temperature Temperature Source Pulse Rate 93 H Pulse Rhythm Pulse Strength Respiratory Rate Respiratory Effort / Characteristics Respiratory Depth Respiratory Pattern Blood Pressure Blood Pressure [Right Arm] Blood Pressure Mean Blood Pressure Mean [Right Arm] Blood Pressure Position Pulse Oximetry Oxygen Delivery Method Sepsis Recent Fever Within 48 Hours Sepsis New/Unexplained Change in Mental Status Sepsis Action Taken by [place] Medications Current Medication List: was personally reviewed by me Laboratory Data Attestation: I reviewed the patient's lab results. 03/05/23 15:18 03/05/23 15:18 Lab Results 03/05/23 03/05/23 03/05/23 Range/Units 15:18 15:18 15:18 WBC 13.32 H (4.8-10.8) K/ul RBC 5.05 (4.20-5.40) M/uL Hgb 14.8 (12.0-16.0) g/dl Hct 42.6 (37.0-47.0) % MCV 84.4 (80.0-100.0) fL MCH 29.3 (25.0-34.0) pg MCHC 34.7 (32.0-36.0) g/dL RDW Std Deviation 40.4 (36.4-46.3) fL RDW Coeff of Joseph 13.2 (11.5-14.5) % Plt Count 373 (130-400) K/uL MPV 9.2 L (9.4-12.4) fL Immature Gran % (Auto) 0.7 % Neut % (Auto) 92.2 % Lymph % (Auto) 4.0 % Wells % (Auto) 2.9 % Eos % (Auto) 0.0 % Baso % (Auto) 0.2 % Neut # (Auto) 12.29 H (1.40-6.50) K/uL Lymph # (Auto) 0.53 L (1.2-3.4) K/uL Wells # (Auto) 0.39 (0.11-0.59) K/uL Eos # (Auto) 0.00 (0-0.50) K/uL Baso # (Auto) 0.02 (0-0.2) K/uL Immature Gran # (Auto) 0.09 (0.01-0.20) K/uL Hypersegmented Neuts 1+ PT 12.3 H (9.0-12.0) Seconds INR 1.1 (0.9-1.1) APTT 22.8 (21.0-31.0) Seconds PTT Ratio 0.8 VBG pH (7.36-7.41) VBG pCO2 (38-50) mmHg VBG pO2 mmHg VBG HCO3 mmol/L VBG O2 Saturation % VBG Base Excess mEq/L Sodium 140 (136-145) mmol/L Potassium 2.7 L (3.5-5.1) mmol/L Chloride 105 (98-107) mmol/L Carbon Dioxide 23 (21-32) mmol/L Anion Gap 12 H (3-11) BUN 16 (6-23) mg/dl Creatinine 0.73 (0.6-1.2) mg/dl Est Cr Clr Drug Dosing 108.3 ml/min Est GFR ( Amer) 129.9 ml/min Est GFR (Non-Af Amer) 112.1 ml/min BUN/Creatinine Ratio 21.9 H (10-20) Glucose 83 (70-99(Fasting)) mg/dl Calcium 10.0 (8.6-10.3) mg/dl Magnesium 1.8 (1.7-2.4) mg/dl Total Bilirubin 0.7 (0.2-1.0) mg/dl AST 19 (13-39) U/L ALT 16 (7-52) U/L Alkaline Phosphatase 77 (34-104) U/L Total Creatine Kinase 92 (26-192) U/L Troponin I High Sens < 2.3 (0-14) pg/ml Total Protein 8.2 (6.0-8.3) gm/dl Albumin 5.1 H (3.4-5.0) gm/dl Globulin 3.1 (2.5-4.0) gm/dl Albumin/Globulin Ratio 1.6 (0.9-2) Lipase 11 (11-82) U/L HCG, Qual (Negative) Urine Color Urine Appearance (Clear) Urine pH (4.5-7.5) Ur Specific Austin (1.000-1.030) Urine Protein (Negative) Urine Glucose (UA) (Negative) Urine Ketones (Negative) Urine Blood (Negative) Urine Nitrite (Negative) Urine Bilirubin (Negative) Urine Urobilinogen (Negative) Ur Leukocyte Esterase (Negative) Urine WBC (Auto) (0-5) /hpf Urine RBC (Auto) (0-4) /hpf U Hyaline Cast (Auto) (0-5) /lpf U Epithel Cells (Auto) (0-5) /lpf Urine Bacteria (Auto) (Negative) Ur Renal Epithelial Cell (0-5) /lpf Salicylates (3.0-30) mg/dl Urine Opiates Screen (Neg) Ur Methadone, Qual (Neg) Acetaminophen (10-30) ug/ml Urine Barbiturates (Neg) Ur Phencyclidine (PCP) (Neg) U Amphetamin/Meth Scrn (Neg) MDMA (Ecstasy) Screen (Neg) U Benzodiazepines Scrn (Neg) Ur Cocaine Metabolite (Neg) U Marijuana (THC) Screen (Neg) Ethyl Alcohol mg/dL (<10.0) mg/dl SARS-CoV-2, RNA, NAAT (NEGATIVE) 03/05/23 03/05/23 03/05/23 Range/Units 15:18 15:18 15:18 WBC (4.8-10.8) K/ul RBC (4.20-5.40) M/uL Hgb (12.0-16.0) g/dl Hct (37.0-47.0) % MCV (80.0-100.0) fL MCH (25.0-34.0) pg MCHC (32.0-36.0) g/dL RDW Std Deviation (36.4-46.3) fL RDW Coeff of Joseph (11.5-14.5) % Plt Count (130-400) K/uL MPV (9.4-12.4) fL Immature Gran % (Auto) % Neut % (Auto) % Lymph % (Auto) % Wells % (Auto) % Eos % (Auto) % Baso % (Auto) % Neut # (Auto) (1.40-6.50) K/uL Lymph # (Auto) (1.2-3.4) K/uL Wells # (Auto) (0.11-0.59) K/uL Eos # (Auto) (0-0.50) K/uL Baso # (Auto) (0-0.2) K/uL Immature Gran # (Auto) (0.01-0.20) K/uL Hypersegmented Neuts PT (9.0-12.0) Seconds INR (0.9-1.1) APTT (21.0-31.0) Seconds PTT Ratio VBG pH (7.36-7.41) VBG pCO2 (38-50) mmHg VBG pO2 mmHg VBG HCO3 mmol/L VBG O2 Saturation % VBG Base Excess mEq/L Sodium (136-145) mmol/L Potassium (3.5-5.1) mmol/L Chloride (98-107) mmol/L Carbon Dioxide (21-32) mmol/L Anion Gap (3-11) BUN (6-23) mg/dl Creatinine (0.6-1.2) mg/dl Est Cr Clr Drug Dosing ml/min Est GFR ( Amer) ml/min Est GFR (Non-Af Amer) ml/min BUN/Creatinine Ratio (10-20) Glucose (70-99(Fasting)) mg/dl Calcium (8.6-10.3) mg/dl Magnesium (1.7-2.4) mg/dl Total Bilirubin (0.2-1.0) mg/dl AST (13-39) U/L ALT (7-52) U/L Alkaline Phosphatase (34-104) U/L Total Creatine Kinase (26-192) U/L Troponin I High Sens (0-14) pg/ml Total Protein (6.0-8.3) gm/dl Albumin (3.4-5.0) gm/dl Globulin (2.5-4.0) gm/dl Albumin/Globulin Ratio (0.9-2) Lipase (11-82) U/L HCG, Qual Negative (Negative) Urine Color Urine Appearance (Clear) Urine pH (4.5-7.5) Ur Specific Austin (1.000-1.030) Urine Protein (Negative) Urine Glucose (UA) (Negative) Urine Ketones (Negative) Urine Blood (Negative) Urine Nitrite (Negative) Urine Bilirubin (Negative) Urine Urobilinogen (Negative) Ur Leukocyte Esterase (Negative) Urine WBC (Auto) (0-5) /hpf Urine RBC (Auto) (0-4) /hpf U Hyaline Cast (Auto) (0-5) /lpf U Epithel Cells (Auto) (0-5) /lpf Urine Bacteria (Auto) (Negative) Ur Renal Epithelial Cell (0-5) /lpf Salicylates < 3.0 L (3.0-30) mg/dl Urine Opiates Screen (Neg) Ur Methadone, Qual (Neg) Acetaminophen < 3 L (10-30) ug/ml Urine Barbiturates (Neg) Ur Phencyclidine (PCP) (Neg) U Amphetamin/Meth Scrn (Neg) MDMA (Ecstasy) Screen (Neg) U Benzodiazepines Scrn (Neg) Ur Cocaine Metabolite (Neg) U Marijuana (THC) Screen (Neg) Ethyl Alcohol mg/dL < 10.0 (<10.0) mg/dl SARS-CoV-2, RNA, NAAT (NEGATIVE) 03/05/23 03/05/23 03/05/23 Range/Units 15:18 15:18 15:18 WBC (4.8-10.8) K/ul RBC (4.20-5.40) M/uL Hgb (12.0-16.0) g/dl Hct (37.0-47.0) % MCV (80.0-100.0) fL MCH (25.0-34.0) pg MCHC (32.0-36.0) g/dL RDW Std Deviation (36.4-46.3) fL RDW Coeff of Joseph (11.5-14.5) % Plt Count (130-400) K/uL MPV (9.4-12.4) fL Immature Gran % (Auto) % Neut % (Auto) % Lymph % (Auto) % Wells % (Auto) % Eos % (Auto) % Baso % (Auto) % Neut # (Auto) (1.40-6.50) K/uL Lymph # (Auto) (1.2-3.4) K/uL Wells # (Auto) (0.11-0.59) K/uL Eos # (Auto) (0-0.50) K/uL Baso # (Auto) (0-0.2) K/uL Immature Gran # (Auto) (0.01-0.20) K/uL Hypersegmented Neuts PT (9.0-12.0) Seconds INR (0.9-1.1) APTT (21.0-31.0) Seconds PTT Ratio VBG pH 7.45 H (7.36-7.41) VBG pCO2 33 L (38-50) mmHg VBG pO2 29 mmHg VBG HCO3 23 mmol/L VBG O2 Saturation < 60.0 % VBG Base Excess -0.4 mEq/L Sodium (136-145) mmol/L Potassium (3.5-5.1) mmol/L Chloride (98-107) mmol/L Carbon Dioxide (21-32) mmol/L Anion Gap (3-11) BUN (6-23) mg/dl Creatinine (0.6-1.2) mg/dl Est Cr Clr Drug Dosing ml/min Est GFR ( Amer) ml/min Est GFR (Non-Af Amer) ml/min BUN/Creatinine Ratio (10-20) Glucose (70-99(Fasting)) mg/dl Calcium (8.6-10.3) mg/dl Magnesium (1.7-2.4) mg/dl Total Bilirubin (0.2-1.0) mg/dl AST (13-39) U/L ALT (7-52) U/L Alkaline Phosphatase (34-104) U/L Total Creatine Kinase (26-192) U/L Troponin I High Sens (0-14) pg/ml Total Protein (6.0-8.3) gm/dl Albumin (3.4-5.0) gm/dl Globulin (2.5-4.0) gm/dl Albumin/Globulin Ratio (0.9-2) Lipase (11-82) U/L HCG, Qual (Negative) Urine Color Yellow Urine Appearance Clear (Clear) Urine pH >= 9.0 H (4.5-7.5) Ur Specific Austin 1.025 (1.000-1.030) Urine Protein 1+ H (Negative) Urine Glucose (UA) Negative (Negative) Urine Ketones 3+ H (Negative) Urine Blood Negative (Negative) Urine Nitrite Negative (Negative) Urine Bilirubin Negative (Negative) Urine Urobilinogen Negative (Negative) Ur Leukocyte Esterase Negative (Negative) Urine WBC (Auto) 1-5 (0-5) /hpf Urine RBC (Auto) 5-10 H (0-4) /hpf U Hyaline Cast (Auto) 1-5 (0-5) /lpf U Epithel Cells (Auto) >30 H (0-5) /lpf Urine Bacteria (Auto) Negative (Negative) Ur Renal Epithelial Cell 0-5 (0-5) /lpf Salicylates (3.0-30) mg/dl Urine Opiates Screen Neg (Neg) Ur Methadone, Qual Neg (Neg) Acetaminophen (10-30) ug/ml Urine Barbiturates Neg (Neg) Ur Phencyclidine (PCP) Neg (Neg) U Amphetamin/Meth Scrn Neg (Neg) MDMA (Ecstasy) Screen Neg (Neg) U Benzodiazepines Scrn Neg (Neg) Ur Cocaine Metabolite Neg (Neg) U Marijuana (THC) Screen Pos H (Neg) Ethyl Alcohol mg/dL (<10.0) mg/dl SARS-CoV-2, RNA, NAAT (NEGATIVE) 03/05/23 Range/Units 15:36 WBC (4.8-10.8) K/ul RBC (4.20-5.40) M/uL Hgb (12.0-16.0) g/dl Hct (37.0-47.0) % MCV (80.0-100.0) fL MCH (25.0-34.0) pg MCHC (32.0-36.0) g/dL RDW Std Deviation (36.4-46.3) fL RDW Coeff of Joseph (11.5-14.5) % Plt Count (130-400) K/uL MPV (9.4-12.4) fL Immature Gran % (Auto) % Neut % (Auto) % Lymph % (Auto) % Wells % (Auto) % Eos % (Auto) % Baso % (Auto) % Neut # (Auto) (1.40-6.50) K/uL Lymph # (Auto) (1.2-3.4) K/uL Wells # (Auto) (0.11-0.59) K/uL Eos # (Auto) (0-0.50) K/uL Baso # (Auto) (0-0.2) K/uL Immature Gran # (Auto) (0.01-0.20) K/uL Hypersegmented Neuts PT (9.0-12.0) Seconds INR (0.9-1.1) APTT (21.0-31.0) Seconds PTT Ratio VBG pH (7.36-7.41) VBG pCO2 (38-50) mmHg VBG pO2 mmHg VBG HCO3 mmol/L VBG O2 Saturation % VBG Base Excess mEq/L Sodium (136-145) mmol/L Potassium (3.5-5.1) mmol/L Chloride (98-107) mmol/L Carbon Dioxide (21-32) mmol/L Anion Gap (3-11) BUN (6-23) mg/dl Creatinine (0.6-1.2) mg/dl Est Cr Clr Drug Dosing ml/min Est GFR ( Amer) ml/min Est GFR (Non-Af Amer) ml/min BUN/Creatinine Ratio (10-20) Glucose (70-99(Fasting)) mg/dl Calcium (8.6-10.3) mg/dl Magnesium (1.7-2.4) mg/dl Total Bilirubin (0.2-1.0) mg/dl AST (13-39) U/L ALT (7-52) U/L Alkaline Phosphatase (34-104) U/L Total Creatine Kinase (26-192) U/L Troponin I High Sens (0-14) pg/ml Total Protein (6.0-8.3) gm/dl Albumin (3.4-5.0) gm/dl Globulin (2.5-4.0) gm/dl Albumin/Globulin Ratio (0.9-2) Lipase (11-82) U/L HCG, Qual (Negative) Urine Color Urine Appearance (Clear) Urine pH (4.5-7.5) Ur Specific [place] (1.000-1.030) Urine Protein (Negative) Urine Glucose (UA) (Negative) Urine Ketones (Negative) Urine Blood (Negative) Urine Nitrite (Negative) Urine Bilirubin (Negative) Urine Urobilinogen (Negative) Ur Leukocyte Esterase (Negative) Urine WBC (Auto) (0-5) /hpf Urine RBC (Auto) (0-4) /hpf U Hyaline Cast (Auto) (0-5) /lpf U Epithel Cells (Auto) (0-5) /lpf Urine Bacteria (Auto) (Negative) Ur Renal Epithelial Cell (0-5) /lpf Salicylates (3.0-30) mg/dl Urine Opiates Screen (Neg) Ur Methadone, Qual (Neg) Acetaminophen (10-30) ug/ml Urine Barbiturates (Neg) Ur Phencyclidine (PCP) (Neg) U Amphetamin/Meth Scrn (Neg) MDMA (Ecstasy) Screen (Neg) U Benzodiazepines Scrn (Neg) Ur Cocaine Metabolite (Neg) U Marijuana (THC) Screen (Neg) Ethyl Alcohol mg/dL (<10.0) mg/dl SARS-CoV-2, RNA, NAAT NEGATIVE (NEGATIVE) Administered Medications Discontinued Medications Sodium Chloride (Nss 1000ml) 1,000 mls @ 999 mls/hr IV .Q1H1M MARY Stop: 03/05/23 15:45 Last Admin: 03/05/23 15:13 Dose: 999 mls/hr Documented By: ACC Sodium Chloride (Nss 1000ml) 1,000 mls @ 999 mls/hr IV .Q1H1M ONE Stop: 03/05/23 17:02 Last Admin: 03/05/23 18:14 Dose: 999 mls/hr Documented By: ACC Potassium Chloride (K Bon / Wtr) 10 meq in 100 mls @ 100 mls/hr IV ONE ONE Stop: 03/05/23 17:01 Last Admin: 03/05/23 16:19 Dose: 100 mls/hr Documented By: ACC Promethazine HCl (Phenergan) 6.25 mg in 50.25 mls @ 201 mls/hr IV NOW STA Stop: 03/05/23 16:40 Last Admin: 03/05/23 16:36 Dose: 201 mls/hr Documented By: ACC Magnesium Oxide (Magnesium Oxide 400 Mg Tab) 400 mg PO ONE ONE Stop: 03/05/23 16:04 Last Admin: 03/05/23 16:19 Dose: 400 mg Documented By: ACC Ondansetron HCl (Ondansetron Inj 2 Mg/Ml 2 Ml Vial) 4 mg IV NOW STA Stop: 03/05/23 14:45 Last Admin: 03/05/23 15:13 Dose: 4 mg Documented By: ACC Potassium Chloride (Potassium Chloride 10 Meq Tabcr) 20 meq PO NOW STA Stop: 03/05/23 16:03 Last Admin: 03/05/23 16:23 Dose: 20 meq Documented By: ACC Imaging Data Attestation: I personally reviewed and interpreted this imaging study as follows: My Impression: 1 view chest x-ray was obtained in the emergency department. My interpretation is no free air or definite infiltrate, final report below. Radiologist's Impression: Chest X-Ray 03/05/23 14:44 XR chest 1V portable HISTORY: Overdose. COMPARISON: Chest 08/18/2022. FINDINGS: The lungs are clear. Cardiac silhouette is normal in size. No pleural effusions. No pneumothorax. IMPRESSION: No acute process. ACT 112: Negative or not required by law. Electronically signed by: Felipe Adams M.D. 03/05/2023 4:00 PM Discharge Plan Visit Data Chief Complaint: Illness Stated Complaint: WITHDRAWL SX ED Provider: Eric Armando Discharge Problem: Nausea & vomiting, Hypokalemia, Cannabis abuse Patient Disposition: Being Evaluated by Hospitalist Forms Stand Alone Forms: [facility] Prescriptions Prescriptions: No Action levothyroxine 75 mcg tablet 75 mcg PO QAM Qty: 30 2RF lamotrigine [Lamictal] 100 mg tablet 100 mg PO QAM Rx Instructions: TOTAL DOSE 400 MG--TAKES WITH 2-150 MG TABS. buspirone 30 mg tablet 30 mg PO BID Qty: 60 2RF tamsulosin 0.4 mg capsule 0.4 mg PO DAILY Qty: 30 1RF ketorolac 10 mg tablet 10 mg PO TID PRN (Reason: pain) Qty: 14 0RF ciprofloxacin HCl 250 mg tablet 250 mg PO BID 3 Days Qty: 6 0RF lamotrigine 150 mg tablet 300 mg PO QAM Rx Instructions: TOTAL DOSE 400 MG--TAKES WITH 100 MG TAB. clonazepam 1 mg tablet 1 mg PO BID PRN (Reason: Anxiety) lamotrigine 25 mg tablet 25 mg PO .Q AFTERNOON lurasidone [Latuda] 60 mg tablet 60 mg PO QPM Rx Instructions: must administer with food (at least 350 calories) Trintellix 20 mg Tablet 20 mg PO HS ondansetron 4 mg tablet,disintegrating 4 mg PO Q6H PRN (Reason: nausea and vomiting) Qty: 20 0RF Referrals Referrals: Promise Chen DO [Primary Care Provider] - Nausea & vomiting Qualifiers: Vomiting type: unspecified Qualified Code(s): R11.2 - Nausea with vomiting, unspecified
[2023-03-05 15:33] LABS: Base Excess VBG -0.4 mEq/L; HCO3 VBG 23 mmol/L; Oxygen Saturation VBG < 60.0 %; PCO2 VBG 33 mmHg (38-50); PO2 VBG 29 mmHg; pH VBG 7.45 (7.36-7.41)
[2023-03-05 15:38] LABS: Hematocrit (blood only) 42.6 % (37.0-47.0); Hemoglobin 14.8 g/dl (12.0-16.0); Mean Corpuscular Hemoglobin 29.3 pg (25.0-34.0); Mean Corpuscular Hgb Conc 34.7 g/dL (32.0-36.0); Mean Corpuscular Volume 84.4 fL (80.0-100.0); Mean Platelet Volume 9.2 fL (9.4-12.4); Platelet Count 373 K/uL (130-400); RDW Coefficient of Variation 13.2 % (11.5-14.5); RDW Standard Deviation 40.4 fL (36.4-46.3); Red Blood Count 5.05 M/uL (4.20-5.40); White Blood Count 13.32 K/ul (4.8-10.8)
[2023-03-05 15:41] LABS: Appearance Urine Clear (Clear); Bacteria Urine Automated Negative (Negative); Bilirubin Urine Negative (Negative); Blood Urine Negative (Negative); Color Urine Yellow; Epithelial Cell Urine Auto >30 /lpf (0-5); Glucose Urine UA Negative (Negative); Ketones Urine 3+ (Negative); Leukocyte Esterase Urine Negative (Negative); Nitrite Urine Negative (Negative); Specific Gravity Urine 1.025 (1.000-1.030); Urobilinogen Urine Negative (Negative); pH Urine >= 9.0 (4.5-7.5)
[2023-03-05 15:43] LABS: Protein Urine 1+ (Negative)
[2023-03-05 15:53] LABS: Acetaminophen < 3 ug/ml (10-30); Renal Epithelial Cells Urine 0-5 /lpf (0-5); Salicylate < 3.0 mg/dl (3.0-30)
[2023-03-05 15:57] LABS: Alanine Aminotransferase 16 U/L (7-52); Albumin Globulin Ratio 1.6 (0.9-2); Albumin Level 5.1 gm/dl (3.4-5.0); Alkaline Phosphatase 77 U/L (34-104); Anion Gap 12 (3-11); Aspartate Aminotransferase 19 U/L (13-39); BUN Creatinine Ratio 21.9 (10-20); Bilirubin,Total 0.7 mg/dl (0.2-1.0); Blood Urea Nitrogen 16 mg/dl (6-23); Carbon Dioxide 23 mmol/L (21-32); Chloride 105 mmol/L (98-107); Creatine Kinase 92 U/L (26-192); Creatinine Clr Calc Pharmacy 108.3 ml/min; Est GFR (African American) 129.9 ml/min; Est GFR (Non-African American) 112.1 ml/min; Globulin 3.1 gm/dl (2.5-4.0); Glucose 83 mg/dl (70-99(Fasting)); Lipase 11 U/L (11-82); Magnesium 1.8 mg/dl (1.7-2.4); Potassium 2.7 mmol/L (3.5-5.1); Sodium 140 mmol/L (136-145); Total Protein 8.2 gm/dl (6.0-8.3)
--- NOTE | 2023-03-05 16:01 | XRay Report ---
XR chest 1V portable HISTORY: Overdose. COMPARISON: Chest 08/18/2022. FINDINGS: The lungs are clear. Cardiac silhouette is normal in size. No pleural effusions. No pneumot horax. IMPRESSION: No acute process. ACT 112: Negative or not required by law. Electronically signed by: Felipe Adams M.D. 03/05/2023 4:00 PM
[2023-03-05 16:02] LABS: Pregnancy Test, Serum Negative (Negative)
[2023-03-05] MEDS ORDERED: POTASSIUM CHLORIDE 10 MEQ TABCR PO STA (16:02)
[2023-03-05] MEDS ORDERED: POTASSIUM CHLORIDE / WTR 10 MEQ/100 ML PLCT IV ONE (16:02)
[2023-03-05] MEDS ORDERED: SODIUM CHLORIDE 0.9% 1000ML 1,000 ML IV ONE (16:02)
[2023-03-05] MEDS ORDERED: MAGNESIUM OXIDE 400 MG TAB PO ONE (16:03)
[2023-03-05 16:04] LABS: Troponin I High Sensitivity < 2.3 pg/ml (0-14)
[2023-03-05 16:05] LABS: Basophils # (auto) 0.02 K/uL (0-0.2); Basophils % (auto) 0.2 %; Hypersegmented Neutrophils 1+; Immature Granulocytes # (auto) 0.09 K/uL (0.01-0.20); Immature Granulocytes % (auto) 0.7 %; Lymphocytes # (auto) 0.53 K/uL (1.2-3.4); Monocytes # (auto) 0.39 K/uL (0.11-0.59); Monocytes % (auto) 2.9 %; Neutrophils # (auto) 12.29 K/uL (1.40-6.50); Neutrophils % (auto) 92.2 %
[2023-03-05 16:12] LABS: INR 1.1 (0.9-1.1); Partial Thromboplastin Ratio 0.8; Partial Thromboplastin Time 22.8 Seconds (21.0-31.0); Prothrombin Time 12.3 Seconds (9.0-12.0)
[2023-03-05] MEDS ORDERED: PROMETHAZINE 6.25 MG/50.25 ML BAG IV STA (16:26)
[2023-03-05 17:10] LABS: Amphetamines+Metham, Urine Neg (Neg); Barbiturates, Urine Neg (Neg); Benzodiazepine, Urine Neg (Neg); Cocaine, Urine Neg (Neg); MDMA (Ecstacy), Urine Neg (Neg); Methadone, Urine Neg (Neg); Opiate, Urine Neg (Neg); Phencyclidine, Urine Neg (Neg)
[2023-03-05] MEDS ORDERED: FAMOTIDINE 20MG IV PUSH 20 MG/5 ML SYR IV STA (18:16)
[2023-03-05] MEDS ORDERED: PANTOprazole 40 MG in SYRINGE 0 ML IV ONE (18:16)
[2023-03-05 18:27] LABS: Gastric Occult Blood Positive (Negative); pH Gastric Fluid 3
--- NOTE | 2023-03-05 18:41 | Electrocardiogram Report ---
Test Reason : Blood Pressure : / mmHG Vent. Rate : 086 BPM Atrial Rate : 086 BPM P-R Int : 204 ms QRS Dur : 086 ms QT Int : 374 ms P-R-T Axes : 077 065 073 degrees QTc Int : 447 ms Normal sinus rhythm Normal ECG When compared with ECG of 18-AUG-2022 04:11, No significant change was found Confirmed by Jose F Grady ([id number]) on 03/05/2023 6:41:31 PM Referred By: REFERRED SELF Confirmed By:Panda Grady
--- NOTE | 2023-03-05 18:58 | History & Physical Report ---
Date of Service March 05, 2023 Assessment & Plan (1) Nausea & vomiting: (2) Hypokalemia: (3) Cannabis abuse: (4) Synthetic cannabinoid abuse: (5) Hematemesis: (6) Bipolar disorder: (7) Hypothyroidism determined by thyroid function test: Plan Pt is a 27yoF with PMhx significant for recurrent UTIs, urolithiasis, Hodgkin's lymphoma status post chemoradiation, hypothyroidism, mood disorder admitted with significant hypokalemia after persistent N/V in the setting of synthetic marijuana/drug use. Nausea/Vomiting/Hypokalemia Pt presenting with multiple episodes of nausea and vomiting, episodes of hematemesis Toxicology screen positive for THC and there are reports that she uses synthetic marijuana States also using "K shot" from the drugstore, and has been trying to wean off of it Potassium level of 2.7, received 30mEq in the ED Ordered NSS with 20mEq KCl in the setting of N/V with hypokalemia Trend potassium with AM labs and replete further as needed. IV Reglan and zofran ordered prn for N/V Hematemesis Given hematemesis noted (Gastric occult blood positive), protonix pushes ordered BID. Continue to monitor. Likely due to retching/frequent vomitting. Consider escalating care to GI if persistent. Synthetic Drug Use Toxicology screen positive for THC and there are reports that she uses synthetic marijuana States also using "K shot" from the drugstore, and has been trying to wean off of it Pt agreeable to Addiction Medicine resources/assistance to help with discontinuing drug use Mood disorder: Continue home latuda, trintellix, lamictal, gabapentin, buspar Hypothyroidism: Continue home levothyroxine CODE STATUS: Full code Diet: Regular DVT prophylaxis: Lovenox SQ (can discontinue once pt able to ambulate as tolerated) Dispo: Med/Surg with tele History of Present Illness Chief Complaint: Nausea and vomitting Primary Care Provider: Promise Chen DO Pt is a 27yoF with PMhx significant for recurrent UTIs, urolithiasis, Hodgkin's lymphoma status post chemoradiation, hypothyroidism, mood disorder admitted with significant hypokalemia after persistent N/V in the setting of synthetic marijuana/drug use. Pt's mother and are present in the room. Pt states she is "Confused" and so her mother provides most of the history. Mother states that she has been having multiple episodes of N/V which started today. She states they believe it is related to her stopping the use of a product called "k shot" that they have in the room. they state she buys it at a drug store and takes "shots". notes that she stopped using it completely 4 days ago after previously trying to wean off of it unsuccessfully. Mother notes that the patient has been sticking her finger down her throat to make her throw up and she is concerned that the patient's potassium might decrease once more. Mother notes that she has a significant psychiatric hx and missed her medications today. Pt states she follows with [facility] for her psychiatric care. Mom notes that she also suffers from post depression, notes baby is a year. Allergies Allergy/AdvReac Type Severity Reaction Status Date / Time Sulfa (Sulfonamide Allergy Intermediate itching, Verified 11/28/22 18:18 Antibiotics) hives sulfamethoxazole Allergy Intermediate itching, Verified 11/28/22 18:18 hives trimethoprim Allergy Intermediate itching, Verified 11/28/22 18:18 hives Home Medications Medication Instructions Recorded Confirmed Type buspirone 30 mg tablet 30 mg PO BID #60 tabs 07/11/19 03/05/23 Rx lamotrigine 100 mg tablet 100 mg PO QAM 04/28/21 03/05/23 History (Lamictal) lamotrigine 150 mg tablet 300 mg PO QAM 09/16/21 03/05/23 History lurasidone 60 mg tablet (Latuda) 60 mg PO QPM 09/20/21 03/05/23 History vortioxetine 20 mg tablet 20 mg PO HS 07/29/22 03/05/23 History (Trintellix) ondansetron 4 mg disintegrating 4 mg PO Q6H PRN nausea and 11/28/22 03/05/23 Rx tablet vomiting #20 tabs gabapentin 100 mg capsule 100 mg PO BID 03/05/23 03/05/23 History levothyroxine 75 mcg tablet 88 mcg PO QAM 03/05/23 03/05/23 History Past Med/Surg History Medical History Anxiety Bipolar disease during , antepartum Bipolar disorder - Denies SI/HI. States mood is ok. Depression Endometriosis Health care maintenance History of COVID-19 DX'D 08/2020 MOBILE TESTING SITE [place]UR[place]-LOSS TASTE AND SMELL-RECOVERED AT HOME-RESOLVED Hodgkins lymphoma DX'D 2017-s/p chemo/radiation - currently in remission. 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 H/O nasal septoplasty H/O wisdom tooth extraction History of bilateral tubal ligation with last 02/2022 History of lymph node biopsy History of tonsillectomy November [address] [place] included Adenoids History of transurethral resection of bladder tumor (TURBT) done at same time as cysto w/ureteral stent placement w/bladder bx. History of vascular access device 12/14/2018-AND REMOVED S/P appendectomy 09/06/1819 Grade 1 view, MAC 3, ETT 7. S/P x2--last 03/10/22 with bilt tubal @ [facility] S/P cystoscopy with ureteral stent placement w/laser destruction kidney stone S/P radiotherapy Family History Grandmother (Paternal) Ovarian cancer Cervical adenocarcinoma H/O: hysterectomy Mother Family history of reaction to anesthesia PONV-EMOTIONAL Denies family history of Diabetes Myocardial infarction Breast cancer Lung cancer Colorectal cancer Hypertension Uterine cancer Stroke Social History Smoking Status: Never smoker Age Started Using Tobacco: 15; Age Quit Using Tobacco: 16; packs per day: 0.25; Second Hand Exposure: No; Do You Dip or Chew Tobacco: No; Hx Alcohol Use: No Hx Substance Use: No Preferred Language: [place] Communication Ability: Effective Visual Impairment: No Limitations Hearing Ability: Normal 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 No acute distress Psych: sad mood and affect Neuro: No gross deficits HEENT: NC/AT Chest: Nontender to palpation. CV: RRR, Normal s1, s2. No murmurs appreciated Resp: Breath sounds clear bilaterally, no increased effort of breathing. Abdomen: Soft, nontender, nondistended. No guarding. No organomegaly appreciated. Extremities: No edema in lower extremities bilaterally. Results & Data Results & Data Vital Signs (Past 12 Hours) Vital Signs Temp Pulse Resp BP BP Pulse Ox O2 Del Method 03/05/23 18:10 94 H 15 03/05/23 18:00 94 H 17 03/05/23 18:00 116/75 03/05/23 17:50 91 H 18 99 03/05/23 17:40 95 H 19 98 03/05/23 17:30 93 H 17 100 03/05/23 17:20 94 H 14 99 03/05/23 17:10 98 H 17 99 03/05/23 17:00 96 H 22 100 03/05/23 17:00 136/95 03/05/23 16:50 98 H 26 H 100 03/05/23 16:40 101 H 17 100 03/05/23 16:30 100 H 27 H 100 03/05/23 16:20 105 H 14 100 03/05/23 16:10 95 H 15 100 03/05/23 16:00 82 16 100 03/05/23 16:00 115/75 03/05/23 15:50 79 20 98 03/05/23 15:40 81 22 98 03/05/23 15:37 102/61 03/05/23 15:37 81 16 99 03/05/23 15:30 80 12 99 03/05/23 15:20 81 21 98 03/05/23 15:10 83 14 98 03/05/23 15:00 85 23 99 03/05/23 14:50 84 16 98 03/05/23 14:40 83 24 99 03/05/23 17:51 93 H 03/05/23 14:22 16 116/75 99 03/05/23 14:44 87 16 99 Room Air 03/05/23 14:37 37.2 C 83 18 116/75 98 Room Air (1) Nausea & vomiting Vomiting type: unspecified Qualified Code(s): R11.2 - Nausea with vomiting, unspecified
[2023-03-05] MEDS ORDERED: ACETAMINOPHEN 325 MG TAB PO PRN (21:08)
[2023-03-05] MEDS ORDERED: ONDANSETRON INJ 2 MG/ML 2 ML VIAL IV PRN (21:08)
[2023-03-05] MEDS ORDERED: OLANZapine 10 MG/2.1 ML SDV IM STA (21:32)
[2023-03-05] MEDS ORDERED: PROMETHAZINE HCL 12.5 MG in SODIUM CHLORIDE 0.9% 50 ML IV PRN (21:33)
[2023-03-05] MEDS: METOCLOPRAMIDE HCL INJ 5 MG/ML 2 ML VIAL IV PRN (22:00)
[2023-03-05] MEDS: PANTOprazole 40 MG in SYRINGE 0 ML IV SCH (22:01)
[2023-03-06] MEDS: ENOXAPARIN INJ 40 MG/0.4 ML SYR SQ SCH ×2 (00:24→21:53)
[2023-03-06] MEDS: NSS + 20MEQ KCL 20 MEQ/1,000 ML BAG IV SCH ×3 (00:24→19:25)
[2023-03-06] MEDS: LEVOTHYROXINE SODIUM 75 MCG TABLET PO SCH ×2 (07:06→08:03)
[2023-03-06 07:15] LABS: Basophils # (auto) 0.04 K/uL (0-0.2); Basophils % (auto) 0.3 %; Eosinophils # (auto) 0.08 K/uL (0-0.50); Eosinophils % (auto) 0.7 %; Hematocrit (blood only) 34.9 % (37.0-47.0); Hemoglobin 11.8 g/dl (12.0-16.0); Immature Granulocytes # (auto) 0.04 K/uL (0.01-0.20); Immature Granulocytes % (auto) 0.3 %; Lymphocytes # (auto) 2.41 K/uL (1.2-3.4); Lymphocytes % (auto) 20.6 %; Mean Corpuscular Hemoglobin 29.2 pg (25.0-34.0); Mean Corpuscular Hgb Conc 33.8 g/dL (32.0-36.0); Mean Corpuscular Volume 86.4 fL (80.0-100.0); Mean Platelet Volume 9.1 fL (9.4-12.4); Monocytes # (auto) 1.19 K/uL (0.11-0.59); Monocytes % (auto) 10.2 %; Neutrophils # (auto) 7.94 K/uL (1.40-6.50); Neutrophils % (auto) 67.9 %; Platelet Count 311 K/uL (130-400); RDW Coefficient of Variation 13.6 % (11.5-14.5); RDW Standard Deviation 42.3 fL (36.4-46.3); Red Blood Count 4.04 M/uL (4.20-5.40)
[2023-03-06 07:27] LABS: Calcium 8.1 mg/dl (8.6-10.3); Creatinine Clr Calc Pharmacy 124.7 ml/min; Est GFR (African American) 145.4 ml/min; Est GFR (Non-African American) 125.4 ml/min; Magnesium 1.9 mg/dl (1.7-2.4); Potassium 3.2 mmol/L (3.5-5.1)
[2023-03-06] MEDS ORDERED: POTASSIUM CHLORIDE CRTAB 20 MEQ TABCR PO STA (07:42)
[2023-03-06] MEDS: METOCLOPRAMIDE HCL INJ 5 MG/ML 2 ML VIAL IV PRN (08:02)
[2023-03-06] MEDS: PANTOprazole 40 MG in SYRINGE 0 ML IV SCH ×2 (08:03→19:51)
[2023-03-06] MEDS: GABAPENTIN 100 MG CAP PO SCH ×2 (08:03→19:50)
[2023-03-06] MEDS: busPIRone 15 MG TAB PO SCH ×2 (08:04→19:50)
[2023-03-06] MEDS: lamoTRIgine 100 MG TAB PO SCH (08:04)
[2023-03-06 08:09] LABS: Phosphorus 2.7 mg/dl (2.5-4.9)
[2023-03-06] MEDS ORDERED: NON-FORMULARY MEDICATION (Lamotrigine 150 mg tablet) PO SCH (09:00)
[2023-03-06] MEDS: NICOTINE 14 MG/24 HR PATCH TD SCH (11:07)
--- NOTE | 2023-03-06 11:46 | Hospitalist Progress Note ---
Date of Service March 06, 2023 Assessment & Plan (1) Nausea & vomiting: (2) Hypokalemia: (3) Cannabis abuse: (4) Synthetic cannabinoid abuse: (5) Hematemesis: (6) Bipolar disorder: (7) Hypothyroidism determined by thyroid function test: Plan Pt is a 27yoF with PMhx significant for recurrent UTIs, urolithiasis, Hodgkin's lymphoma status post chemoradiation, hypothyroidism, mood disorder admitted with significant hypokalemia after persistent N/V in the setting of synthetic marijuana/drug use. Nausea/Vomiting/Hypokalemia Pt presenting with multiple episodes of nausea and vomiting, episodes of hematemesis Toxicology screen positive for THC and there are reports that she uses synthetic marijuana States also using "K shot" from the drugstore, and has been trying to wean off of it Potassium level of 2.7, received 30mEq in the ED Ordered NSS with 20mEq KCl in the setting of N/V with hypokalemia Trend potassium with AM labs and replete further as needed. IV Reglan and zofran ordered prn for N/V Clinically much better today and does not have any more nausea and or vomiting Has been tolerating liquid diet and will advance as tolerated Electrolytes are unremarkable and potassium has been replaced Hematemesis Given hematemesis noted (Gastric occult blood positive), protonix pushes ordered BID. Continue to monitor. Likely due to retching/frequent vomitting. Consider escalating care to GI if persistent. Hemoglobin remained stable We will monitor before she can be discharged in a day or 2 Synthetic Drug Use Toxicology screen positive for THC and there are reports that she uses synthetic marijuana States also using "K shot" from the drugstore, and has been trying to wean off of it Pt agreeable to Addiction Medicine resources/assistance to help with discontinuing drug use Strongly advised to avoid any abuse of synthetic drugs We will give nicotine to prevent withdrawal from tobacco Mood disorder: Continue home latuda, trintellix, lamictal, gabapentin, buspar Hypothyroidism: Continue home levothyroxine CODE STATUS: Full code Diet: Regular DVT prophylaxis: Lovenox SQ (can discontinue once pt able to ambulate as tolerated) Dispo: Med/Surg with tele Admission and Anticipated Discharge Date Admission Date: March 05, 2023 Subjective 03/06/2023 The patient was seen and examined in medical telemetry unit She has been feeling much better and tolerating liquid diet Denies any more nausea and or vomiting No tremors and denies any other significant symptoms Review of Systems Review of Systems: All systems reviewed and are unremarkable except as noted below Gastrointestinal: No nausea and or vomiting. No abdominal pain and or distention Physical Exam Physical Exam: Lying in bed comfortably Constitutional: well developed, well nourished and average body habitus; not ill appearing Eyes: PERRL, conjunctivae normal, anicteric sclerae Neck: trachea midline, no thyromegaly Respiratory: no respiratory distress Auscultation: lungs clear to auscultation bilaterally Cardiovascular: Rate/Rhythm: regular rate and regular rhythm; not tachycardic Heart Sounds: normal S1 and normal S2; no murmur Extremities: no edema Gastrointestinal (Abdomen): Inspection/Auscultation: normal bowel sounds; abdomen not distended Percussion/Palpation: abdomen soft; abdomen nontender Musculoskeletal: No acute arthritis involving any of the joint Neurologic: Alert, awake and oriented x3. No focal sensory or no motor deficit appreciated Results & Data Results & Data Vital Signs (Past 12 Hours) Vital Signs Temp Pulse Pulse Resp BP Pulse Ox O2 Del Method 03/06/23 11:24 36.8 C 82 18 95/62 L 99 Room Air 03/06/23 07:35 36.5 C 84 18 95/64 L 98 Room Air 03/06/23 06:48 85 03/06/23 04:15 37.1 C 90 20 97/59 L 97 Room Air Laboratory Results Short CBC 03/05/23 03/06/23 Range/Units 15:18 06:35 WBC 13.32 H 11.70 H (4.8-10.8) K/ul Hgb 14.8 11.8 L D (12.0-16.0) g/dl Hct 42.6 34.9 L (37.0-47.0) % Plt Count 373 311 (130-400) K/uL BMP 03/05/23 03/06/23 15:18 06:35 Sodium 140 141 Potassium 2.7 L 3.2 L Chloride 105 113 H Carbon Dioxide 23 22 BUN 16 11 Creatinine 0.73 0.58 L Glucose 83 91 Calcium 10.0 8.1 L Cardiac Enzymes 03/05/23 Range/Units 15:18 Total Creatine Kinase 92 (26-192) U/L Liver Function 03/05/23 Range/Units 15:18 Total Bilirubin 0.7 (0.2-1.0) mg/dl AST 19 (13-39) U/L ALT 16 (7-52) U/L Alkaline Phosphatase 77 (34-104) U/L Albumin 5.1 H (3.4-5.0) gm/dl Urine 03/05/23 Range/Units 15:18 Urine Color Yellow Urine Appearance Clear (Clear) Urine pH >= 9.0 H (4.5-7.5) Ur Specific [place] 1.025 (1.000-1.030) Urine Protein 1+ H (Negative) Urine Glucose (UA) Negative (Negative) Medications Administered Current Inpatient Medications Acetaminophen (Acetaminophen 325 Mg Tab) 650 mg PO Q6H PRN PRN Reason: Pain Stop: 04/04/23 21:07 Buspirone HCl (Buspirone 15 Mg Tab) 30 mg PO BID MARY Stop: 04/05/23 08:59 Last Admin: 03/06/23 08:04 Dose: 30 mg Enoxaparin Sodium (Enoxaparin Inj 40 Mg/0.4 Ml Syr) 40 mg SQ Q24H MARY Stop: 04/04/23 22:29 Last Admin: 03/06/23 00:24 Dose: 40 mg Gabapentin (Gabapentin 100 Mg Cap) 100 mg PO BID MARY Stop: 04/05/23 08:59 Last Admin: 03/06/23 08:03 Dose: 100 mg Pantoprazole Sodium 40 mg/ (Syringe) 10 mls @ 5 mls/min IV BID MARY Stop: 04/04/23 21:07 Last Admin: 03/06/23 08:03 Dose: 5 mls/min Promethazine HCl 12.5 mg/ (Sodium Chloride) 50.5 mls @ 202 mls/hr IV Q6H PRN PRN Reason: Nausea And Vomiting Stop: 04/04/23 21:32 Potassium Chloride/Sodium Chloride (Normal Saline W/20 Meq Kcl) 20 meq in 1,000 mls @ 100 mls/hr IV .Q10H [facility]; Protocol Stop: 04/04/23 22:29 Last Admin: 03/06/23 09:07 Dose: 100 mls/hr Lamotrigine (Lamotrigine 100 Mg Tab) 400 mg PO QAM MARY Stop: 04/05/23 08:59 Last Admin: 03/06/23 08:04 Dose: 400 mg Levothyroxine Sodium (Levothyroxine Sodium 75 Mcg Tablet) 75 mcg PO DAILYBB [facility] Stop: 04/05/23 06:29 Last Admin: 03/06/23 08:03 Dose: 75 mcg Lurasidone HCl (Lurasidone Hcl 40 Mg Tab) 60 mg PO QPM [facility] Stop: 04/05/23 20:59 Metoclopramide HCl (Metoclopramide Hcl Inj 5 Mg/Ml 2 Ml Vial) 10 mg IV Q6H PRN PRN Reason: Nausea Stop: 04/04/23 21:07 Last Admin: 03/06/23 08:02 Dose: 10 mg Miscellaneous (Vortioxetine [Trintellix]: Order Awaiting Action) 1 each N/A QS [facility] Stop: 04/05/23 07:59 Last Admin: 03/06/23 08:04 Dose: Not Given Miscellaneous (Remove Nicoderm Patch) 1 each N/A DAILY@0859 [facility] Stop: 04/06/23 08:58 Nicotine (Nicotine 14 Mg/24 Hr Patch) 14 mg TD QAM [facility] Stop: 04/05/23 10:44 Last Admin: 03/06/23 11:07 Dose: 14 mg Ondansetron HCl (Ondansetron Inj 2 Mg/Ml 2 Ml Vial) 4 mg IV Q6H PRN PRN Reason: Nausea And Vomiting Stop: 04/04/23 21:07 (1) Nausea & vomiting Vomiting type: unspecified Qualified Code(s): R11.2 - Nausea with vomiting, unspecified
[2023-03-06] MEDS ORDERED: LORazepam 0.5 MG TAB PO STA (14:33)
[2023-03-06] MEDS: DICLOFENAC SOD 1% GEL 100 GM TUBE EXT SCH ×2 (16:23→19:51)
[2023-03-06] MEDS ORDERED: ACETAMINOPHEN 1,000 MG/100 ML VIAL IV STA (18:31)
[2023-03-06] MEDS ORDERED: traMADol HCL 50 MG TABLET PO STA (19:40)
[2023-03-06] MEDS ORDERED: LURASIDONE HCL 40 MG TAB PO SCH (21:00)
[2023-03-06] MEDS ORDERED: CYCLOBENZAPRINE HCL 10 MG TAB PO STA (21:40)
[2023-03-06] MEDS ORDERED: OLANZapine 10 MG/2.1 ML SDV IM STA (22:58)
[2023-03-06] MEDS ORDERED: OLANZapine 5 MG TABLET PO STA (23:00)
[2023-03-07] MEDS ORDERED: LORazepam 0.5 MG TAB PO STA (00:09)
[2023-03-07] MEDS: NSS + 20MEQ KCL 20 MEQ/1,000 ML BAG IV SCH ×2 (04:48→15:18)
[2023-03-07] MEDS: LEVOTHYROXINE SODIUM 75 MCG TABLET PO SCH (04:49)
[2023-03-07 07:33] LABS: Basophils # (auto) 0.04 K/uL (0-0.2); Basophils % (auto) 0.6 %; Eosinophils # (auto) 0.32 K/uL (0-0.50); Eosinophils % (auto) 4.9 %; Hematocrit (blood only) 38.2 % (37.0-47.0); Hemoglobin 12.7 g/dl (12.0-16.0); Immature Granulocytes # (auto) 0.02 K/uL (0.01-0.20); Immature Granulocytes % (auto) 0.3 %; Lymphocytes # (auto) 1.77 K/uL (1.2-3.4); Lymphocytes % (auto) 26.9 %; Mean Corpuscular Hemoglobin 29.3 pg (25.0-34.0); Mean Corpuscular Hgb Conc 33.2 g/dL (32.0-36.0); Mean Platelet Volume 9.2 fL (9.4-12.4); Monocytes # (auto) 0.56 K/uL (0.11-0.59); Monocytes % (auto) 8.5 %; Neutrophils # (auto) 3.87 K/uL (1.40-6.50); Neutrophils % (auto) 58.8 %; Platelet Count 292 K/uL (130-400); RDW Coefficient of Variation 13.6 % (11.5-14.5); RDW Standard Deviation 44.2 fL (36.4-46.3); Red Blood Count 4.34 M/uL (4.20-5.40); White Blood Count 6.58 K/ul (4.8-10.8)
[2023-03-07 08:06] LABS: BUN Creatinine Ratio 16.1 (10-20); Calcium 8.9 mg/dl (8.6-10.3); Creatinine Clr Calc Pharmacy 116.7 ml/min; Est GFR (African American) 142.2 ml/min; Est GFR (Non-African American) 122.7 ml/min; Phosphorus 2.4 mg/dl (2.5-4.9); Potassium 4.3 mmol/L (3.5-5.1)
[2023-03-07] MEDS: busPIRone 15 MG TAB PO SCH (08:22)
[2023-03-07] MEDS: lamoTRIgine 100 MG TAB PO SCH (08:22)
[2023-03-07] MEDS: PANTOprazole 40 MG in SYRINGE 0 ML IV SCH (08:22)
[2023-03-07] MEDS: GABAPENTIN 100 MG CAP PO SCH (08:22)
[2023-03-07] MEDS: NICOTINE 14 MG/24 HR PATCH TD SCH (08:23)
[2023-03-07] MEDS: DICLOFENAC SOD 1% GEL 100 GM TUBE EXT SCH ×2 (08:23→12:51)
[2023-03-07] MEDS ORDERED: KETOROLAC TROMETHAMINE 15 MG/ML VIAL IV ONE (10:27)
--- NOTE | 2023-03-07 11:20 | Hospitalist Progress Note ---
Date of Service March 07, 2023 Assessment & Plan (1) Nausea & vomiting: (2) Hypokalemia: (3) Cannabis abuse: (4) Synthetic cannabinoid abuse: (5) Hematemesis: (6) Bipolar disorder: (7) Hypothyroidism determined by thyroid function test: Plan Pt is a 27yoF with PMhx significant for recurrent UTIs, urolithiasis, Hodgkin's lymphoma status post chemoradiation, hypothyroidism, mood disorder admitted with significant hypokalemia after persistent N/V in the setting of synthetic marijuana/drug use. Progressive first-degree AV block She has a history of Hodgkin's lymphoma treated with 3 rounds of chemotherapy and 11 rounds of radiation treatment in 2018 No signs and or symptoms of infection Awaiting Lyme titer And surprisingly TSH was noted to be high-we will get free T4 level before restarting any medication Echocardiogram has been requested We will get a cardiology evaluation Nausea/Vomiting/Hypokalemia Pt presenting with multiple episodes of nausea and vomiting, episodes of hematemesis Toxicology screen positive for THC and there are reports that she uses synthetic marijuana States also using "K shot" from the drugstore, and has been trying to wean off of it Potassium level of 2.7, received 30mEq in the ED Ordered NSS with 20mEq KCl in the setting of N/V with hypokalemia Trend potassium with AM labs and replete further as needed. IV Reglan and zofran ordered prn for N/V Clinically much better today and does not have any more nausea and or vomiting Has been tolerating liquid diet and will advance as tolerated Electrolytes are unremarkable and potassium has been replaced Nausea vomiting and electrolyte imbalance resolved Hematemesis Given hematemesis noted (Gastric occult blood positive), protonix pushes ordered BID. Continue to monitor. Likely due to retching/frequent vomitting. Consider escalating care to GI if persistent. Hemoglobin remained stable We will monitor before she can be discharged in a day or 2 Hemoglobin remains stable and no more episodes of blood vomiting and or melena Hemoglobin is 12.7 as of 03/07/2023 Synthetic Drug Use Toxicology screen positive for THC and there are reports that she uses synthetic marijuana States also using "K shot" from the drugstore, and has been trying to wean off of it Pt agreeable to Addiction Medicine resources/assistance to help with discontinuing drug use Strongly advised to avoid any abuse of synthetic drugs We will give nicotine to prevent withdrawal from tobacco Mood disorder: Continue home latuda, trintellix, lamictal, gabapentin, buspar Hypothyroidism: Continue home levothyroxine CODE STATUS: Full code Diet: Regular DVT prophylaxis: Lovenox SQ (can discontinue once pt able to ambulate as tolerated) Dispo: Med/Surg with tele Admission and Anticipated Discharge Date Admission Date: March 05, 2023 Subjective 03/06/2023 The patient was seen and examined in medical telemetry unit She has been feeling much better and tolerating liquid diet Denies any more nausea and or vomiting No tremors and denies any other significant symptoms 03/07/2023 The patient was seen and examined in medical telemetry unit She has been feeling much better Denies any significant symptoms except nonspecific pain in the hands Apparently have progressive first-degree heart block and the monitor without any symptoms Review of Systems Review of Systems: All systems reviewed and are unremarkable except as noted below Gastrointestinal: No nausea and or vomiting. No abdominal pain and or distention Physical Exam Physical Exam: Lying in bed comfortably Constitutional: well developed, well nourished and average body habitus; not ill appearing Eyes: PERRL, conjunctivae normal, anicteric sclerae Neck: trachea midline, no thyromegaly Respiratory: no respiratory distress Auscultation: lungs clear to auscultation bilaterally Cardiovascular: Rate/Rhythm: regular rate and regular rhythm; not tachycardic Heart Sounds: normal S1 and normal S2; no murmur Extremities: no edema Gastrointestinal (Abdomen): Inspection/Auscultation: normal bowel sounds; abdomen not distended Percussion/Palpation: abdomen soft; abdomen nontender Musculoskeletal: No acute arthritis involving any joint Neurologic: normal touch/pain/proprioception and moves all extremities; no focal motor deficits Results & Data Results & Data Vital Signs (Past 12 Hours) Vital Signs Temp Pulse Pulse Resp BP BP Pulse Ox 03/07/23 07:55 36.5 C 77 18 105/62 99 03/07/23 07:47 79 03/07/23 04:39 36.6 C 68 20 116/72 98 03/07/23 00:00 79 03/07/23 00:28 36.9 C 93 H 20 123/76 100 O2 Del Method 03/07/23 07:55 Room Air 03/07/23 07:47 03/07/23 04:39 Room Air 03/07/23 00:00 03/07/23 00:28 Room Air Laboratory Results Short CBC 03/07/23 Range/Units 06:56 WBC 6.58 (4.8-10.8) K/ul Hgb 12.7 (12.0-16.0) g/dl Hct 38.2 (37.0-47.0) % Plt Count 292 (130-400) K/uL BMP 03/07/23 06:56 Sodium 141 Potassium 4.3 D Chloride 112 H Carbon Dioxide 25 BUN 10 Creatinine 0.62 Glucose 91 Calcium 8.9 Medications Administered Current Inpatient Medications Acetaminophen (Acetaminophen 325 Mg Tab) 650 mg PO Q6H PRN PRN Reason: Pain Stop: 04/04/23 21:07 Last Admin: 03/06/23 14:46 Dose: 650 mg Buspirone HCl (Buspirone 15 Mg Tab) 30 mg PO BID [facility] Stop: 04/05/23 08:59 Last Admin: 03/07/23 08:22 Dose: 30 mg Diclofenac Sodium (Diclofenac Sod 1% Gel 100 Gm Tube) 2 gm EXT QID [facility]; Protocol Stop: 04/05/23 16:59 Last Admin: 03/07/23 08:23 Dose: 2 gm Enoxaparin Sodium (Enoxaparin Inj 40 Mg/0.4 Ml Syr) 40 mg SQ Q24H [facility] Stop: 04/04/23 22:29 Last Admin: 03/06/23 21:53 Dose: Not Given Gabapentin (Gabapentin 100 Mg Cap) 100 mg PO BID [facility] Stop: 04/05/23 08:59 Last Admin: 03/07/23 08:22 Dose: 100 mg Pantoprazole Sodium 40 mg/ (Syringe) 10 mls @ 5 mls/min IV BID [facility] Stop: 04/04/23 21:07 Last Admin: 03/07/23 08:22 Dose: 5 mls/min Promethazine HCl 12.5 mg/ (Sodium Chloride) 50.5 mls @ 202 mls/hr IV Q6H PRN PRN Reason: Nausea And Vomiting Stop: 04/04/23 21:32 Potassium Chloride/Sodium Chloride (Normal Saline W/20 Meq Kcl) 20 meq in 1,000 mls @ 100 mls/hr IV .Q10H [facility]; Protocol Stop: 04/04/23 22:29 Last Admin: 03/07/23 04:48 Dose: 100 mls/hr Lamotrigine (Lamotrigine 100 Mg Tab) 400 mg PO QAM [facility] Stop: 04/05/23 08:59 Last Admin: 03/07/23 08:22 Dose: 400 mg Levothyroxine Sodium (Levothyroxine Sodium 75 Mcg Tablet) 75 mcg PO DAILYBB [facility] Stop: 04/05/23 06:29 Last Admin: 03/07/23 04:49 Dose: 75 mcg Lurasidone HCl (Lurasidone Hcl 40 Mg Tab) 60 mg PO QPM [facility] Stop: 04/05/23 20:59 Last Admin: 03/06/23 19:49 Dose: 60 mg Metoclopramide HCl (Metoclopramide Hcl Inj 5 Mg/Ml 2 Ml Vial) 10 mg IV Q6H PRN PRN Reason: Nausea Stop: 04/04/23 21:07 Last Admin: 03/06/23 08:02 Dose: 10 mg Miscellaneous (Vortioxetine [Trintellix]: Order Awaiting Action) 1 each N/A QS [facility] Stop: 04/05/23 07:59 Last Admin: 03/07/23 08:23 Dose: Not Given Miscellaneous (Remove Nicoderm Patch) 1 each N/A DAILY@0859 [facility] Stop: 04/06/23 08:58 Last Admin: 03/07/23 08:23 Dose: 1 each Nicotine (Nicotine 14 Mg/24 Hr Patch) [facility] Stop: 04/05/23 10:44 Last Admin: 03/07/23 08:23 Dose: 14 mg Ondansetron HCl (Ondansetron Inj 2 Mg/Ml 2 Ml Vial) 4 mg IV Q6H PRN PRN Reason: Nausea And Vomiting Stop: 04/04/23 21:07 (1) Nausea & vomiting Vomiting type: unspecified Qualified Code(s): R11.2 - Nausea with vomiting, unspecified
[2023-03-07 11:31] VITALS: BP 116/71; TEMP 98.6; O2SAT 98
--- NOTE | 2023-03-07 12:10 | Electrocardiogram Report ---
Test Reason : Blood Pressure : / mmHG Vent. Rate : 072 BPM Atrial Rate : 072 BPM P-R Int : 334 ms QRS Dur : 088 ms QT Int : 388 ms P-R-T Axes : 067 039 047 degrees QTc Int : 424 ms Sinus rhythm with 1st degree A-V block Possible Left atrial enlargement Borderline ECG When compared with ECG of 05-MAR-2023 15:02, ND interval has increased Nonspecific T wave abnormality, improved in Anterior leads Confirmed by Jose F Grady ([id number]) on 03/07/2023 12:07:02 PM Referred By: REFERRED SELF Confirmed By:Panda Grady
[2023-03-07 12:43] LABS: Lyme Ab IgG w/WB Rflx Negative (Negative); Lyme Ab IgM w/WB Rflx Negative (Negative)
[2023-03-07] MEDS ORDERED: OLANZAPINE 2.5 MG TAB PO ONE (15:18)
[2023-03-07 17:16] VITALS: PULSE 64
[2023-03-08] MEDS ORDERED: LEVOTHYROXINE SODIUM 100 MCG TABLET PO SCH (06:30)
--- NOTE | 2023-03-08 07:49 | Discharge Summary ---
Date of Service March 07, 2023 Admission HPI Per Admitting Provider Pt is a 27yoF with PMhx significant for recurrent UTIs, urolithiasis, Hodgkin's lymphoma status post chemoradiation, hypothyroidism, mood disorder admitted with significant hypokalemia after persistent N/V in the setting of synthetic marijuana/drug use. Pt's mother and are present in the room. Pt states she is "Confused" and so her mother provides most of the history. Mother states that she has been having multiple episodes of N/V which started today. She states they believe it is related to her stopping the use of a product called "k shot" that they have in the room. they state she buys it at a drug store and takes "shots". notes that she stopped using it completely 4 days ago after previously trying to wean off of it unsuccessfully. Mother notes that the patient has been sticking her finger down her throat to make her throw up and she is concerned that the patient's potassium might decrease once more. Mother notes that she has a significant psychiatric hx and missed her medications today. Pt states she follows with [facility] for her psychiatric care. Mom notes that she also suffers from post depression, notes baby is a year. Admission Exam Per Admitting Provider Physical Exam: General: Alert. No acute distress Psych: sad mood and affect Neuro: No gross deficits HEENT: NC/AT Chest: Nontender to palpation. CV: RRR, Normal s1, s2. No murmurs appreciated Resp: Breath sounds clear bilaterally, no increased effort of breathing. Abdomen: Soft, nontender, nondistended. No guarding. No organomegaly appreciated. Extremities: No edema in lower extremities bilaterally. Principal Diagnosis Nausea and vomiting-resolved, use of medical marijuana, hematemesis-resolved and hemoglobin normal, first-degree AV block Discharge Exam Lying in bed comfortably Constitutional well developed, well nourished and average body habitus; not ill appearing Eyes PERRL, conjunctivae normal, anicteric sclerae Neck trachea midline, no thyromegaly Respiratory no respiratory distress Auscultation: lungs clear to auscultation bilaterally Cardiovascular Rate/Rhythm: regular rate and regular rhythm; not tachycardic Heart Sounds: normal S1 and normal S2; no murmur Extremities: no edema Gastrointestinal (Abdomen) Inspection/Auscultation: normal bowel sounds; abdomen not distended Percussion/Palpation: abdomen soft; abdomen nontender Neurologic normal touch/pain/proprioception and moves all extremities; no focal motor deficits Discharge Data Allergies Allergy/AdvReac Type Severity Reaction Status Date / Time Sulfa (Sulfonamide Allergy Intermediate itching, Verified 11/28/22 18:18 Antibiotics) hives sulfamethoxazole Allergy Intermediate itching, Verified 11/28/22 18:18 hives trimethoprim Allergy Intermediate itching, Verified 11/28/22 18:18 hives Consultations 03/05/23 18:16 ED Decision to Admit Stat Hospital Course (1) Nausea & vomiting: (2) Hypokalemia: (3) Cannabis abuse: (4) Synthetic cannabinoid abuse: (5) Hematemesis: (6) Bipolar disorder: (7) Hypothyroidism determined by thyroid function test: Plan Pt is a 27yoF with PMhx significant for recurrent UTIs, urolithiasis, Hodgkin's lymphoma status post chemoradiation, hypothyroidism, mood disorder admitted with significant hypokalemia after persistent N/V in the setting of synthetic marijuana/drug use. Progressive first-degree AV block She has a history of Hodgkin's lymphoma treated with 3 rounds of chemotherapy and 11 rounds of radiation treatment in 2018 No signs and or symptoms of infection Awaiting Lyme titer And surprisingly TSH was noted to be high-we will get free T4 level before restarting any medication Echocardiogram has been requested We will get a cardiology evaluation Nausea/Vomiting/Hypokalemia Pt presenting with multiple episodes of nausea and vomiting, episodes of hematemesis Toxicology screen positive for THC and there are reports that she uses synthetic marijuana States also using "K shot" from the drugstore, and has been trying to wean off of it Potassium level of 2.7, received 30mEq in the ED Ordered NSS with 20mEq KCl in the setting of N/V with hypokalemia Trend potassium with AM labs and replete further as needed. IV Reglan and zofran ordered prn for N/V Clinically much better today and does not have any more nausea and or vomiting Has been tolerating liquid diet and will advance as tolerated Electrolytes are unremarkable and potassium has been replaced Nausea vomiting and electrolyte imbalance resolved Hematemesis Given hematemesis noted (Gastric occult blood positive), protonix pushes ordered BID. Continue to monitor. Likely due to retching/frequent vomitting. Consider escalating care to GI if persistent. Hemoglobin remained stable We will monitor before she can be discharged in a day or 2 Hemoglobin remains stable and no more episodes of blood vomiting and or melena Hemoglobin is 12.7 as of 03/07/2023 Synthetic Drug Use Toxicology screen positive for THC and there are reports that she uses synthetic marijuana States also using "K shot" from the drugstore, and has been trying to wean off of it Pt agreeable to Addiction Medicine resources/assistance to help with discontinuing drug use Strongly advised to avoid any abuse of synthetic drugs We will give nicotine to prevent withdrawal from tobacco Mood disorder: Continue home latuda, trintellix, lamictal, gabapentin, buspar Hypothyroidism: Continue home levothyroxine CODE STATUS: Full code Diet: Regular DVT prophylaxis: Lovenox SQ (can discontinue once pt able to ambulate as tolerated) Dispo: Med/Surg with tele Total Time Total Time Spent Total Time Spent (In Minutes): 35 minutes Discharge Plan Discharge Items Patient Disposition: Home - Self-Care Reason For Visit: N / V Discharge Diagnosis: Nausea and vomiting-resolved, use of medical marijuana, hematemesis-resolved and hemoglobin normal, first-degree AV block Condition on Discharge: Good Activity: Resume your previous activity Non-emergency contact: Primary Care Provider Call non-emergency contact if: you have any medication questions and your symptoms worsen Follow-up/Referrals: Promise Chen DO [Primary Care Provider] - 03/13/23 1:20 pm (Date & Time 03/13/2023 1:20 PM Provider Promise Chen DO Department [facility] ) Diet: Regular Addtl Attending Provider Instructions: Please take precautions to avoid falls Use the medications as advised Give a follow-up appointment with the technologies division chair sooner than later Please give appointment with your healthcare provider No change in your current medication Pending Studies at Discharge: No Stand-Alone Forms: [employer], Smoking Cessation Medications and DC Order Prescriptions: Continued lamotrigine [Lamictal] 100 mg tablet 100 mg PO QAM Rx Instructions: TOTAL DOSE 400 MG--TAKES WITH 2-150 MG TABS. buspirone 30 mg tablet 30 mg PO BID Qty: 60 2RF lamotrigine 150 mg tablet 300 mg PO QAM Rx Instructions: TOTAL DOSE 400 MG--TAKES WITH 100 MG TAB. gabapentin 100 mg capsule 100 mg PO BID levothyroxine 75 mcg tablet 88 mcg PO QAM Rx Instructions: per spouse it's not 88 mcg instead of 75 mcg lurasidone [Latuda] 60 mg tablet 60 mg PO QPM Rx Instructions: must administer with food (at least 350 calories) Trintellix 20 mg Tablet 20 mg PO HS ondansetron 4 mg tablet,disintegrating 4 mg PO Q6H PRN (Reason: nausea and vomiting) Qty: 20 0RF Discharge Orders: Discharge Order (Routine); Ordered 03/07/23 Ordered By: Ernesto Alcala Admission Data Admit Date/Time: 03/05/23 18:48 Attending Provider: Ernesto Alcala Admit Provider: Emilia Victoria Primary Care Provider: Promise Chen Other Providers: Emilia Victoria Other Interventions: Discharge Summary Assessment (RN) Last Done: 03/07/23 17:15
[2023-03-08 09:02] LABS: Marijuana Quant, GCMS Urine 4867 ng/mL (<5)
--- NOTE | 2023-03-08 14:12 | Electrocardiogram Report ---
Test Reason : Blood Pressure : / mmHG Vent. Rate : 075 BPM Atrial Rate : 075 BPM P-R Int : 188 ms QRS Dur : 090 ms QT Int : 380 ms P-R-T Axes : 073 025 043 degrees QTc Int : 424 ms Normal sinus rhythm Possible Left atrial enlargement Borderline ECG When compared with ECG of 07-MAR-2023 07:28, WI interval has decreased Confirmed by Jose F Grady ([id number]) on 03/08/2023 2:12:28 PM Referred By: REFERRED SELF Confirmed By:Panda Grady
== END 2023-03-07 17:39 | disposition home or self-care (01) ==
LOC: ED 14:32 → 2N 14:32 → SUATTDRO 18:48 → 2N 20:07